=== PATIENT | female | born 1975 | race Native Hawaiian/Other Pacific Islander ===

== ENCOUNTER → 2016-11-10 | Outpatient (CLI) | payer OTHER ==
--- NOTE | 2016-11-11 07:56 | US ---
EXAMINATION TYPE: US kidneys/renal and bladder DATE OF EXAM: 11/10/2016 4:28 PM COMPARISON: NONE CLINICAL HISTORY: mid/low back pain. EXAM MEASUREMENTS: Right Kidney: 12.1 x 3.9 x 5.8 cm Left Kidney: 11.8 x 5.8 x 7.5 cm ANATOMY: TECHNOLOGIST IMPRESSION: morbidly obese patient limiting exam Right Kidney: No hydronephrosis or masses seen Left Kidney: No hydronephrosis or masses seen Bladder: within normal limits Bilateral Jets seen: yes There is no evidence for hydronephrosis at this point in time. No nephrolithiasis is seen. No ian s are identified. The urinary bladder is anechoic. Bilateral ureteral jets are seen. The kidneys appear morphologically normal IMPRESSION: Normal renal ultrasound. Normal Values: Renal Length = 9 - 12cm Bladder Wall: < 0.3cm
== END | disposition home or self-care (01) ==
LOC: RADUSWWP 16:09
PROVIDERS: ATTEND Family Medicine
DX: M54.5 Low back pain (principal)
CPT/HCPCS: 76770

== ENCOUNTER → 2017-09-22 | Outpatient (CLI) | payer OTHER ==
--- NOTE | 2017-09-22 09:47 | US ---
EXAMINATION TYPE: US abdomen limited DATE OF EXAM: 09/22/2017 COMPARISON: CT abdomen 09/22/2017 CLINICAL HISTORY: R10.11 RUQ abd pain. EXAM MEASUREMENTS: Liver Length: 21.5 cm Gallbladder Wall: 0.6 cm CBD: 0.3 cm Right Kidney: 13.8 x 4.6 x 5.7 cm Morbidly obese patient, technically difficult. Pancreas: partially obscured by bowel gas, portions visualized wnl Liver: Unable to penetrate, increased attenuation, decreased visualization of vessels suggestive of fatty infiltrate, enlarged Gallbladder: difficult to visualize appears small and contracted wall is somewhat thick, possible sl udge Evidence for sonographic Craig's sign: No CBD: wnl Right Kidney: portions of inferior pole and superior pole obscured by overlying bowel gas, no hydro identified and cortical medullary differentiation is maintained. There is no ascites. IMPRESSION: Hepatic steatosis, hepatomegaly. Exam is limited. Correlate to exclude cholecystitis, gal lbladder wall may be contracted, the wall is thickened. Difficult to exclude some luminal tumefactive sludge.
--- NOTE | 2017-09-22 10:46 | CT ---
EXAMINATION TYPE: CT abdomen wo con DATE OF EXAM: 09/22/2017 COMPARISON: NONE HISTORY: RUQ pain CT DLP: 1907.9 mGycm Automated exposure control for dose reduction was used. TECHNIQUE: Helical acquisition of images was performed from the lung bases through the top of iliac crest to include entire abdomen. CONTRAST: Performed without Oral Contrast and without IV contrast. FINDINGS: LUNG BASES: Subsegmental changes at the lung bases suggestive of atelectasis. LIVER/GB: There is reduced in attenuation correlate for hepatic steatosis. Area of increased density along the caridad hepatis likely related to focal fatty sparing. PANCREAS: No significant abnormality is seen. SPLEEN: No significant abnormality is seen. ADRENALS: No significant abnormality is seen. KIDNEYS: No significant abnormality is seen. BOWEL: No significant abnormality is seen. LYMPH NODES: No significant abnormality is appreciated. OSSEOUS STRUCTURES: Hypertrophic and degenerative changes noted.. FREE AIR: No free air is visualized. OTHER: Aorta of normal caliber. IMPRESSION: 1. Hepatic steatosis 2. No definite acute abnormality. If there is concern for gastric abnormality than direct visualizati on would be suggested as clinically warranted.
== END | disposition home or self-care (01) ==
LOC: RADCTMAIN 07:42
PROVIDERS: ATTEND Family Medicine
DX: K76.0 Fatty (change of) liver, not elsewhere classified (principal); R16.0 Hepatomegaly, not elsewhere classified
CPT/HCPCS: 74150; 76705

== ENCOUNTER → 2017-11-09 | Outpatient (CLI) | payer OTHER ==
--- NOTE | 2017-11-09 18:48 | NM ---
EXAMINATION TYPE: NM hepatobiliary w EF DATE OF EXAM: 11/09/2017 COMPARISON: NONE HISTORY: Abdominal pain TECHNIQUE: After the intravenous administration of 5.1 mCi Tc 99m Mebrofenin hepatobiliary scintigrap hy is performed. Immediate images post injection. FINDINGS: There is prompt uptake of the tracer by the liver that has normal size and contour. There is tracer i n the gallbladder at 8 minutes and tracer in the small bowel at 40 minutes. There is no evidence of d uctal obstruction. Tracers cleared from the liver at 60 minutes. The poststimulation images show gall bladder ejection fraction of 81% which is normal. IMPRESSION: Normal exam. Normal gallbladder ejection fraction.
== END | disposition home or self-care (01) ==
LOC: RADNMMAIN 14:48
PROVIDERS: ATTEND Family Medicine
DX: R10.84 Generalized abdominal pain (principal)
CPT/HCPCS: 78226; A9537

== ENCOUNTER 2018-01-04 07:30 | Day surgery (SDC) | payer OTHER ==
[2017-12-31 16:10] VITALS: BMI 57.6
[~2018-01-04 07:30] MED LIST: DEXAMETHASONE SOD PHOSPHATE 10 MG/ML 1 ML VIAL IV ONE; LACTATED RINGERS 1,000 ML IV SCH; ONDANSETRON 4 MG/2 ML VIAL IVP ONE; ONDANSETRON 4 MG/2 ML VIAL IVP PRN
[2018-01-04 07:42] VITALS: TEMP 98.2
[2018-01-04] MEDS ORDERED: LIDOCAINE 1% 20 ML VIAL (10MG/ML) FOR IV START INTRADERMA ONE (07:56)
[2018-01-04 08:00] LABS: Glucose,Whole Blood 110 mg/dL (75-99)
[2018-01-04] MEDS ORDERED: PROPOFOL 10 MG/ML 20 ML VIAL IV ONE (08:33)
[2018-01-04] MEDS ORDERED: LIDOCAINE 1% INJ 10MG/ML (20 ML MDV) ONE (08:33)
[2018-01-04] MEDS ORDERED: KETAMINE 10 MG/ML 20 ML VIAL ONE (08:33)
[2018-01-04] MEDS ORDERED: fentaNYL (PF) 50 MCG/ML 2 ML AMP ONE (08:33)
[2018-01-04 09:10] VITALS: RESP 16
--- NOTE | 2018-01-04 09:20 | P.PCN ---
Date of Procedure: 01/04/18 Procedure(s) Performed: Procedures: 1. Esophagogastroduodenoscopy and biopsy. 2. Total colonoscopy. Preoperative diagnosis: Epigastric and abdominal pain and change in bowel habits. Postoperative diagnosis: 1. Mild antral gastritis. 2. Normal colon exam. 3. Biopsies obtained from the duodenum, antrum and esophagus. Preparation: HalfLytely prep. Sedation: Was provided by anesthesia. Brief clinical history: The patient is a 42-year-old female who is referred for this evaluation because of epigastric and abdominal pain and issues with constipation over the last year or so. She denies nausea, vomiting or bleeding. Procedure: With the patient on her left lateral decubitus position and after informed consent and adequate sedation, I passed the Olympus-GIF 160 video upper endoscope through the cricopharyngeus down the esophagus. GE junction was around 40 cm from the incisors. There was no definite hiatal hernia. The esophagus did not show any erosions, ulcers, strictures or Philippe's esophagus. The endoscope was then passed into the stomach which was insufflated with air and inspected in detail including the retroflex view in the cardia. There was some mottling and erythema in the antrum but no ulcers or erosions. Pyloric channel, duodenal bulb, post bulbar area and descending duodenum appeared within normal limits. Because of her symptoms, I obtained biopsies from the duodenum, antrum and esophagus then the endoscope was withdrawn and I proceeded to do colonoscopy. Perianal area did not show any fissures or fistulas. There were no masses felt on digital rectal examination. The Olympus CFQ 160L video colonoscope was then inserted in the rectum in the usual fashion and advanced to the cecum. I intubated briefly the ileocecal valve and it did not show any abnormalities. The preparation of the colon was less than ideal but there was no obvious abnormalities noted. I retroflexed the endoscope in the rectum before the endoscope was withdrawn. The patient tolerated the procedure well. Plan: The patient was reassured. Will await pathology results and make further plans based on her course and biopsy results. She will follow-up with you as planned and I will be happy to see in the office of his symptoms persist.
[2018-01-04 09:30] VITALS: BP 124/77; PULSE 96
== END 2018-01-04 10:14 | disposition home or self-care (01) ==
LOC: ORWHC2ENDO 07:30
DX: K59.00 Constipation, unspecified (principal); K29.50 Unspecified chronic gastritis without bleeding; E11.9 Type 2 diabetes mellitus without complications; Z79.4 Long term (current) use of insulin; I10 Essential (primary) hypertension; E66.01 Morbid (severe) obesity due to excess calories; Z68.43 Body mass index [BMI] 50.0-59.9, adult; Z79.891 Long term (current) use of opiate analgesic; Z79.899 Other long term (current) drug therapy
CPT/HCPCS: 88305; 88342; 45378; 43239; J2001; J3010; J2704

== ENCOUNTER → 2019-01-11 | Outpatient (CLI) | payer OTHER ==
--- NOTE | 2019-01-11 17:55 | ECHOF ---
Referral Reason:R06.02 Shotness of breath, Ankle edema R60.0 MEASUREMENTS -------- HEIGHT: 157.5 cm WEIGHT: 154.2 kg BP: RVIDd: 3.0 cm (< 3.3) IVSd: 1.5 cm (0.6 - 1.1) LVIDd: 4.0 cm (3.9 - 5.3) LVPWd: 1.5 cm (0.6 - 1.1) IVSs: 1.9 cm LVIDs: 2.4 cm LVPWs: 1.9 cm LAESV Index (A-L): 18.77 ml/m Ao Diam: 3.2 cm (2.0 - 3.7) AV Cusp: 1.7 cm (1.5 - 2.6) LA Diam: 4.4 cm (2.7 - 3.8) MV EXCURSION: 16.399 mm (> 18.000) MV EF SLOPE: 47 mm/s (70 - 150) EPSS: 0.4 cm MV E Wilmar: 0.80 m/s MV DecT: 251 ms MV A Wilmar: 1.47 m/s MV E/A Ratio: 0.54 RAP: 5.00 mmHg RVSP: 11.16 mmHg FINDINGS -------- Sinus rhythm. This was a technically difficult study with suboptimal views. The left ventricular size is normal. There is moderate concentric left ventricular hypertrophy. O verall left ventricular systolic function is normal with, an EF between 55 - 60 %. The right ventricle is normal in size and function. Normal LA size by volume 22+/-6 ml/m2. The right atrium is normal in size. 3 ml of Lumason was utilized for enhancement of images. The aortic valve is trileaflet, and appears structurally normal. No aortic stenosis or regurgitation. The mitral valve leaflets are mildly thickened. There is trace to mild mitral regurgitation. Trace tricuspid regurgitation present. Right ventricular systolic pressure is normal at < 35 mmHg. There is no evidence of pulmonary hypertension. The pulmonic valve was not well visualized. The aortic root size is normal. IVC Not well visulized. There is no pericardial effusion. CONCLUSIONS -------- 1. Sinus rhythm. 2. This was a technically difficult study with suboptimal views. 3. The left ventricular size is normal. 4. There is moderate concentric left ventricular hypertrophy. 5. Overall left ventricular systolic function is normal with, an EF between 55 - 60 %. 6. Normal LA size by volume 22+/-6 ml/m2. 7. 3 ml of Lumason was utilized for enhancement of images. 8. The aortic valve is trileaflet, and appears structurally normal. No aortic stenosis or regurgitati on. 9. The mitral valve leaflets are mildly thickened. 10. There is trace to mild mitral regurgitation. 11. Trace tricuspid regurgitation present. 12. Right ventricular systolic pressure is normal at < 35 mmHg. 13. There is no evidence of pulmonary hypertension. 14. The pulmonic valve was not well visualized. 15. The aortic root size is normal. 16. IVC Not well visulized. 17. There is no pericardial effusion. DEV TECHNICAL MGR: Melecio Amaro RDCS
== END | disposition home or self-care (01) ==
LOC: RADECHMAIN 08:29
PROVIDERS: ATTEND Family Medicine
DX: I34.0 Nonrheumatic mitral (valve) insufficiency (principal); I51.7 Cardiomegaly; R60.0 Localized edema
CPT/HCPCS: C8929; Q9950; 93306

== ENCOUNTER → 2020-12-06 | Outpatient (CLI) | payer OTHER | END | disposition home or self-care (01) | LOC: LABWHC1 16:51 | PROVIDERS: ATTEND Family Medicine | DX: J06.9 Acute upper respiratory infection, unspecified (principal) | CPT/HCPCS: U0003; C9803 ==

== ENCOUNTER → 2022-04-10 | Outpatient (CLI) | payer OTHER ==
--- NOTE | 2022-04-11 04:38 | MR ---
EXAMINATION TYPE: MR knee RT wo con DATE OF EXAM: 04/10/2022 COMPARISON: None HISTORY: Right knee pain, locking, and swelling for 4 months due to fall, history of surgery. Multiplanar multi echo imaging of the right knee without contrast. There is knee joint effusion. There is some narrowing of the medial joint space. There is spurring of the femoral and tibial condyles. There is previous reconstructive surgery. There is metal artifact. The posterior cruciate ligament is intact. Anterior cruciate ligament is probably reconstructed and a ppears intact. The patella tendon is intact there is some thinning of the medial meniscus. There is e xtensive complex tear of the lateral meniscus with thinning. There is abnormal increased signal in th e medial collateral ligament. Lateral collateral ligament appears intact. IMPRESSION: Anterior cruciate ligament reconstructive surgery. There is evidence of a tear of the medial collater al ligament. There is extensive complex tear of the lateral meniscus. There is hypertrophic osteoarth ritis with joint space narrowing and spurring of the femoral and tibial condyles. There is a tear of the posterior horn of the medial meniscus which shows some truncation and horizontal tear. Small joint effusion.
== END | disposition home or self-care (01) ==
LOC: RADMRIMAIN 18:58
PROVIDERS: ATTEND Orthopaedic Surgery
DX: S83.411A Sprain of medial collateral ligament of right knee, initial encounter (principal); S83.271A Complex tear of lateral meniscus, current injury, right knee, initial encounter; M25.461 Effusion, right knee; M17.11 Unilateral primary osteoarthritis, right knee; X58.XXXA Exposure to other specified factors, initial encounter

== ENCOUNTER → 2022-04-29 | Outpatient (CLI) | payer OTHER ==
[2022-04-29 16:01] VITALS: BP 142/82; PULSE 85; TEMP 98.5; BMI 56.3
--- NOTE | 2022-04-29 16:41 | P.HPBAR ---
Bariatric H&P - History & Physicial H&P Date: 04/29/22 History & Physicial: Visit/CC: new patient Patient initial contact: Initial weight: Initial weight in pounds: Height: 5 ft 3 in Initial BMI: Last weight: Current weight: 144.242 kg Current weight in pounds: 318.00 Current BMI: 56.3 [place] body weight (based on NIH guidelines): 52.163 kg Excess body weight loss: The patient is a 46 year-old F who presents for Bariatric Assessment. She is looking into gastrectomy. All family but father has obesity. She has tried weight watchers and pills. Most weight loss of 40 pounds. She was 343 pounds. She has lower back pain. She has knee pain. She has ankle pain. She has foot pain. She has sleep apnea. She has constipation. No IBS in family. She is under medical supervised weight. Colon screen is recommend. All risks. Past Medical History Past Medical History: Diabetes Mellitus, Hypertension Additional Past Medical History / Comment(s): CURRENT: MID BACK PAIN, RIGHT SIDE. INSULIN DEPENDENT. History of Any Multi-Drug Resistant Organisms: None Reported Past Surgical History: Section, Hysterectomy, Orthopedic Surgery Additional Past Surgical History / Comment(s): CARPAL TUNNEL BILATERAL. ABSCESS ON ABD (I & D, PACKING) @ [facility] (CAN'T REMEMBER CULTURE RESULTS). Right knee surgery x 2 Past Anesthesia/Blood Transfusion Reactions: No Reported Reaction Past Psychological History: No Psychological Hx Reported Smoking Status: Never smoker Past Alcohol Use History: Rare Past Drug Use History: None Reported Surgical - Exam Vital Signs Temp Pulse BP 98.5 F 85 142/82 04/29/22 15:50 04/29/22 15:50 04/29/22 15:50 Bariatric Checklist Checklist: Plan: Checklist: EGD: 1. Hiatal hernia: 2. H. Pylori: HgbA1c: Vitamin D: Smoking: Never smoker Primary care physician referral: Dr. Hernandez Psychiatry clearance: Cardiology clearance: Sleep study: Diet journal: VTE risk score: VTE risk level: Rehab needs at discharge:
== END | disposition home or self-care (01) ==
LOC: BARWHC3 14:45
PROVIDERS: ATTEND Surgery Plastic and Reconstructive Surgery
DX: Z48.815 Encounter for surgical aftercare following surgery on the digestive system (principal)
CPT/HCPCS: 99212

== ENCOUNTER → 2022-04-30 | Outpatient (CLI) | payer OTHER ==
[2022-04-30 13:17] LABS: INR 0.9 (<1.2); Partial Thromboplastin Time 25.9 sec (22.0-30.0); Prothrombin Time 10.3 sec (9.0-12.0)
[2022-04-30 18:36] LABS: HCT 48.5 % (37.2-46.3); HGB 15.1 g/dL (12.0-15.0); MCH 27.5 pg (27.0-32.0); MCHC 31.1 g/dL (32.0-37.0); MCV 88.2 fL (80.0-97.0); Mean Platelet Volume 10.1 fL (9.5-12.2); NRBC Per 100 WBC 0 /100 WBCS (0.0-0.0); Platelet Count 369 X 10*3/uL (140-440); RDW 14.3 % (11.5-14.5); WBC 9.69 X 10*3/uL (4.50-10.00)
[2022-04-30 19:01] LABS: % Iron Saturation 16.85 (12.00-45.00); ALT 32 U/L (8-44); AST 20 U/L (13-35); African American GFR (CKD) 125.2 (60.0-200.0); Albumin 4.3 g/dL (3.8-4.9); Albumin/Globulin Ratio 1.57 (1.60-3.17); Alkaline Phosphatase 109 U/L (41-126); BUN/Creat Ratio 28.93 Ratio (12.00-20.00); Blood Urea Nitrogen 18.4 mg/dL (9.0-27.0); Calcium 9.6 mg/dL (8.7-10.3); Carbon Dioxide 26.8 mmol/L (20.0-27.5); Chloride 103 mmol/L (96-109); Globulin 2.8 g/dL (1.6-3.3); Glucose 133 mg/dL (70-110); Iron 61 ug/dL (50-170); Magnesium 2.1 mg/dL (1.5-2.4); Phosphorus 3.4 mg/dL (2.4-5.1); Potassium 4.1 mmol/L (3.5-5.5); Sodium 141 mmol/L (135-145); Total Iron Binding Capacity 363 ug/dL (228-460); Total Protein 7.1 g/dL (6.2-8.2)
[2022-04-30 19:04] LABS: Chol/HDL Ratio 4.78 Ratio; LDL Cholesterol,Calculated 125.4 mg/dL (0.0-131.0); Prealbumin 20.5 mg/dL (18.0-42.0)
[2022-05-01 15:39] LABS: Zinc, Serum 55 ug/dL (60-130)
[2022-05-04 08:26] LABS: Anabasine Urine <2.0 ng/mL (<2.0)
[2022-05-04 14:11] LABS: Vit B1(Thiamine) 127 ug/L (38-122)
[2022-05-05 10:10] LABS: Vitamin A 43 ug/dL (38-106)
[2022-05-05 17:59] LABS: Selenium 153 mcg/L (63-160)
== END | disposition home or self-care (01) ==
LOC: LABWHC1 11:41
PROVIDERS: ATTEND Surgery Plastic and Reconstructive Surgery
DX: E66.01 Morbid (severe) obesity due to excess calories (principal)
CPT/HCPCS: 84255; 84134; 84425; 80061; 80053; 82607; 82728; 82525; 82746; 83540; 83550; 83735; 84100; 84443; 84590; 84630; 85027; 85610; 85730; 82306; 83970; 83036; 93005; 36415; G0480 ×3; 80307; 80320; 80323; 80364

== ENCOUNTER 2022-08-21 11:39 | Day surgery (SDC) | payer OTHER ==
--- NOTE | 2022-08-20 12:03 | P.HPOR ---
History of Present Illness H&P Date: 08/20/22 Chief Complaint: Right knee pain The patient is a 47-year-old female who presents with right knee pain for the past 6 months. She notes she's had multiple falls. She notes the knee gives out and feels unstable. She has intermittent swelling along with locking and giving way. She tried medications in addition to an injection partial temporary relief. She notes daily pain that limits her. Review of Systems As per HPI Past Medical History Past Medical History: Diabetes Mellitus, Hyperlipidemia, Hypertension Additional Past Medical History / Comment(s): CURRENT: MID BACK PAIN, RIGHT SIDE. INSULIN DEPENDENT. Rt hand carpal tunnel issues and rt trigger finger issues History of Any Multi-Drug Resistant Organisms: None Reported Past Surgical History: Section, Hysterectomy, Orthopedic Surgery Additional Past Surgical History / Comment(s): CARPAL TUNNEL BILATERAL. ABSCESS ON ABD (I & D, PACKING) @ [facility] (CAN'T REMEMBER CULTURE RESULTS). Right knee surgery(ACL reconstruction) x 2, COLONOSCOPY Past Anesthesia/Blood Transfusion Reactions: No Reported Reaction Smoking Status: Never smoker - Past Family History Mother Family Medical History: Cancer Medications and Allergies Home Medications Medication Instructions Recorded Confirmed Type Losartan Potassium 100 mg PO QAM 12/17/17 08/19/22 History Atorvastatin Calcium 10 mg PO DAILY 04/29/22 08/19/22 History Dapagliflozin/Metformin HCl 1 tab PO DAILY 04/29/22 08/19/22 History [Xigduo Xr 10 mg-1,000 mg Tab] Dulaglutide [Trulicity] 4.5 mg SQ ROMAN 04/29/22 08/19/22 History Furosemide [Lasix] 40 mg PO BID 04/29/22 08/19/22 History Insulin Regular, Human [humulin R See Protocol SQ DIRECTED PRN 04/29/22 08/19/22 History U-500 Kwikpen] Spironolactone 25 mg PO DAILY 04/29/22 08/19/22 History buPROPion [Wellbutrin] 75 mg PO DAILY 06/11/22 08/19/22 History HYDROcodone/APAP 5-325MG [Carman 1 tab PO Q12HR PRN 08/19/22 08/19/22 History 5-325] lamoTRIgine 200 mg PO DAILY 08/19/22 08/19/22 History Allergies Allergy/AdvReac Type Severity Reaction Status Date / Time No Known Allergies Allergy Verified 08/19/22 11:32 Physical Examination - Knee right Appearance: ecchymosis Effusion grade: grade 2 Tenderness with palpation: medial, lateral Pain: with flexion Gait: limping ROM: extension: -10 degrees ROM: flexion: 65 degrees Strength: extension: 5/5 Strength: flexion: 5/5 ACL tests: anterior drawer: grade 1, Tj's: grade 1 Results The patient is a well-developed well-nourished female proximal and 5 foot 2, 318 pounds of endomorphic habitus. HEENT exam is nonfocal, neck is supple. She has painless passive motion of the right hip. Straight leg raise is negative. Her distal neurovascular appears intact in the right lower extremity. - Diagnostic results Knee MRI: image reviewed (Right knee MRI shows evidence of complex tear involving the posterior horn lateral meniscus along with a tear involving the posterior medial meniscus. Previous ACL reconstruction is noted) Assessment and Plan Assessment: Right knee internal derangement/symptomatic medial and lateral meniscal tears History of right knee ACL reconstruction Obesity Plan: I talked to the patient regarding her condition along with treatment options. At this point she is quite symptomatic having pain and mechanical symptoms despite previous conservative measures. After thorough discussion she opted to proceed with surgery. We'll plan to proceed arthroscopic evaluation with enrique rios partial medial and lateral meniscectomy. We will evaluate her ACL graft, however not consider revision reconstruction at this point. We will likely perform this as an outpatient procedure. Risks and benefits were discussed at length in layman's terms. Time with Patient: Less than 30
[~2022-08-21 11:39] MED LIST changes: -DEXAMETHASONE SOD PHOSPHATE 10 MG/ML 1 ML VIAL IV ONE; +DEXAMETHASONE SOD PHOSPHATE 4 MG/ML 1 ML VIAL IV ONE; +HYDROmorphone 0.5 MG/0.5 ML SYRINGE IVP PRN; +MIDAZOLAM 2 MG/2 ML VIAL IV PRN; -ONDANSETRON 4 MG/2 ML VIAL IVP PRN; +SCOPOLAMINE 1 MG/72 HR PATCH TRANSDERM ONE; +ceFAZolin 3 GM in SODIUM CHLORIDE 0.9% 100 ML IVPB PRN
[2022-08-21 12:39] LABS: Glucose,Whole Blood 212 mg/dL (70-110)
[2022-08-21] MEDS ORDERED: MIDAZOLAM 2 MG/2 ML VIAL ONE (13:00)
[2022-08-21] MEDS ORDERED: PROPOFOL 10 MG/ML 20 ML VIAL IV ONE (13:00)
[2022-08-21] MEDS ORDERED: ALBUTEROL INHALER 60 PUFF/8 GM INHALER (MHU) INHALATION ONE (13:00)
[2022-08-21] MEDS ORDERED: fentaNYL (PF) 50 MCG/ML 2 ML AMP ONE (13:00)
[2022-08-21] MEDS ORDERED: SUCCINYLCHOLINE CHLORIDE 200 MG/10 ML VIAL IV ONE (13:00)
[2022-08-21] MEDS ORDERED: LIDOCAINE 2% INJ 20 MG/ML (2 ML VIAL) ONE (13:00)
[2022-08-21] MEDS ORDERED: HYDROmorphone (PF) 1 MG/ML ONE (13:00)
--- NOTE | 2022-08-21 13:56 | P.OP ---
Date of Procedure: 08/21/22 Preoperative Diagnosis: Right knee internal derangement Postoperative Diagnosis: Right knee posterior medial meniscal tear/posterior lateral meniscal tear/partial ACL tear Procedure(s) Performed: Right knee arthroscopic partial medial meniscectomy/partial lateral meniscectomy/ACL debridement Anesthesia: BAYLEEA Surgeon: Dash Aragon Estimated Blood Loss (ml): 10 Pathology: none sent Condition: stable Disposition: PACU Indications for Procedure: The patient's a 47-year-old female who presents with progressive right knee pain after recent injury despite attempted conservative measures. A discussion of the risks and benefits of operative intervention versus continued conservative measures was made with patient. She opted to proceed with surgery. Operative risks to include infection, neurovascular injury, development of blood clots, possible incomplete resolution of symptoms, possible worsening symptoms and need for subsequent procedures was discussed. Informed consent was obtained. Operative Findings: As below Description of Procedure: The patient was brought to the operating room, and after induction of general anesthesia examined the right knee. Collaterals were stable, Tj was negative, and posterior drawer was negative. The right lower extremity was prepped and draped in a normal fashion. A superior lateral portal was made through a 3 mm skin incision superior and lateral to the patella. This was used for outflow. A lateral portal was made through a 5 mm vertical skin incision lateral to the patella tendon above the joint line. Diagnostic arthroscopy was performed. On inspection of the medial compartment, oblique tear involving the posterior horn of the medial meniscus in the white-red junction was noted. This was debrided back to stable base with straight baskets and a motorized shaver. Grade 2-3 chondral changes were noted diffusely in the medial compartment. On inspection of the notch, the anterior cruciate ligament appeared to be partially torn. The torn fibers were debrided with motorized shaver. The remaining graft appeared to be stable. On inspection of the lateral compartment, a complex tear involving the anterior to posterior horn was noted. This was in the whitered junction. This debrided back to stable base with straight baskets and a motorized shaver. Corresponding grade 3 chondral changes were noted diffusely in the lateral compartment. On inspection of the patellofemoral articulation there was grade 2-3 chondral changes.. The gutters were clear debris. The knee was then thoroughly irrigated. The portals were closed with Steri-Strips. A sterile dressing was applied in addition to a compression stocking. The patient was awoken from general anesthesia and transferred to recovery room in good condition. Blood loss was estimated at 10 mL. No complications were incurred.
[2022-08-21 14:13] VITALS: TEMP 97.2
[2022-08-21 16:33] VITALS: BP 145/85; PULSE 80; RESP 20
== END 2022-08-21 16:25 | disposition home or self-care (01) ==
LOC: OR 11:39
PROVIDERS: ATTEND Orthopaedic Surgery
DX: S83.241A Other tear of medial meniscus, current injury, right knee, initial encounter (principal); S83.281A Other tear of lateral meniscus, current injury, right knee, initial encounter; S83.511A Sprain of anterior cruciate ligament of right knee, initial encounter; M23.91 Unspecified internal derangement of right knee; E11.9 Type 2 diabetes mellitus without complications; E78.5 Hyperlipidemia, unspecified; I10 Essential (primary) hypertension; Z79.4 Long term (current) use of insulin; Z79.890 Hormone replacement therapy; Z79.899 Other long term (current) drug therapy; E66.9 Obesity, unspecified
CPT/HCPCS: 29880; J2250; J0330; J1100; J0690; J2405; J3010; J1170 ×2; J2704; J2001

== ENCOUNTER 2022-10-07 07:07 | Day surgery (SDC) | payer OTHER ==
[2022-10-05 13:47] VITALS: BMI 55.4
[2022-10-07] MEDS ORDERED: LIDOCAINE 1% (10MG/ML) FOR IV START INTRADERMA PRN (07:25)
[2022-10-07] MEDS ORDERED: LACTATED RINGERS 1,000 ML IV SCH (07:25)
[2022-10-07 07:34] VITALS: RESP 20; TEMP 97.3
[2022-10-07] MEDS ORDERED: LIDOCAINE 2% INJ 20 MG/ML (2 ML VIAL) ONE (07:41)
[2022-10-07] MEDS ORDERED: GLYCOPYRROLATE 0.2 MG/ML 2 ML VIAL ONE (07:41)
[2022-10-07] MEDS ORDERED: KETAMINE 10 MG/ML 20 ML VIAL ONE (07:41)
[2022-10-07] MEDS ORDERED: PROPOFOL 10 MG/ML 20 ML VIAL IV ONE (07:41)
[2022-10-07 07:45] LABS: Glucose,Whole Blood 181 mg/dL (70-110)
--- NOTE | 2022-10-07 07:45 | P.GSHP ---
History of Present Illness H&P Date: 10/07/22 CHIEF COMPLAINT: GERD HISTORY OF PRESENT ILLNESS: The patient is a 47-year-old female who presents reports gastroesophageal reflux disease. Upper endoscopy was offered for further evaluation and management. PAST MEDICAL HISTORY: Please see list. PAST SURGICAL HISTORY: Please see list. MEDICATIONS: Please see list. ALLERGIES: Please see list. SOCIAL HISTORY: No illicit drug use FAMILY HISTORY: No reports of Crohn disease or ulcerative colitis. REVIEW OF ORGAN SYSTEMS: CONSTITUTIONAL: No reports of fevers or chills. GI: Denies any blood in stools or constipation. PHYSICAL EXAM: VITAL SIGNS: Stable GENERAL: Well-developed and pleasant in no acute distress. HEENT: No scleral icterus. Extraocular movements grossly intact. Moist buccal mucosa. NECK: Supple without lymphadenopathy. CHEST: Unlabored respirations. Equal bilateral excursions. CARDIOVASCULAR: Regular rate and rhythm. Distal 2+ pulses. ABDOMEN: Soft, nondistended. MUSCULOSKELETAL: No clubbing, cyanosis, or edema. ASSESSMENT: 1. Gastroesophageal reflux disease PLAN: 1. Recommend proceeding with an upper endoscopy Past Medical History Past Medical History: Diabetes Mellitus, Hyperlipidemia, Hypertension Additional Past Medical History / Comment(s): CURRENT: MID BACK PAIN, RIGHT SIDE. INSULIN DEPENDENT. History of Any Multi-Drug Resistant Organisms: None Reported Past Surgical History: Section, Hysterectomy, Orthopedic Surgery Additional Past Surgical History / Comment(s): CARPAL TUNNEL BILATERAL. ABSCESS ON ABD (I & D, PACKING) @ [facility] (CAN'T REMEMBER CULTURE RESULTS). Right knee surgery x 2, COLONOSCOPY Past Anesthesia/Blood Transfusion Reactions: No Reported Reaction Past Psychological History: No Psychological Hx Reported - Past Family History Mother Family Medical History: Cancer Medications and Allergies Home Medications Medication Instructions Recorded Confirmed Type Losartan Potassium 100 mg PO QAM 12/17/17 10/07/22 History Dapagliflozin/Metformin HCl 1 tab PO DAILY 04/29/22 10/07/22 History [Xigduo Xr 10 mg-1,000 mg Tab] Dulaglutide [Trulicity] 4.5 mg SQ ROMAN 04/29/22 10/07/22 History Furosemide [Lasix] 40 mg PO BID 04/29/22 10/07/22 History Insulin Regular, Human [humulin R 70 unit SQ BID 04/29/22 10/07/22 History U-500 Kwikpen] buPROPion [Wellbutrin] 75 mg PO DAILY 06/11/22 10/07/22 History lamoTRIgine 200 mg PO DAILY 08/19/22 10/07/22 History Diclofenac Sodium [Voltaren] 75 mg PO DAILY 10/05/22 10/07/22 History Montelukast [Singulair] 10 mg PO DAILY 10/05/22 10/07/22 History Allergies Allergy/AdvReac Type Severity Reaction Status Date / Time No Known Allergies Allergy Verified 10/07/22 07:39 Surgical - Exam Vital Signs Temp Pulse Resp BP Pulse Ox 97.3 F L 86 20 158/81 96 10/07/22 07:31 10/07/22 07:31 10/07/22 07:31 10/07/22 07:31 10/07/22 07:31
--- NOTE | 2022-10-07 08:01 | P.PCN ---
Date of Procedure: 10/07/22 Description of Procedure: PREOPERATIVE DIAGNOSIS: Gastroesophageal reflux disease. Morbid obesity. POSTOPERATIVE DIAGNOSIS: Gastroesophageal reflux disease. Morbid obesity. Gastritis. Gastroparesis Duodenitis OPERATION: Esophagogastroduodenoscopy with biopsies along antrum and duodenum SURGEON: Mercedes Dubon MD ANESTHESIA: MAC. INDICATIONS: The patient is a 47-year-old female who presents with reflux disease. Benefits and risks of the procedure were described. Informed consent was obtained. DESCRIPTION: The patient was brought into the endoscopy suite and laid in the left lateral decubitus position. An Olympus gastroscope was passed along the posterior oropharynx down to the distal esophagus where the squamocolumnar junction was encountered at 40 cm from the incisors. The stomach was entered and no bile reflux was found. Additional findings are listed below. Biopsies with cold forceps were obtained of the antrum. The first through third portion of the duodenum was examined. Retroflexion of the scope confirmed Hill grade 2 lower esophageal valve. The squamocolumnar junction demonstrated LA grade B erosive esophagitis. The stomach was desufflated. The patient tolerated the procedure well. FINDINGS: Squamocolumnar junction 39 cm from the incisors. Diaphragmatic hiatus at 39 cm. Retained food along the gastric cardia for gastroparesis Moderate tonsillar hypertrophy, Mallampati 3/4 Hill grade 2 lower esophageal valve. LA grade B erosive esophagitis. Duodenitis with biopsies obtained Chronic gastritis with biopsies obtained RECOMMENDATIONS: Upper endoscopy as needed. Plan - Discharge Summary Discharge Rx Participant: No New Discharge Prescriptions: Continue Losartan Potassium 100 mg PO QAM Dapagliflozin/Metformin HCl [Xigduo Xr 10 mg-1,000 mg Tab] 1 tab PO DAILY Dulaglutide [Trulicity] 4.5 mg SQ ROMAN lamoTRIgine 200 mg PO DAILY Diclofenac Sodium [Voltaren] 75 mg PO DAILY Furosemide [Lasix] 40 mg PO BID Insulin Regular, Human [humulin R U-500 Kwikpen] 70 unit SQ BID buPROPion [Wellbutrin] 75 mg PO DAILY Montelukast [Singulair] 10 mg PO DAILY Discharge Medication List Losartan Potassium 100 mg PO QAM 12/17/17 [History] Dapagliflozin/Metformin HCl [Xigduo Xr 10 mg-1,000 mg Tab] 1 tab PO DAILY 04/29/22 [History] Dulaglutide [Trulicity] 4.5 mg SQ ROMAN 04/29/22 [History] Furosemide [Lasix] 40 mg PO BID 04/29/22 [History] Insulin Regular, Human [humulin R U-500 Kwikpen] 70 unit SQ BID 04/29/22 [History] buPROPion [Wellbutrin] 75 mg PO DAILY 06/11/22 [History] lamoTRIgine 200 mg PO DAILY 08/19/22 [History] Diclofenac Sodium [Voltaren] 75 mg PO DAILY 10/05/22 [History] Montelukast [Singulair] 10 mg PO DAILY 10/05/22 [History] Follow up [facility]ment[facility] [place] [facility] Patient Instructions/Handouts: Gastroparesis (ED) Discharge Disposition: HOME SELF-CARE
[2022-10-07 08:16] VITALS: BP 174/74; PULSE 90
[2022-10-07 08:19] LABS: Glucose,Whole Blood 183 mg/dL (70-110)
== END 2022-10-07 08:59 | disposition home or self-care (01) ==
LOC: ORWHC2ENDO 07:07
PROVIDERS: ATTEND Surgery Plastic and Reconstructive Surgery
DX: K29.50 Unspecified chronic gastritis without bleeding (principal); D72.820 Lymphocytosis (symptomatic); K21.9 Gastro-esophageal reflux disease without esophagitis; E11.43 Type 2 diabetes mellitus with diabetic autonomic (poly)neuropathy; K31.84 Gastroparesis; K29.80 Duodenitis without bleeding; E66.01 Morbid (severe) obesity due to excess calories; E78.5 Hyperlipidemia, unspecified; I10 Essential (primary) hypertension; Z79.891 Long term (current) use of opiate analgesic; Z90.710 Acquired absence of both cervix and uterus; Z98.890 Other specified postprocedural states; Z79.899 Other long term (current) drug therapy; Z79.84 Long term (current) use of oral hypoglycemic drugs; Z79.1 Long term (current) use of non-steroidal anti-inflammatories (NSAID); Z68.41 Body mass index [BMI] 40.0-44.9, adult
CPT/HCPCS: 88305; 43239; J2704; J2001

== ENCOUNTER → 2022-10-19 | Outpatient (CLI) | payer OTHER ==
--- NOTE | 2022-10-19 10:45 | XR ---
EXAMINATION TYPE: XR chest 1V DATE OF EXAM: 10/19/2022 COMPARISON: NONE HISTORY: Sleep apnea TECHNIQUE: Single frontal view of the chest is obtained. FINDINGS: There is no focal air space opacity, pleural effusion, or pneumothorax seen. The cardiac silhouette size is within normal limits. The osseous structures are intact. Hypertrophic degenerati ve change of the spine. Biapical pleural thickening. Limited inspiration. IMPRESSION: No acute process.
[2022-10-19 11:10] VITALS: BMI 55.7
== END ==
LOC: BARWHC3 08:23
PROVIDERS: ATTEND Surgery Plastic and Reconstructive Surgery
DX: E66.01 Morbid (severe) obesity due to excess calories (principal)
CPT/HCPCS: 71045; 97804

== ENCOUNTER → 2023-01-04 | Outpatient (CLI) | payer OTHER ==
[2023-01-04 10:38] VITALS: BP 137/84; PULSE 80; TEMP 98.8; BMI 50.5
== END ==
LOC: BARWHC3 10:14
PROVIDERS: ATTEND Surgery Plastic and Reconstructive Surgery
DX: E66.01 Morbid (severe) obesity due to excess calories (principal); Z68.43 Body mass index [BMI] 50.0-59.9, adult
CPT/HCPCS: 97802; G0463; 99211

== ENCOUNTER → 2023-01-27 | Outpatient (CLI) | payer OTHER ==
[2023-01-27 15:13] VITALS: BP 135/84; PULSE 78; TEMP 97.7; BMI 47.9
--- NOTE | 2023-04-11 19:07 | P.BASOAP ---
Subjective Progress Note Date: 01/27/23 DATE OF SERVICE: 01/27/2023 CHIEF COMPLAINT: Status post sleeve gastrectomy HISTORY OF PRESENT ILLNESS: Emilee Jennings is a 47-year-old female status post sleeve gastrectomy, 12/28/22. Immediately postoperatively, she had diabetic ketoacidosis. She is 1 month out. No abdominal pain. She is using gas-x. She is back on increased diabetic medications. She has epigastric fullness. Protein intake is less than 75 g daily. She is not using her maternal. At height of 5 feet 3 inches, her ideal body weight is 140 pounds. Her highest weight is 343 pounds, body mass index 60.9. She comes in 270 pounds from 279 pounds, 2 weeks ago. Her body mass index is 48.0. She is 130 pounds overweight. PHYSICAL EXAM: VITAL SIGNS: Height 5 foot 3 inches, weight 317 pounds. BMI 56.3 Vital Signs Temp 97.7 F 01/27/23 15:05 Pulse 78 01/27/23 15:05 Resp BP 135/84 01/27/23 15:05 Pulse Ox FiO2 GENERAL: Well-developed in no acute distress. HEENT: No scleral icterus. Extraocular movements grossly intact. Hears conversational speech. No nasal drainage. NECK: Supple without lymphadenopathy. CHEST: Nonlabored respirations with equal bilateral excursions. CARDIOVASCULAR: Regular rate and regular rhythm. Distal 2+ pulses. ABDOMEN: Obese, soft, nontender, nondistended. No hernias. MUSCULOSKELETAL: No clubbing, cyanosis. NEURO: No focal or lateralizing signs. Cranial nerves 2 through 12 grossly within normal limits. PSYCH: Appropriate affect. Alert and oriented to person, place and time. SKIN: Good skin turgor. Well perfused. ASSESSMENT: 1. Morbid obesity due to excess calories 2. Body mass index to 60.9 to 48.0 3. Hypertensive heart disease 4. Diabetes type 2 insulin-dependent 5. Hyperlipidemia 6. Depressive disorder 7. Osteoarthritis lower back 8. Osteoarthritis knee, bilateral 9. Osteoarthritis ankle, bilateral 10. Osteoarthritis feet, bilateral 11. Obstructive sleep apnea 12. Status post sleeve gastrectomy 13. History of diabetic ketoacidosis, hyperglycemia PLAN: 1. Tight glycemic control advised 2. Recommend bariatric labs 3. Follow 3 months postop, March 2023 Assessment/Plan Plan: Date: Initial Weight: Initial BMI: Current Weight: Current BMI: Type of Surgery: Total Volume in Band: Previous Volume: Volume Removed: Volume Added: Band Size:
== END ==
LOC: BARWHC3 13:46
PROVIDERS: ATTEND Surgery Plastic and Reconstructive Surgery
DX: E66.01 Morbid (severe) obesity due to excess calories (principal); Z71.3 Dietary counseling and surveillance; Z98.84 Bariatric surgery status; Z79.4 Long term (current) use of insulin; F32.A Depression, unspecified; F41.9 Anxiety disorder, unspecified; E78.5 Hyperlipidemia, unspecified; M17.0 Bilateral primary osteoarthritis of knee; M19.071 Primary osteoarthritis, right ankle and foot; M19.072 Primary osteoarthritis, left ankle and foot; G47.33 Obstructive sleep apnea (adult) (pediatric); E11.65 Type 2 diabetes mellitus with hyperglycemia; Z68.42 Body mass index [BMI] 45.0-49.9, adult; M47.816 Spondylosis without myelopathy or radiculopathy, lumbar region; E11.10 Type 2 diabetes mellitus with ketoacidosis without coma; I11.9 Hypertensive heart disease without heart failure
CPT/HCPCS: 99211

== ENCOUNTER → 2023-08-09 | Outpatient (CLI) | payer OTHER ==
[2023-08-09 17:11] LABS: Partial Thromboplastin Time 26.4 sec (22.0-30.0); Prothrombin Time 10.3 sec (9.0-12.0)
[2023-08-09 21:46] LABS: HCT 44.2 % (37.2-46.3); HGB 14.4 d/dL (12.0-15.0); MCHC 32.6 d/dL (32.0-37.0); MCV 89.1 FL (80.0-97.0); Mean Platelet Volume 10.6 FL (9.5-12.2); NRBC Per 100 WBC 0 X 10*3/uL (0.00-0.01); Platelet Count 303 X 10*3/uL (140-440); RBC 4.96 X 10*6/uL (4.10-5.20); RDW 13.2 % (11.5-14.5); WBC 7.41 X 10*3/uL (4.50-10.00)
[2023-08-10 00:40] LABS: Prealbumin 16.8 mg/dL (18.0-42.0)
[2023-08-10 01:10] LABS: % Iron Saturation 22.37 (12.00-45.00); ALT 13 U/L (8-44); AST 16 U/L (13-35); Albumin 4.2 d/dL (3.8-4.9); Albumin/Globulin Ratio 1.91 Ratio (1.60-3.17); Alkaline Phosphatase 70 U/L (41-126); BUN/Creat Ratio 24.86 Ratio (12.00-20.00); Blood Urea Nitrogen 17.4 mg/dL (9.0-27.0); Calcium 9.8 mg/dL (8.7-10.3); Carbon Dioxide 25.2 mmol/L (21.6-31.8); Chloride 105 mmol/L (96-109); Chol/HDL Ratio 3.67 Ratio; Globulin 2.2 d/dL (1.6-3.3); Glucose 148 mg/dL (70-110); Iron 68 UG/DL (50-170); LDL Cholesterol,Calculated 110.8 mg/dL (0.0-131.0); Magnesium 2.1 mg/dL (1.5-2.4); Potassium 3.9 mmol/L (3.5-5.5); Sodium 142 mmol/L (135-145); Total Bilirubin 0.5 mg/dL (0.3-1.2); Total Iron Binding Capacity 304 UG/DL (228-460); Total Protein 6.4 d/dL (6.2-8.2); VLDL Calculation 19.38 mg/dL (5.00-40.00)
[2023-08-10 12:00] LABS: Zinc, Serum 74 ug/dL (60-130)
[2023-08-12 06:21] LABS: Vit B1(Thiamine) 65 ug/L (38-122)
[2023-08-12 12:54] LABS: Vitamin A 32 ug/dL (38-106)
== END | disposition home or self-care (01) ==
LOC: LABWHC1 15:37
PROVIDERS: ATTEND Surgery Plastic and Reconstructive Surgery
DX: E66.01 Morbid (severe) obesity due to excess calories (principal); D50.8 Other iron deficiency anemias; K91.2 Postsurgical malabsorption, not elsewhere classified; E44.0 Moderate protein-calorie malnutrition; E44.1 Mild protein-calorie malnutrition; E45 Retarded development following protein-calorie malnutrition; E46 Unspecified protein-calorie malnutrition; E55.9 Vitamin D deficiency, unspecified; K74.1 Hepatic sclerosis; N19 Unspecified kidney failure; T56.894A Toxic effect of other metals, undetermined, initial encounter; K50.90 Crohn's disease, unspecified, without complications; E89.1 Postprocedural hypoinsulinemia
CPT/HCPCS: 36415; 80053; 80061; 82306; 82525; 82607; 82728; 82746; 83036; 83540; 83550; 83735; 83970; 84100; 84134; 84255; 84425; 84443; 84590; 84630; 85027; 85610; 85730

== ENCOUNTER → 2023-08-11 | Outpatient (CLI) | payer OTHER ==
[2023-08-11 13:57] VITALS: BP 123/80; PULSE 84; TEMP 98.1; BMI 37.7
== END ==
LOC: BARWHC3 13:36
PROVIDERS: ATTEND Surgery Plastic and Reconstructive Surgery
DX: E66.01 Morbid (severe) obesity due to excess calories (principal); Z98.84 Bariatric surgery status; K59.00 Constipation, unspecified; Z71.3 Dietary counseling and surveillance; Z68.37 Body mass index [BMI] 37.0-37.9, adult
CPT/HCPCS: 97803; G0463; 99211

== ENCOUNTER 2023-12-10 18:16 | Inpatient (IN) | payer BC, OTHER ==
--- NOTE | 2023-12-10 18:36 | ED ---
General Adult HPI - General Chief complaint: Chest Pain Stated complaint: Abn labs Time Seen by Provider: 12/10/23 18:20 Source: patient, EMS, RN notes reviewed, old records reviewed Mode of arrival: EMS - History of Present Illness Initial comments: This a 48-year-old female presents to the emergency department stating over the last few days has been having intermittent chest pain particularly when she is on her treadmill. Patient states normally she turns down the treadmill the pain starts to go away. Patient states today she had much more significant chest pain and it radiated to her back she was a little short of breath as well. Patient went to [facility] where they did an EKG and a troponin and it was elevated the repeat troponin and it was elevated slightly more. Patient has been chest pain-free for 2 hours. Patient was transferred to us and I did speak with the ER physician over at [facility] as well as Dr. Lofton. Dr. Lofton saw the patient emergency department as well. - Related Data Home Medications Medication Instructions Recorded Confirmed buPROPion [Wellbutrin] 100 mg PO DAILY 06/11/22 08/11/23 lamoTRIgine 200 mg PO DAILY 08/19/22 08/11/23 Montelukast [Singulair] 10 mg PO DAILY PRN 10/05/22 08/11/23 HYDROcodone/APAP 10-325MG [[place] 1 tab PO Q6HR PRN 12/16/22 08/11/23 10-325] Dulaglutide [Trulicity] 0.75 mg SQ WEEKLY 05/19/23 08/11/23 metFORMIN HCL [Glucophage] 500 mg PO BID 08/11/23 08/11/23 Previous Rx's Medication Instructions Recorded Losartan [Cozaar] 50 mg PO DAILY #30 tab 12/31/22 Omeprazole [PriLOSEC] 40 mg PO DAILY #30 cap 12/31/22 Allergies Allergy/AdvReac Type Severity Reaction Status Date / Time No Known Allergies Allergy Verified 12/10/23 18:32 Review of Systems ROS Statement: Those systems with pertinent positive or pertinent negative responses have been documented in the HPI. ROS Other: All systems not noted in ROS Statement are negative. Past Medical History Past Medical History: Diabetes Mellitus, Hyperlipidemia, Hypertension Additional Past Medical History / Comment(s): CURRENT: MID BACK PAIN, RIGHT SIDE. INSULIN DEPENDENT. History of Any Multi-Drug Resistant Organisms: None Reported Past Surgical History: Bariatric Surgery, Section, Hysterectomy, Orthopedic Surgery Additional Past Surgical History / Comment(s): CARPAL TUNNEL BILATERAL. ABSCESS ON ABD (I & D, PACKING) @ (CAN'T REMEMBER CULTURE RESULTS). Right knee surgery x 2, COLONOSCOPY, right knee meniscus repair 08/2022. Gastric sleeve 12/28/22 Past Anesthesia/Blood Transfusion Reactions: No Reported Reaction Past Psychological History: No Psychological Hx Reported Smoking Status: Never smoker Past Alcohol Use History: Rare Past Drug Use History: None Reported - Past Family History Mother Family Medical History: Cancer General Exam - General Exam Comments Initial Comments: GENERAL: Patient is well-developed and well-nourished. Patient is nontoxic and well- hydrated and is in no acute distress. ENT: Neck is soft and supple. No significant lymphadenopathy is noted. Oropharynx is clear. Moist mucous membranes. Neck has full range of motion without eliciting any pain. EYES: The sclera were anicteric and conjunctiva were pink and moist. Extraocular movements were intact and pupils were equal round and reactive to light. Eyelids were unremarkable. PULMONARY: Unlabored respirations. Good breath sounds bilaterally. No audible rales rhonchi or wheezing was noted. CARDIOVASCULAR: There is a regular rate and rhythm without any murmurs gallops or rubs. ABDOMEN: Soft and nontender with normal bowel sounds. SKIN: Skin is clear with no lesions or rashes and otherwise unremarkable. NEUROLOGIC: Patient is alert and oriented x3. Cranial nerves II through XII are grossly intact. Motor and sensory are also intact. Normal speech, volume and content. Symmetrical smile. MUSCULOSKELETAL: Normal extremities with adequate strength and full range of motion. No lower extremity swelling or edema. No calf tenderness. LYMPHATICS: No significant lymphadenopathy is noted PSYCHIATRIC: Normal psychiatric evaluation. Course Vital Signs 12/10/23 18:18 Temperature 98.4 F Pulse Rate 100 Respiratory 18 Rate Blood Pressure 169/93 O2 Sat by Pulse 100 Oximetry Medical Decision Making - Medical Decision Making EKG is interpreted by myself. EKG is a sinus rhythm at 86 bpm TX interval is 159 QRS 92 QT interval 362 QTc is 405. Patient's EKG shows some T wave inversions in the anterior leads V1 through V4. There is no ST segment elevation. Was pt. sent in by a medical professional or institution (Dr., PA, HERBICIDE SPRAYER, urgent care, hospital, or fci...) When possible be specific @ -Patient was sent to us by [facility] Did you speak to anyone other than the patient for history (EMS, parent, family, police, friend...)? What history was obtained from this source @ -I spoke with the emergency room physician at [facility]. I also spoke with Dr. Lofton prior to the patient's arrival Did you review nursing and triage notes (agree or disagree)? Why? @ -I reviewed and agree with nursing and triage notes Were old charts reviewed (outside hosp., previous admission, EMS record, old EKG, old radiological studies, urgent care reports/EKG's, fci records)? Report findings @ -I reviewed the patient's chart from [facility] as well as EKG and lab work Differential Diagnosis (chest pain, altered mental status, abdominal pain women, abdominal pain men, vaginal bleeding, weakness, fever, dyspnea, syncope, headache, dizziness, GI bleed, back pain, seizure, CVA, palpatations, mental health, musculoskeletal)? @ -Differential Chest Pain: Stable Angina, Unstable Angina, STEMI, NSTEMI Aortic Dissection, Pneumothorax, Musculoskeletal, Esophageal Spasm GERD, Cholecystitis, Pancreatitis, Zoster, this is not meant to be an all-inclusive list. EKG interpreted by me (3pts min.). @ -As above X-rays interpreted by me (1pt min.). @ -None done CT interpreted by me (1pt min.). @ -None done U/S interpreted by me (1pt. min.). @ -None done What testing was considered but not performed or refused? (CT, X-rays, U/S, labs)? Why? @ -None What meds were considered but not given or refused? Why? @ -None Did you discuss the management of the patient with other professionals (professionals i.e. [place] Vas[place], HERBICIDE SPRAYER, lab, RT, psych nurse, geriatric social worker, auto fleet maintenance manager, teacher, landcare officer, correctional case records supervisor)? Give summary @ -I spoke with [facility] hospitalist and they agreed with the patient. I spoke with Dr. Lofton and he will be taking the patient to catheterization lab Was smoking cessation discussed for >3mins.? @ -No Was critical care preformed (if so, how long)? @ -35 minutes Were there social determinants of health that impacted care today? How? (Homelessness, low income, unemployed, alcoholism, drug addiction, transportation, low edu. Level, literacy, decrease access to med. care, nursing home, rehab)? @ -No Was there de-escalation of care discussed even if they declined (Discuss DNR or withdrawal of care, Hospice)? DNR status @ -No What co-morbidities impacted this encounter? (DM, HTN, Smoking, COPD, CAD, Cancer, CVA, ARF, Chemo, Hep., AIDS, mental health diagnosis, sleep apnea, morbid obesity)? @ -None Was patient admitted / discharged? Hospital course, mention meds given and route, prescriptions, significant lab abnormalities, going to OR and other pertinent info. @ -Patient was chest pain-free and will be going immediately to the catheterization lab Undiagnosed new problem with uncertain prognosis? @ -No Drug Therapy requiring intensive monitoring for toxicity (Heparin, Nitro, Insulin, Cardizem)? @ -No Were any procedures done? @ -No Diagnosis/symptom? @ -NSTEMI Acute, or Chronic, or Acute on Chronic? @ -Acute Uncomplicated (without systemic symptoms) or Complicated (systemic symptoms)? @ -Complicated Side effects of treatment? @ -No Exacerbation, Progression, or Severe Exacerbation? @ -No Poses a threat to life or bodily function? How? (Chest pain, [place], [place], pneumonia, PE, COPD, DKA, ARF, appy, cholecystitis, CVA, Diverticulitis, Homicidal, Suicidal, threat to staff... and all critical care pts) @ -Yes this could lead to poor perfusion and endorgan dysfunction Critical Care Time Critical Care Time: Yes Total Critical Care Time: 35 Disposition Clinical Impression: Acute non-ST elevation myocardial infarction (NSTEMI) Disposition: ADMITTED IP TO THIS HOSP Referrals: John Hernandez DO [Primary Care Provider] - 1-2 days Time of Disposition: 18:36
[2023-12-10] MEDS: SODIUM CHLORIDE 0.9% 1,000 ML IV ONE (18:54)
[2023-12-10] MEDS: IV FLUID CONTINUATION 1,000 ML IV ONE (18:54)
[2023-12-10] MEDS ORDERED: HEPARIN SODIUM 1,000 UN/ML (10ML VL) ONE (19:03)
[2023-12-10] MEDS ORDERED: LIDOCAINE 1% INJ 10MG/ML (20 ML MDV) ONE (19:03)
[2023-12-10] MEDS ORDERED: VERAPAMIL 2.5 MG/ML 2 ML AMP ONE (19:03)
[2023-12-10] MEDS: LIDOCAINE 1% INJ 10MG/ML (20 ML MDV) SQ ONE (19:12)
[2023-12-10] MEDS: MIDAZOLAM 2 MG/2 ML VIAL IVP ONE (19:12)
[2023-12-10] MEDS: VERAPAMIL SYRINGE (5 MG/10 ML) INTRAARTER ONE (19:15)
[2023-12-10] MEDS: HEPARIN SODIUM 1,000 UN/ML (10ML VL) IV ONE (19:17)
[2023-12-10] MEDS: TIROFIBAN 12.5MG-250ML NS 250 ML IV ONE (19:50)
[2023-12-10] MEDS: NITROGLYCERIN-D5W PMX 50 MG in DEXTROSE/WATER 1 250ML.BAG IV ONE (19:50)
[2023-12-10] MEDS: IOPAMIDOL-370 100ML BTL INJ ONE (19:51)
[2023-12-10] MEDS ORDERED: RX INFO: IV CONTRAST WAS GIVEN 1 EACH MISC MISCELLANE PRN (19:54)
--- NOTE | 2023-12-10 19:59 | P.PCN ---
Date of Procedure: 12/10/23 Operative Findings: CARDIAC CATHETERIZATION PERFORMING PHYSICIAN: Allan Lofton MD, RPVI PROCEDURE PERFORMED: 1. Selective right and left coronary angiogram 2. iFR of the left circumflex coronary artery 3. Ultrasound-guided access of the right radial artery INDICATION: Acute non-ST elevation myocardial infarction COMPLICATION: None APPROACH: Right radial artery LEVEL OF SEDATION: Moderate with a sedation length of 38 minutes PROCEDURE DESCRIPTION: After obtaining an informed consent, the patient was brought to cardiac nursery laborer. Local anesthesia was performed using lidocaine subcutaneously. The right radial artery was cannulated using Seldinger technique, the guidewire passed easily, following that we advanced a 5-Nepali sheath dilator assembly, the wire and dilator were removed and sheath was flushed. Following that, 2 mg of verapamil along with 4000 unit heparin were given. Selective right and left coronary angiogram using a 6-Nepali JR4 and JL 3.5 catheters. Following that I did Doppler wire measurement of the left circumflex lesion which was intermediate. After zeroing the Doppler wire and equalizing between the Doppler wire and guiding catheter which was JL 3.0 guiding catheter in the left main was engaged and subsequently left circumflex was wired. We did iFR that came in to be ischemic and 0.86 The procedure was completed there was no complication. SELECTIVE CORONARY ANGIOGRAM: The right coronary artery: Large caliber vessel and a dominant vessel. The RCA has critical disease in the midportion and distally appears to be subtotally/totally occluded with co ntralateral collateral Left main: Appears to be angiographically normal The left circumflex: Large caliber vessel and nondominant dominant vessel. The proximal left circumflex is angiographically normal. Gives rise into a large OM branch which has intermediate to severe lesion documented to be flow limiting by Doppler wire The left anterior descending artery: Large caliber vessel. The LAD in the midportion has a long tubular lesion up to about 90-95%. The LAD in the mid to distal and distal portion appears to have mild disease only CONCLUSION: 1. Severe disease involving the LAD with long tubular lesion 2. Intermediate disease involving a large OM branch of the left circumflex, the lesion is a flow-limiting by Doppler wire 3. Occluded RCA distally with contralateral collateral POSTPROCEDURE MANAGEMENT: Giving the above anatomy and the patient to be evaluated for CABG
--- NOTE | 2023-12-10 20:11 | P.CRDCN ---
History of Present Illness Consult date: 12/10/23 Chief complaint: Chest pain History of present illness: The patient is a pleasant 48-year-old female patient with a past medical history significant for diabetes presented initially to the emergency room at [facility] complaining of chest discomfort. She has been experiencing intermittent episodes of chest discomfort for the last one to 2 weeks. She described the discomfort as a pressure across the chest with no radiation to the arms or neck or shoulders or back until earlier today when the pressure started radiating to her back. The discomfort is clearly worse with exertion and better with a resting. No associated symptoms of shortness of breath or sweating or dizziness or lightheadedness or any feeling of heart racing or fluttering or presyncope or syncope. She presented initially to the emergency department at [facility] where she underwent a workup including cardiac enzymes came in to be slightly abnormal and EKG showed ST and T wave abnormalities anteriorly. She was transferred to the emergency department to [facility] where she underwent a heart catheterization and that revealed severe triple-vessel coronary artery disease. She was found to have severe disease involving the LAD with a long tubular lesion and intermediate disease involving the left circumflex documented to be flow-limiting by Doppler wire and also she was found to have occluded RCA distally with contralateral collateral. We did not check her left sided filling pressure. The patient tolerated the procedure very well. Giving the above anatomy I to be seen by cardiothoracic surgeon for evaluation of CABG. Please note that the patient is hemodynamically stable and also currently she is asymptomatic was no chest pain at this point. She will be admitted to the intensive care unit. She will be restarted back on heparin once we achieve hemostasis at the right radial artery. She will be on aspirin and high intensity statin and beta kelly as well as LEEANNA inhibitor. An echo will be performed. The finding were discussed with the patient in details and she is in full understanding and agreement and she would like to be seen by cardiology surgeon in the next 24 hours. The examination is remarkable for stable vital signs with a regular rate and rhythm and distant heart sounds and systolic murmur at the right and left upper sternal border with clear breathing sounds bilaterally and no lower extremity is edema noted Assessment Acute non-ST elevation myocardial infarction Severe triple-vessel coronary artery disease Diabetes [place] overweight Plan Currently the patient is asymptomatic and hemodynamically stable Start the patient on aspirin and high intensity statin and beta kelly and LEEANNA inhibitor Restart the patient back on heparin once we achieve hemostasis at the right radial artery Obtain an echocardiogram was Doppler Consult for the evaluation of CABG Follow-up with the patient Past Medical History Past Medical History: Diabetes Mellitus, Hyperlipidemia, Hypertension Additional Past Medical History / Comment(s): CURRENT: MID BACK PAIN, RIGHT SIDE. INSULIN DEPENDENT. History of Any Multi-Drug Resistant Organisms: None Reported Past Surgical History: Bariatric Surgery, Section, Hysterectomy, Orthopedic Surgery Additional Past Surgical History / Comment(s): CARPAL TUNNEL BILATERAL. ABSCESS ON ABD (I & D, PACKING) @ [facility] (CAN'T REMEMBER CULTURE RESULTS). Right knee surgery x 2, COLONOSCOPY, right knee meniscus repair 08/2022. Gastric sleeve 12/28/22 Past Anesthesia/Blood Transfusion Reactions: No Reported Reaction Past Psychological History: No Psychological Hx Reported Smoking Status: Never smoker Past Alcohol Use History: Rare Past Drug Use History: None Reported - Past Family History Mother Family Medical History: Cancer Medications and Allergies Home Medications Medication Instructions Recorded Confirmed Type HYDROcodone/APAP 10-325MG [[place] 1 tab PO TID PRN 12/10/23 12/10/23 History 10-325] Losartan Potassium 50 mg PO DAILY 12/10/23 12/10/23 History Tirzepatide [Mounjaro] 5 mg SQ SA 12/10/23 12/10/23 History buPROPion [Wellbutrin] 100 mg PO BID 12/10/23 12/10/23 History lamoTRIgine [LaMICtal Xr] 250 mg PO DAILY 12/10/23 12/10/23 History metFORMIN HCL ER [Glucophage XR] 500 mg PO BID 12/10/23 12/10/23 History risperiDONE [RisperDAL] 0.5 mg PO DIRECTED 12/10/23 12/10/23 History Allergies Allergy/AdvReac Type Severity Reaction Status Date / Time No Known Allergies Allergy Verified 12/10/23 19:21 Physical Exam Vitals: Vital Signs Temp Pulse Resp BP Pulse Ox 12/10/23 18:50 92 18 154/93 12/10/23 18:45 91 14 155/81 12/10/23 18:40 91 18 163/79 98 12/10/23 18:18 98.4 F 100 18 169/93 100 Intake and Output 12/10/23 12/10/23 12/10/23 06:59 14:59 22:59 Intake Total 100 Balance 100 Intake: IV 100 Other: Weight 96 kg Results Cardiac Enzymes 12/10/23 Range/Units 18:40 Troponin I 0.629 H* (0.000-0.034) ng/mL Current Medications Generic Name Dose Route Start Last Admin Trade Name Freq PRN Reason Stop Dose Admin Aspirin 325 mg 12/11/23 09:00 Aspirin 325 Mg Tab PO DAILY GEOVANNI Atorvastatin Calcium 80 mg 12/10/23 21:00 Atorvastatin 80 Mg Tab PO HS [facility] Sodium Chloride 1,000 mls @ 75 mls/hr 12/10/23 20:00 Saline 0.9% IV 12/11/23 01:01 .[id number] [facility] Lisinopril 2.5 mg 12/11/23 09:00 Lisinopril 10 Mg Tab PO DAILY [facility] Metoprolol Succinate 25 mg 12/11/23 09:00 Metoprolol Succinate (Er) 25 Mg Tab.Er.24h PO DAILY [facility] Miscellaneous Information 1 each 12/10/23 19:54 Rx Info: Iv Contrast Was Given 1 Each Misc MISCELLANE 12/12/23 19:54 DAILY PRN Per Protocol Nitroglycerin 0.4 mg 12/10/23 18:47 Nitroglycerin Sl Tabs 0.4 Mg Tab SUBLINGUAL Q5M PRN Chest Pain Intake and Output 12/10/23 12/10/23 12/10/23 06:59 14:59 22:59 Intake Total 100 Balance 100 Intake: IV 100 Other: Weight 96 kg Patient Weight 12/11/23 06:59 Weight 96 kg
[2023-12-10] MEDS: NITROGLYCERIN-D5W PMX 50 MG in DEXTROSE/WATER 1 250ML.BAG IV SCH (20:25)
[2023-12-10] MEDS: TIROFIBAN 12.5MG-250ML NS 250 ML IV SCH (20:25)
[2023-12-10 20:26] LABS: Glucose,Whole Blood 88 mg/dL (70-110)
[2023-12-10] MEDS: SODIUM CHLORIDE 0.9% 1,000 ML IV SCH (20:43)
[2023-12-10] MEDS: ATORVASTATIN 80 MG TAB PO SCH (20:55)
[2023-12-10] MEDS: HEPARIN SOD,PORK IN 0.45% NACL 25,000 UNIT in 0.45% NACL 1 250ML.BAG IV SCH (23:15)
[2023-12-11] MEDS: ACETAMINOPHEN TAB 325 MG TAB PO PRN (00:13)
[2023-12-11 00:37] LABS: Basophils # (A) 0.1 k/uL (0-0.2); Basophils % (A) 1 %; Eosinophils # (A) 0.2 k/uL (0-0.7); Eosinophils % (A) 2 %; HCT 44.6 % (34.0-46.0); HGB 14.8 gm/dL (11.4-16.0); Lymphocytes # (A) 3.7 k/uL (1.0-4.8); Lymphocytes % (A) 38 %; MCH 29.5 pg (25.0-35.0); MCHC 33.1 g/dL (31.0-37.0); Monocytes # (A) 0.4 k/uL (0-1.0); Monocytes % (A) 4 %; Neutrophils # (A) 4.9 k/uL (1.3-7.7); Neutrophils % (A) 52 %; Platelet Count 303 k/uL (150-450); RBC 5.01 m/uL (3.80-5.40); RDW 12.9 % (11.5-15.5); WBC 9.5 k/uL (3.8-10.6)
[2023-12-11 00:53] LABS: Partial Thromboplastin Time 28.9 sec (22.0-30.0); Prothrombin Time 11.2 sec (10.0-12.5)
[2023-12-11] MEDS: HEPARIN SODIUM 1,000 UN/ML (10ML VL) IV PRN (01:13)
[2023-12-11 05:03] LABS: INR 1.1 (<1.2); Prothrombin Time 11.5 sec (10.0-12.5)
[2023-12-11 05:04] LABS: Basophils # (A) 0.1 k/uL (0-0.2); Basophils % (A) 1 %; Eosinophils # (A) 0.3 k/uL (0-0.7); Eosinophils % (A) 3 %; Lymphocytes # (A) 3.9 k/uL (1.0-4.8); Lymphocytes % (A) 41 %; MCH 29.5 pg (25.0-35.0); MCHC 33.3 g/dL (31.0-37.0); MCV 88.8 fL (80.0-100.0); Mean Platelet Volume 8.2; Monocytes # (A) 0.4 k/uL (0-1.0); Monocytes % (A) 5 %; Neutrophils # (A) 4.6 k/uL (1.3-7.7); Neutrophils % (A) 49 %; Platelet Count 322 k/uL (150-450); RBC 4.73 m/uL (3.80-5.40); RDW 13.2 % (11.5-15.5); WBC 9.5 k/uL (3.8-10.6)
[2023-12-11 05:10] LABS: Glucose,Whole Blood 97 mg/dL (70-110)
[2023-12-11 05:29] LABS: African American GFR (CKD) >90 (>60 ml/min/1.73 sqM); Anion Gap 5 mmol/L; Blood Urea Nitrogen 18 mg/dL (7-17); Calcium 8.5 mg/dL (8.4-10.2); Carbon Dioxide 23 mmol/L (22-30); Chloride 110 mmol/L (98-107); Glucose 106 mg/dL (74-99); Non-African American GFR(CKD) >90 (>60 ml/min/1.73 sqM); Potassium 3.5 mmol/L (3.5-5.1); Sodium 138 mmol/L (137-145)
[2023-12-11] MEDS ORDERED: DEXTROSE 50% SYRINGE 50 ML IVP PRN ×2 (05:45)
[2023-12-11 05:50] LABS: Partial Thromboplastin Time 110.9 sec (22.0-30.0)
[2023-12-11] MEDS ORDERED: Potassium Replacement Protocol 1 EACH MISC MISCELLANE PRN (06:35)
--- NOTE | 2023-12-11 06:38 | P.PN ---
Subjective The patient is a pleasant 48-year-old female patient with a past medical history significant for diabetes presented initially to the emergency room at [facility] [place] complaining of chest discomfort. She has been experiencing intermittent episodes of chest discomfort for the last one to 2 weeks. She described the discomfort as a pressure across the chest with no radiation to the arms or neck or shoulders or back until earlier today when the pressure started radiating to her back. The discomfort is clearly worse with exertion and better with a resting. No associated symptoms of shortness of breath or sweating or dizziness or lightheadedness or any feeling of heart racing or fluttering or presyncope or syncope. She presented initially to the emergency department at [facility] [place] where she underwent a workup including cardiac enzymes came in to be slightly abnormal and EKG showed ST and T wave abnormalities ant eriorly. She was transferred to the emergency department to [facility] where she underwent a heart catheterization and that revealed severe triple- vessel coronary artery disease. She was found to have severe disease involving the LAD with a long tubular lesion and intermediate disease involving the left circumflex documented to be flow-limiting by Doppler wire and also she was found to have occluded RCA distally with contralateral collateral. We did not check her left sided filling pressure. The patient tolerated the procedure very well. Giving the above anatomy I to be seen by cardiothoracic surgeon for evaluation of CABG. Please note that the patient is hemodynamically stable and also currently she is asymptomatic was no chest pain at this point. She will be admitted to the intensive care unit. She will be restarted back on heparin once we achieve hemostasis at the right radial artery. She will be on aspirin and high intensity statin and beta kelly as well as LEEANNA inhibitor. An echo will be performed. The finding were discussed with the patient in details and she is in full understanding and agreement and she would like to be seen by cardiology surgeon in the next 24 hours. The examination is remarkable for stable vital signs with a regular rate and rhythm and distant heart sounds and systolic murmur at the right and left upper sternal border with clear breathing sounds bilaterally and no lower extremity is edema noted. 2/3 Patient seen and examined. Patient underwent heart catheterization last night which showed multivessel CAD with recommendations for bypass. She was having some chest pain and therefore placed on nitroglycerin drip with resolution of chest pain. Patient also placed on Aggrastat drip and then heparin drip after the TR band had been removed. Currently she denies any chest pain or pressure. Troponin 1.1. Echo pending. Hemoglobin stable at 14.0. She has been placed on aspirin, lisinopril, metoprolol and Lipitor. Vital signs reviewed. CONSTITUTIONAL: No apparent distress. HEENT: Head is normocephalic. Pupils are equal, round. Sclerae anicteric. Mucous membranes of the mouth are moist. No JVD. No carotid bruit. CHEST EXAMINATION: Lungs are clear to auscultation. No chest wall tenderness is noted on palpation or with deep breathing. HEART EXAMINATION: Regular rate and rhythm. S1, S2 heard. No murmurs, gallops or rub. ABDOMEN: Soft, nontender. Positive bowel sounds. EXTREMITIES: 2+ peripheral pulses, no lower extremity edema and no calf tenderness. NEUROLOGIC EXAMINATION: Patient is awake, alert and oriented x3. Assessment Acute non-ST elevation myocardial infarction Severe triple-vessel coronary artery disease Diabetes Obesity Plan Patient currently chest pain-free. We will continue with heparin drip however stop Aggrastat drip. Monitor her chest pain. Check 2-D echo. Await cardiothoracic surgery input regarding possible CABG candidate. Continue with aspirin, Lipitor, metoprolol. Objective - Vital Signs Vital signs: Vital Signs Temp 97.8 F 12/11/23 04:00 Pulse 75 12/11/23 06:00 Resp 6 L 12/11/23 06:00 BP 106/63 12/11/23 06:00 Pulse Ox 94 L 12/11/23 06:00 FiO2 Intake & Output 12/10/23 12/10/23 12/11/23 06:59 18:59 06:59 Intake Total 100 561.724 Output Total 800 Balance 100 -238.276 Weight 96 kg 96.9 kg Intake: IV 100 480 0.9 kvo 50 Sodium Chloride 0.9% 1, 375 000 ml @ 75 mls/hr IV . [id number] GEOVANNI Rx#:[id number] Intake, IV Titration 81.724 Amount Heparin Sod,Pork in 0.45% 81.724 NaCl 25,000 unit In 0.45 % NaCl 1 250ml.bag @ 12 UNITS/KG/HR 11.52 mls/hr IV .[id number] GEOVANNI Rx#: [id number] Output: Urine 800 Other: Voiding Method Bedside Commode - Labs CBC & Chem 7: 12/11/23 04:02 12/11/23 04:02 Labs: Abnormal Lab Results - Last 24 Hours (Table) 12/10/23 12/10/23 12/11/23 Range/Units 18:40 21:55 04:02 APTT (22.0-30.0) sec Chloride 110 H (98-107) mmol/L BUN 18 H (7-17) mg/dL Creatinine 0.47 L (0.52-1.04) mg/dL Glucose 106 H (74-99) mg/dL Troponin I 0.629 H* 1.170 H* (0.000-0.034) ng/mL 12/11/23 Range/Units 04:02 APTT 110.9 H* (22.0-30.0) sec Chloride (98-107) mmol/L BUN (7-17) mg/dL Creatinine (0.52-1.04) mg/dL Glucose (74-99) mg/dL Troponin I (0.000-0.034) ng/mL
[2023-12-11 06:39] LABS: Glucose,Whole Blood 111 mg/dL (70-110)
[2023-12-11] MEDS: POTASSIUM CHLORIDE ER 20 MEQ TAB.ER PO SCH (06:58)
[2023-12-11] MEDS: INSULIN ASPART (NovoLOG) 100 UNIT/ML VIAL SQ SCH (06:59)
[2023-12-11] MEDS: METOPROLOL SUCCINATE (ER) 25 MG TAB.ER.24H PO SCH (08:22)
[2023-12-11] MEDS: LAMOTRIGINE 250 MG PO SCH (08:22)
[2023-12-11] MEDS: ASPIRIN 325 MG TAB PO SCH (08:22)
--- NOTE | 2023-12-11 09:15 | P.GSCN ---
History of Present Illness Consult date: 12/11/23 Reason for Consult: Multivessel coronary artery disease, non-ST elevated myocardial infarction this admission, evaluate for myocardial revascularization surgery Requesting physician: Allan Lofton History of present illness: This is a 48-year-old female patient who follows on an outpatient basis with Dr. Blaire Hernandez for her primary care service. She has a past medical history significant for hypertension, diabetes mellitus type 2, obesity with a BMI of 36.7 kg/m, depression, frequent constipation, and is a lifetime non-smoker. Yesterday December 10, 2022 the patient presented to the emergency department at [facility] complaining of chest pain which was radiating to her back and to her her hands, and associated with shortness of breath. She reports that she did feel like she was going to pass out yesterday. Over the past 2 weeks while exercising on the treadmill she has been having complaints of chest pain which usually resolves with rest. Yesterday she was moving some boxes using a wagon and developed chest pain which radiated to her back and was not resolving with rest. Due to the persistent chest pain she presented to the emergency department for further evaluation and treatment recommendations. She denies any recent fever, chills, nausea, vomiting, diarrhea, headache, cough, hemoptysis, hematemesis, weight loss, presyncope or syncope. While at [facility] the patient's workup showed elevated cardiac enzymes a slightly abnormal EKG that showed ST and T wave abnormalities anteriorly. Subsequently, due to the patient's presenting symptoms and abnormal cardiac enzymes she was transferred to the emergency department here at [facility] for further workup and evaluation. She was seen by Dr. Lofton from cardiology who recommended the patient undergo a cardiac catheterization which was completed yesterday December 10, 2023. The cardiac catheterization demonstrated severe disease involving the LAD with a long tubular lesion and intermediate disease involving the left circumflex and an occluded right coronary artery distally with contralateral collateral. A transthoracic 2D echocardiogram has been ordered with a results pending at this time. The patient denies any complaints of chest pain/pressure or shortness of breath at this time, and states that her last episode of chest pain was right after her heart catheterization which was relieved by nitroglycerin. She is currently on nitroglycerin drip and heparin drip per protocol. Laboratory results here at [facility] showed elevated troponins of 0.629 and 1.170. Due to the findings on the cardiac catheterization, and her presenting symptoms a consult was placed to cardiothoracic surgery for further evaluation and treatment recommendations including myocardial revascularization surgery. Review of Systems A 14 point review of systems was completed and was negative except as mentioned in the HPI. Past Medical History Past Medical History: Chest Pain / Angina, Diabetes Mellitus, Hypertension Additional Past Medical History / Comment(s): CURRENT: MID BACK PAIN, RIGHT SIDE. History of Any Multi-Drug Resistant Organisms: None Reported Past Surgical History: Bariatric Surgery, Section, Hysterectomy, Orthopedic Surgery Additional Past Surgical History / Comment(s): CARPAL TUNNEL BILATERAL. ABSCESS ON ABD (I & D, PACKING) @ [facility] (CAN'T REMEMBER CULTURE RESULTS). Right knee surgery x 2, COLONOSCOPY, right knee meniscus repair 08/2022. Gastric sleeve 12/28/22 Past Anesthesia/Blood Transfusion Reactions: No Reported Reaction Past Psychological History: Depression Smoking Status: Never smoker Past Alcohol Use History: Rare Past Drug Use History: None Reported - Past Family History Mother Family Medical History: Cancer (Melanoma skin cancer) Father Family Medical History: CVA/TIA, Myocardial Infarction ([place]) Medications and Allergies Home Medications Medication Instructions Recorded Confirmed Type HYDROcodone/APAP 10-325MG [Blacklick 1 tab PO TID PRN 12/10/23 12/10/23 History 10-325] Losartan Potassium 50 mg PO DAILY 12/10/23 12/10/23 History Tirzepatide [Mounjaro] 5 mg SQ SA 12/10/23 12/10/23 History buPROPion [Wellbutrin] 100 mg PO BID 12/10/23 12/10/23 History lamoTRIgine [LaMICtal Xr] 250 mg PO DAILY 12/10/23 12/10/23 History metFORMIN HCL ER [Glucophage XR] 500 mg PO BID 12/10/23 12/10/23 History risperiDONE [RisperDAL] 0.5 mg PO DIRECTED 12/10/23 12/10/23 History Allergies Allergy/AdvReac Type Severity Reaction Status Date / Time No Known Allergies Allergy Verified 12/10/23 19:21 Surgical - Exam Vital Signs Temp Pulse Resp BP Pulse Ox 98.4 F 100 18 169/93 100 12/10/23 18:18 12/10/23 18:18 12/10/23 18:18 12/10/23 18:18 12/10/23 18:18 - General well developed, well nourished, no distress, no pain, obese - Eyes PERRL, normal ocular movement, no pale, no icteric - ENT normal pinna, normal nares, normal mucosa, no hearing loss, no congestion - Neck Neck is supple, no lymphadenopathy. no masses, no bruits, trachea midline, no venous distension - Respiratory Lung sounds essentially clear throughout. No wheezes, rhonchi or crackles. Respirations are symmetrical and nonlabored. Oxygen saturations are 97% on room air. - Cardiovascular Regular rhythm and rate. S1 and S2 present, negative for S3, gallop or murmur. - Abdomen Abdomen is soft, nontender and nondistended. Active bowel sounds present all 4 abdominal quadrants. No guarding or rigidity. No organomegaly appreciated. - Genitourinary Deferred - Rectum Deferred - Integumentary Skin is warm and dry. No clubbing or cyanosis is present. no rash, no growths, no abnormal pigmentation - Neurologic No focal deficits. normal sensation - Musculoskeletal Moves all 4 extremities with equal strength bilaterally. - Psychiatric oriented to time, oriented to person, oriented to place, speech is normal, memory intact Results - Labs 12/11/23 04:02 12/11/23 04:02 Abnormal Lab Results - Last 24 Hours (Table) 12/10/23 12/10/23 12/11/23 Range/Units 18:40 21:55 04:02 APTT (22.0-30.0) sec Chloride 110 H (98-107) mmol/L BUN 18 H (7-17) mg/dL Creatinine 0.47 L (0.52-1.04) mg/dL Glucose 106 H (74-99) mg/dL POC Glucose (mg/dL) (70-110) mg/dL Troponin I 0.629 H* 1.170 H* (0.000-0.034) ng/mL 12/11/23 12/11/23 Range/Units 04:02 06:37 APTT 110.9 H* (22.0-30.0) sec Chloride (98-107) mmol/L BUN (7-17) mg/dL Creatinine (0.52-1.04) mg/dL Glucose (74-99) mg/dL POC Glucose (mg/dL) 111 H (70-110) mg/dL Troponin I (0.000-0.034) ng/mL Diabetes panel 12/11/23 Range/Units 04:02 Sodium 138 (137-145) mmol/L Potassium 3.5 (3.5-5.1) mmol/L Chloride 110 H (98-107) mmol/L Carbon Dioxide 23 (22-30) mmol/L BUN 18 H (7-17) mg/dL Creatinine 0.47 L (0.52-1.04) mg/dL Glucose 106 H (74-99) mg/dL Calcium 8.5 (8.4-10.2) mg/dL Calcium panel 12/11/23 Range/Units 04:02 Calcium 8.5 (8.4-10.2) mg/dL Pituitary panel 12/11/23 Range/Units 04:02 Sodium 138 (137-145) mmol/L Potassium 3.5 (3.5-5.1) mmol/L Chloride 110 H (98-107) mmol/L Carbon Dioxide 23 (22-30) mmol/L BUN 18 H (7-17) mg/dL Creatinine 0.47 L (0.52-1.04) mg/dL Glucose 106 H (74-99) mg/dL Calcium 8.5 (8.4-10.2) mg/dL Adrenal panel 12/11/23 Range/Units 04:02 Sodium 138 (137-145) mmol/L Potassium 3.5 (3.5-5.1) mmol/L Chloride 110 H (98-107) mmol/L Carbon Dioxide 23 (22-30) mmol/L BUN 18 H (7-17) mg/dL Creatinine 0.47 L (0.52-1.04) mg/dL Glucose 106 H (74-99) mg/dL Calcium 8.5 (8.4-10.2) mg/dL - Imaging EKG: image reviewed Assessment and Plan Assessment: Multivessel coronary artery disease Acute non-ST elevated myocardial infarction this admission Hypertension Diabetes mellitus type 2 Obesity with a BMI of 36.7 kg/m, status post gastric sleeve Frequent constipation History of depression Plan: The patient was seen and examined at her bedside in the intensive care unit. Her chart and diagnostics were reviewed. Her case was discussed in detail with Dr. Ki Fiore from cardiothoracic surgery. The usual course of myocardial revascularization surgery was discussed in detail with the patient, and preoperative testing and preoperative teaching have been initiated, risks and benefits were reviewed and all questions were answered. Nitroglycerin drip and heparin drip management per cardiology recommendations. Once the patient is able to ambulate a 5 m walk test will be completed with the patient. Once the preoperative testing has been completed and results obtained and STS risk or will be calculated and discussed with the patient. Continue to maximize medical management with aspirin, statin and beta-kelly. Medical management and other comorbidities per primary care and cardiology services. Transthoracic 2D echocardiogram results remain pending. More recommendations to follow based on patient's clinical course and once the patient has been seen and evaluated by Dr. Fiore. Thank you Dr. Lofton for this consult and we will look forward to working with you in the care of this patient. I have personally seen and examined the patient, performed the documentation and the assessment and plan as written. Number of minutes spent on the visit: 30. CEDRIC Rose
[2023-12-11] MEDS: buPROPion 100 MG TAB PO SCH (09:36)
--- NOTE | 2023-12-11 11:06 | US ---
EXAMINATION TYPE: US vein mapping BILAT DATE OF EXAM: 12/11/2023 10:22 AM COMPARISON: NONE CLINICAL INDICATION: Female, 48 years old with history of PreOp Cardiac Surgery; pre bypass SIDE PERFORMED: Bilateral TECHNIQUE: Lower extremity saphenous vein is examined and measured utilizing real time linear array sonography. DUPLEX FINDINGS: Greater Saphenous: Color flow seen Measurements in mm: Right Greater Saphenous: Groin: 8.6 x 6.9 mm High Thigh: 3.6 x 3.4 mm Mid Thigh: 3.5 x 3.5 mm Above Knee: 3.9 x 4.2 mm Knee: 3.3 x 3.8 mm Below Knee: 2.0 x 2.0 mm Mid Calf: 2.5 x 3.2 mm At Ankle: 3.6 x 4.1 mm Left Greater Saphenous: Groin: 6.9 x 7.2 mm High Thigh: 5.6 x 7.7 mm Mid Thigh: 5.1 x 5.4 mm Above Knee: 3.8 x 4.1 mm Knee: 4.5 x 5.0 mm Below Knee: 3.4 x 3.5 mm Mid Calf: 3.1 x 3.7 mm At Ankle: 3.4 x 2.9 mm IMPRESSION: 1. Bilateral GSV measurements listed above. 2. Performing surgeon to determine viability as conduit.
--- NOTE | 2023-12-11 11:06 | US ---
EXAMINATION TYPE: US carotid duplex BILAT DATE OF EXAM: 12/11/2023 COMPARISON: NONE CLINICAL INDICATION: Female, 48 years old with history of Pre-Op Cardiac Surgery; no h/o stroke TECHNIQUE: Carotid duplex ultrasound examination. Indirect Doppler criteria was utilized. FINDINGS: EXAM MEASUREMENTS: RIGHT: Peak Systolic Velocity (PSV) cm/sec ----- Right CCA: 68.3 ----- Right ICA: 75.8 ----- Right ECA: 88.6 ICA/CCA ratio: 1.0 RIGHT: End Diastole cm/sec ----- Right CCA: 18.0 ----- Right ICA: 28.21 ----- Right ECA: 6.4 LEFT: Peak Systolic Velocity (PSV) cm/sec ----- Left CCA: 79.9 ----- Left ICA: 114.0 ----- Left ECA: 86.8 ICA/CCA ratio: 1.4 LEFT: End Diastole cm/sec ----- Left CCA: 17.4 ----- Left ICA: 39.5 ----- Left ECA: 19.7 VERTEBRALS (direction of flow): Right Vertebral: Antegrade Left Vertebral: Antegrade Rhythm: Normal POLYMER SCIENTIST NOTES: Mild homogeneous plaque with no sigificant stenosis seen IMPRESSION: No evidence for hemodynamically significant stenosis. Criteria for Assigning % of Stenosis / Diameter reduction (Estimation based on the indirect measurements of the internal carotid artery velocities (ICA PSV). 1. Normal (no stenosis)=ICA PSV < 125 cm/s: ratio < 2.0: ICA EDV<40 cm/s. 2. Less than 50% stenosis=ICA PSV < 125 cm/s: ratio < 2.0: ICA EDV<40 cm/s. 3. 50 to 69% stenosis=ICA PSV of 125 to 230 cm/s: ration 2.0 ? 4.0: ICA EDV 40-100 cm/s. 4. Greater than 70% stenosis to near occlusion= ICA PSV > 230 cm/s: ratio > 4.0: ICA EDV > 100 cm/s. 5. Near occlusion= ICA PSV velocities may be low or undetectable: variable ratio and ICA EDV. 6. Total occlusion=unable to detect flow.
--- NOTE | 2023-12-11 11:07 | US ---
EXAMINATION TYPE: Pre-Operative Non-Invasive Evaluation of the hand for Potential Radial Artery Maishadelfina medina, Measurements only DATE OF EXAM: 12/11/2023 10:22 AM CLINICAL INDICATION: Female, 48 years old with history of Pre-Op Cardiac Surgery; right radial heart cath, measure left only SIDE PERFORMED: Left TECHNIQUE: Radial artery is measured utilizing real time linear array sonography. Dominant hand: Right Duplex Findings: Radial Artery: Color flow seen Measurements in mm, transverse view: Right Radial: heart cath Left Radial: Proximal: 2.1 x 2.1mm, measured just below antecubital fossa because of IV site Mid: 1.8 x 1.9 mm Distal: 1.6 x 2.0 mm IMPRESSION: 1. Left radial artery measurements listed above. 2. Performing surgeon to determine viability as conduit.
[2023-12-11 11:20] LABS: ALT 18 U/L (4-34); AST 36 U/L (14-36); African American GFR (CKD) >90 (>60 ml/min/1.73 sqM); Albumin 3.6 g/dL (3.5-5.0); Alkaline Phosphatase 70 U/L (38-126); Anion Gap 9 mmol/L; Blood Urea Nitrogen 16 mg/dL (7-17); Calcium 8.9 mg/dL (8.4-10.2); Carbon Dioxide 20 mmol/L (22-30); Chloride 109 mmol/L (98-107); Glucose 162 mg/dL (74-99); Non-African American GFR(CKD) >90 (>60 ml/min/1.73 sqM); Sodium 138 mmol/L (137-145); Total Bilirubin 0.6 mg/dL (0.2-1.3); Total Protein 6.2 g/dL (6.3-8.2)
--- NOTE | 2023-12-11 11:43 | CA ---
Transthoracic Echo Report Name: Emilee Jennings Age: 48 Gender: F : 1975 Exam Date: 12/11/2023 08:58 Exam Location: [facility] Ht (in): 64 Wt (lb): 211 Ordering Physician: Allan Lofton MD ([id number]) Attending/Referring Phys: Nutrition Partner Nely Guerrero RDCS Procedure CPT: Indications: ACS Cardiac Hx: Technical Quality: Fair Contrast 1: Total Dose (mL): Contrast 2: Total Dose (mL): MEASUREMENTS (Male / Female) Normal Values 2D ECHO LV Diastolic Diameter PLAX 4.1 cm 4.2 - 5.9 / 3.9 - 5.3 cm LV Systolic Diameter PLAX 2.4 cm IVS Diastolic Thickness 1.4 cm 0.6 - 1.0 / 0.6 - 0.9 cm LVPW Diastolic Thickness 1.4 cm 0.6 - 1.0 / 0.6 - 0.9 cm LV Relative Wall Thickness 0.7 RV Internal Dim ED PLAX 3.4 cm LA Volume 40.7 cm??? 18 - 58 / 22 - 52 cm??? LA Volume Index 19.2 cm???/m??? 16 - 28 cm???/m??? M-MODE Aortic Root Diameter MM 3.1 cm LA Systolic Diameter MM 4.2 cm LA Ao Ratio MM 1.4 AV Cusp Separation MM 2.3 cm DOPPLER AV Peak Velocity 137.3 cm/s AV Peak Gradient 7.5 mmHg AV Mean Velocity 94.5 cm/s AV Mean Gradient 4.0 mmHg AV Velocity Time Integral 27.3 cm LVOT Peak Velocity 88.2 cm/s LVOT Peak Gradient 3.1 mmHg LVOT Velocity Time Integral 19.2 cm MV Area PHT 2.2 cm??? Mitral E Point Velocity 68.2 cm/s Mitral A Point Velocity 103.9 cm/s Mitral E to A Ratio 0.7 MV Deceleration Time 342.1 ms MV E' Velocity 3.9 cm/s Mitral E to MV E' Ratio 17.6 TR Peak Velocity 212.3 cm/s TR Peak Gradient 18.0 mmHg Right Ventricular Systolic Press 23.0 mmHg FINDINGS Left Ventricle Moderately increased left ventricular wall thickness. Left ventricular cavity size normal. Normal left ventricular systolic function with no obvious regional wall motion abnormalities. Left ventricular ejection fraction is estimated at 50-55 %. Right Ventricle Right ventricle not well visualized. Right ventricular systolic pressure within normal limits. Right Atrium Normal right atrial size. Left Atrium Normal left atrial size. Mitral Valve Structurally normal mitral valve. Mitral valve thickened. Mild mitral annular calcification. Trace mitral regurgitation. Aortic Valve Trileaflet aortic valve. No aortic valve stenosis or regurgitation. Tricuspid Valve Structurally normal tricuspid valve. Mild tricuspid regurgitation. Pulmonic Valve Structurally normal pulmonic valve. Pericardium No pericardial effusion. Aorta Normal size aortic root and proximal ascending aorta. CONCLUSIONS Left ventricular ejection fraction 50-55%. Moderately increased left ventricular wall thickness RVSP 23 Trace mitral regurgitation Mild tricuspid regurgitation Previewed by: Dr. Acosta Dutton DO (Electronically Signed) Final Date: 11 December 2023 11:42
--- NOTE | 2023-12-11 12:26 | XR ---
EXAMINATION TYPE: XR chest 2V DATE OF EXAM: 12/11/2023 COMPARISON: 10/19/2022 HISTORY: Chest pain TECHNIQUE: Frontal and lateral views of the chest are obtained. FINDINGS: There is no focal air space opacity. No evidence for pneumothorax. No pleural effusion. The cardiac silhouette size is within normal limits. The osseous structures are grossly intact. IMPRESSION: 1. No acute cardiopulmonary process.
[2023-12-11 12:30] LABS: Glucose,Whole Blood 99 mg/dL (70-110)
--- NOTE | 2023-12-11 12:30 | CT ---
EXAMINATION TYPE: CT chest wo con DATE OF EXAM: 12/11/2023 COMPARISON: None HISTORY: PreOp Cardiac Surgery, evaluate aorta CT DLP: 433.[address] of the chest was performed with lung and mediastinal window settings submitted. The la ck of contrast limits evaluation of the vascular, mediastinal and parenchymal structures including th e upper abdomen. LUNGS: The lungs are clear and free of infiltrate. No atelectasis. No pulmonary nodule or mass is de tected. No pleural effusion. No CT evidence of interstitial lung disease. MEDIASTINUM/SIERRA: Thoracic aorta is of normal caliber with limited evaluation given lack of contrast . Ascending thoracic aorta measures 3.0 cm AP dimension. Aortic arch measures maximum 2.5 cm. Descen ding thoracic aorta measures 2.1 cm. Mild cardiomegaly noted. No evidence for mediastinal mass. No lymph nodes greater than 1cm. UPPER ABDOMEN: No significant abnormality is seen. OTHER: No significant other abnormality. IMPRESSION: 1. Normal caliber thoracic aorta.
[2023-12-11 12:31] LABS: Potassium 4.1 mmol/L (3.5-5.1)
--- NOTE | 2023-12-11 13:12 | P.HPIM ---
History of Present Illness H&P Date: 12/11/23 Chief Complaint: Chest pain * 48-year-old patient with past medical history significant for diabetes mellitus presented to the emergency department with complaints of chest dis comfort. Patient says she was having chest pain for approximately 2 weeks. Patient had midsternal chest pain which did not radiate to arms or neck. Patient was initially admitted at [facility] where she had a cardiac workup which showed elevated enzymes, and abnormal EKG showing ST and T wave abnormality. Patient was transferred to [facility] where she underwent cardiac catheterization. Patient was noted to have triple-vessel disease and was found to have severe disease involving LDA. Patient was seen after cardiac catheterization was completed. Cardiac catheterization showed multivessel coronary artery disease and recommendation was for patient to undergo bypass. * Consultation was obtained from interventional cardiology as well as cardiac surgery, serum chemistry obtained showed sodium of 138 potassium 3.5, dioxide 23 BUN 18 creatinine 0.47, WBC count of 9.5 hemoglobin 14 platelet count of 322 * Patient was monitored in medical ICU and was kept on IV heparin drip and guideline directed medical therapy with workup initiated for CABG REVIEW OF SYSTEMS: Chest pain CONSTITUTIONAL: No fever, no malaise, no fatigue. HEENT: No recent visual problems or hearing problems. Denied any sore throat. CARDIOVASCULAR: Chest pain PULMONARY: No shortness of breath, no cough, no hemoptysis. GASTROINTESTINAL: No diarrhea, no nausea, no vomiting, no abdominal pain. NEUROLOGICAL: No headaches, no weakness, no numbness. HEMATOLOGICAL: Denies any bleeding or petechiae. GENITOURINARY: Denies any burning micturition, frequency, or urgency. MUSCULOSKELETAL/RHEUMATOLOGICAL: Denies any joint pain, swelling, or any muscle pain. ENDOCRINE: Denies any polyuria or polydipsia. PHYSICAL EXAMINATION: GENERAL: The patient is alert and oriented x3, Well developed, well nourished. HEENT: Pupils are round and equally reacting to light. EOMI. CARDIOVASCULAR: S1 and S2 present. No murmurs, rubs, or gallops. PULMONARY: Chest is clear to auscultation, no wheezing or crackles. ABDOMEN: Soft, nontender, nondistended, normoactive bowel sounds. No palpable organomegaly. MUSCULOSKELETAL: No joint swelling or deformity. EXTREMITIES: No cyanosis, clubbing, or pedal edema. NEUROLOGICAL: Gross neurological examination did not reveal any focal deficits. SKIN: No rashes. Past Medical History Past Medical History: Chest Pain / Angina, Diabetes Mellitus, Hypertension Additional Past Medical History / Comment(s): CURRENT: MID BACK PAIN, RIGHT SI DE. History of Any Multi-Drug Resistant Organisms: None Reported Past Surgical History: Bariatric Surgery, Section, Hysterectomy, Orthopedic Surgery Additional Past Surgical History / Comment(s): CARPAL TUNNEL BILATERAL. ABSCESS ON ABD (I & D, PACKING) @ [facility] (CAN'T REMEMBER CULTURE RESULTS). Right knee surgery x 2, COLONOSCOPY, right knee meniscus repair 08/2022. Gastric sleeve 12/28/22 Past Anesthesia/Blood Transfusion Reactions: No Reported Reaction Past Psychological History: Depression Smoking Status: Never smoker Past Alcohol Use History: Rare Past Drug Use History: None Reported - Past Family History Mother Family Medical History: Cancer (Melanoma skin cancer) Father Family Medical History: CVA/TIA, Myocardial Infarction (PR) Medications and Allergies Home Medications Medication Instructions Recorded Confirmed Type HYDROcodone/APAP 10-325MG [Mondamin 1 tab PO TID PRN 12/10/23 12/10/23 History 10-325] Losartan Potassium 50 mg PO DAILY 12/10/23 12/10/23 History Tirzepatide [Mounjaro] 5 mg SQ SA 12/10/23 12/10/23 History buPROPion [Wellbutrin] 100 mg PO BID 12/10/23 12/10/23 History lamoTRIgine [LaMICtal Xr] 250 mg PO DAILY 12/10/23 12/10/23 History metFORMIN HCL ER [Glucophage XR] 500 mg PO BID 12/10/23 12/10/23 History risperiDONE [RisperDAL] 0.5 mg PO DIRECTED 12/10/23 12/10/23 History Allergies Allergy/AdvReac Type Severity Reaction Status Date / Time No Known Allergies Allergy Verified 12/10/23 19:21 Physical Exam Vitals: Vital Signs Temp Pulse Pulse Resp BP BP Pulse Ox 12/11/23 08:00 97.9 F 71 16 97/60 97 12/11/23 07:00 80 24 103/63 98 12/11/23 06:00 75 6 L 106/63 94 L 12/11/23 05:00 78 2 L 103/64 96 12/11/23 04:00 97.8 F 83 0 L 101/60 95 12/11/23 03:00 86 19 98/62 94 L 12/11/23 02:15 90 13 99/61 95 12/11/23 02:00 90 0 L 107/65 94 L 12/11/23 01:45 92 0 L 104/61 95 12/11/23 01:30 93 0 L 107/64 94 L 12/11/23 01:15 98 5 L 112/61 94 L 12/11/23 01:00 96 0 L 106/60 94 L 12/11/23 00:45 95 0 L 111/66 94 L 12/11/23 00:30 93 0 L 116/74 94 L 12/11/23 00:15 94 7 L 125/82 96 12/11/23 00:00 97.8 F 99 7 L 135/78 95 12/10/23 23:45 96 19 137/88 97 12/10/23 23:30 96 3 L 141/90 96 12/10/23 23:15 101 H 6 L 134/94 98 12/10/23 23:05 96 10 L 134/94 97 12/10/23 23:00 99 11 L 130/82 98 12/10/23 22:45 95 4 L 124/81 95 12/10/23 22:30 98 4 L 129/84 97 12/10/23 22:15 99 11 L 133/80 98 12/10/23 22:00 95 16 128/87 96 12/10/23 21:45 96 0 L 136/89 95 12/10/23 21:30 98 9 L 147/94 98 12/10/23 21:15 100 14 144/89 99 12/10/23 21:00 99 7 L 146/88 97 12/10/23 20:55 101 H 5 L 97 12/10/23 20:50 106 H 18 97 12/10/23 20:45 103 H 13 133/97 98 12/10/23 20:40 95 0 L 96 12/10/23 20:35 98 7 L 133/97 100 12/10/23 20:30 90 8 L 163/96 100 12/10/23 20:26 98.2 F 90 16 163/96 12/10/23 18:50 92 18 154/93 12/10/23 18:45 91 14 155/81 12/10/23 18:40 91 18 163/79 98 12/10/23 18:18 98.4 F 100 18 169/93 100 Intake and Output 12/10/23 12/11/23 12/11/23 22:59 06:59 14:59 Intake Total 305 356.724 20 Output Total 800 600 Balance -495 356.724 -580 Intake: IV 305 275 20 0.9 kvo 50 20 Sodium Chloride 0.9% 1, 150 225 000 ml @ 75 mls/hr IV . [id number] [facility] Rx#:[id number] Intake, IV Titration 81.724 Amount Heparin Sod,Pork in 0.45% 81.724 NaCl 25,000 unit In 0.45 % NaCl 1 250ml.bag @ 12 UNITS/KG/HR 11.52 mls/hr IV .[id number] [facility] Rx#: [id number] Output: Urine 800 600 Other: Voiding Method Bedside Commode Bedside Commode # Voids 1 Weight 96 kg 96.9 kg Results CBC & Chem 7: 12/11/23 04:02 12/11/23 10:18 Labs: Abnormal Lab Results - Last 24 Hours (Table) 12/10/23 12/10/23 12/11/23 Range/Units 18:40 21:55 04:02 APTT (22.0-30.0) sec Chloride 110 H (98-107) mmol/L BUN 18 H (7-17) mg/dL Creatinine 0.47 L (0.52-1.04) mg/dL Glucose 106 H (74-99) mg/dL POC Glucose (mg/dL) (70-110) mg/dL Troponin I 0.629 H* 1.170 H* (0.000-0.034) ng/mL 12/11/23 12/11/23 Range/Units 04:02 06:37 APTT 110.9 H* (22.0-30.0) sec Chloride (98-107) mmol/L BUN (7-17) mg/dL Creatinine (0.52-1.04) mg/dL Glucose (74-99) mg/dL POC Glucose (mg/dL) 111 H (70-110) mg/dL Troponin I (0.000-0.034) ng/mL Assessment and Plan Assessment: Assessment and plan * Non-ST elevated PR * S/p cardiac catheterization triple-vessel coronary artery disease * Diabetes mellitus type 2-most recent HbA1c 6.2 * Morbid obesity * GERD * In regards to nonmacerated PR patient is s/p cardiac catheterization triple- vessel coronary artery disease noted cardiac surgery consulted workup initiated echocardiogram ordered * Continue guideline directed medical therapy for coronary artery disease including aspirin, Lipitor, lisinopril, metoprolol as needed nitroglycerin for chest pain * In regards to history of diabetes mellitus Accu-Cheks ACHS, continue correctional insulin HbA1c ordered , metformin on hold * CODE STATUS is full code Time with Patient: Greater than 30
--- NOTE | 2023-12-11 14:07 | US ---
EXAMINATION TYPE: US arterial LE multi level DATE OF EXAM: 12/11/2023 11:26 AM CLINICAL INDICATION: Female, 48 years old with history of Ankle Brachial Index (CATALINA) ; pre bypass hbavesh ting History of: Smoker: n Hypertension: y Diabetic: y Hyperlipidemia: n TIA/CVA: n Previous Vascular Surgery: n CAD: n CO: n Vascular Ulcers: n Claudication: n Gangrene: n Doppler Waveforms: Right: Multiphasic Left: Multiphasic Right Brachial Pressure: deferred, heart cath Left Brachial Pressure: 100 Ankle-Brachial Indices: Right: 1.5 Left: 1.5 Toe Brachial Indices: Right: 1.1 Left: 1.1 IMPRESSION: Based on ABIs and Doppler waveforms, there is no evidence of significant peripheral vasc ular disease.
[2023-12-11 14:14] LABS: Appearance,Urine Clear (Clear); Bilirubin,Urine Negative (Negative); Blood,Urine Negative (Negative); Color,Urine Yellow; Glucose,Urine (UA) 4+ (Negative); Ketones,Urine Negative (Negative); Leukocyte Esterase,Urine Negative (Negative); Nitrite,Urine Negative (Negative); PH, Urine 5.5 (5.0-8.0); Protein,Urine Negative (Negative); Specific Gravity,Urine 1.033 (1.001-1.035); Urobilinogen,Urine <2.0 mg/dL (<2.0)
[2023-12-11] MEDS ORDERED: SENNOSIDES 8.6 MG TAB PO PRN (16:35)
[2023-12-11] MEDS: PANTOPRAZOLE 40 MG TABLET PO SCH (16:37)
[2023-12-11 16:43] LABS: Glucose,Whole Blood 97 mg/dL (70-110)
[2023-12-11 20:27] LABS: Glucose,Whole Blood 127 mg/dL (70-110)
[2023-12-11] MEDS: MUPIROCIN 2% OINT 22 GM TUBE NASAL SCH (20:53)
[2023-12-12] MEDS: HYDROcodone/APAP 10-325MG 1 EACH TAB PO PRN (04:07)
[2023-12-12 04:23] LABS: HCT 39.5 % (34.0-46.0); HGB 13.1 gm/dL (11.4-16.0); MCH 29.8 pg (25.0-35.0); MCHC 33.2 g/dL (31.0-37.0); MCV 89.6 fL (80.0-100.0); Mean Platelet Volume 8.2; Platelet Count 260 k/uL (150-450); RBC 4.41 m/uL (3.80-5.40); WBC 8.4 k/uL (3.8-10.6)
[2023-12-12 04:51] LABS: African American GFR (CKD) >90 (>60 ml/min/1.73 sqM); Anion Gap 2 mmol/L; Blood Urea Nitrogen 20 mg/dL (7-17); Calcium 8.7 mg/dL (8.4-10.2); Carbon Dioxide 26 mmol/L (22-30); Chloride 110 mmol/L (98-107); Glucose 102 mg/dL (74-99); Non-African American GFR(CKD) >90 (>60 ml/min/1.73 sqM); Potassium 3.7 mmol/L (3.5-5.1); Sodium 138 mmol/L (137-145)
[2023-12-12 06:35] LABS: Glucose,Whole Blood 89 mg/dL (70-110)
[2023-12-12] MEDS: POTASSIUM CHLORIDE ER 20 MEQ TAB.ER PO SCH (06:35)
[2023-12-12 07:45] LABS: Chol/HDL Ratio 2.81 Ratio; LDL Cholesterol,Calculated 69.9 mg/dL (0.0-131.0); VLDL Calculation 17.14 mg/dL (5.00-40.00)
[2023-12-12 08:46] LABS: Hepatitis A Antibody IgM Nonreactive; Hepatitis B Core IgM Nonreactive; Hepatitis B Surface Antigen Nonreactive; Hepatitis C IgG Antibody Nonreactive
[2023-12-12] MEDS ORDERED: MD COMMUNICATION TO PHARMACY 1 EACH MISC PO ONE ×5 (09:39→09:40)
--- NOTE | 2023-12-12 10:12 | P.PN ---
Subjective Progress Note Date: 12/12/23 Principal diagnosis: Multivessel coronary artery disease, non-ST elevated myocardial infarction this admission. Past medical history significant for hypertension, diabetes mellitus type 2, obesity with a BMI of 36.7 kg/m, depression, frequent constipation, and is a lifetime non-smoker. The patient was seen and examined in follow-up today December 12, 2023 at her bedside in the intensive care unit. She is currently sitting up to the bedside chair, is awake, alert, oriented x 3 and is in no acute apparent distress. Denies any complaints of pain or shortness of breath at this time, and she reports that she has not had any further complaints of chest pain or pressure since her heart catheterization. Heparin drip remains infusing per protocol. Oxygen saturations are 98% on room air and she is achieving 2000 mL on her incentive spirometry with encouragement. Bedside telemetry is showing normal sinus rhythm heart rate 68 bpm. Bedside FEV1 was completed yesterday which showed a predicted value of 93% with a base volume of 2.49 L. Carotid duplex study shows no evidence for hemodynamically significant stenosis. CT scan of her chest without contrast was completed as part of her preoperative workup which shows a normal caliber thoracic aorta. A 5 m walk test was completed with the patient yesterday December 11, 2023, time 1: 2.08 seconds, time 2: 2.63 seconds, time 3: 2.40 seconds. Patient tolerated walk well without complaints. An STS risk or has been calculated and discussed with the patient. Tentatively the patient is scheduled for myocardial revascularization surgery with left internal mammary artery, endoscopic left radial artery harvest, bilateral endoscopic greater saphenous vein harvest, exclusion left atrial appendage and intraoperative transesophageal echocardiogram for Thursday, December 14, 2023 to be performed by Dr. Rebecca Duncan. Preoperative testing has been reinforced with the patient and questions answered to the best of my ability. Objective - Vital Signs Vital signs: Vital Signs Temp 98.2 F 12/12/23 08:00 Pulse 62 12/12/23 08:00 Resp 18 12/12/23 08:00 BP 104/66 12/12/23 08:00 Pulse Ox 95 12/12/23 08:00 FiO2 Intake & Output 12/11/23 12/12/23 12/12/23 18:59 06:59 18:59 Intake Total 247.717 323.25 Output Total 800 600 Balance -552.283 -276.75 Weight 96.2 kg Intake: IV 120 130 0.9 kvo 120 130 Intake, IV Titration 127.717 43.25 Amount Heparin Sod,Pork in 0.45% 127.717 NaCl 25,000 unit In 0.45 % NaCl 1 250ml.bag @ 12 UNITS/KG/HR 11.52 mls/hr IV .[id number] [facility] Rx#: [id number] Nitroglycerin-D5w Pmx 50 43.25 mg In Dextrose/Water 1 250ml.bag @ 5 MCG/MIN 1.5 mls/hr IV .Q24H [facility] Rx#: [id number] Oral 150 Output: Urine 800 600 Other: Voiding Method Bedside Commode Bedside Commode Bedside Commode # Voids 1 # Bowel Movements 1 - Exam CONSTITUTIONAL: Sitting up to the bedside chair in the intensive care unit, appears comfortable, cooperative, no apparent acute distress. HEENT: Neck is supple, no JVD, no lymphadenopathy. RESPIRATORY: Lungs sounds essentially clear throughout, diminished to his bilateral bases. Respirations are symmetrical and nonlabored. Currently on room air with oxygen saturations 98%. Able to achieve 2000 mL on her incentive spirometry. Strong cough. CARDIOVASCULAR: Regular rhythm and rate. S1 and S2 present, negative for S3, gallop or murmur. Bedside telemetry showing normal sinus rhythm heart rate 68 bpm. GASTROINTESTINAL: Abdomen soft, nontender, nondistended. Active bowel sounds present 4 quadrants. Tolerating diet. Passing flatus. No guarding or rigidity. GENITOURINARY: Continues to void. INTEGUMENTARY: Skin is warm and dry with no evidence of clubbing or cyanosis. NEUROLOGIC: Cranial nerves II through XII intact. No focal deficits. MUSKULOSKELETAL: Able to move all extremities, strength equal bilaterally. PSYCHIATRIC: Alert and oriented to person place and time, appropriate affect, intact judgment and insight. - Allied health notes Allied health notes reviewed: nursing - Labs CBC & Chem 7: 12/12/23 03:58 12/12/23 03:58 Labs: Abnormal Lab Results - Last 24 Hours (Table) 12/11/23 12/11/23 12/11/23 Range/Units 08:38 10:18 10:22 APTT (22.0-30.0) sec Chloride 109 H (98-107) mmol/L Carbon Dioxide 20 L (22-30) mmol/L BUN (7-17) mg/dL Creatinine 0.46 L (0.52-1.04) mg/dL Glucose 162 H (74-99) mg/dL POC Glucose (mg/dL) (70-110) mg/dL Troponin I 1.690 H* (0.000-0.034) ng/mL Total Protein 6.2 L (6.3-8.2) g/dL Urine Glucose (UA) 4+ H (Negative) 12/11/23 12/11/23 12/11/23 Range/Units 13:57 20:26 21:00 APTT 42.1 H 63.2 H (22.0-30.0) sec Chloride (98-107) mmol/L Carbon Dioxide (22-30) mmol/L BUN (7-17) mg/dL Creatinine (0.52-1.04) mg/dL Glucose (74-99) mg/dL POC Glucose (mg/dL) 127 H (70-110) mg/dL Troponin I (0.000-0.034) ng/mL Total Protein (6.3-8.2) g/dL Urine Glucose (UA) (Negative) 12/12/23 12/12/23 12/12/23 Range/Units 03:58 03:58 07:42 APTT 60.8 H (22.0-30.0) sec Chloride 110 H (98-107) mmol/L Carbon Dioxide (22-30) mmol/L BUN 20 H (7-17) mg/dL Creatinine 0.43 L (0.52-1.04) mg/dL Glucose 102 H (74-99) mg/dL POC Glucose (mg/dL) (70-110) mg/dL Troponin I 0.698 H* (0.000-0.034) ng/mL Total Protein (6.3-8.2) g/dL Urine Glucose (UA) (Negative) - Imaging and Cardiology Chest x-ray: report reviewed, image reviewed CT scan - chest: report reviewed, image reviewed Assessment and Plan Assessment: Multivessel coronary artery disease Acute non-ST elevated myocardial infarction this admission Hypertension Diabetes mellitus type 2 Obesity with a BMI of 36.7 kg/m, status post gastric sleeve Frequent constipation History of depression Plan: The patient is tentatively scheduled for myocardial revascularization surgery with left internal mammary artery, endoscopic left radial artery harvest, bilateral endoscopic greater saphenous vein harvest, exclusion left atrial appendage and intraoperative transesophageal echocardiogram for Thursday, December 14, 2023 to be performed by Dr. Rebecca Duncan. Encourage use of incentive spirometry 10 times every hour while awake. And STS risk or was calculated and discussed with the patient. Continue to reinforce preoperative teaching. Medical management and other comorbidities per primary care service and cardiology service. Pulmonary/critical care medicine was consulted for pulmonary clearance. She will be made n.p.o. after midnight on December 14, 2023. More recommendations to follow based on patient's clinical course. Time with Patient: Greater than 30
--- NOTE | 2023-12-12 10:20 | P.PN ---
Subjective The patient is a pleasant 48-year-old female patient with a past medical history significant for diabetes presented initially to the emergency room at [facility] complaining of chest discomfort. She has been experiencing intermittent episodes of chest discomfort for the last one to 2 weeks. She described the discomfort as a pressure across the chest with no radiation to the arms or neck or shoulders or back until earlier today when the pressure started radiating to her back. The discomfort is clearly worse with exertion and better with a resting. No associated symptoms of shortness of breath or sweating or dizziness or lightheadedness or any feeling of heart racing or fluttering or presyncope or syncope. She presented initially to the emergency department at [facility] where she underwent a workup including cardiac enzymes came in to be slightly abnormal and EKG showed ST and T wave abnormalities ant eriorly. She was transferred to the emergency department to [facility] where she underwent a heart catheterization and that revealed severe triple- vessel coronary artery disease. She was found to have severe disease involving the LAD with a long tubular lesion and intermediate disease involving the left circumflex documented to be flow-limiting by Doppler wire and also she was found to have occluded RCA distally with contralateral collateral. We did not check her left sided filling pressure. The patient tolerated the procedure very well. Giving the above anatomy I to be seen by cardiothoracic surgeon for evaluation of CABG. Please note that the patient is hemodynamically stable and also currently she is asymptomatic was no chest pain at this point. She will be admitted to the intensive care unit. She will be restarted back on heparin once we achieve hemostasis at the right radial artery. She will be on aspirin and high intensity statin and beta kelly as well as LEEANNA inhibitor. An echo will be performed. The finding were discussed with the patient in details and she is in full understanding and agreement and she would like to be seen by cardiology surgeon in the next 24 hours. The examination is remarkable for stable vital signs with a regular rate and rhythm and distant heart sounds and systolic murmur at the right and left upper sternal border with clear breathing sounds bilaterally and no lower extremity is edema noted. 2/3 Patient seen and examined. Patient underwent heart catheterization last night which showed multivessel CAD with recommendations for bypass. She was having some chest pain and therefore placed on nitroglycerin drip with resolution of chest pain. Patient also placed on Aggrastat drip and then heparin drip after the TR band had been removed. Currently she denies any chest pain or pressure. Troponin 1.1. Echo pending. Hemoglobin stable at 14.0. She has been placed on aspirin, lisinopril, metoprolol and Lipitor. / Patient seen and examined. Patient denies any chest pain or pressure. Remains on heparin drip. Echocardiogram performed which shows EF 50-55%. Vital signs reviewed. CONSTITUTIONAL: No apparent distress. HEENT: Head is normocephalic. Pupils are equal, round. Sclerae anicteric. Mucous membranes of the mouth are moist. No JVD. No carotid bruit. CHEST EXAMINATION: Lungs are clear to auscultation. No chest wall tenderness is noted on palpation or with deep breathing. HEART EXAMINATION: Regular rate and rhythm. S1, S2 heard. No murmurs, gallops or rub. ABDOMEN: Soft, nontender. Positive bowel sounds. EXTREMITIES: 2+ peripheral pulses, no lower extremity edema and no calf tenderness. NEUROLOGIC EXAMINATION: Patient is awake, alert and oriented x3. Assessment Acute non-ST elevation myocardial infarction Severe triple-vessel coronary artery disease Diabetes Obesity Plan Patient currently chest pain-free. We will continue with heparin drip Monitor her chest pain. Echocardiogram showing relatively preserved EF 50-55% Likely surgery Wednesday per cardiothoracic surgery Continue with aspirin, Lipitor, metoprolol. Objective - Vital Signs Vital signs: Vital Signs Temp 98.2 F 12/12/23 08:00 Pulse 62 12/12/23 08:00 Resp 18 12/12/23 08:00 BP 104/66 12/12/23 08:00 Pulse Ox 95 12/12/23 08:00 FiO2 Intake & Output 12/11/23 12/12/23 12/12/23 18:59 06:59 18:59 Intake Total 247.717 323.25 Output Total 800 600 Balance -552.283 -276.75 Weight 96.2 kg Intake: IV 120 130 0.9 kvo 120 130 Intake, IV Titration 127.717 43.25 Amount Heparin Sod,Pork in 0.45% 127.717 NaCl 25,000 unit In 0.45 % NaCl 1 250ml.bag @ 12 UNITS/KG/HR 11.52 mls/hr IV .[id number] [facility] Rx#: [id number] Nitroglycerin-D5w Pmx 50 43.25 mg In Dextrose/Water 1 250ml.bag @ 5 MCG/MIN 1.5 mls/hr IV .Q24H [facility] Rx#: [id number] Oral 150 Output: Urine 800 600 Other: Voiding Method Bedside Commode Bedside Commode Bedside Commode # Voids 1 # Bowel Movements 1 - Labs CBC & Chem 7: 12/12/23 03:58 12/12/23 03:58 Labs: Abnormal Lab Results - Last 24 Hours (Table) 12/11/23 12/11/23 12/11/23 Range/Units 08:38 10:18 10:22 APTT (22.0-30.0) sec Chloride 109 H (98-107) mmol/L Carbon Dioxide 20 L (22-30) mmol/L BUN (7-17) mg/dL Creatinine 0.46 L (0.52-1.04) mg/dL Glucose 162 H (74-99) mg/dL POC Glucose (mg/dL) (70-110) mg/dL Troponin I 1.690 H* (0.000-0.034) ng/mL Total Protein 6.2 L (6.3-8.2) g/dL Urine Glucose (UA) 4+ H (Negative) 12/11/23 12/11/23 12/11/23 Range/Units 13:57 20:26 21:00 APTT 42.1 H 63.2 H (22.0-30.0) sec Chloride (98-107) mmol/L Carbon Dioxide (22-30) mmol/L BUN (7-17) mg/dL Creatinine (0.52-1.04) mg/dL Glucose (74-99) mg/dL POC Glucose (mg/dL) 127 H (70-110) mg/dL Troponin I (0.000-0.034) ng/mL Total Protein (6.3-8.2) g/dL Urine Glucose (UA) (Negative) 12/12/23 12/12/23 12/12/23 Range/Units 03:58 03:58 07:42 APTT 60.8 H (22.0-30.0) sec Chloride 110 H (98-107) mmol/L Carbon Dioxide (22-30) mmol/L BUN 20 H (7-17) mg/dL Creatinine 0.43 L (0.52-1.04) mg/dL Glucose 102 H (74-99) mg/dL POC Glucose (mg/dL) (70-110) mg/dL Troponin I 0.698 H* (0.000-0.034) ng/mL Total Protein (6.3-8.2) g/dL Urine Glucose (UA) (Negative)
[2023-12-12] MEDS: NITROGLYCERIN SL TABS 0.4 MG TAB SUBLINGUAL PRN (10:44)
[2023-12-12 11:31] LABS: Glucose,Whole Blood 129 mg/dL (70-110)
--- NOTE | 2023-12-12 13:24 | P.PN ---
Subjective Progress Note Date: 12/12/23 * 48-year-old patient with past medical history significant for diabetes mellitus presented to the emergency department with complaints of chest discomfort. Patient says she was having chest pain for approximately 2 weeks. Patient had midsternal chest pain which did not radiate to arms or neck. Patient was initially admitted at [facility] where she had a cardiac workup which showed elevated enzymes, and abnormal EKG showing ST and T wave abnormality. Patient was transferred to [facility] where she underwent cardiac catheterization. Patient was noted to have triple-vessel disease and was found to have severe disease involving LDA. Patient was seen after cardiac catheterization was completed. Cardiac catheterization showed multivessel coronary artery disease and recommendation was for patient to undergo bypass. * Consultation was obtained from interventional cardiology as well as cardiac surgery, serum chemistry obtained showed sodium of 138 potassium 3.5, dioxide 23 BUN 18 creatinine 0.47, WBC count of 9.5 hemoglobin 14 platelet count of 322 * Patient was monitored in medical ICU and was kept on IV heparin drip and guideline directed medical therapy with workup initiated for CABG * 12/12/23 : Patient seen and evaluated bedside, workup for CABG in process. Patient did have chest pain overnight. Continue patient on IV heparin and nitroglycerin drip. Continue close monitoring in ICU REVIEW OF SYSTEMS: Chest pain recurrent CONSTITUTIONAL: No fever, no malaise, no fatigue. HEENT: No recent visual problems or hearing problems. Denied any sore throat. CARDIOVASCULAR: Chest pain current PULMONARY: No shortness of breath, no cough, no hemoptysis. GASTROINTESTINAL: No diarrhea, no nausea, no vomiting, no abdominal pain. NEUROLOGICAL: No headaches, no weakness, no numbness. HEMATOLOGICAL: Denies any bleeding or petechiae. GENITOURINARY: Denies any burning micturition, frequency, or urgency. MUSCULOSKELETAL/RHEUMATOLOGICAL: Denies any joint pain, swelling, or any muscle pain. ENDOCRINE: Denies any polyuria or polydipsia. PHYSICAL EXAMINATION: GENERAL: The patient is alert and oriented x3, Well developed, well nourished. HEENT: Pupils are round and equally reacting to light. EOMI. CARDIOVASCULAR: S1 and S2 present. No murmurs, rubs, or gallops. PULMONARY: Chest is clear to auscultation, no wheezing or crackles. ABDOMEN: Soft, nontender, nondistended, normoactive bowel sounds. No palpable organomegaly. MUSCULOSKELETAL: No joint swelling or deformity. EXTREMITIES: No cyanosis, clubbing, or pedal edema. NEUROLOGICAL: Gross neurological examination did not reveal any focal deficits. SKIN: No rashes. Objective - Vital Signs Vital signs: Vital Signs Temp 98.2 F 12/11/23 16:00 Pulse 71 12/11/23 19:00 Resp 17 12/11/23 19:00 BP 124/73 12/11/23 19:00 Pulse Ox 96 12/11/23 19:00 FiO2 Intake & Output 12/11/23 12/11/23 12/12/23 06:59 18:59 06:59 Intake Total 561.724 247.717 10 Output Total 800 800 Balance -238.276 -552.283 10 Weight 96.9 kg Intake: IV 480 120 10 0.9 kvo 50 120 10 Sodium Chloride 0.9% 1, 375 000 ml @ 75 mls/hr IV . [id number] GEOVANNI Rx#:[id number] Intake, IV Titration 81.724 127.717 Amount Heparin Sod,Pork in 0.45% 81.724 127.717 NaCl 25,000 unit In 0.45 % NaCl 1 250ml.bag @ 12 UNITS/KG/HR 11.52 mls/hr IV .[id number] GEOVANNI Rx#: [id number] Output: Urine 800 800 Other: Voiding Method Bedside Commode Bedside Commode # Voids 1 # Bowel Movements 1 - Labs CBC & Chem 7: 12/12/23 03:58 12/12/23 03:58 Labs: Abnormal Lab Results - Last 24 Hours (Table) 12/10/23 12/11/23 12/11/23 Range/Units 21:55 04:02 04:02 APTT 110.9 H* (22.0-30.0) sec Chloride 110 H (98-107) mmol/L Carbon Dioxide (22-30) mmol/L BUN 18 H (7-17) mg/dL Creatinine 0.47 L (0.52-1.04) mg/dL Glucose 106 H (74-99) mg/dL POC Glucose (mg/dL) (70-110) mg/dL Troponin I 1.170 H* (0.000-0.034) ng/mL Total Protein (6.3-8.2) g/dL Urine Glucose (UA) (Negative) 12/11/23 12/11/23 12/11/23 Range/Units 06:37 08:38 10:18 APTT (22.0-30.0) sec Chloride 109 H (98-107) mmol/L Carbon Dioxide 20 L (22-30) mmol/L BUN (7-17) mg/dL Creatinine 0.46 L (0.52-1.04) mg/dL Glucose 162 H (74-99) mg/dL POC Glucose (mg/dL) 111 H (70-110) mg/dL Troponin I (0.000-0.034) ng/mL Total Protein 6.2 L (6.3-8.2) g/dL Urine Glucose (UA) 4+ H (Negative) 12/11/23 12/11/23 12/11/23 Range/Units 10:22 13:57 20:26 APTT 42.1 H (22.0-30.0) sec Chloride (98-107) mmol/L Carbon Dioxide (22-30) mmol/L BUN (7-17) mg/dL Creatinine (0.52-1.04) mg/dL Glucose (74-99) mg/dL POC Glucose (mg/dL) 127 H (70-110) mg/dL Troponin I 1.690 H* (0.000-0.034) ng/mL Total Protein (6.3-8.2) g/dL Urine Glucose (UA) (Negative) Assessment and Plan Assessment: Assessment and plan * Non-ST elevated SC with unstable angina * S/p cardiac catheterization triple-vessel coronary artery disease * Diabetes mellitus type 2-most recent HbA1c 6.2 * Morbid obesity * GERD * In regards to non-ST elevated SC patient is s/p cardiac catheterization triple-vessel coronary artery disease noted, continue IV heparin and IV nitroglycerin drip * cardiac surgery consulted workup initiated echocardiogram ordered, venous mapping ordered, risk stratification for CABG initiated * Continue guideline directed medical therapy for coronary artery disease inc luding aspirin, Lipitor, lisinopril, metoprolol as needed nitroglycerin for chest pain * In regards to history of diabetes mellitus Accu-Cheks ACHS, continue correctional insulin HbA1c 6.7, metformin on hold * CODE STATUS is full code
[2023-12-12] MEDS: MORPHINE SULFATE 4 MG/ML SYRINGE IVP STA (15:40)
[2023-12-12] MEDS: ARGATROBAN 50 MG in SODIUM CHLORIDE 0.9% 50 ML IV SCH (15:59)
[2023-12-12 16:06] LABS: Glucose,Whole Blood 102 mg/dL (70-110)
[2023-12-12] MEDS: INSULIN ASPART (NovoLOG) 100 UNIT/ML VIAL SQ SCH (16:06)
[2023-12-12 20:02] LABS: Glucose,Whole Blood 174 mg/dL (70-110)
[2023-12-13 00:31] LABS: Glucose,Whole Blood 122 mg/dL (70-110)
--- NOTE | 2023-12-13 01:15 | P.CNPUL ---
History of Present Illness Consult date: 12/13/23 Requesting physician: Lee Wells Reason for consult: other (Pulmonary clearance for tentative open heart and postoperative pulmonary management) Chief complaint: Chest pain History of present illness: I am seeing this patient in new consultation today December 13, 2023 in the intensive care unit for pulmonary clearance for a tentative upcoming CABG, as well as, postoperative pulmonary management. Patient is a 48-year-old white female with past medical history significant for hypertension, diabetes mellitus type 2, morbid obesity status post gastric sleeve procedure, and is a lifetime n on-smoker. Patient states that she has been having exertional chest pain over the last 2 weeks. This usually occurs when she is on the treadmill, and subsides within 15 minutes of rest. On December 10, 2023 she states that her chest pain did not go away with rest, it radiated to her back, and it lasted about 40 minutes. When her daughter got home, she was driven to [facility]. She had elevated troponin at the outside facility, abnormal EKG changes, and was transferred to our facility the same day. She did undergo a cardiac catheterization on December 10, 2023 which demonstrated severe disease of the LAD, intermittent disease an OM branch of the left circumflex and an occlu ded RCA with collateral circulation. There was recommendation for surgical revascularization. A transthoracic echo showed a preserved left ejection fraction of 50 to 55%, with moderately increased LVH, and trace to mild mitral and tricuspid regurgitation. The patient is now in the intensive care unit. Earlier in the day, she reportedly had some intermittent chest pain. She has been started on a combination of nitroglycerin which is infusing at 40 mics per minute, IV heparin per protocol. APTT is therapeutic. Troponins have peaked at 1.69, and are downtrending. Most recent CBC and BMP from yesterday are unremarkable. She currently denies any chest pain at the moment. She is lying in bed, on room air, in no acute distress. She denies any history of pulmonary disease. She is a lifelong non-smoker. Bedside spirometry bedside spirometry showed an FEV1 of 2.49 L or 93% of predicted. There is an incentive spirometer at bedside. A nonenhanced chest CT did not show any evidence of pulmonary disease. Vital signs are stable. Review of Systems REVIEW OF SYSTEMS: CONSTITUTIONAL: Admits 100 pound weight loss over the last year after undergoing gastric sleeve procedure. Denies any fevers, malaise, headaches. EYES: Denies change in vision. EARS, NOSE, MOUTH, THROAT: Denies headaches, denies sore throat. CARDIOVASCULAR: Admits chest pain as described in HPI. Denies any heart palpitations, syncope, lower extremity swelling. RESPIRATORY: Denies shortness of breath, cough, congestion or hemoptysis. GASTROINTESTINAL: Denies change in appetite, abdominal pain, nausea and vomiting, or diarrhea GENITOURINARY: Denies hematuria, denies infections. MUSKULOSKELETAL: Denies pain, denies swelling. INTEGUMENTARY: Denies rash, denies eczema. NEUROLOGICAL: Denies recent memory loss, no recent seizure activity. PSYCHIATRIC: Denies anxiety, denies depression. HEMATOLOGIC/LYMPHATIC: Denies anemia, denies enlarged lymph node Past Medical History Past Medical History: Chest Pain / Angina, Diabetes Mellitus, Hypertension Additional Past Medical History / Comment(s): CURRENT: MID BACK PAIN, RIGHT SIDE. History of Any Multi-Drug Resistant Organisms: None Reported Past Surgical History: Bariatric Surgery, Section, Hysterectomy, O rthopedic Surgery Additional Past Surgical History / Comment(s): CARPAL TUNNEL BILATERAL. ABSCESS ON ABD (I & D, PACKING) @ [facility] (CAN'T REMEMBER CULTURE RESULTS). Right knee surgery x 2, COLONOSCOPY, right knee meniscus repair 08/2022. Gastric sleeve 12/28/22 Past Anesthesia/Blood Transfusion Reactions: No Reported Reaction Past Psychological History: Depression Smoking Status: Never smoker Past Alcohol Use History: Rare Past Drug Use History: None Reported - Past Family History Mother Family Medical History: Cancer (Melanoma skin cancer) Father Family Medical History: CVA/TIA, Myocardial Infarction ([place]) Medications and Allergies Home Medications Medication Instructions Recorded Confirmed Type HYDROcodone/APAP 10-325MG [[place] 1 tab PO TID PRN 12/10/23 12/10/23 History 10-325] Losartan Potassium 50 mg PO DAILY 12/10/23 12/10/23 History Tirzepatide [Mounjaro] 5 mg SQ SA 12/10/23 12/10/23 History buPROPion [Wellbutrin] 100 mg PO BID 12/10/23 12/10/23 History lamoTRIgine [LaMICtal Xr] 250 mg PO DAILY 12/10/23 12/10/23 History metFORMIN HCL ER [Glucophage XR] 500 mg PO BID 12/10/23 12/10/23 History risperiDONE [RisperDAL] 0.5 mg PO DIRECTED 12/10/23 12/10/23 History Allergies Allergy/AdvReac Type Severity Reaction Status Date / Time No Known Allergies Allergy Verified 12/10/23 19:21 Physical Exam Vitals: Vital Signs Temp Pulse Resp BP Pulse Ox 12/12/23 22:30 78 12 106/65 97 12/12/23 22:15 75 20 119/70 96 12/12/23 22:00 76 28 H 116/73 93 L 12/12/23 21:45 81 26 H 111/65 96 12/12/23 21:30 76 27 H 106/70 95 12/12/23 21:15 75 30 H 134/74 96 12/12/23 21:00 81 9 L 124/70 99 12/12/23 20:45 82 9 L 97 12/12/23 20:30 91 11 L 124/69 98 12/12/23 20:15 82 32 H 108/63 96 12/12/23 20:00 97.8 F 79 13 107/70 97 12/12/23 19:45 76 23 108/72 99 12/12/23 19:30 79 14 100/73 98 12/12/23 19:15 77 22 124/76 99 12/12/23 19:00 86 20 109/61 98 12/12/23 18:45 84 16 96 12/12/23 18:30 80 20 112/61 99 12/12/23 18:15 78 19 122/69 100 12/12/23 18:00 78 16 114/73 100 12/12/23 17:45 75 16 123/74 100 12/12/23 17:30 80 16 105/65 100 12/12/23 17:15 75 16 99/61 99 12/12/23 17:00 72 24 107/66 99 12/12/23 16:45 76 24 108/64 99 12/12/23 16:30 71 16 107/65 98 12/12/23 16:15 73 16 113/71 99 12/12/23 16:00 98.0 F 75 14 112/70 98 12/12/23 15:45 76 24 107/65 97 12/12/23 15:30 71 16 118/72 98 12/12/23 15:15 73 24 150/89 98 12/12/23 15:00 70 16 155/91 100 12/12/23 14:45 78 18 141/83 100 12/12/23 14:30 67 16 108/71 98 12/12/23 14:15 77 16 100/62 99 12/12/23 14:00 68 20 94/61 95 12/12/23 13:45 69 22 104/61 95 12/12/23 13:30 67 22 109/67 96 12/12/23 13:15 75 20 103/60 96 12/12/23 13:00 72 16 117/67 99 12/12/23 12:45 73 16 108/61 99 12/12/23 12:30 72 16 113/68 99 12/12/23 12:15 75 16 119/74 98 12/12/23 12:00 98.2 F 73 16 116/67 99 12/12/23 11:45 78 17 140/85 98 12/12/23 11:30 75 124/69 100 12/12/23 11:15 65 133/97 12/12/23 11:00 151/85 98 12/12/23 10:45 70 164/102 12/12/23 10:30 68 22 152/92 96 12/12/23 10:15 65 19 114/79 96 12/12/23 10:00 67 23 107/69 96 12/12/23 09:49 66 17 96 12/12/23 09:00 63 26 H 96 12/12/23 08:45 80 31 H 96 12/12/23 08:30 62 12 102/56 96 12/12/23 08:00 98.2 F 62 18 104/66 95 12/12/23 07:00 64 18 102/62 98 12/12/23 06:00 68 20 96/58 97 12/12/23 05:00 61 18 101/58 98 12/12/23 04:00 97.8 F 63 13 107/59 97 12/12/23 03:00 67 21 97/54 95 12/12/23 02:00 66 13 100/55 97 12/12/23 01:00 71 12 100/51 94 L Intake and Output 12/12/23 12/12/23 12/13/23 14:59 22:59 06:59 Intake Total 298.133 112.642 12.506 Output Total 0 0 Balance 298.133 112.642 12.506 Intake: IV 70 80 0.9 kvo 70 80 Intake, IV Titration 228.133 32.642 12.506 Amount Argatroban 50 mg In 31.842 12.506 Sodium Chloride 0.9% 50 ml @ 1 MCG/KG/MIN 5.772 mls/hr IV .[id number] GEOVANNI Rx# :[id number] Heparin Sod,Pork in 0.45% 215.608 NaCl 25,000 unit In 0.45 % NaCl 1 250ml.bag @ 12 UNITS/KG/HR 11.52 mls/hr IV .[id number] GEOVANNI Rx#: [id number] Nitroglycerin-D5w Pmx 50 12.525 0.8 mg In Dextrose/Water 1 250ml.bag @ 5 MCG/MIN 1.5 mls/hr IV .Q24H GEOVANNI Rx#: [id number] Output: Urine 0 0 Other: Voiding Method Bedside Commode Bedside Commode # Voids 1 # Bowel Movements 1 GENERAL EXAM: Alert, 48-year-old white female, comfortable in no apparent distress. HEAD: Normocephalic and atraumatic EYES: Normal reaction of pupils, equal size. NOSE: Clear with pink turbinates. THROAT: No erythema or exudates. NECK: No masses, no JVD. CHEST: No chest wall deformity. LUNGS: Equal air entry with no crackles, wheeze, rhonchi or dullness. On room air. No conversational dyspnea or accessory muscle use.. CVS: S1 and S2 normal with no audible murmur, regular rhythm. No extra heart sounds ABDOMEN: No hepatosplenomegaly, active bowel sounds, no guarding or rigidity. SPINE: No scoliosis or deformity SKIN: No rashes CENTRAL NERVOUS SYSTEM: No focal deficits, tone is normal in all 4 extremities. EXTREMITIES: There is no peripheral edema, clubbing, or cyanosis. Peripheral pulses are intact. Results - Laboratory Findings CBC and BMP: 12/12/23 03:58 12/12/23 03:58 PT/INR, D-dimer PT 11.5 sec (10.0-12.5) 12/11/23 04:02 INR 1.1 (<1.2) 12/11/23 04:02 Abnormal lab findings: Abnormal Labs 12/10/23 12/10/23 12/11/23 18:40 21:55 04:02 APTT Chloride 110 H Carbon Dioxide BUN 18 H Creatinine 0.47 L Glucose 106 H POC Glucose (mg/dL) Hemoglobin A1c Troponin I 0.629 H* 1.170 H* Total Protein Urine Glucose (UA) 12/11/23 12/11/23 12/11/23 04:02 06:37 08:38 APTT 110.9 H* Chloride Carbon Dioxide BUN Creatinine Glucose POC Glucose (mg/dL) 111 H Hemoglobin A1c Troponin I Total Protein Urine Glucose (UA) 4+ H 12/11/23 12/11/23 12/11/23 10:18 10:22 13:57 APTT 42.1 H Chloride 109 H Carbon Dioxide 20 L BUN Creatinine 0.46 L Glucose 162 H POC Glucose (mg/dL) Hemoglobin A1c Troponin I 1.690 H* Total Protein 6.2 L Urine Glucose (UA) 12/11/23 12/11/23 12/12/23 20:26 21:00 03:58 APTT 63.2 H Chloride Carbon Dioxide BUN Creatinine Glucose POC Glucose (mg/dL) 127 H Hemoglobin A1c 6.7 H Troponin I Total Protein Urine Glucose (UA) 12/12/23 12/12/23 12/12/23 03:58 03:58 07:42 APTT 60.8 H Chloride 110 H Carbon Dioxide BUN 20 H Creatinine 0.43 L Glucose 102 H POC Glucose (mg/dL) Hemoglobin A1c Troponin I 0.698 H* Total Protein Urine Glucose (UA) 12/12/23 12/12/23 12/12/23 11:28 18:11 20:01 APTT 82.3 H Chloride Carbon Dioxide BUN Creatinine Glucose POC Glucose (mg/dL) 129 H 174 H Hemoglobin A1c Troponin I Total Protein Urine Glucose (UA) 12/12/23 12/13/23 20:32 00:29 APTT 66.8 H Chloride Carbon Dioxide BUN Creatinine Glucose POC Glucose (mg/dL) 122 H Hemoglobin A1c Troponin I Total Protein Urine Glucose (UA) - Diagnostic Findings Chest x-ray: image reviewed CT scan - chest: image reviewed Assessment and Plan Assessment: Acute non-ST elevation myocardial infarction Multivessel coronary artery disease, with plans for tentative surgical myocardial revascularization Hypertension Diabetes mellitus type 2 Obesity, with a BMI of 36.7 kg/m, status post gastric sleeve procedure History of depression Lifelong non-smoker Plan: Patient's medications, labs, imaging were reviewed FEV1 of 2.49 L or 93% of predicted. Patient has no known pre-existing lung disease. Her pulmonary status would not preclude her from surgical myocardial revascularization. There is a tentative plan for CABG on Wednesday. She is currently undergoing an extensive preoperative workup Currently on IV nitroglycerin, which is being titrated for chest pain. She denies any chest pain on my evaluation. Also, on IV heparin per protocol. This is being managed by cardiology. We will be following during the patient's postoperative recovery, assist in liberation from the mechanical ventilator, and managing her postoperative pulmonary needs. I have personally seen and examined the patient, performed the documentation and the assessment and plan as written. Number of minutes spent on the visit:20 Time with Patient: Greater than 30
[2023-12-13] MEDS: MORPHINE SULFATE 4 MG/ML SYRINGE IVP PRN (01:49)
[2023-12-13 04:33] LABS: Glucose,Whole Blood 103 mg/dL (70-110)
[2023-12-13] MEDS ORDERED: HEPARIN SODIUM 1,000 UN/ML (10ML VL) IV ONE (05:00)
[2023-12-13] MEDS ORDERED: PROTAMINE SULFATE 250 MG in EMPTY BAG 1 BAG IV ONE (05:00)
[2023-12-13] MEDS ORDERED: HEPARIN SODIUM,PORCINE (1 ML) 5,000 UNIT in SODIUM CHLORIDE 0.9% 500 ML 500 ML IV ONE (05:00)
[2023-12-13] MEDS ORDERED: ATORVASTATIN 10 MG TAB PO ONE (05:00)
[2023-12-13] MEDS ORDERED: MANNITOL 25% 12.5 GM/50 ML VIAL IV ONE ×2 (05:00)
[2023-12-13] MEDS ORDERED: ALBUMIN HUMAN 25% 50 ML in EMPTY BAG 1 BAG IVPB ONE (05:00)
[2023-12-13] MEDS ORDERED: NOREPINEPHRINE 4 MG in SODIUM CHLORIDE 0.9% 250 ML IV SCH (05:00)
[2023-12-13] MEDS ORDERED: PAPAVERINE 360 MG in SODIUM CHLORIDE 0.9% 90 ML IV ONE (05:00)
[2023-12-13] MEDS ORDERED: CLEVIDIPINE BUTYRATE 25 MG in EMPTY BAG 1 BAG IV SCH (05:00)
[2023-12-13] MEDS ORDERED: NITROGLYCERIN-D5W PMX 25 MG/250 ML BTL IV ONE (05:00)
[2023-12-13] MEDS ORDERED: LACTATED RINGERS 1,000 ML IV SCH (05:00)
[2023-12-13] MEDS ORDERED: MAGNESIUM SULFATE 16.24 MEQ in EMPTY SYRINGE 1 SYR IV ONE (05:00)
[2023-12-13] MEDS ORDERED: ALBUMIN HUMAN 5% 500 ML in EMPTY BAG 1 BAG IVPB ONE ×6 (05:00)
[2023-12-13] MEDS ORDERED: PROTAMINE SULFATE 10 MG/ML 25 ML VIAL IV ONE ×2 (05:00→12:43)
[2023-12-13] MEDS ORDERED: CHLORHEXIDINE GLUCONATE 15 ML CUP MUCOUS MEM ONE (05:00)
[2023-12-13] MEDS ORDERED: TRANEXAMIC ACID 2,000 MG in SODIUM CHLORIDE 0.9% 80 ML IV ONE (05:00)
[2023-12-13] MEDS ORDERED: ASPIRIN 325 MG TAB PO ONE (05:00)
[2023-12-13] MEDS ORDERED: SODIUM BICARB 8.4% 50 ML SYR (1 MEQ/ML) IV ONE (05:00)
[2023-12-13] MEDS ORDERED: NITROGLYCERIN-D5W PMX 50 MG in DEXTROSE/WATER 1 250ML.BAG IV SCH (05:00)
[2023-12-13] MEDS ORDERED: ceFAZolin 1,000 MG in SODIUM CHLORIDE 0.9% IRRIGATIO 1,000 ML IRRIGATION ONE (05:00)
[2023-12-13] MEDS ORDERED: DILTIAZEM 125 MG in SODIUM CHLORIDE 0.9% 100 ML IV SCH (05:00)
[2023-12-13] MEDS ORDERED: CALCIUM CHLORIDE 100 MG/ML 10 ML SYRINGE IVP ONE (05:00)
[2023-12-13] MEDS ORDERED: PHENYLEPHRINE 40 MG in SODIUM CHLORIDE 0.9% 250 ML IV ONE (05:00)
[2023-12-13 05:05] LABS: HCT 38.9 % (34.0-46.0); HGB 12.8 gm/dL (11.4-16.0); MCH 29.4 pg (25.0-35.0); MCV 89.1 fL (80.0-100.0); Mean Platelet Volume 8.3; Platelet Count 263 k/uL (150-450); RBC 4.36 m/uL (3.80-5.40); RDW 13.1 % (11.5-15.5); WBC 8.9 k/uL (3.8-10.6)
[2023-12-13 05:39] LABS: African American GFR (CKD) >90 (>60 ml/min/1.73 sqM); Anion Gap 1 mmol/L; Blood Urea Nitrogen 17 mg/dL (7-17); Calcium 8.6 mg/dL (8.4-10.2); Carbon Dioxide 26 mmol/L (22-30); Chloride 109 mmol/L (98-107); Glucose 109 mg/dL (74-99); Non-African American GFR(CKD) >90 (>60 ml/min/1.73 sqM); Potassium 3.8 mmol/L (3.5-5.1); Sodium 136 mmol/L (137-145)
[2023-12-13] MEDS: POTASSIUM CHLORIDE ER 20 MEQ TAB.ER PO SCH (06:59)
[2023-12-13 07:54] LABS: Glucose,Whole Blood 136 mg/dL (70-110)
[2023-12-13] MEDS: METOPROLOL TARTRATE 25 MG TAB PO SCH (08:23)
[2023-12-13] MEDS ORDERED: ELECTROLYTE-A SOLUTION 1,000 ML with POTASSIUM CHLORIDE 40 MEQ, MAGNESIUM SULFATE 16 ME... IV ONE (08:41)
[2023-12-13] MEDS ORDERED: PHENYLEPHRINE 10 MG/ML VIAL IV ONE (08:41)
[2023-12-13] MEDS ORDERED: ELECTROLYTE-A SOLUTION 1,000 ML with POTASSIUM CHLORIDE 100 MEQ, MAGNESIUM SULFATE 16 M... IV ONE (08:41)
[2023-12-13] MEDS ORDERED: INSULIN REGULAR 100 UNIT in SODIUM CHLORIDE 0.9% 100 ML IV SCH (08:45)
--- NOTE | 2023-12-13 09:23 | P.PN ---
Subjective Progress Note Date: 12/13/23 Principal diagnosis: Multivessel coronary artery disease, non-ST elevated myocardial infarction this admission. Previous medical history of hypertension, diabetes mellitus type 2, obesity status post laparoscopic sleeve gastrectomy 12/2022, depression, frequent constipation, and lifetime non-smoker The patient was seen and examined sitting up in bed in the intensive care unit in no acute distress. Patient currently denies any chest pain or shortness of breath, however she has continued to have intermittent chest pain over the last 24 hours, she was started on IV nitroglycerin which has been titrated up and currently is infusing at 75 mics/min. Dr. Jeffery saw the patient this morning, reviewed her heart catheterization films, discussed with Dr. Morales. Patient was originally scheduled for open heart surgery tomorrow, however due to her ongoing chest pain we will take her for coronary artery bypass surgery this afternoon. This was discussed with the patient and she is in agreement. Objective - Vital Signs Vital signs: Vital Signs Temp 98.1 F 12/13/23 04:00 Pulse 75 12/13/23 08:45 Resp 14 12/13/23 08:45 BP 111/70 12/13/23 08:45 Pulse Ox 97 12/13/23 09:04 FiO2 Intake & Output 12/12/23 12/13/23 12/13/23 18:59 06:59 18:59 Intake Total 338.933 328.048 20 Output Total 0 0 650 Balance 338.933 328.048 -630 Weight 96.9 kg Intake: IV 110 120 20 0.9 kvo 110 120 20 Intake, IV Titration 228.933 208.048 Amount Argatroban 50 mg In 44.348 Sodium Chloride 0.9% 50 ml @ 1 MCG/KG/MIN 5.772 mls/hr IV .[id number] GEOVANNI Rx# :[id number] Heparin Sod,Pork in 0.45% 215.608 NaCl 25,000 unit In 0.45 % NaCl 1 250ml.bag @ 12 UNITS/KG/HR 11.52 mls/hr IV .[id number] GEOVANNI Rx#: [id number] Nitroglycerin-D5w Pmx 50 13.325 163.70 mg In Dextrose/Water 1 250ml.bag @ 5 MCG/MIN 1.5 mls/hr IV .Q24H GEOVANNI Rx#: [id number] Output: Urine 0 0 650 Other: Voiding Method Bedside Commode Bedside Commode # Voids 1 1 # Bowel Movements 1 - Exam CONSTITUTIONAL: Appears comfortable, cooperative, no acute distress RESPIRATORY: Lungs sounds diminished bilaterally. Respirations even, nonlabored. Currently on 2 L nasal cannula with oxygen saturation 99% CARDIOVASCULAR: S1, S2 present. Regular rate and rhythm, sinus rhythm on telemetry. Palpable peripheral pulses bilaterally. No edema present. No calf pain or tenderness noted GASTROINTESTINAL: Abdomen soft, nontender, nondistended. Active bowel sounds present 4 quadrants GENITOURINARY: Continues to void INTEGUMENTARY: Skin is warm and dry NEUROLOGIC: Cranial nerves II through XII intact MUSKULOSKELETAL: Able to move all extremities, strength equal bilaterally PSYCHIATRIC: Alert and oriented to person place and time, appropriate affect, intact judgment and insight - Allied health notes Allied health notes reviewed: nursing - Labs CBC & Chem 7: 12/13/23 04:26 12/13/23 04:26 Labs: Abnormal Lab Results - Last 24 Hours (Table) 12/12/23 12/12/23 12/12/23 Range/Units 03:58 07:42 11:28 APTT (22.0-30.0) sec Sodium (137-145) mmol/L Chloride (98-107) mmol/L Creatinine (0.52-1.04) mg/dL Glucose (74-99) mg/dL POC Glucose (mg/dL) 129 H (70-110) mg/dL Hemoglobin A1c 6.7 H (<=6.0) % Troponin I 0.698 H* (0.000-0.034) ng/mL Crossmatch 12/12/23 12/12/23 12/12/23 Range/Units 18:11 20:01 20:32 APTT 82.3 H 66.8 H (22.0-30.0) sec Sodium (137-145) mmol/L Chloride (98-107) mmol/L Creatinine (0.52-1.04) mg/dL Glucose (74-99) mg/dL POC Glucose (mg/dL) 174 H (70-110) mg/dL Hemoglobin A1c (<=6.0) % Troponin I (0.000-0.034) ng/mL Crossmatch 12/13/23 12/13/23 12/13/23 Range/Units 00:29 04:26 04:26 APTT 46.1 H (22.0-30.0) sec Sodium (137-145) mmol/L Chloride (98-107) mmol/L Creatinine (0.52-1.04) mg/dL Glucose (74-99) mg/dL POC Glucose (mg/dL) 122 H (70-110) mg/dL Hemoglobin A1c (<=6.0) % Troponin I (0.000-0.034) ng/mL Crossmatch See Detail 12/13/23 12/13/23 Range/Units 04:26 07:52 APTT (22.0-30.0) sec Sodium 136 L (137-145) mmol/L Chloride 109 H (98-107) mmol/L Creatinine 0.43 L (0.52-1.04) mg/dL Glucose 109 H (74-99) mg/dL POC Glucose (mg/dL) 136 H (70-110) mg/dL Hemoglobin A1c (<=6.0) % Troponin I (0.000-0.034) ng/mL Crossmatch Assessment and Plan Assessment: Multivessel coronary artery disease, non-ST elevated myocardial infarction this admission History of hypertension Diabetes mellitus type 2, preoperative hemoglobin A1c 6.7% Obesity status post laparoscopic sleeve gastrectomy 12/2022 Depression Frequent constipation Lifetime non-smoker, preoperative FEV1 93% of predicted Plan: Scheduled for myocardial revascularization surgery with left internal mammary artery, endoscopic left radial artery harvest, bilateral endoscopic greater saphenous vein harvest, exclusion left atrial appendage by Dr. Bocanegra today Encourage use of incentive spirometry 10 times every hour while awake. Continue to reinforce preoperative teaching. More recommendations to follow based on patient's clinical course.
[2023-12-13 11:18] LABS: Glucose,Whole Blood 162 mg/dL (70-110)
--- NOTE | 2023-12-13 11:22 | PN ---
PROGRESS NOTE SUBJECTIVE: Ms. Jennings had 3 bouts of chest pain yesterday, requiring IV nitroglycerin to be increased. She is in sinus rhythm, stable. She was seen by Cardiac Surgery and Dr. Jeffery will do her bypass surgery today as opposed to tomorrow given the fact she had symptoms of chest pain, however, she is comfortable. OBJECTIVE: VITAL SIGNS: Vitals are stable. NECK: No JVD. HEART: S1 and S2 heard normally. LUNGS: Clear. ABDOMEN: Otherwise is unremarkable. LOWER EXTREMITIES: Otherwise is unremarkable. ASSESSMENT: Ms. Jennings has a history of type 2 diabetes, hypertension, and triple-vessel CAD with a [id number] myocardial infarction. PLAN: Plan is to continue current medical regimen and she will go for aortocoronary bypass surgery this afternoon. MMODL / IJN: [id number] /
--- NOTE | 2023-12-13 12:04 | P.PN ---
Subjective Progress Note Date: 12/13/23 * 48-year-old patient with past medical history significant for diabetes mellitus presented to the emergency department with complaints of chest discomfort. Patient says she was having chest pain for approximately 2 weeks. Patient had midsternal chest pain which did not radiate to arms or neck. Patient was initially admitted at [facility] where she had a cardiac workup which showed elevated enzymes, and abnormal EKG showing ST and T wave abnormality. Patient was transferred to [facility] where she underwent cardiac catheterization. Patient was noted to have triple-vessel disease and was found to have severe disease involving LDA. Patient was seen after cardiac catheterization was completed. Cardiac catheterization showed multivessel coronary artery disease and recommendation was for patient to undergo bypass. * Consultation was obtained from interventional cardiology as well as cardiac surgery, serum chemistry obtained showed sodium of 138 potassium 3.5, dioxide 23 BUN 18 creatinine 0.47, WBC count of 9.5 hemoglobin 14 platelet count of 322 * Patient was monitored in medical ICU and was kept on IV heparin drip and guideline directed medical therapy with workup initiated for CABG * 12/12/23 : Patient seen and evaluated bedside, workup for CABG in process. Elisa ent did have chest pain overnight. Continue patient on IV heparin and nitroglycerin drip. Continue close monitoring in ICU * 12/13/2023: Patient seen and evaluated bedside, evaluation patient states chest pain is improved however she will be going for CABG today on 12/13/2023. Patient was initially scheduled for Wednesday however secondary to recurrent chest pain it has been changed. CABG to be done later this afternoon. Care plan discussed with patient and family at bedside REVIEW OF SYSTEMS: Chest pain recurrent CONSTITUTIONAL: No fever, no malaise, no fatigue. HEENT: No recent visual problems or hearing problems. Denied any sore throat. CARDIOVASCULAR: Chest pain recurrent PULMONARY: No shortness of breath, no cough, no hemoptysis. GASTROINTESTINAL: No diarrhea, no nausea, no vomiting, no abdominal pain. NEUROLOGICAL: No headaches, no weakness, no numbness. HEMATOLOGICAL: Denies any bleeding or petechiae. GENITOURINARY: Denies any burning micturition, frequency, or urgency. MUSCULOSKELETAL/RHEUMATOLOGICAL: Denies any joint pain, swelling, or any muscle pain. ENDOCRINE: Denies any polyuria or polydipsia. PHYSICAL EXAMINATION: GENERAL: The patient is alert and oriented x3, Well developed, well nourished. HEENT: Pupils are round and equally reacting to light. EOMI. CARDIOVASCULAR: S1 and S2 present. No murmurs, rubs, or gallops. PULMONARY: Chest is clear to auscultation, no wheezing or crackles. ABDOMEN: Soft, nontender, nondistended, normoactive bowel sounds. No palpable organomegaly. MUSCULOSKELETAL: No joint swelling or deformity. EXTREMITIES: No cyanosis, clubbing, or pedal edema. NEUROLOGICAL: Gross neurological examination did not reveal any focal deficits. SKIN: No rashes. Objective - Vital Signs Vital signs: Vital Signs Temp 98.1 F 12/13/23 04:00 Pulse 71 12/13/23 10:30 Resp 23 12/13/23 10:30 BP 113/62 12/13/23 10:30 Pulse Ox 97 12/13/23 10:30 FiO2 Intake & Output 12/12/23 12/13/23 12/13/23 18:59 06:59 18:59 Intake Total 338.933 328.048 187 Output Total 0 0 650 Balance 338.933 328.048 -463 Weight 96.9 kg Intake: IV 110 120 40 0.9 kvo 110 120 40 Intake, IV Titration 228.933 208.048 147 Amount Argatroban 50 mg In 44.348 Sodium Chloride 0.9% 50 ml @ 1 MCG/KG/MIN 5.772 mls/hr IV .[id number] [facility] Rx# :[id number] Heparin Sod,Pork in 0.45% 215.608 NaCl 25,000 unit In 0.45 % NaCl 1 250ml.bag @ 12 UNITS/KG/HR 11.52 mls/hr IV .[id number] [facility] Rx#: [id number] Nitroglycerin-D5w Pmx 50 13.325 163.70 147 mg In Dextrose/Water 1 250ml.bag @ 5 MCG/MIN 1.5 mls/hr IV .Q24H [facility] Rx#: [id number] Output: Urine 0 0 650 Other: Voiding Method Bedside Commode Bedside Commode # Voids 1 1 # Bowel Movements 1 - Labs CBC & Chem 7: 12/13/23 04:26 12/13/23 04:26 Labs: Abnormal Lab Results - Last 24 Hours (Table) 12/12/23 12/12/2312/12/24 Range/Units 18:11 20:01 20:32 APTT 82.3 H 66.8 H (22.0-30.0) sec Sodium (137-145) mmol/L Chloride (98-107) mmol/L Creatinine (0.52-1.04) mg/dL Glucose (74-99) mg/dL POC Glucose (mg/dL) 174 H (70-110) mg/dL Troponin I (0.000-0.034) ng/mL Crossmatch 12/13/23 12/13/23 12/13/23 Range/Units 00:29 04:26 04:26 APTT 46.1 H (22.0-30.0) sec Sodium (137-145) mmol/L Chloride (98-107) mmol/L Creatinine (0.52-1.04) mg/dL Glucose (74-99) mg/dL POC Glucose (mg/dL) 122 H (70-110) mg/dL Troponin I (0.000-0.034) ng/mL Crossmatch See Detail 12/13/23 12/13/23 12/13/23 Range/Units 04:26 07:52 08:43 APTT (22.0-30.0) sec Sodium 136 L (137-145) mmol/L Chloride 109 H (98-107) mmol/L Creatinine 0.43 L (0.52-1.04) mg/dL Glucose 109 H (74-99) mg/dL POC Glucose (mg/dL) 136 H (70-110) mg/dL Troponin I 2.040 H* (0.000-0.034) ng/mL Crossmatch 12/13/23 Range/Units 11:16 APTT (22.0-30.0) sec Sodium (137-145) mmol/L Chloride (98-107) mmol/L Creatinine (0.52-1.04) mg/dL Glucose (74-99) mg/dL POC Glucose (mg/dL) 162 H (70-110) mg/dL Troponin I (0.000-0.034) ng/mL Crossmatch Assessment and Plan Assessment: Assessment and plan * Non-ST elevated ND with unstable angina * S/p cardiac catheterization triple-vessel coronary artery disease * Diabetes mellitus type 2-most recent HbA1c 6.2 * Morbid obesity * GERD * In regards to non-ST elevated ND patient is s/p cardiac catheterization triple-vessel coronary artery disease noted, continue IV heparin and IV nitroglycerin drip, plan for CABG today * cardiac surgery consulted workup initiated echocardiogram ordered, venous mapping ordered, risk stratification for CABG completed, scheduled for CABG 12/13/2023 * Continue guideline directed medical therapy for coronary artery disease including aspirin, Lipitor, lisinopril, metoprolol as needed nitroglycerin for chest pain * In regards to history of diabetes mellitus Accu-Cheks ACHS, continue correctional insulin HbA1c 6.7, metformin on hold * CODE STATUS is full code
[2023-12-13] MEDS ORDERED: VECURONIUM 10 MG VIAL IV ONE (12:43)
[2023-12-13] MEDS ORDERED: fentaNYL (PF) 50 MCG/ML 50 ML VIAL ONE (12:43)
[2023-12-13] MEDS ORDERED: PROPOFOL 10 MG/ML 20 ML VIAL IV ONE (12:43)
[2023-12-13] MEDS ORDERED: HEPARIN SODIUM,PORCINE 10,000 UNIT/ML 1 ML VIAL ONE (12:43)
[2023-12-13] MEDS ORDERED: SUCCINYLCHOLINE CHLORIDE 200 MG/10 ML VIAL IV ONE (12:43)
[2023-12-13] MEDS ORDERED: HEPARIN SODIUM,PORCINE 5,000 UNIT/ML 1 ML VIAL ONE (12:43)
[2023-12-13] MEDS ORDERED: ALBUMIN HUMAN 5% (25gm) 500 ML VIAL IVPB ONE (12:43)
[2023-12-13] MEDS ORDERED: MIDAZOLAM HCL 10 MG/10 ML VIAL ONE (12:43)
--- NOTE | 2023-12-13 13:01 | P.ANPRN ---
Procedure Note - Anesthesia - Invasive Line Right Central Line Time Out Performed: Yes (1222) Date of Procedure: 12/13/23 Time of Procedure: 12:36 Location of Patient: Phase I Preparation: Sterile Prep, Sterile Dressing Central Line Location: Internal Jugular (right 8.5F Cordis) Ultrasound Used: Yes Purpose - Visualization and Identification of Vasculature: Yes Needle Guage: 18g angio Image Stored and Saved: Yes Narrative: Central line placement per sterile protocol utilized. Anesthesia note Procedure: Right internal jugular central venous catheter insertion: 8.5-Danish Cordis Sterile protocol followed. Right neck prepped. Ultrasound used. Lidocaine 1% used. Using ultrasound local anesthetic was instilled site over right Internal Jugular vein. Angiocath was used to gain access via ultrasound. Once free flow non-pulsatile blood flow was confirmed, 12 inch extension tubing was then placed on Angiocath. Once central venous pressure was confirmed, J-wire was then placed through Angiocath. Angiocath was then withdrawn. Local was instilled at J-wire site. Small skin alexander was then made with provided sterile scalpel. 8.5- [place] Cordis was then inserted over the wire while maintaining control of wire at all times. Uneventful insertion with dilation. Free flow nonpulsatile blood flow through Cordis. Hooked up to IV tubing. Secured with suture. Dressings applied. Drapes Removed. Attempts x1.
--- NOTE | 2023-12-13 13:02 | P.ANPRN ---
Procedure Note - Anesthesia - Invasive Line Right [place] Time Out Performed: Yes (1222) Date of Procedure: 12/13/23 Time of Procedure: 12:43 Location of Patient: Phase I Preparation: Sterile Prep, Sterile Dressing [place] Line Location: Internal Jugular (right) Ultrasound Used: No Purpose - Visualization and Identification of Vasculature: No Image Stored and Saved: No Narrative: Central line placement per sterile protocol utilized. 6 anesthesia note Procedure right [place] catheter placed through right internal jugular central venous catheter Sterile protocol maintained from previous procedure. [place] catheter sterilely placed in sheath and flushed prior to insertion. After advancing 15 cm [place] catheter was then slowly inserted with balloon up. Advanced through CVP, RV to PA waveform. [place] catheter wedged around 48 cm. Balloon down. Catheter withdrawn 5 cm. . No wedge. Proximal and distal sites locked on sheath. Attempts x1. Sterile drapes removed and dressings applied.
--- NOTE | 2023-12-13 13:18 | P.CNPUL ---
History of Present Illness Consult date: 12/13/23 Reason for consult: other History of present illness: This patient is 48 with multivessel coronary artery disease. I was asked to evaluate this patient for a pulmonary evaluation and be involved in the postoperative care as the patient has coronary bypass surgery being planned within the next few days. In summary, this is [id number] white female with past medical history significant for hypertension, diabetes mellitus type 2, morbid obesity status post gastric sleeve procedure, and is a lifetime non- smoker. Patient states that she has been having exertional chest pain over the last 2 weeks. This usually occurs when she is on the treadmill, and subsides within 15 minutes of rest. On December 10, 2023 she states that her chest pain did not go away with rest, it radiated to her back, and it lasted about 40 minutes. When her daughter got home, she was driven to [facility]. She had elevated troponin at the outside facility, abnormal EKG changes, and was transferred to our facility the same day. She did undergo a cardiac catheterization on December 10, 2023 which demonstrated severe disease of the LAD, intermittent disease an OM branch of the left circumflex and an occluded RCA with collateral circulation. There was recommendation for surgical revascularization. A transthoracic echo showed a preserved left ejection fraction of 50 to 55%, with moderately increased LVH, and trace to mild mitral and tricuspid regurgitation. The patient is now in the intensive care unit. Earlier in the day, she reportedly had some intermittent chest pain. She has been started on a combination of nitroglycerin which is infusing at 40 mics per minute, IV heparin per protocol. APTT is therapeutic. Most recent CBC and BMP from yesterday are unremarkable. She currently denies any chest pain at the moment. She is lying in bed, on room air, in no acute distress. She denies any history of pulmonary disease. She is a lifelong non-smoker. Bedside spirometry bedside spirometry showed an FEV1 of 2.49 L or 93% of predicted. There is an incentive spirometer at bedside. A nonenhanced chest CT did not show any evid ence of pulmonary disease. The patient has no specific complaints at this point in time. She is free of any chest pain. The patient remains on IV heparin. Patient is also onNitroglycerin drip. Her cardiac rhythm is sinus. Her troponin peaked at 2.04. Cardiac rhythm is sinus. No cough. No sputum production. No chest tightness. No wheezing. No other new complaints otherwise for now. She is resting comfortably in bed. She is using incentive spirometer and she is putting more than 2000. Review of Systems CONSTITUTIONAL: Admits 100 pound weight loss over the last year after undergoing gastric sleeve procedure. Denies any fevers, malaise, headaches. EYES: Denies change in vision. EARS, NOSE, MOUTH, THROAT: Denies headaches, denies sore throat. CARDIOVASCULAR: Admits chest pain as described in HPI. Denies any heart palpitations, syncope, lower extremity swelling. RESPIRATORY: Denies shortness of breath, cough, congestion or hemoptysis. GASTROINTESTINAL: Denies change in appetite, abdominal pain, nausea and vomiting, or diarrhea GENITOURINARY: Denies hematuria, denies infections. MUSKULOSKELETAL: Denies pain, denies swelling. INTEGUMENTARY: Denies rash, denies eczema. NEUROLOGICAL: Denies recent memory loss, no recent seizure activity. PSYCHIATRIC: Denies anxiety, denies depression. HEMATOLOGIC/LYMPHATIC: Denies anemia, denies enlarged lymph node Past Medical History Past Medical History: Coronary Artery Disease (CAD), Chest Pain / Angina, Diabetes Mellitus, Hypertension Additional Past Medical History / Comment(s): CURRENT: MID BACK PAIN, RIGHT SIDE. History of Any Multi-Drug Resistant Organisms: None Reported Past Surgical History: Bariatric Surgery, Section, Hysterectomy, Orthopedic Surgery Additional Past Surgical History / Comment(s): CARPAL TUNNEL BILATERAL. ABSCESS ON ABD (I & D, PACKING) @ [facility] (CAN'T REMEMBER CULTURE RESULTS). Right knee surgery x 2, COLONOSCOPY, right knee meniscus repair 08/2022. Gastric sleeve 12/28/22 Past Anesthesia/Blood Transfusion Reactions: No Reported Reaction Past Psychological History: Depression Smoking Status: Never smoker Past Alcohol Use History: Rare Past Drug Use History: None Reported - Past Family History Mother Family Medical History: Cancer (Melanoma skin cancer) Father Family Medical History: CVA/TIA, Myocardial Infarction (CA) Medications and Allergies Home Medications Medication Instructions Recorded Confirmed Type HYDROcodone/APAP 10-325MG [Felton 1 tab PO TID PRN 12/10/23 12/10/23 History 10-325] Losartan Potassium 50 mg PO DAILY 12/10/23 12/10/23 History Tirzepatide [Mounjaro] 5 mg SQ SA 12/10/23 12/10/23 History buPROPion [Wellbutrin] 100 mg PO BID 12/10/23 12/10/23 History lamoTRIgine [LaMICtal Xr] 250 mg PO DAILY 12/10/23 12/10/23 History metFORMIN HCL ER [Glucophage XR] 500 mg PO BID 12/10/23 12/10/23 History risperiDONE [RisperDAL] 0.5 mg PO DIRECTED 12/10/23 12/10/23 History Allergies Allergy/AdvReac Type Severity Reaction Status Date / Time No Known Allergies Allergy Verified 12/10/23 19:21 Physical Exam Vitals: Vital Signs Temp Pulse Resp BP Pulse Ox 12/13/23 11:30 75 10 L 111/62 98 12/13/23 11:00 73 16 114/72 97 12/13/23 10:30 71 23 113/62 97 12/13/23 10:15 67 11 L 96/68 95 12/13/23 10:00 75 31 H 98/50 91 L 12/13/23 09:45 73 7 L 95/61 99 12/13/23 09:30 79 21 103/74 98 12/13/23 09:15 81 22 110/63 97 12/13/23 09:04 97 12/13/23 09:00 78 12 112/69 98 12/13/23 08:45 75 14 111/70 97 12/13/23 08:30 75 21 125/78 97 12/13/23 08:15 78 6 L 116/66 99 12/13/23 08:00 79 11 L 109/65 97 12/13/23 07:45 74 19 102/61 98 12/13/23 07:30 73 21 105/59 98 12/13/23 07:15 73 21 111/65 98 12/13/23 07:00 81 12 91/50 99 12/13/23 06:45 68 21 90/55 98 12/13/23 06:30 73 16 121/73 98 12/13/23 06:15 83 12 119/75 98 12/13/23 06:00 73 9 L 95/71 99 12/13/23 05:45 73 22 100/66 98 12/13/23 05:30 73 13 102/61 98 12/13/23 05:15 71 20 105/58 98 12/13/23 05:00 70 10 L 107/57 99 12/13/23 04:45 72 22 107/63 99 12/13/23 04:30 74 20 92/58 99 12/13/23 04:15 71 20 91/58 98 12/13/23 04:00 98.1 F 71 20 103/57 98 12/13/23 03:45 74 19 106/63 98 12/13/23 03:30 75 19 122/69 98 12/13/23 03:15 80 16 106/58 99 12/13/23 03:00 75 20 116/63 98 12/13/23 02:45 76 16 117/72 98 12/13/23 02:30 75 19 107/63 98 12/13/23 02:15 75 26 H 115/66 98 12/13/23 02:00 73 10 L 114/68 99 12/13/23 01:45 76 11 L 121/67 99 12/13/23 01:30 74 15 109/63 99 12/13/23 01:15 75 23 101/54 98 12/13/23 01:00 74 20 110/67 98 12/13/23 00:45 77 26 H 111/67 97 12/13/23 00:30 75 8 L 114/66 97 12/13/23 00:15 76 18 128/74 98 12/13/23 00:00 98 F 80 20 116/66 98 12/12/23 23:45 77 16 122/77 99 12/12/23 23:30 82 19 119/68 98 12/12/23 23:15 84 16 97/60 98 12/12/23 23:00 76 16 112/63 96 12/12/23 22:45 78 8 L 114/69 97 12/12/23 22:43 80 21 114/69 97 12/12/23 22:30 78 12 106/65 97 12/12/23 22:15 75 20 119/70 96 12/12/23 22:00 76 28 H 116/73 93 L 12/12/23 21:45 81 26 H 111/65 96 12/12/23 21:30 76 27 H 106/70 95 12/12/23 21:15 75 30 H 134/74 96 12/12/23 21:00 81 9 L 124/70 99 12/12/23 20:45 82 9 L 97 12/12/23 20:30 91 11 L 124/69 98 12/12/23 20:15 82 32 H 108/63 96 12/12/23 20:00 97.8 F 79 13 107/70 97 12/12/23 19:45 76 23 108/72 99 12/12/23 19:30 79 14 100/73 98 12/12/23 19:15 77 22 124/76 99 12/12/23 19:00 86 20 109/61 98 12/12/23 18:45 84 16 96 12/12/23 18:30 80 20 112/61 99 12/12/23 18:15 78 19 122/69 100 12/12/23 18:00 78 16 114/73 100 12/12/23 17:45 75 16 123/74 100 12/12/23 17:30 80 16 105/65 100 12/12/23 17:15 75 16 99/61 99 12/12/23 17:00 72 24 107/66 99 12/12/23 16:45 76 24 108/64 99 12/12/23 16:30 71 16 107/65 98 12/12/23 16:15 73 16 113/71 99 12/12/23 16:00 98.0 F 75 14 112/70 98 12/12/23 15:45 76 24 107/65 97 12/12/23 15:30 71 16 118/72 98 12/12/23 15:15 73 24 150/89 98 12/12/23 15:00 70 16 155/91 100 12/12/23 14:45 78 18 141/83 100 12/12/23 14:30 67 16 108/71 98 12/12/23 14:15 77 16 100/62 99 12/12/23 14:00 68 20 94/61 95 12/12/23 13:45 69 22 104/61 95 12/12/23 13:30 67 22 109/67 96 12/12/23 13:15 75 20 103/60 96 Intake and Output 12/12/23 12/13/23 12/13/23 22:59 06:59 14:59 Intake Total 219.892 148.956 197 Output Total 0 0 650 Balance 219.892 148.956 -453 Intake: IV 80 80 50 0.9 kvo 80 80 50 Intake, IV Titration 139.892 68.956 147 Amount Argatroban 50 mg In 31.842 12.506 Sodium Chloride 0.9% 50 ml @ 1 MCG/KG/MIN 5.772 mls/hr IV .Q8H40M [facility] Rx# :[id number] Nitroglycerin-D5w Pmx 50 108.05 56.45 147 mg In Dextrose/Water 1 250ml.bag @ 5 MCG/MIN 1.5 mls/hr IV .Q24H [facility] Rx#: [id number] Output: Urine 0 0 650 Other: Voiding Method Bedside Commode Bedside Commode # Voids 1 # Bowel Movements 1 Weight 96.9 kg The patient appeared well nourished and normally developed. Vital signs as documented. Head exam is unremarkable. No scleral icterus or corneal arcus noted. Neck is without jugular venous distension, thyromegaly, or carotid bruits. Carotid upstrokes are brisk bilaterally. Lungs are clear to auscultation and percussion. Cardiac exam reveals the PMI to be normally sized and situated. Rhythm is regular. First and second heart sounds normal. No murmurs, rubs or gallops. Abdominal exam reveals normal bowel sounds, no masses, no organomegaly and no aortic enlargement. Extremities are nonedematous and both femoral and pedal pulses are normal. Examination of the skin revealed no evidence of significant rashes, suspicious appearing nevi or other concerning lesions. Neurologically, the patient is awake and alert and the patient does not have any focal neurological deficit. Cranial nerves are essentially intact. Results - Laboratory Findings CBC and BMP: 12/13/23 04:26 12/13/23 04:26 PT/INR, D-dimer PT 11.5 sec (10.0-12.5) 12/11/23 04:02 INR 1.1 (<1.2) 12/11/23 04:02 Abnormal lab findings: Abnormal Labs 12/10/23 12/10/23 12/11/23 18:40 21:55 04:02 APTT Sodium Chloride 110 H Carbon Dioxide BUN 18 H Creatinine 0.47 L Glucose 106 H POC Glucose (mg/dL) Hemoglobin A1c Troponin I 0.629 H* 1.170 H* Total Protein Urine Glucose (UA) Crossmatch 12/11/23 12/11/23 12/11/23 04:02 06:37 08:38 APTT 110.9 H* Sodium Chloride Carbon Dioxide BUN Creatinine Glucose POC Glucose (mg/dL) 111 H Hemoglobin A1c Troponin I Total Protein Urine Glucose (UA) 4+ H Crossmatch 12/11/23 12/11/23 12/11/23 10:18 10:22 13:57 APTT 42.1 H Sodium Chloride 109 H Carbon Dioxide 20 L BUN Creatinine 0.46 L Glucose 162 H POC Glucose (mg/dL) Hemoglobin A1c Troponin I 1.690 H* Total Protein 6.2 L Urine Glucose (UA) Crossmatch 12/11/23 12/11/23 12/12/23 20:26 21:00 03:58 APTT 63.2 H Sodium Chloride Carbon Dioxide BUN Creatinine Glucose POC Glucose (mg/dL) 127 H Hemoglobin A1c 6.7 H Troponin I Total Protein Urine Glucose (UA) Crossmatch 12/12/23 12/12/23 12/12/23 03:58 03:58 07:42 APTT 60.8 H Sodium Chloride 110 H Carbon Dioxide BUN 20 H Creatinine 0.43 L Glucose 102 H POC Glucose (mg/dL) Hemoglobin A1c Troponin I 0.698 H* Total Protein Urine Glucose (UA) Crossmatch 12/12/23 12/12/23 12/12/23 11:28 18:11 20:01 APTT 82.3 H Sodium Chloride Carbon Dioxide BUN Creatinine Glucose POC Glucose (mg/dL) 129 H 174 H Hemoglobin A1c Troponin I Total Protein Urine Glucose (UA) Crossmatch 12/12/23 12/13/23 12/13/23 20:32 00:29 04:26 APTT 66.8 H Sodium Chloride Carbon Dioxide BUN Creatinine Glucose POC Glucose (mg/dL) 122 H Hemoglobin A1c Troponin I Total Protein Urine Glucose (UA) Crossmatch See Detail 12/13/23 12/13/23 12/13/23 04:26 04:26 07:52 APTT 46.1 H Sodium 136 L Chloride 109 H Carbon Dioxide BUN Creatinine 0.43 L Glucose 109 H POC Glucose (mg/dL) 136 H Hemoglobin A1c Troponin I Total Protein Urine Glucose (UA) Crossmatch 12/13/23 12/13/23 08:43 11:16 APTT Sodium Chloride Carbon Dioxide BUN Creatinine Glucose POC Glucose (mg/dL) 162 H Hemoglobin A1c Troponin I 2.040 H* Total Protein Urine Glucose (UA) Crossmatch - Diagnostic Findings Chest x-ray: image reviewed CT scan - chest: image reviewed Assessment and Plan Plan: Multivessel coronary artery disease. Cardiac catheterization was done on 12/10/2023 and the patient was found to have severe disease of the LAD intermediate disease involving the OM branch of the circumflex and occluded RCA with collateral circulation. Patient is currently free of any chest pain. Patient is awaiting coronary artery bypass surgery Acute non-ST segment ovation myocardial infarction and troponin peaked at 2. Currently on IV heparin and nitroglycerin patient is free of any chest pain and the patient is hemodynamically stable with a preserved echocardiogram and LV function Obesity with a BMI of 36.7. The patient is undergone previous bariatric surgery including gastric sleeve procedure Diabetes mellitus type 2, maintained on Glucophage XR and Mounjaro on an outpatient basis Hypertension Chronic back pain History of depression Previous history of bariatric surgery and the patient underwent a gastric sleeve on 12/28/2022 Plan No pulmonary contraindication for coronary bypass surgery. Will be involved in the patient's care., Manage the ventilator. I do not foresee any significant postoperative pulmonary complications as the patient has an adequate lung function and she has been a lifetime non-smoker. Chest x-ray is clear. The CT of the chest reveals a clear lung, no evidence of any pulmonary nodules. No evidence of any interstitial lung disease. Continue IV heparin Continue IV nitroglycerin Currently asymptomatic and hemodynamically stable Complete the cardiac workup Patient is tentatively scheduled to undergo her bypass surgery within the next 24 to 48 hours. She will be kept in the intensive care unit for now.
--- NOTE | 2023-12-13 14:00 | P.ANPRN ---
Procedure Note - Anesthesia - CUONG Intraop Pre Bypass CUONG Intraop - Anesthesia Indication: cabg -urgent Date of Procedure: 12/13/23 Pre-operative Diagnosis: cad Post-operative Diagnosis: cad Surgeon: Gilmer Jeffery Left Ventricle: wnl Ejection Fraction: Normal Regional Wall Motion Abnormalities: None (None appreciated. Only mid esophageal views obtained) Left Ventricle Hypertrophy: Yes Right Ventricle: wnl R. Ventricle Function: Normal Anatomy: Trileaflet Aortic Stenosis: None Aortic Regurgitation: None Mitral Stenosis: None Mitral Regurgitation: Trace Tricuspid Stenosis: None Tricuspid Regurgitation: None Pulmonic Stenosis: None Pulmonic Regurgitation: None R. Atrial Dilation: No R. Atrial PFO: No L. Atrial Dilation: No Aorta: shweta clear Aortic Dissection: No Aortic Calcification: None Plural Effusion: None
[2023-12-13] MEDS: ceFAZolin 1,000 MG in SODIUM CHLORIDE 0.9% 1,000 ML IRRIGATION ONE (15:41)
[2023-12-13] MEDS: SODIUM CHLORIDE 0.9% 500 ML 500 ML with HEPARIN SODIUM,PORCINE (1 ML) 5,000 UNIT IV ONE (15:41)
[2023-12-13] MEDS: DILTIAZEM 125 MG in SODIUM CHLORIDE 0.9% 100 ML IV SCH (15:41)
[2023-12-13] MEDS: PAPAVERINE 360 MG in SODIUM CHLORIDE 0.9% 90 ML IV ONE (15:41)
--- NOTE | 2023-12-13 18:13 | P.ANPRN ---
Procedure Note - Anesthesia - CUONG Intraop Post Bypass CUONG Intraop Post Bypass Procedure Performed: CABG Left Ventricle: unchanged Ejection Fraction: Normal Regional Wall Motion Abnormalities: None R. Ventricle Function: Normal Aortic Valve: Unchanged Mitral Valve: Unchanged Tricuspid: Unchanged Pulmonic: Unchanged Aortic Dissection: No
--- NOTE | 2023-12-13 19:01 | P.OP ---
Date of Procedure: 12/13/23 Preoperative Diagnosis: NSTEMI 3V CAD ' Postoperative Diagnosis: Same Procedure(s) Performed: 1. Off pump coronary artery bypass grafting x 4. Left internal thoracic artery (in-situ) sequential to diagonal and left anterior descending coronary artery. Left radial from internal thoracic to obtuse marginal artery #1, greater saphenous vein from aorta to posterior descending coronary artery. 2. Left atrial appendage ligation using #35mm AtriClip 3. Endoscopic left radial and right greater saphenous vein harvest 4. Graft flow measurements using the [employer] flow meter system. 5. CUONG Implants: #35mm AtriClip Anesthesia: GETA Surgeon: Kristofer Bocanegra Safety Equipment Tester #1: Lee Wells Safety Equipment Tester #2: Bennie Justin Estimated Blood Loss (ml): 250 IV fluids (ml): 2,000 Pathology: none sent Condition: critical Disposition: ICU Indications for Procedure: This patient is a 48 year-old female who presented with unstable angina. She underwent coronary angiography which revealed severe proximal LAD and diagonal disease as well as disease in the obtuse marginal branches and mid RCA. Her STS risk of morbidity and mortality was discussed with the patient and urgent CABG was recommended due to on-going chest pain. The patient was in agreement to proceed. Operative Findings: Left internal thoracic artery 1.7mm decent conduit. Diagonal artery 1.5mm good target. SUSANNE to DIAG flow 34ml/min, P.I. 1.8 LAD diffusely diseased, decent target. [id number] = + doppler signal on second portion. 2mm probe too big to detect flow. Radial artery 1.8mm decent conduit. First obtuse marginal 1.6mm decent target. Second obtuse marginal heavily diseased throughout. RA-OM1 Flow 23ml/min, P.I. 2.5 Saphenous vein 2.4mm good conduit. PDA 1.5mm good target. GSV-PDA Flow 34ml/min, P.I. 3.5 Description of Procedure: The patient underwent central line, arterial line, and [place] Tomas catheter placement in the pre-operative suite by the anesthesia team. The patient was then brought to the operating room and placed in the supine position. General anesthesia was induced and the patient was prepped from the chin to the ankles in the usual sterile fashion. A time-out was performed and antibiotics were given. A midline incision was made on the chest and carried down to bone. A median sternotomy was performed. Hemostasis on the bone was achieved using e lectrocautery. The left pleura was entered and the left internal thoracic artery was harvested in a skeletonized fashion. It was of good calibur until midportion at which point, the size of the vessel diminished but still a decent conduit. Simultaneously a physician medical assistant instructor harvested the right greater saphenous vein and left radial artery in an endoscopic fashion. The patient was systemically he parinized and the SUSANNE was transected and placed in a papaverine jacuzzi. A left sided chest tube was placed. The pericardium was incised in a reverse T-fashion and a pericardial cradle was created. The right pleura was opened. Stay sutures were placed. #35mm AtriClip was placed on the left atrial appendage. With ACT > 250, the octopus sabilizer was placed on the distal LAD which was a good target. At this point, the octopus stabilizer was moved to the diagonal branch which was also a good target. An arteriorotomy was made on the diagonal and 1.5mm shunt was inserted. A side to side anastomosis between the SUSANNE and diagonal was performed using a running 7-0 in a running fashion. Next the stabilizer was placed on the mid to distal LA. An ateriorotomy was made and 1.5mm shunt inserted. An end to side anastomosis between the SUSANNE and LAD was performed using a running 7-0 prolene. The shunt was removed prior to tieing down the suture. Next stay sutures were placed on the diaphragm near the IVC and oblique sinus. The inferior wall was exposed and the posterior descending artery was stabilized. The artery was opened it was a decent target and 1.5mm flow through inserted. An end to side anastomosis between the saphenous vein and PDA was performed using a running 7-0 prolene again removing the shunt prior to tieing down the suture. Next the lateral wall was exposed and the first obtuse marginal artery was identified. The stabilizer was placed on the vessel and arteriorotomy was made. It was a good target and 1.5mm shunt was placed. An end to side anastomosis was created with the radial artery and OM using a running 7-0 prolene. The flow through was removed prior to tieing down the suture. Next, the [employer] device was used to create aortotomy. The saphenous vein was fastened to the ascending aorta using a running 5-0 prolene suture in an end to side fashion. The heartstring device was removed in its entirety At this point, bulldogs were placed on the RICKEY proximal to the diagonal anastomosis as the radial artery was not long enough to reach the ascending aorta. The RICKEY was opened and an end to side anastomosis was performed between the radial artery and the RICKEY which was deaired prior to tieing down the suture. At this point, graft flows were measured which were excellent. At this point, protamine was given and hemostasis was secured. A 32F chest tube and 19F krystal were placed in the mediastinum and right pleura respectively. The pericardium was reapproximated partially and the sternum was closed with pioneer cables and layers of suture. The arm and leg was closed in layers as well. The patient tolerated the procedure without any significant hypotension and was transferred to CVICU in critical condition on only nitro gtt.
[2023-12-13] MEDS ORDERED: AMIODARONE 450 MG in DEXTROSE 5% IN WATER 250 ML IV PRN (19:03)
[2023-12-13] MEDS ORDERED: AMIODARONE 360 MG in DEXTROSE 5% IN WATER 200 ML IV PRN (19:03)
[2023-12-13] MEDS ORDERED: DEXTROSE 50% SYRINGE 50 ML IVP PRN ×2 (19:03)
[2023-12-13] MEDS ORDERED: Magnesium Replacement Protocol 1 EACH MISC MISCELLANE PRN ×2 (19:03→20:57)
[2023-12-13] MEDS ORDERED: hydrALAZINE HCL 20 MG/ML 1 ML VIAL IVP PRN (19:03)
[2023-12-13] MEDS ORDERED: IPRATROPIUM-ALBUTEROL 3 ML NEB INHALATION PRN (19:03)
[2023-12-13] MEDS ORDERED: DEXTROSE 5% IN WATER 100 ML with AMIODARONE 150 MG IV PRN (19:03)
[2023-12-13] MEDS ORDERED: ONDANSETRON 4 MG/2 ML VIAL IVP PRN (19:03)
[2023-12-13] MEDS ORDERED: Potassium Replacement Protocol 1 EACH MISC MISCELLANE PRN (19:03)
[2023-12-13] MEDS: NITROGLYCERIN-D5W PMX 50 MG in DEXTROSE/WATER 1 250ML.BAG IV SCH (19:30)
[2023-12-13 19:38] LABS: Glucose,Whole Blood 106 mg/dL (70-110)
--- NOTE | 2023-12-13 19:45 | XR ---
EXAMINATION TYPE: XR chest 1V portable DATE OF EXAM: 12/13/2023 7:11 PM CLINICAL INDICATION:Female, 48 years old with history of COUNT; COMPARISON: Chest radiographs from 12/11/2023. TECHNIQUE: XR chest 1V portable Frontal view of the chest. FINDINGS: Lungs/Pleura: Low lung volumes are present. There is no evidence of pleural effusion, focal consolida tion, or pneumothorax. Pulmonary vascularity: Unremarkable. Heart/mediastinum: Cardiomediastinal silhouette is enlarged and stable. Atherosclerotic calcificatio ns are seen in the aorta. Left atrial appendage occlusion device is present. Musculoskeletal: No acute osseous pathology. Midline sternotomy wires are noted. Other findings: Ribbon like opacity projects over the right shoulder possibly outside the patient. Lines/Tubes: Endotracheal tube with distal tip 3.8 cm above the tracey. Nasogastric tube with its distal tip and side-port projecting under the diaphragm. Drainage tubes with tips projecting over the mediastinum. There is a [place]-Tomas catheter with tip projecting over the spine. Bilateral thoracotomy tubes are present without evidence of pneumothorax. Drainage tubes with tips projecting over the mediastinum. IMPRESSION: 1. Ribbonlike opacity over the right shoulder presumably outside the patient, no other unexpected fo reign bodies. 2. Postsurgical change since prior. No evidence for immediate post competition. Tubes and lines as d escribed above.
[2023-12-13 19:55] LABS: Basophils # (A) 0.1 k/uL (0-0.2); Basophils % (A) 0 %; Eosinophils # (A) 0.1 k/uL (0-0.7); Eosinophils % (A) 1 %; HGB 11.7 gm/dL (11.4-16.0); Lymphocytes # (A) 2.1 k/uL (1.0-4.8); Lymphocytes % (A) 12 %; MCHC 33.5 g/dL (31.0-37.0); MCV 89.6 fL (80.0-100.0); Mean Platelet Volume 8.7; Monocytes # (A) 0.8 k/uL (0-1.0); Monocytes % (A) 4 %; Neutrophils % (A) 82 %; Platelet Count 220 k/uL (150-450); RBC 3.91 m/uL (3.80-5.40); RDW 12.9 % (11.5-15.5); WBC 17.1 k/uL (3.8-10.6)
[2023-12-13 19:59] LABS: Glucose,Whole Blood 159 mg/dL (70-110)
[2023-12-13 20:05] LABS: INR 1.1 (<1.2); Partial Thromboplastin Time 25.7 sec (22.0-30.0); Prothrombin Time 12.3 sec (10.0-12.5)
[2023-12-13] MEDS: INSULIN REGULAR 100 UNIT in SODIUM CHLORIDE 0.9% 100 ML IV SCH (20:10)
[2023-12-13] MEDS: LACTATED RINGERS 1,000 ML IV SCH (20:15)
[2023-12-13 20:17] LABS: ABG Base Excess -5.5 mmol/L; ABG HCO3 21 mmol/L (21-25); ABG Oxygen Saturation 99.7 % (94-97); ABG PCO2 42 mmHg (35-45); ABG PO2 >400 mmHg (83-108); ABG TCO2 22 mmol/L (19-24)
[2023-12-13 20:27] LABS: Ionized Calcium 4.7 mg/dL (4.5-5.3)
[2023-12-13] MEDS: CLEVIDIPINE BUTYRATE 25 MG in EMPTY BAG 1 BAG IV SCH (20:34)
[2023-12-13] MEDS: IPRATROPIUM-ALBUTEROL 3 ML NEB INHALATION SCH (20:34)
[2023-12-13 20:37] LABS: ALT 14 U/L (4-34); AST 37 U/L (14-36); African American GFR (CKD) >90 (>60 ml/min/1.73 sqM); Albumin 3.2 g/dL (3.5-5.0); Alkaline Phosphatase 45 U/L (38-126); Anion Gap 7 mmol/L; Blood Urea Nitrogen 13 mg/dL (7-17); Calcium 7.8 mg/dL (8.4-10.2); Carbon Dioxide 20 mmol/L (22-30); Chloride 111 mmol/L (98-107); Glucose 143 mg/dL (74-99); Magnesium 1.9 mg/dL (1.6-2.3); Non-African American GFR(CKD) >90 (>60 ml/min/1.73 sqM); Sodium 138 mmol/L (137-145); Total Protein 5.2 g/dL (6.3-8.2)
[2023-12-13 20:38] LABS: Glucose,Whole Blood 187 mg/dL (70-110)
[2023-12-13] MEDS: DEXMEDETOMIDINE/0.9% NACL(PMX) 400 MCG in EMPTY BAG 1 BAG IV SCH (20:53)
[2023-12-13 21:08] LABS: Glucose,Whole Blood 183 mg/dL (70-110)
[2023-12-13] MEDS ORDERED: HYDROmorphone 1 MG/ML 1 ML SYRINGE IVP PRN (21:18)
[2023-12-13] MEDS: SODIUM BICARB 8.4% 50 ML SYR (1 MEQ/ML) IV STA (21:42)
[2023-12-13] MEDS: SODIUM BICARB 8.4% 50 ML SYR (1 MEQ/ML) ONE (21:43)
[2023-12-13] MEDS: MAGNESIUM SULFATE-D5W PMX 1 GM in DEXTROSE/WATER 1 100ML.BAG IVPB ONE (21:43)
[2023-12-13 21:58] LABS: Glucose,Whole Blood 157 mg/dL (70-110)
[2023-12-13 22:08] LABS: Basophils % (A) 0 %; Eosinophils # (A) 0.2 k/uL (0-0.7); Eosinophils % (A) 2 %; HCT 34.5 % (34.0-46.0); HGB 11.6 gm/dL (11.4-16.0); Lymphocytes # (A) 0.9 k/uL (1.0-4.8); Lymphocytes % (A) 7 %; MCH 30.1 pg (25.0-35.0); MCHC 33.7 g/dL (31.0-37.0); MCV 89.4 fL (80.0-100.0); Mean Platelet Volume 8.9; Monocytes # (A) 0.5 k/uL (0-1.0); Monocytes % (A) 4 %; Neutrophils # (A) 10.9 k/uL (1.3-7.7); Neutrophils % (A) 87 %; Platelet Count 122 k/uL (150-450); RBC 3.86 m/uL (3.80-5.40); RDW 13.1 % (11.5-15.5); WBC 12.6 k/uL (3.8-10.6)
[2023-12-13 23:06] LABS: Glucose,Whole Blood 159 mg/dL (70-110)
[2023-12-13] MEDS: ACETAMINOPHEN IV (For NPO) 1,000 MG in EMPTY BAG 1 BAG IVPB SCH (23:29)
[2023-12-14 00:12] LABS: Glucose,Whole Blood 140 mg/dL (70-110)
[2023-12-14 00:24] LABS: ABG Base Excess -2.1 mmol/L; ABG HCO3 23 mmol/L (21-25); ABG Oxygen Saturation 99.4 % (94-97); ABG PCO2 39 mmHg (35-45); ABG PH 7.38 (7.35-7.45); ABG PO2 151 mmHg (83-108); ABG TCO2 24 mmol/L (19-24); Allen Test Performed? Yes
[2023-12-14 01:09] LABS: Glucose,Whole Blood 116 mg/dL (70-110)
[2023-12-14 02:00] LABS: Glucose,Whole Blood 120 mg/dL (70-110)
[2023-12-14 02:02] LABS: Basophils % (A) 0 %; Eosinophils # (A) 0.1 k/uL (0-0.7); Eosinophils % (A) 1 %; HCT 36.2 % (34.0-46.0); HGB 12.2 gm/dL (11.4-16.0); Lymphocytes # (A) 0.6 k/uL (1.0-4.8); Lymphocytes % (A) 5 %; MCH 30.3 pg (25.0-35.0); MCHC 33.6 g/dL (31.0-37.0); MCV 90.2 fL (80.0-100.0); Mean Platelet Volume 7.8; Monocytes # (A) 0.4 k/uL (0-1.0); Monocytes % (A) 4 %; Neutrophils # (A) 10.4 k/uL (1.3-7.7); Neutrophils % (A) 90 %; RBC 4.02 m/uL (3.80-5.40); WBC 11.6 k/uL (3.8-10.6)
[2023-12-14 02:42] LABS: Platelet Count 190 k/uL (150-450)
[2023-12-14] MEDS: SENNOSIDES-DOCUSATE SODIUM 1 EACH TAB PO SCH (02:57)
[2023-12-14] MEDS: HEPARIN SODIUM,PORCINE 5,000 UNIT/ML 1 ML VIAL SQ SCH (02:58)
[2023-12-14 03:08] LABS: Glucose,Whole Blood 116 mg/dL (70-110)
[2023-12-14 04:13] LABS: Glucose,Whole Blood 120 mg/dL (70-110)
[2023-12-14 04:52] LABS: ALT 20 U/L (4-34); AST 89 U/L (14-36); African American GFR (CKD) >90 (>60 ml/min/1.73 sqM); Albumin 3.4 g/dL (3.5-5.0); Alkaline Phosphatase 46 U/L (38-126); Anion Gap 11 mmol/L; Blood Urea Nitrogen 13 mg/dL (7-17); Calcium 8.4 mg/dL (8.4-10.2); Carbon Dioxide 16 mmol/L (22-30); Chloride 110 mmol/L (98-107); Glucose 117 mg/dL (74-99); Magnesium 2.1 mg/dL (1.6-2.3); Non-African American GFR(CKD) >90 (>60 ml/min/1.73 sqM); Sodium 137 mmol/L (137-145); Total Bilirubin 0.9 mg/dL (0.2-1.3); Total Protein 5.5 g/dL (6.3-8.2)
[2023-12-14] MEDS ORDERED: PHENYLEPHRINE 40 MG in SODIUM CHLORIDE 0.9% 250 ML IV ONE (05:00)
[2023-12-14] MEDS ORDERED: HEPARIN SODIUM 1,000 UN/ML (10ML VL) IV ONE (05:00)
[2023-12-14] MEDS ORDERED: CHLORHEXIDINE GLUCONATE 15 ML CUP MUCOUS MEM ONE (05:00)
[2023-12-14] MEDS ORDERED: ELECTROLYTE-A SOLUTION 1,000 ML with POTASSIUM CHLORIDE 100 MEQ, MAGNESIUM SULFATE 16 M... IV ONE (05:00)
[2023-12-14] MEDS ORDERED: PROTAMINE SULFATE 250 MG in EMPTY BAG 1 BAG IV ONE (05:00)
[2023-12-14] MEDS ORDERED: CALCIUM CHLORIDE 100 MG/ML 10 ML SYRINGE IVP ONE (05:00)
[2023-12-14] MEDS ORDERED: HEPARIN SODIUM,PORCINE (1 ML) 5,000 UNIT in SODIUM CHLORIDE 0.9% 500 ML 500 ML IV ONE (05:00)
[2023-12-14] MEDS ORDERED: NITROGLYCERIN-D5W PMX 50 MG in DEXTROSE/WATER 1 250ML.BAG IV SCH (05:00)
[2023-12-14] MEDS ORDERED: METOPROLOL TARTRATE 12.5 MG TAB PO ONE (05:00)
[2023-12-14] MEDS ORDERED: INSULIN REGULAR 100 UNIT in SODIUM CHLORIDE 0.9% 100 ML IV SCH (05:00)
[2023-12-14] MEDS ORDERED: NOREPINEPHRINE 4 MG in SODIUM CHLORIDE 0.9% 250 ML IV SCH (05:00)
[2023-12-14] MEDS ORDERED: PAPAVERINE 360 MG in SODIUM CHLORIDE 0.9% 90 ML IV ONE (05:00)
[2023-12-14] MEDS ORDERED: SODIUM BICARB 8.4% 50 ML SYR (1 MEQ/ML) IV ONE (05:00)
[2023-12-14] MEDS ORDERED: PROTAMINE SULFATE 10 MG/ML 25 ML VIAL IV ONE (05:00)
[2023-12-14] MEDS ORDERED: ceFAZolin 1,000 MG in SODIUM CHLORIDE 0.9% IRRIGATIO 1,000 ML IRRIGATION ONE (05:00)
[2023-12-14] MEDS ORDERED: NITROGLYCERIN-D5W PMX 25 MG/250 ML BTL IV ONE (05:00)
[2023-12-14] MEDS ORDERED: ALBUMIN HUMAN 25% 50 ML in EMPTY BAG 1 BAG IVPB ONE (05:00)
[2023-12-14] MEDS ORDERED: MANNITOL 25% 12.5 GM/50 ML VIAL IV ONE ×2 (05:00)
[2023-12-14] MEDS ORDERED: ALBUMIN HUMAN 5% 500 ML in EMPTY BAG 1 BAG IVPB ONE ×6 (05:00)
[2023-12-14] MEDS ORDERED: PHENYLEPHRINE 10 MG/ML VIAL IV ONE (05:00)
[2023-12-14] MEDS ORDERED: CLEVIDIPINE BUTYRATE 25 MG in EMPTY BAG 1 BAG IV SCH (05:00)
[2023-12-14] MEDS ORDERED: TRANEXAMIC ACID 2,000 MG in SODIUM CHLORIDE 0.9% 80 ML IV ONE (05:00)
[2023-12-14] MEDS ORDERED: ELECTROLYTE-A SOLUTION 1,000 ML with POTASSIUM CHLORIDE 40 MEQ, MAGNESIUM SULFATE 16 ME... IV ONE (05:00)
[2023-12-14] MEDS ORDERED: ASPIRIN 325 MG TAB PO ONE (05:00)
[2023-12-14] MEDS ORDERED: MAGNESIUM SULFATE 16.24 MEQ in EMPTY SYRINGE 1 SYR IV ONE (05:00)
[2023-12-14] MEDS ORDERED: ATORVASTATIN 10 MG TAB PO ONE (05:00)
[2023-12-14 05:01] LABS: Glucose,Whole Blood 115 mg/dL (70-110)
[2023-12-14 05:58] LABS: Glucose,Whole Blood 111 mg/dL (70-110)
[2023-12-14] MEDS: ALBUMIN HUMAN 5% 250 ML in EMPTY BAG 1 BAG IVPB PRN (06:00)
[2023-12-14 06:55] LABS: Glucose,Whole Blood 125 mg/dL (70-110)
[2023-12-14 07:42] LABS: HCT 35.3 % (34.0-46.0); HGB 11.8 gm/dL (11.4-16.0); MCH 29.7 pg (25.0-35.0); MCHC 33.5 g/dL (31.0-37.0); MCV 88.8 fL (80.0-100.0); Mean Platelet Volume 10.2; Platelet Count 204 k/uL (150-450); RBC 3.97 m/uL (3.80-5.40); RDW 13.3 % (11.5-15.5); WBC 13.2 k/uL (3.8-10.6)
[2023-12-14 07:58] LABS: Glucose,Whole Blood 209 mg/dL (70-110)
--- NOTE | 2023-12-14 08:15 | XR ---
EXAMINATION TYPE: XR chest 1V portable DATE OF EXAM: 12/14/2023 COMPARISON: 12/13/2023 HISTORY: Shortness of breath TECHNIQUE: Single frontal view of the chest is obtained. FINDINGS: ET tube is been removed. [place]-Tomas catheter and chest tubes stable. Mediastinal drain note d. Diffuse airspace disease with small effusions stable. Median sternotomy with atrial appendage. No sizable pneumothorax. IMPRESSION: 1. ET tube has been removed. Diffuse airspace disease is stable.
--- NOTE | 2023-12-14 08:25 | P.PN ---
Subjective Progress Note Date: 12/14/23 Principal diagnosis: Multivessel coronary artery disease, non-ST elevated myocardial infarction this admission. Previous medical history of hypertension, diabetes mellitus type 2, obesity status post laparoscopic sleeve gastrectomy 12/2022, depression, frequent constipation, and lifetime non-smoker POD #1 off pump coronary artery bypass grafting x 4. Left internal thoracic art harjinder (in-situ) sequential to diagonal and left anterior descending coronary artery. Left radial from internal thoracic to obtuse marginal artery #1, greater saphenous vein from aorta to posterior descending coronary artery. Left atrial appendage ligation using #35mm AtriClip. Endoscopic left radial and right greater saphenous vein harvest. Graft flow measurements using the [employer] flow meter system. CUONG The patient was seen and examined sitting up in recliner in the intensive care unit in no acute distress eating a popsicle. She was successfully extubated this morning at 00:30. Currently in sinus rhythm, hemodynamically stable on no inotropes or pressors. She was on IV nitro for vessel spasm prophylaxis. She does complain of postsurgical chest discomfort, denies shortness of breath. Labs, chest x-ray reviewed. Right internal jugular Watkins/Cordis, mediastinal/right/left pleural chest tubes all remain. Her arterial line did come out last night. No other new concerns. Objective - Vital Signs Vital signs: Vital Signs Temp 99.5 F 12/14/23 07:00 Pulse 85 12/14/23 07:00 Resp 17 12/14/23 07:00 BP 117/65 12/14/23 07:00 Pulse Ox 99 12/14/23 06:00 FiO2 50 12/14/23 00:00 Intake & Output 12/13/23 12/14/23 12/14/23 18:59 06:59 18:59 Intake Total 201 1643.843 Output Total 3200 1328 25 Balance -2999 315.843 -25 Weight 100.3 kg Intake: IV 54 889 CO/CI 50 240 Lactated Ringers 1,000 ml 550 @ 20 mls/hr IV .Q24H [facility] Rx#:[id number] Pressure bags 99 Intake, IV Titration 147 254.843 Amount Dexmedetomidine/0.9% NaCl 22.288 (Pmx) 400 mcg In Empty Bag 1 bag @ Titrate IV . Q0M [facility] Rx#:[id number] Insulin Regular 100 unit 26.842 In Sodium Chloride 0.9% 100 ml @ Per Protocol IV .Q0M [facility] Rx#:[id number] Magnesium Sulfate-D5w Pmx 100 1 gm In Dextrose/Water 1 100ml.bag @ 100 mls/hr IVPB ONCE ONE Rx#: [id number] Nitroglycerin-D5w Pmx 50 147 mg In Dextrose/Water 1 250ml.bag @ 5 MCG/MIN 1.5 mls/hr IV .Q24H [facility] Rx#: [id number] Nitroglycerin-D5w Pmx 50 5.325 mg In Dextrose/Water 1 250ml.bag @ 5 MCG/MIN 1.5 mls/hr IV .Q24H [facility] Rx#: [id number] ceFAZolin 2 gm In Sodium 50 Chloride 0.9% 50 ml @ 100 mls/hr IVPB Q8HR [facility] Rx# :[id number] propofoL 1,000 mg In 50.388 Empty Bag 1 bag @ Titrate IV .Q0M [facility] Rx#: [id number] Albumin 500 Lactated Ringers 1,000 ml 500 @ 20 mls/hr IV .Q24H [facility] Rx#:[id number] Output: Chest Tube Drainage 588 Mediastinal 418 R/L pleural chest tube 170 Drainage 25 Left Arm 25 Urine 1400 740 Estimated Blood Loss 1800 ABP, PAP, CO, CI - Last Documented Arterial Blood Pressure 123/71 Pulmonary Artery Pressure 33/23 Cardiac Output 6.6 Cardiac Index 3.3 - Exam CONSTITUTIONAL: Appears comfortable, cooperative, no acute distress RESPIRATORY: Lungs sounds diminished bilaterally. Respirations even, nonlabored. Currently on room air with oxygen saturation 96%. Able to achieve 750 mL on incentive spirometry. Strong cough. CARDIOVASCULAR: S1, S2 present. Regular rate and rhythm, sinus rhythm on telemetry. Sternum stable. Palpable peripheral pulses bilaterally. No edema present. No calf pain or tenderness noted. Heart hugger in place with patient demonstrating appropriate use. Antiembolism stockings, SCDs present. GASTROINTESTINAL: Abdomen soft, nontender, nondistended. Hypoactive bowel sounds present 4 quadrants. Tolerating clear liquids. Denies flatus GENITOURINARY: Whittington present draining clear, yellow urine. Output overnight 30-100 mL per hour INTEGUMENTARY: Skin is warm and dry with evidence of good perfusion. Anterior chest incision well approximated and covered with dry intact dressing. Left radial artery and right lower extremity EVH site well approximated without redness, SHADY drain present to left radial artery harvest with minimal drainage NEUROLOGIC: Cranial nerves II through XII intact MUSKULOSKELETAL: Able to move all extremities, strength equal bilaterally PSYCHIATRIC: Alert and oriented to person, place, and time, appropriate affect, intact judgment and insight INVASIVE LINES AND TUBES: Mediastinal/left/right pleural chest tubes present and connected to wall suction, no air leaks present. Mediastinal tube with 140 mL serosanguineous drainage overnight, 450 mL since surgery. Left/right pleural chest tubes with 45 mL serosanguineous drainage overnight, 160 mL since surgery. Right internal jugular Watkins/Cordis present. Last CO/CI 4.7/2.3, PA 05/09, CVP 2. - Allied health notes Allied health notes reviewed: nursing - Labs CBC & Chem 7: 12/14/23 07:31 12/14/23 04:12 Labs: Abnormal Lab Results - Last 24 Hours (Table) 12/13/23 12/13/23 12/13/23 Range/Units 04:26 08:43 11:16 WBC (3.8-10.6) k/uL Plt Count (150-450) k/uL Neutrophils # (1.3-7.7) k/uL Lymphocytes # (1.0-4.8) k/uL ABG pH (7.35-7.45) ABG pO2 (83-108) mmHg ABG O2 Saturation (94-97) % Chloride (98-107) mmol/L Carbon Dioxide (22-30) mmol/L Creatinine (0.52-1.04) mg/dL Glucose (74-99) mg/dL POC Glucose (mg/dL) 162 H (70-110) mg/dL Calcium (8.4-10.2) mg/dL AST (14-36) U/L Troponin I 2.040 H* (0.000-0.034) ng/mL Total Protein (6.3-8.2) g/dL Albumin (3.5-5.0) g/dL Crossmatch See Detail 12/13/23 12/13/23 12/13/23 Range/Units 19:41 19:41 19:57 WBC 17.1 H (3.8-10.6) k/uL Plt Count (150-450) k/uL Neutrophils # 14.0 H (1.3-7.7) k/uL Lymphocytes # (1.0-4.8) k/uL ABG pH (7.35-7.45) ABG pO2 (83-108) mmHg ABG O2 Saturation (94-97) % Chloride 111 H (98-107) mmol/L Carbon Dioxide 20 L (22-30) mmol/L Creatinine 0.38 L (0.52-1.04) mg/dL Glucose 143 H (74-99) mg/dL POC Glucose (mg/dL) 159 H (70-110) mg/dL Calcium 7.8 L (8.4-10.2) mg/dL AST 37 H (14-36) U/L Troponin I (0.000-0.034) ng/mL Total Protein 5.2 L (6.3-8.2) g/dL Albumin 3.2 L (3.5-5.0) g/dL Crossmatch 12/13/23 12/13/23 12/13/23 Range/Units 20:12 20:36 21:07 WBC (3.8-10.6) k/uL Plt Count (150-450) k/uL Neutrophils # (1.3-7.7) k/uL Lymphocytes # (1.0-4.8) k/uL ABG pH 7.30 L (7.35-7.45) ABG pO2 >400 H (83-108) mmHg ABG O2 Saturation 99.7 H (94-97) % Chloride (98-107) mmol/L Carbon Dioxide (22-30) mmol/L Creatinine (0.52-1.04) mg/dL Glucose (74-99) mg/dL POC Glucose (mg/dL) 187 H 183 H (70-110) mg/dL Calcium (8.4-10.2) mg/dL AST (14-36) U/L Troponin I (0.000-0.034) ng/mL Total Protein (6.3-8.2) g/dL Albumin (3.5-5.0) g/dL Crossmatch 12/13/23 12/13/23 12/13/23 Range/Units 21:57 22:00 23:04 WBC 12.6 H (3.8-10.6) k/uL Plt Count 122 L (150-450) k/uL Neutrophils # 10.9 H (1.3-7.7) k/uL Lymphocytes # 0.9 L (1.0-4.8) k/uL ABG pH (7.35-7.45) ABG pO2 (83-108) mmHg ABG O2 Saturation (94-97) % Chloride (98-107) mmol/L Carbon Dioxide (22-30) mmol/L Creatinine (0.52-1.04) mg/dL Glucose (74-99) mg/dL POC Glucose (mg/dL) 157 H 159 H (70-110) mg/dL Calcium (8.4-10.2) mg/dL AST (14-36) U/L Troponin I (0.000-0.034) ng/mL Total Protein (6.3-8.2) g/dL Albumin (3.5-5.0) g/dL Crossmatch 12/13/23 12/14/23 12/14/23 Range/Units 23:44 00:05 01:08 WBC (3.8-10.6) k/uL Plt Count (150-450) k/uL Neutrophils # (1.3-7.7) k/uL Lymphocytes # (1.0-4.8) k/uL ABG pH (7.35-7.45) ABG pO2 151 H (83-108) mmHg ABG O2 Saturation 99.4 H (94-97) % Chloride (98-107) mmol/L Carbon Dioxide (22-30) mmol/L Creatinine (0.52-1.04) mg/dL Glucose (74-99) mg/dL POC Glucose (mg/dL) 140 H 116 H (70-110) mg/dL Calcium (8.4-10.2) mg/dL AST (14-36) U/L Troponin I (0.000-0.034) ng/mL Total Protein (6.3-8.2) g/dL Albumin (3.5-5.0) g/dL Crossmatch 12/14/23 12/14/23 12/14/23 Range/Units 01:48 01:59 03:07 WBC 11.6 H (3.8-10.6) k/uL Plt Count (150-450) k/uL Neutrophils # 10.4 H (1.3-7.7) k/uL Lymphocytes # 0.6 L (1.0-4.8) k/uL ABG pH (7.35-7.45) ABG pO2 (83-108) mmHg ABG O2 Saturation (94-97) % Chloride (98-107) mmol/L Carbon Dioxide (22-30) mmol/L Creatinine (0.52-1.04) mg/dL Glucose (74-99) mg/dL POC Glucose (mg/dL) 120 H 116 H (70-110) mg/dL Calcium (8.4-10.2) mg/dL AST (14-36) U/L Troponin I (0.000-0.034) ng/mL Total Protein (6.3-8.2) g/dL Albumin (3.5-5.0) g/dL Crossmatch 12/14/23 12/14/23 12/14/23 Range/Units 04:12 04:12 04:59 WBC (3.8-10.6) k/uL Plt Count (150-450) k/uL Neutrophils # (1.3-7.7) k/uL Lymphocytes # (1.0-4.8) k/uL ABG pH (7.35-7.45) ABG pO2 (83-108) mmHg ABG O2 Saturation (94-97) % Chloride 110 H (98-107) mmol/L Carbon Dioxide 16 L (22-30) mmol/L Creatinine 0.37 L (0.52-1.04) mg/dL Glucose 117 H (74-99) mg/dL POC Glucose (mg/dL) 120 H 115 H (70-110) mg/dL Calcium (8.4-10.2) mg/dL AST 89 H (14-36) U/L Troponin I (0.000-0.034) ng/mL Total Protein 5.5 L (6.3-8.2) g/dL Albumin 3.4 L (3.5-5.0) g/dL Crossmatch 12/14/23 12/14/23 12/14/23 Range/Units 05:57 06:53 07:31 WBC 13.2 H (3.8-10.6) k/uL Plt Count (150-450) k/uL Neutrophils # (1.3-7.7) k/uL Lymphocytes # (1.0-4.8) k/uL ABG pH (7.35-7.45) ABG pO2 (83-108) mmHg ABG O2 Saturation (94-97) % Chloride (98-107) mmol/L Carbon Dioxide (22-30) mmol/L Creatinine (0.52-1.04) mg/dL Glucose (74-99) mg/dL POC Glucose (mg/dL) 111 H 125 H (70-110) mg/dL Calcium (8.4-10.2) mg/dL AST (14-36) U/L Troponin I (0.000-0.034) ng/mL Total Protein (6.3-8.2) g/dL Albumin (3.5-5.0) g/dL Crossmatch 12/14/23 Range/Units 07:56 WBC (3.8-10.6) k/uL Plt Count (150-450) k/uL Neutrophils # (1.3-7.7) k/uL Lymphocytes # (1.0-4.8) k/uL ABG pH (7.35-7.45) ABG pO2 (83-108) mmHg ABG O2 Saturation (94-97) % Chloride (98-107) mmol/L Carbon Dioxide (22-30) mmol/L Creatinine (0.52-1.04) mg/dL Glucose (74-99) mg/dL POC Glucose (mg/dL) 209 H (70-110) mg/dL Calcium (8.4-10.2) mg/dL AST (14-36) U/L Troponin I (0.000-0.034) ng/mL Total Protein (6.3-8.2) g/dL Albumin (3.5-5.0) g/dL Crossmatch Microbiology - Last 24 Hours (Table) 12/11/23 14:32 Nasal Screen MRSA/MSSA - Final Nasal Swab - Imaging and Cardiology Chest x-ray: report reviewed, image reviewed Assessment and Plan Assessment: Multivessel coronary artery disease, non-ST elevated myocardial infarction this admission, status post four-vessel off-pump CABG History of hypertension Diabetes mellitus type 2, preoperative hemoglobin A1c 6.7% Obesity status post laparoscopic sleeve gastrectomy 12/2022 Depression Frequent constipation Lifetime non-smoker, preoperative FEV1 93% of predicted Plan: Continue to maximize medical therapy with aspirin, statin, Plavix, beta-kelly. Will increase beta-kelly therapy as tolerated Will initiate low-dose calcium channel kelly for radial artery spasm prop hylaxis Encourage incentive spirometry use 10 times every hour while awake. Bronchodilators per pulmonology Increase activity, ambulate as tolerated. PT/OT/cardiac rehab consulted Will monitor daily labs and x-rays. Electrolyte replacement per protocol GI/DVT prophylaxis Insulin management per internal medicine. Patient should remain on insulin drip for 48 hours postsurgery, then may transition to subcu insulin per protocol Pain control with current medication regimen Will discontinue Watkins, connect Cordis to continuous CVP monitoring Will discontinue left radial artery SHADY drain Continue chest tubes for another 24 hours, monitor output Continue Whittington catheter for another 24 hours, continue to record strict accurate intake and output Daily weights More recommendations to follow based on patient's progress
[2023-12-14] MEDS: IPRATROPIUM-ALBUTEROL 3 ML NEB INHALATION SCH (08:32)
[2023-12-14] MEDS: ASPIRIN 325 MG TAB PO SCH (08:54)
[2023-12-14] MEDS: CLOPIDOGREL 75 MG TAB PO SCH (08:54)
[2023-12-14] MEDS: ATORVASTATIN 40 MG TAB PO SCH (08:54)
[2023-12-14] MEDS: METOPROLOL TARTRATE 12.5 MG TAB PO SCH (08:54)
[2023-12-14] MEDS: PANTOPRAZOLE 40 MG/10 ML VIAL IVP SCH (08:56)
[2023-12-14 09:18] LABS: Glucose,Whole Blood 196 mg/dL (70-110)
[2023-12-14 10:10] LABS: Glucose,Whole Blood 164 mg/dL (70-110)
--- NOTE | 2023-12-14 10:35 | P.PN ---
Subjective Progress Note Date: 12/14/23 This patient is 48 with multivessel coronary artery disease. I was asked to evaluate this patient for a pulmonary evaluation and be involved in the postoperative care as the patient has coronary bypass surgery being planned within the next few days. In summary, this is [id number] white female with [facility] medical history significant for hypertension, diabetes mellitus type 2, morbid obesity status post gastric sleeve procedure, and is a lifetime non- smoker. Patient states that she has been having exertional chest pain over the last 2 weeks. This usually occurs when she is on the treadmill, and subsides within 15 minutes of rest. On December 10, 2023 she states that her chest pain did not go away with rest, it radiated to her back, and it lasted about 40 minutes. When her daughter got home, she was driven to [facility]. She had elevated troponin at the outside facility, abnormal EKG changes, and was transferred to our facility the same day. She did undergo a cardiac catheterization on December 10, 2023 which demonstrated severe disease of the LAD, intermittent disease an OM branch of the left circumflex and an occluded RCA with collateral circulation. There was recommendation for surgical revascularization. A transthoracic echo showed a preserved left ejection fra ction of 50 to 55%, with moderately increased LVH, and trace to mild mitral and tricuspid regurgitation. The patient is now in the intensive care unit. Earlier in the day, she reportedly had some intermittent chest pain. She has been started on a combination of nitroglycerin which is infusing at 40 mics per minute, IV heparin per protocol. APTT is therapeutic. Most recent CBC and BMP from yesterday are unremarkable. She currently denies any chest pain at the moment. She is lying in bed, on room air, in no acute distress. She denies any history of pulmonary disease. She is a lifelong non-smoker. Bedside spirometry bedside spirometry showed an FEV1 of 2.49 L or 93% of predicted. There is an incentive spirometer at bedside. A nonenhanced chest CT did not show any evidence of pulmonary disease. The patient has no specific complaints at this point in time. She is free of any chest pain. The patient remains on IV heparin. Patient is also onNitroglycerin drip. Her cardiac rhythm is sinus. Her troponin peaked at 2.04. Cardiac rhythm is sinus. No cough. No sputum production. No chest tightness. No wheezing. No other new complaints otherwise for now. She is resting comfortably in bed. She is using incentive spirometer and she is putting more than 2000. On today's evaluation of 10/13/2024, the patient is doing well and the patient is extubated. The patient underwent an off-pump coronary artery bypass surgery x 4 and this included GILBERT to sequential diagonal and LAD and she also had left radial to obtuse marginal 1 and saphenous vein graft to PDA. Postop, the patient was kept intubated and she was brought into the intensive care unit. The patient was gradually the mechanical ventilator and the patient was extubated and this morning she is currently on room air oxygen and she is sitting up in the chair and she is calm and comfortable. The patient has a mediastinum left lower and right lower chest tube. Left lower chest tubes are connected and output is in the order of 200 cc since surgery and the mediastinal chest tube placed produced approximately 400 cc since surgery. Cardiac output is at 7 with an index of 3.5. Pulmonary artery pressures of 21/8. The patient is on no pressors. The patient remains on nitroglycerin drip at 5 mcg/min. The patient remains on insulin at 1.5 units an hour. Lactated Ringer's running at 50 cc an hour. Incentive spirometer is being utilized and the patient is putting approximately 500 cc.The white cell count is at 13.2 with a hemoglobin of 11.8. The BUN is at 15 with a creatinine of 0.37 and a sodium levels of 137 with a potassium level of 4. Chest x-ray shows adequate expansion of both lungs. No evidence of any pneumothorax. No other acute cardiopulmonary abnormalities. All of the lines and the tubes are in good location based on today's chest x-ray finding. There are also postsurgical changes related to thoracotomy. Objective - Vital Signs Vital signs: Vital Signs Temp 99.5 F 12/14/23 07:00 Pulse 85 12/14/23 07:00 Resp 17 12/14/23 07:00 BP 117/65 12/14/23 07:00 Pulse Ox 99 12/14/23 06:00 FiO2 50 12/14/23 00:00 Intake & Output 12/13/23 12/14/23 12/14/23 18:59 06:59 18:59 Intake Total 201 1643.843 Output Total 3200 1328 25 Balance -2999 315.843 -25 Weight 100.3 kg Intake: IV 54 889 CO/CI 50 240 Lactated Ringers 1,000 ml 550 @ 20 mls/hr IV .Q24H [facility] Rx#:[id number] Pressure bags 99 Intake, IV Titration 147 254.843 Amount Dexmedetomidine/0.9% NaCl 22.288 (Pmx) 400 mcg In Empty Bag 1 bag @ Titrate IV . Q0M [facility] Rx#:[id number] Insulin Regular 100 unit 26.842 In Sodium Chloride 0.9% 100 ml @ Per Protocol IV .Q0M [facility] Rx#:[id number] Magnesium Sulfate-D5w Pmx 100 1 gm In Dextrose/Water 1 100ml.bag @ 100 mls/hr IVPB ONCE ONE Rx#: [id number] Nitroglycerin-D5w Pmx 50 147 mg In Dextrose/Water 1 250ml.bag @ 5 MCG/MIN 1.5 mls/hr IV .Q24H [facility] Rx#: [id number] Nitroglycerin-D5w Pmx 50 5.325 mg In Dextrose/Water 1 250ml.bag @ 5 MCG/MIN 1.5 mls/hr IV .Q24H [facility] Rx#: [id number] ceFAZolin 2 gm In Sodium 50 Chloride 0.9% 50 ml @ 100 mls/hr IVPB Q8HR [facility] Rx# :[id number] propofoL 1,000 mg In 50.388 Empty Bag 1 bag @ Titrate IV .Q0M [facility] Rx#: [id number] Albumin 500 Lactated Ringers 1,000 ml 500 @ 20 mls/hr IV .Q24H [facility] Rx#:[id number] Output: Chest Tube Drainage 588 Mediastinal 418 R/L pleural chest tube 170 Drainage 25 Left Arm 25 Urine 1400 740 Estimated Blood Loss 1800 ABP, PAP, CO, CI - Last Documented Arterial Blood Pressure 123/71 Pulmonary Artery Pressure 33/23 Cardiac Output 6.6 Cardiac Index 3.3 - Exam CONSTITUTIONAL: Appears comfortable, cooperative, no acute distress, the patient is currently on room air oxygen. RESPIRATORY: Lungs sounds diminished bilaterally. Respirations even, nonlabor ed. Currently on room air with oxygen saturation 96%. Able to achieve 750 mL on incentive spirometry. Strong cough. CARDIOVASCULAR: S1, S2 present. Regular rate and rhythm, sinus rhythm on tele metry. Sternum stable. Palpable peripheral pulses bilaterally. No edema present. No calf pain or tenderness noted. Heart hugger in place with patient demonstrating appropriate use. Antiembolism stockings, SCDs present. GASTROINTESTINAL: Abdomen soft, nontender, nondistended. Hypoactive bowel sounds present 4 quadrants. Tolerating clear liquids. Denies flatus GENITOURINARY: [place] present draining clear, yellow urine. Output overnight 30-100 mL per hour INTEGUMENTARY: Skin is warm and dry with evidence of good perfusion. Anterior chest incision well approximated and covered with dry intact dressing. Left radial artery and right lower extremity EVH site well approximated without redness, SHADY drain present to left radial artery harvest with minimal drainage NEUROLOGIC: Cranial nerves II through XII intact MUSKULOSKELETAL: Able to move all extremities, strength equal bilaterally PSYCHIATRIC: Alert and oriented to person, place, and time, appropriate affect, intact judgment and insight INVASIVE LINES AND TUBES: Mediastinal/left/right pleural chest tubes present and connected to wall suction, no air leaks present. - Labs CBC & Chem 7: 12/14/23 07:31 12/14/23 04:12 Labs: Abnormal Lab Results - Last 24 Hours (Table) 12/13/23 12/13/23 12/13/23 Range/Units 04:26 08:43 11:16 WBC (3.8-10.6) k/uL Plt Count (150-450) k/uL Neutrophils # (1.3-7.7) k/uL Lymphocytes # (1.0-4.8) k/uL ABG pH (7.35-7.45) ABG pO2 (83-108) mmHg ABG O2 Saturation (94-97) % Chloride (98-107) mmol/L Carbon Dioxide (22-30) mmol/L Creatinine (0.52-1.04) mg/dL Glucose (74-99) mg/dL POC Glucose (mg/dL) 162 H (70-110) mg/dL Calcium (8.4-10.2) mg/dL AST (14-36) U/L Troponin I 2.040 H* (0.000-0.034) ng/mL Total Protein (6.3-8.2) g/dL Albumin (3.5-5.0) g/dL Crossmatch See Detail 12/13/23 12/13/23 12/13/23 Range/Units 19:41 19:41 19:57 WBC 17.1 H (3.8-10.6) k/uL Plt Count (150-450) k/uL Neutrophils # 14.0 H (1.3-7.7) k/uL Lymphocytes # (1.0-4.8) k/uL ABG pH (7.35-7.45) ABG pO2 (83-108) mmHg ABG O2 Saturation (94-97) % Chloride 111 H (98-107) mmol/L Carbon Dioxide 20 L (22-30) mmol/L Creatinine 0.38 L (0.52-1.04) mg/dL Glucose 143 H (74-99) mg/dL POC Glucose (mg/dL) 159 H (70-110) mg/dL Calcium 7.8 L (8.4-10.2) mg/dL AST 37 H (14-36) U/L Troponin I (0.000-0.034) ng/mL Total Protein 5.2 L (6.3-8.2) g/dL Albumin 3.2 L (3.5-5.0) g/dL Crossmatch 12/13/23 12/13/23 12/13/23 Range/Units 20:12 20:36 21:07 WBC (3.8-10.6) k/uL Plt Count (150-450) k/uL Neutrophils # (1.3-7.7) k/uL Lymphocytes # (1.0-4.8) k/uL ABG pH 7.30 L (7.35-7.45) ABG pO2 >400 H (83-108) mmHg ABG O2 Saturation 99.7 H (94-97) % Chloride (98-107) mmol/L Carbon Dioxide (22-30) mmol/L Creatinine (0.52-1.04) mg/dL Glucose (74-99) mg/dL POC Glucose (mg/dL) 187 H 183 H (70-110) mg/dL Calcium (8.4-10.2) mg/dL AST (14-36) U/L Troponin I (0.000-0.034) ng/mL Total Protein (6.3-8.2) g/dL Albumin (3.5-5.0) g/dL Crossmatch 12/13/23 12/13/23 12/13/23 Range/Units 21:57 22:00 23:04 WBC 12.6 H (3.8-10.6) k/uL Plt Count 122 L (150-450) k/uL Neutrophils # 10.9 H (1.3-7.7) k/uL Lymphocytes # 0.9 L (1.0-4.8) k/uL ABG pH (7.35-7.45) ABG pO2 (83-108) mmHg ABG O2 Saturation (94-97) % Chloride (98-107) mmol/L Carbon Dioxide (22-30) mmol/L Creatinine (0.52-1.04) mg/dL Glucose (74-99) mg/dL POC Glucose (mg/dL) 157 H 159 H (70-110) mg/dL Calcium (8.4-10.2) mg/dL AST (14-36) U/L Troponin I (0.000-0.034) ng/mL Total Protein (6.3-8.2) g/dL Albumin (3.5-5.0) g/dL Crossmatch 12/13/23 12/14/23 12/14/23 Range/Units 23:44 00:05 01:08 WBC (3.8-10.6) k/uL Plt Count (150-450) k/uL Neutrophils # (1.3-7.7) k/uL Lymphocytes # (1.0-4.8) k/uL ABG pH (7.35-7.45) ABG pO2 151 H (83-108) mmHg ABG O2 Saturation 99.4 H (94-97) % Chloride (98-107) mmol/L Carbon Dioxide (22-30) mmol/L Creatinine (0.52-1.04) mg/dL Glucose (74-99) mg/dL POC Glucose (mg/dL) 140 H 116 H (70-110) mg/dL Calcium (8.4-10.2) mg/dL AST (14-36) U/L Troponin I (0.000-0.034) ng/mL Total Protein (6.3-8.2) g/dL Albumin (3.5-5.0) g/dL Crossmatch 12/14/23 12/14/2324 Range/Units 01:48 01:59 03:07 WBC 11.6 H (3.8-10.6) k/uL Plt Count (150-450) k/uL Neutrophils # 10.4 H (1.3-7.7) k/uL Lymphocytes # 0.6 L (1.0-4.8) k/uL ABG pH (7.35-7.45) ABG pO2 (83-108) mmHg ABG O2 Saturation (94-97) % Chloride (98-107) mmol/L Carbon Dioxide (22-30) mmol/L Creatinine (0.52-1.04) mg/dL Glucose (74-99) mg/dL POC Glucose (mg/dL) 120 H 116 H (70-110) mg/dL Calcium (8.4-10.2) mg/dL AST (14-36) U/L Troponin I (0.000-0.034) ng/mL Total Protein (6.3-8.2) g/dL Albumin (3.5-5.0) g/dL Crossmatch 12/14/23 12/14/23 12/14/23 Range/Units 04:12 04:12 04:59 WBC (3.8-10.6) k/uL Plt Count (150-450) k/uL Neutrophils # (1.3-7.7) k/uL Lymphocytes # (1.0-4.8) k/uL ABG pH (7.35-7.45) ABG pO2 (83-108) mmHg ABG O2 Saturation (94-97) % Chloride 110 H (98-107) mmol/L Carbon Dioxide 16 L (22-30) mmol/L Creatinine 0.37 L (0.52-1.04) mg/dL Glucose 117 H (74-99) mg/dL POC Glucose (mg/dL) 120 H 115 H (70-110) mg/dL Calcium (8.4-10.2) mg/dL AST 89 H (14-36) U/L Troponin I (0.000-0.034) ng/mL Total Protein 5.5 L (6.3-8.2) g/dL Albumin 3.4 L (3.5-5.0) g/dL Crossmatch 02/05/0112/14/23 12/14/23 Range/Units 05:57 06:53 07:31 WBC 13.2 H (3.8-10.6) k/uL Plt Count (150-450) k/uL Neutrophils # (1.3-7.7) k/uL Lymphocytes # (1.0-4.8) k/uL ABG pH (7.35-7.45) ABG pO2 (83-108) mmHg ABG O2 Saturation (94-97) % Chloride (98-107) mmol/L Carbon Dioxide (22-30) mmol/L Creatinine (0.52-1.04) mg/dL Glucose (74-99) mg/dL POC Glucose (mg/dL) 111 H 125 H (70-110) mg/dL Calcium (8.4-10.2) mg/dL AST (14-36) U/L Troponin I (0.000-0.034) ng/mL Total Protein (6.3-8.2) g/dL Albumin (3.5-5.0) g/dL Crossmatch 12/14/23 Range/Units 07:56 WBC (3.8-10.6) k/uL Plt Count (150-450) k/uL Neutrophils # (1.3-7.7) k/uL Lymphocytes # (1.0-4.8) k/uL ABG pH (7.35-7.45) ABG pO2 (83-108) mmHg ABG O2 Saturation (94-97) % Chloride (98-107) mmol/L Carbon Dioxide (22-30) mmol/L Creatinine (0.52-1.04) mg/dL Glucose (74-99) mg/dL POC Glucose (mg/dL) 209 H (70-110) mg/dL Calcium (8.4-10.2) mg/dL AST (14-36) U/L Troponin I (0.000-0.034) ng/mL Total Protein (6.3-8.2) g/dL Albumin (3.5-5.0) g/dL Crossmatch Microbiology - Last 24 Hours (Table) 12/11/23 14:32 Nasal Screen MRSA/MSSA - Final Nasal Swab Assessment and Plan Plan: Multivessel coronary artery disease. Cardiac catheterization was done on 12/10/2023 and the patient was found to have severe disease of the LAD intermediate disease involving the OM branch of the circumflex and occluded RCA with collateral circulation. Patient is currently free of any chest pain. The patient underwent four-vessel bypass surgery, off-pump, and this included Left internal thoracic artery (in-situ) sequential to diagonal and left anterior descending coronary artery. Left radial from internal thoracic to obtuse marginal artery #1, greater saphenous vein from aorta to posterior descending coronary artery. The patient is currently postop day #1 For thoracotomy, the patient was weaned off mechanical ventilator and the patient was extubated, currently on room air oxygen. Chest x-ray shows no evidence of any pneumothorax. Chest tubes are all in good location. Acute non-ST segment ovation myocardial infarction and troponin peaked at 2. Obesity with a BMI of 36.7. The patient is undergone previous bariatric surgery including gastric sleeve procedure Diabetes mellitus type 2, maintained on Glucophage XR and Mounjaro on an outpatient basis Hypertension Chronic back pain History of depression Previous history of bariatric surgery and the patient underwent a gastric sleeve on 12/28/2022 Plan Encouraged use of incentive spirometer Cardiac rhythm is sinus Continue aspirin and Plavix The patient will be started on calcium channel blockers for radial artery spasm prophylaxis Might develop from the chest tubes and keep the chest tube in place for today Continue insulin drip for blood sugar control Clinically stable and hemodynamic stable and the patient is currently on room air oxygen Nitroglycerin drip can be discontinued Will keep the patient in the intensive care unit and will continue to follow.
[2023-12-14 11:06] VITALS: BMI 37.9
[2023-12-14 11:12] LABS: Glucose,Whole Blood 137 mg/dL (70-110)
[2023-12-14] MEDS: CALCIUM CARBONATE 500 MG CHEWABLE PO PRN (11:17)
[2023-12-14 12:09] LABS: Glucose,Whole Blood 145 mg/dL (70-110)
--- NOTE | 2023-12-14 12:28 | PN ---
PROGRESS NOTE SUBJECTIVE: Mrs. Jennings underwent aortocoronary bypass surgery yesterday by Dr. Bocanegra. She had a sequential graft with a GILBERT to LAD and diagonal. A free radial artery graft was attached from the GILBERT to obtuse marginal 1 and a saphenous vein graft was attached from the aorta to the PDA branch. She also had a left atrial appendage ligation. The patient is doing well, extubated, hemodynamically stable. Blood sugar control is decent. She has diabetes as well. OBJECTIVE: VITAL SIGNS: Stable. HEART: S1, S2 heard normally, short systolic murmur noted. LUNGS: Revealed decent air entry. ABDOMEN: Unchanged. LOWER EXTREMITIES: Unchanged. PLAN: To continue current medications, incentive spirometry, and pulmonary toilet. The patient is progressing well post bypass surgery. MMODL / IJN: [id number] /
[2023-12-14] MEDS: KETOROLAC 15 MG/ML 1 ML VIAL IVP SCH (12:29)
[2023-12-14 13:16] LABS: Glucose,Whole Blood 231 mg/dL (70-110)
[2023-12-14 14:25] LABS: Glucose,Whole Blood 185 mg/dL (70-110)
[2023-12-14 14:41] LABS: Allen Test Performed? Yes
[2023-12-14 14:42] LABS: ABG PCO2 40 mmHg (35-45); ABG PH 7.34 (7.35-7.45); ABG PO2 92 mmHg (83-108)
[2023-12-14 14:43] LABS: ABG Base Excess -4.2 mmol/L; ABG HCO3 21 mmol/L (21-25); ABG Oxygen Saturation 96.6 % (94-97); ABG TCO2 20 mmol/L (19-24)
[2023-12-14 14:43] LABS: Allen Test Performed? Yes
[2023-12-14 14:44] LABS: ABG Base Excess -4.2 mmol/L; ABG HCO3 21 mmol/L (21-25); ABG Oxygen Saturation 99.2 % (94-97); ABG PCO2 39 mmHg (35-45); ABG PH 7.34 (7.35-7.45); ABG PO2 188 mmHg (83-108); ABG TCO2 20 mmol/L (19-24)
[2023-12-14 14:45] LABS: ABG Base Excess -2.7 mmol/L; ABG HCO3 22 mmol/L (21-25); ABG Oxygen Saturation 99.3 % (94-97); ABG PCO2 38 mmHg (35-45); ABG PH 7.28 (7.35-7.45); ABG PO2 206 mmHg (83-108); ABG TCO2 21 mmol/L (19-24); Allen Test Performed? Yes
[2023-12-14 14:46] LABS: ABG Base Excess -2.2 mmol/L; ABG HCO3 22 mmol/L (21-25); ABG PCO2 34 mmHg (35-45); ABG PH 7.41 (7.35-7.45); ABG PO2 205 mmHg (83-108); Allen Test Performed? Yes
[2023-12-14 14:47] LABS: ABG Oxygen Saturation >99.4 % (94-97)
[2023-12-14 14:47] LABS: ABG HCO3 22 mmol/L (21-25); ABG PCO2 33 mmHg (35-45); ABG PH 7.43 (7.35-7.45); ABG PO2 228 mmHg (83-108); Allen Test Performed? Yes
[2023-12-14 14:48] LABS: ABG PCO2 38 mmHg (35-45); ABG PH 7.39 (7.35-7.45); ABG PO2 173 mmHg (83-108); Allen Test Performed? Yes
[2023-12-14 14:48] LABS: ABG Base Excess -1.7 mmol/L; ABG Oxygen Saturation >99.4 % (94-97)
[2023-12-14 14:49] LABS: ABG PH 7.41 (7.35-7.45); Allen Test Performed? Yes
[2023-12-14 14:49] LABS: ABG Base Excess -1.8 mmol/L; ABG HCO3 23 mmol/L (21-25); ABG Oxygen Saturation 99.3 % (94-97); ABG TCO2 21 mmol/L (19-24)
[2023-12-14 14:50] LABS: ABG Base Excess 0.6 mmol/L; ABG HCO3 25 mmol/L (21-25); ABG PCO2 40 mmHg (35-45); ABG PO2 141 mmHg (83-108); ABG TCO2 23 mmol/L (19-24)
[2023-12-14 15:06] LABS: Glucose,Whole Blood 163 mg/dL (70-110)
[2023-12-14] MEDS: amLODIPine 2.5 MG TAB PO SCH (15:14)
[2023-12-14 16:12] LABS: Glucose,Whole Blood 122 mg/dL (70-110)
[2023-12-14 17:06] LABS: Glucose,Whole Blood 140 mg/dL (70-110)
[2023-12-14 18:03] LABS: Glucose,Whole Blood 203 mg/dL (70-110)
[2023-12-14 18:58] LABS: Glucose,Whole Blood 203 mg/dL (70-110)
[2023-12-14] MEDS: lamoTRIgine 25 MG TAB PO SCH (20:33)
[2023-12-14] MEDS: lamoTRIgine 100 MG TAB PO SCH (20:33)
[2023-12-14] MEDS: METOPROLOL TARTRATE 25 MG TAB PO SCH (20:33)
[2023-12-14 20:59] LABS: Glucose,Whole Blood 135 mg/dL (70-110)
[2023-12-14 22:04] LABS: Glucose,Whole Blood 104 mg/dL (70-110)
[2023-12-14 23:01] LABS: Glucose,Whole Blood 115 mg/dL (70-110)
[2023-12-15 00:13] LABS: Glucose,Whole Blood 136 mg/dL (70-110)
[2023-12-15 01:01] LABS: Glucose,Whole Blood 142 mg/dL (70-110)
[2023-12-15 02:00] LABS: Glucose,Whole Blood 123 mg/dL (70-110)
--- NOTE | 2023-12-15 02:51 | PN ---
PROGRESS NOTE DATE OF SERVICE: 12/14/2023 SUBJECTIVE: This is a 48-year-old woman who was admitted after CABG is being monitored in ICU. The patient wears multiple tubes at this time. The blood sugar has been monitored closely. Lytes around between 164 and 231 at this time. There is no history of any fever or rigors. PAST MEDICAL HISTORY: Reviewed. REVIEW OF SYSTEMS: A 14-point review is negative except as mentioned earlier. MEDICATIONS REVIEWED: DuoNeb, dose and rest of medications noted. PHYSICAL EXAMINATION: VITAL SIGNS: Pulse is 96, blood pressure 130/60, respiration 33. HEENT: Conjunctivae normal. NECK: No jugular venous distention. CARDIOVASCULAR: S1, S2. RESPIRATIONS: Few scattered rhonchi. ABDOMEN: Soft. NERVOUS SYSTEM: No focal deficits. LABORATORY DATA: Reviewed. Blood sugars reviewed. ASSESSMENT: 1. CAD, status post CABG. 2. History of recent acute non-ST segment myocardial infarction with unstable angina. 3. Diabetes mellitus type 2, most recent hemoglobin A1c 6.2. 4. Obesity. 5. Gastroesophageal reflux disease. 6. Elevated WBC. RECOMMENDATIONS: Recommended to continue current management and repeat labs. Otherwise, incentive spirometry. Continue with current medications. Closely follow with Cardiothoracic surgery and pulmonology. Further recommendations to follow. See orders for details. MMODL / IJN: [id number] /
[2023-12-15 03:12] LABS: Glucose,Whole Blood 111 mg/dL (70-110)
[2023-12-15 04:05] LABS: Glucose,Whole Blood 105 mg/dL (70-110)
[2023-12-15 04:14] LABS: Basophils % (A) 0 %; Eosinophils # (A) 0.1 k/uL (0-0.7); Eosinophils % (A) 1 %; HCT 29.9 % (34.0-46.0); Lymphocytes # (A) 2.5 k/uL (1.0-4.8); Lymphocytes % (A) 22 %; MCH 29.4 pg (25.0-35.0); MCHC 33.1 g/dL (31.0-37.0); Mean Platelet Volume 8.6; Monocytes # (A) 0.6 k/uL (0-1.0); Monocytes % (A) 5 %; Neutrophils % (A) 70 %; Platelet Count 199 k/uL (150-450); RBC 3.36 m/uL (3.80-5.40); RDW 13.3 % (11.5-15.5); WBC 11.4 k/uL (3.8-10.6)
[2023-12-15 04:16] LABS: Ionized Calcium 4.9 mg/dL (4.5-5.3)
[2023-12-15 04:21] LABS: ALT 19 U/L (4-34); AST 62 U/L (14-36); African American GFR (CKD) >90 (>60 ml/min/1.73 sqM); Alkaline Phosphatase 51 U/L (38-126); Anion Gap 4 mmol/L; Blood Urea Nitrogen 16 mg/dL (7-17); Calcium 8.5 mg/dL (8.4-10.2); Carbon Dioxide 24 mmol/L (22-30); Chloride 108 mmol/L (98-107); Glucose 97 mg/dL (74-99); Non-African American GFR(CKD) >90 (>60 ml/min/1.73 sqM); Potassium 3.6 mmol/L (3.5-5.1); Sodium 136 mmol/L (137-145); Total Bilirubin 0.7 mg/dL (0.2-1.3)
[2023-12-15] MEDS ORDERED: Potassium Replacement Protocol 1 EACH MISC MISCELLANE PRN (04:27)
[2023-12-15 04:29] LABS: HGB 9.9 gm/dL (11.4-16.0)
[2023-12-15 05:04] LABS: Glucose,Whole Blood 110 mg/dL (70-110)
[2023-12-15] MEDS: POTASSIUM CHLORIDE ER 20 MEQ TAB.ER PO SCH (05:22)
[2023-12-15 06:15] LABS: Glucose,Whole Blood 134 mg/dL (70-110)
[2023-12-15 06:56] LABS: Glucose,Whole Blood 130 mg/dL (70-110)
[2023-12-15] MEDS ORDERED: HYDROcodone/APAP 10-325MG 1 EACH TAB PO PRN (06:59)
--- NOTE | 2023-12-15 07:58 | XR ---
EXAMINATION TYPE: XR chest 1V portable DATE OF EXAM: 12/15/2023 COMPARISON: 12/14/2023 HISTORY: Postop TECHNIQUE: Single frontal view of the chest is obtained. FINDINGS: Bilateral consolidation and small pleural effusion. Poststernotomy changes are noted Helper- Tomas catheter has been removed. Chest tubes are noted in position. No sizable pneumothorax. Limited i nspiration with elevated right hemidiaphragm. Bilateral consolidation and small pleural effusion. Deg enerative changes of the spine. IMPRESSION: 1. Postoperative changes with bilateral consolidation and small pleural effusion
[2023-12-15 08:06] LABS: Glucose,Whole Blood 167 mg/dL (70-110)
--- NOTE | 2023-12-15 08:13 | P.PN ---
Subjective Progress Note Date: 12/15/23 Principal diagnosis: Multivessel coronary artery disease, non-ST elevated myocardial infarction this admission. Previous medical history of hypertension, diabetes mellitus type 2, obesity status post laparoscopic sleeve gastrectomy 12/2022, depression, frequent constipation, and lifetime non-smoker POD #2 off pump coronary artery bypass grafting x 4. Left internal thoracic art harjinder (in-situ) sequential to diagonal and left anterior descending coronary artery. Left radial from internal thoracic to obtuse marginal artery #1, greater saphenous vein from aorta to posterior descending coronary artery. Left atrial appendage ligation using #35mm AtriClip. Endoscopic left radial and right greater saphenous vein harvest. Graft flow measurements using the [employer] flow meter system. Intraoperative CUONG Acute blood loss anemia, expected given hemodilution The patient was seen and examined sitting up in recliner in the intensive care unit in no acute distress eating breakfast. Currently in sinus rhythm, hemodynamically stable on no inotropes or pressors. She does complain of postsurgical chest discomfort but states tolerable, denies shortness of breath. Labs, chest x-ray reviewed. Right internal jugular cordis, mediastinal/right/left pleural chest tubes all remain. She has ambulated all the way around the hallway without difficulty. No other new concerns. Objective - Vital Signs Vital signs: Vital Signs Temp 98.9 F 12/15/23 04:00 Pulse 95 12/15/23 07:00 Resp 18 12/15/23 07:00 BP 109/60 12/15/23 07:00 Pulse Ox 98 12/15/23 07:00 FiO2 50 12/14/23 00:00 Intake & Output 12/14/23 12/15/23 12/15/23 18:59 06:59 18:59 Intake Total 495.841 916.624 Output Total 591 454 Balance -95.159 462.624 Weight 100.3 kg 99.1 kg Intake: IV 415 293 CO/CI 20 Lactated Ringers 1,000 ml 350 260 @ 20 mls/hr IV .Q24H [facility] Rx#:[id number] Pressure bags 45 33 Intake, IV Titration 80.841 273.624 Amount Albumin Human 5% 250 ml 250 In Empty Bag 1 bag @ 250 mls/hr IVPB Q1HR PRN Rx#: [id number] Insulin Regular 100 unit 30.841 23.624 In Sodium Chloride 0.9% 100 ml @ Per Protocol IV .Q0M [facility] Rx#:[id number] ceFAZolin 2 gm In Sodium 50 Chloride 0.9% 50 ml @ 100 mls/hr IVPB Q8HR [facility] Rx# :[id number] Oral 350 Output: Chest Tube Drainage 96 94 Mediastinal 70 40 R/L pleural chest tube 26 54 Drainage 25 Left Arm 25 Urine 470 360 Other: Voiding Method Indwelling Catheter Indwelling Catheter ABP, PAP, CO, CI - Last Documented Arterial Blood Pressure 123/71 Pulmonary Artery Pressure 21/5 Cardiac Output 7 Cardiac Index 3.5 - Exam CONSTITUTIONAL: Appears comfortable, cooperative, no acute distress RESPIRATORY: Lungs sounds diminished bilaterally. Respirations even, nonlabored. Currently on room air with oxygen saturation 96%. Able to achieve 750-1000 mL on incentive spirometry. Strong cough. CARDIOVASCULAR: S1, S2 present. Regular rate and rhythm, sinus rhythm on telemetry. Sternum stable. Palpable peripheral pulses bilaterally. No edema present. No calf pain or tenderness noted. Heart hugger in place with patient demonstrating appropriate use. Antiembolism stockings, SCDs present. GASTROINTESTINAL: Abdomen soft, nontender, nondistended. Hypoactive bowel sounds present 4 quadrants. Tolerating diet. Denies flatus GENITOURINARY: Whitting[place] present draining clear, yellow urine. Output overnight 30-50 mL per hour, 830 mL in the last 24 hours INTEGUMENTARY: Skin is warm and dry with evidence of good perfusion. Anterior chest incision well approximated and covered with dry intact dressing. Left radial artery and right lower extremity EVH site well approximated without redn ess or drainage NEUROLOGIC: Cranial nerves II through XII intact MUSKULOSKELETAL: Able to move all extremities, strength equal bilaterally PSYCHIATRIC: Alert and oriented to person, place, and time, appropriate affect, intact judgment and insight INVASIVE LINES AND TUBES: Mediastinal/left/right pleural chest tubes present and connected to wall suction, no air leaks present. Mediastinal tube with 30 mL serosanguineous drainage overnight, 100 mL in the last 24 hours. Left/right pleural chest tubes with 35 mL serosanguineous drainage overnight, 100 mL in the last 24 hours. Right internal jugular cordis present. - Allied health notes Allied health notes reviewed: nursing - Labs CBC & Chem 7: 12/15/23 03:23 12/15/23 03:23 Labs: Abnormal Lab Results - Last 24 Hours (Table) 12/13/23 12/13/23 12/13/23 Range/Units 04:26 13:57 15:06 WBC (3.8-10.6) k/uL RBC (3.80-5.40) m/uL Hgb (11.4-16.0) gm/dL Hct (34.0-46.0) % Neutrophils # (1.3-7.7) k/uL ABG pH (7.35-7.45) ABG pCO2 (35-45) mmHg ABG pO2 141 H 173 H (83-108) mmHg ABG O2 Saturation 99.0 H 99.3 H (94-97) % Sodium (137-145) mmol/L Chloride (98-107) mmol/L POC Glucose (mg/dL) (70-110) mg/dL AST (14-36) U/L Total Protein (6.3-8.2) g/dL Albumin (3.5-5.0) g/dL Crossmatch See Detail 12/13/23 12/13/23 12/13/23 Range/Units 15:44 16:25 17:01 WBC (3.8-10.6) k/uL RBC (3.80-5.40) m/uL Hgb (11.4-16.0) gm/dL Hct (34.0-46.0) % Neutrophils # (1.3-7.7) k/uL ABG pH 7.28 L (7.35-7.45) ABG pCO2 33 L 34 L (35-45) mmHg ABG pO2 228 H 205 H 206 H (83-108) mmHg ABG O2 Saturation >99.4 H >99.4 H 99.3 H (94-97) % Sodium (137-145) mmol/L Chloride (98-107) mmol/L POC Glucose (mg/dL) (70-110) mg/dL AST (14-36) U/L Total Protein (6.3-8.2) g/dL Albumin (3.5-5.0) g/dL Crossmatch 12/13/23 12/13/23 12/14/23 Range/Units 17:43 18:25 07:56 WBC (3.8-10.6) k/uL RBC (3.80-5.40) m/uL Hgb (11.4-16.0) gm/dL Hct (34.0-46.0) % Neutrophils # (1.3-7.7) k/uL ABG pH 7.34 L 7.34 L (7.35-7.45) ABG pCO2 (35-45) mmHg ABG pO2 188 H (83-108) mmHg ABG O2 Saturation 99.2 H (94-97) % Sodium (137-145) mmol/L Chloride (98-107) mmol/L POC Glucose (mg/dL) 209 H (70-110) mg/dL AST (14-36) U/L Total Protein (6.3-8.2) g/dL Albumin (3.5-5.0) g/dL Crossmatch 12/14/23 12/14/23 12/14/23 Range/Units 09:17 10:07 11:11 WBC (3.8-10.6) k/uL RBC (3.80-5.40) m/uL Hgb (11.4-16.0) gm/dL Hct (34.0-46.0) % Neutrophils # (1.3-7.7) k/uL ABG pH (7.35-7.45) ABG pCO2 (35-45) mmHg ABG pO2 (83-108) mmHg ABG O2 Saturation (94-97) % Sodium (137-145) mmol/L Chloride (98-107) mmol/L POC Glucose (mg/dL) 196 H 164 H 137 H (70-110) mg/dL AST (14-36) U/L Total Protein (6.3-8.2) g/dL Albumin (3.5-5.0) g/dL Crossmatch 12/14/23 12/14/23 12/14/23 Range/Units 12:07 13:15 14:23 WBC (3.8-10.6) k/uL RBC (3.80-5.40) m/uL Hgb (11.4-16.0) gm/dL Hct (34.0-46.0) % Neutrophils # (1.3-7.7) k/uL ABG pH (7.35-7.45) ABG pCO2 (35-45) mmHg ABG pO2 (83-108) mmHg ABG O2 Saturation (94-97) % Sodium (137-145) mmol/L Chloride (98-107) mmol/L POC Glucose (mg/dL) 145 H 231 H 185 H (70-110) mg/dL AST (14-36) U/L Total Protein (6.3-8.2) g/dL Albumin (3.5-5.0) g/dL Crossmatch 12/14/23 12/14/23 12/14/23 Range/Units 15:04 16:10 17:05 WBC (3.8-10.6) k/uL RBC (3.80-5.40) m/uL Hgb (11.4-16.0) gm/dL Hct (34.0-46.0) % Neutrophils # (1.3-7.7) k/uL ABG pH (7.35-7.45) ABG pCO2 (35-45) mmHg ABG pO2 (83-108) mmHg ABG O2 Saturation (94-97) % Sodium (137-145) mmol/L Chloride (98-107) mmol/L POC Glucose (mg/dL) 163 H 122 H 140 H (70-110) mg/dL AST (14-36) U/L Total Protein (6.3-8.2) g/dL Albumin (3.5-5.0) g/dL Crossmatch 12/14/23 12/14/23 12/14/23 Range/Units 18:02 18:54 20:58 WBC (3.8-10.6) k/uL RBC (3.80-5.40) m/uL Hgb (11.4-16.0) gm/dL Hct (34.0-46.0) % Neutrophils # (1.3-7.7) k/uL ABG pH (7.35-7.45) ABG pCO2 (35-45) mmHg ABG pO2 (83-108) mmHg ABG O2 Saturation (94-97) % Sodium (137-145) mmol/L Chloride (98-107) mmol/L POC Glucose (mg/dL) 203 H 203 H 135 H (70-110) mg/dL AST (14-36) U/L Total Protein (6.3-8.2) g/dL Albumin (3.5-5.0) g/dL Crossmatch 12/14/23 12/15/23 12/15/23 Range/Units 22:59 00:12 01:00 WBC (3.8-10.6) k/uL RBC (3.80-5.40) m/uL Hgb (11.4-16.0) gm/dL Hct (34.0-46.0) % Neutrophils # (1.3-7.7) k/uL ABG pH (7.35-7.45) ABG pCO2 (35-45) mmHg ABG pO2 (83-108) mmHg ABG O2 Saturation (94-97) % Sodium (137-145) mmol/L Chloride (98-107) mmol/L POC Glucose (mg/dL) 115 H 136 H 142 H (70-110) mg/dL AST (14-36) U/L Total Protein (6.3-8.2) g/dL Albumin (3.5-5.0) g/dL Crossmatch 12/15/23 12/15/23 12/15/23 Range/Units 01:58 03:11 03:23 WBC 11.4 H (3.8-10.6) k/uL RBC 3.36 L (3.80-5.40) m/uL Hgb 9.9 L D (11.4-16.0) gm/dL Hct 29.9 L (34.0-46.0) % Neutrophils # 8.0 H (1.3-7.7) k/uL ABG pH (7.35-7.45) ABG pCO2 (35-45) mmHg ABG pO2 (83-108) mmHg ABG O2 Saturation (94-97) % Sodium (137-145) mmol/L Chloride (98-107) mmol/L POC Glucose (mg/dL) 123 H 111 H (70-110) mg/dL AST (14-36) U/L Total Protein (6.3-8.2) g/dL Albumin (3.5-5.0) g/dL Crossmatch 12/15/23 12/15/23 12/15/23 Range/Units 03:23 06:06 06:54 WBC (3.8-10.6) k/uL RBC (3.80-5.40) m/uL Hgb (11.4-16.0) gm/dL Hct (34.0-46.0) % Neutrophils # (1.3-7.7) k/uL ABG pH (7.35-7.45) ABG pCO2 (35-45) mmHg ABG pO2 (83-108) mmHg ABG O2 Saturation (94-97) % Sodium 136 L (137-145) mmol/L Chloride 108 H (98-107) mmol/L POC Glucose (mg/dL) 134 H 130 H (70-110) mg/dL AST 62 H (14-36) U/L Total Protein 5.0 L (6.3-8.2) g/dL Albumin 3.0 L (3.5-5.0) g/dL Crossmatch - Imaging and Cardiology Chest x-ray: image reviewed Assessment and Plan Assessment: Multivessel coronary artery disease, non-ST elevated myocardial infarction this admission, status post four-vessel off-pump CABG History of hypertension Diabetes mellitus type 2, preoperative hemoglobin A1c 6.7% Obesity status post laparoscopic sleeve gastrectomy 12/2022 Depression Frequent constipation Lifetime non-smoker, preoperative FEV1 93% of predicted Plan: Continue to maximize medical therapy with aspirin, statin, Plavix, beta-kelly. Will increase beta-kelly therapy as tolerated Continue low-dose calcium channel kelly for radial artery spasm prophylaxis Encourage incentive spirometry use 10 times every hour while awake. Bronchodilators per pulmonology Increase activity, ambulate as tolerated. PT/OT/cardiac rehab consulted Will monitor daily labs and x-rays. Electrolyte replacement per protocol GI/DVT prophylaxis Insulin management per internal medicine Pain control with current medication regimen Will discontinue cordis Will discontinue chest tubes Discontinue [place]itting[place] catheter, may bladder scan and straight cath for greater than 300 mL residual Continue to record strict accurate intake and output Daily weights Will place transfer orders for 3 S. cardiac stepdown unit, may transfer when bed available More recommendations to follow based on patient's progress
[2023-12-15] MEDS: PANTOPRAZOLE 40 MG TABLET PO SCH (08:33)
[2023-12-15 09:01] LABS: Glucose,Whole Blood 170 mg/dL (70-110)
--- NOTE | 2023-12-15 09:07 | PN ---
PROGRESS NOTE SUBJECTIVE: Mrs. Jennings underwent aortocoronary bypass surgery on Wednesday. She is doing very well. She is in sinus rhythm, hemodynamically stable, making good progress, doing well on incentive spirometry. OBJECTIVE: VITALS: Stable. HEART: S1, S2 heard normally, short systolic murmur. LUNGS: Clear. ABDOMEN: Soft. LOWER EXTREMITIES: Reveal diminished pulses. PLAN: To continue current medical regimen, incentive spirometry, and pulmonary toilet. MMODL / IJN: [id number] /
[2023-12-15] MEDS: INSULIN DETEMIR (LEVEMIR) 100 UNIT/ML SYR SQ SCH (09:48)
[2023-12-15] MEDS: METOCLOPRAMIDE 5 MG/ML 2 ML VIAL IVP PRN (09:48)
[2023-12-15] MEDS: MAGNESIUM HYDROXIDE 2,400 MG/30 ML CUP PO PRN (09:48)
--- NOTE | 2023-12-15 11:51 | P.PN ---
Subjective Progress Note Date: 12/15/23 This patient is 48 with multivessel coronary artery disease. I was asked to evaluate this patient for a pulmonary evaluation and be involved in the postoperative care as the patient has coronary bypass surgery being planned within the next few days. In summary, this is [id number] white female with [facility] medical history significant for hypertension, diabetes mellitus type 2, morbid obesity status post gastric sleeve procedure, and is a lifetime non- smoker. Patient states that she has been having exertional chest pain over the last 2 weeks. This usually occurs when she is on the treadmill, and subsides within 15 minutes of rest. On December 10, 2023 she states that her chest pain did not go away with rest, it radiated to her back, and it lasted about 40 minutes. When her daughter got home, she was driven to [facility]. She had elevated troponin at the outside facility, abnormal EKG changes, and was transferred to our facility the same day. She did undergo a cardiac catheterization on December 10, 2023 which demonstrated severe disease of the LAD, intermittent disease an OM branch of the left circumflex and an occluded RCA with collateral circulation. There was recommendation for surgical revascularization. A transthoracic echo showed a preserved left ejection fra ction of 50 to 55%, with moderately increased LVH, and trace to mild mitral and tricuspid regurgitation. The patient is now in the intensive care unit. Earlier in the day, she reportedly had some intermittent chest pain. She has been started on a combination of nitroglycerin which is infusing at 40 mics per minute, IV heparin per protocol. APTT is therapeutic. Most recent CBC and BMP from yesterday are unremarkable. She currently denies any chest pain at the moment. She is lying in bed, on room air, in no acute distress. She denies any history of pulmonary disease. She is a lifelong non-smoker. Bedside spirometry bedside spirometry showed an FEV1 of 2.49 L or 93% of predicted. There is an incentive spirometer at bedside. A nonenhanced chest CT did not show any evidence of pulmonary disease. The patient has no specific complaints at this point in time. She is free of any chest pain. The patient remains on IV heparin. Patient is also onNitroglycerin drip. Her cardiac rhythm is sinus. Her troponin peaked at 2.04. Cardiac rhythm is sinus. No cough. No sputum production. No chest tightness. No wheezing. No other new complaints otherwise for now. She is resting comfortably in bed. She is using incentive spirometer and she is putting more than 2000. On today's evaluation of 10/13/2024, the patient is doing well and the patient is extubated. The patient underwent an off-pump coronary artery bypass surgery x 4 and this included GILBERT to sequential diagonal and LAD and she also had left radial to obtuse marginal 1 and saphenous vein graft to PDA. Postop, the patient was kept intubated and she was brought into the intensive care unit. The patient was gradually the mechanical ventilator and the patient was extubated and this morning she is currently on room air oxygen and she is sitting up in the chair and she is calm and comfortable. The patient has a mediastinum left lower and right lower chest tube. Left lower chest tubes are connected and output is in the order of 200 cc since surgery and the mediastinal chest tube placed produced approximately 400 cc since surgery. Cardiac output is at 7 with an index of 3.5. Pulmonary artery pressures of 21/8. The patient is on no pressors. The patient remains on nitroglycerin drip at 5 mcg/min. The patient remains on insulin at 1.5 units an hour. Lactated Ringer's running at 50 cc an hour. Incentive spirometer is being utilized and the patient is putting approximately 500 cc.The white cell count is at 13.2 with a hemoglobin of 11.8. The BUN is at 15 with a creatinine of 0.37 and a sodium levels of 137 with a potassium level of 4. Chest x-ray shows adequate expansion of both lungs. No evidence of any pneumothorax. No other acute cardiopulmonary abnormalities. All of the lines and the tubes are in good location based on today's chest x-ray finding. There are also postsurgical changes related to thoracotomy. On today's evaluation of 12/15/2023, I am seeing the patient for a follow-up. The patient is post coronary to bypass surgery. The patient is doing well for now and she is currently on room air oxygen. The mediastinal and left pleural chest tube was putting out minimal amount of output in the both of the chest were removed today. The patient is utilizing incentive spirometer and she is pulling approximately 750. The patient on aspirin and Plavix. The patient is also on amlodipine 2.5 mg p.o. daily and metoprolol at a dose of 25 mg twice daily. Hemodynamically stable. Also, the patient is on insulin drip running at 4 units an hour. Blood sugars are on the adequate control for now.Chest x-ray shows atelectatic change in lung base bilaterally. No evidence of pneumothorax. No airspace disease or consolidation. The risk of 11.4 hemoglobin of 9.9 and a beau telet count of 199. BUN is at 16 with a creatinine of 0.5 and his sodium level is at 136. No other significant events overnight. Cardiac rhythm is still sinus. Surgical wound is dry clean and intact. Objective - Vital Signs Vital signs: Vital Signs Temp 98.9 F 12/15/23 04:00 Pulse 86 12/15/23 08:51 Resp 18 12/15/23 07:00 BP 109/60 12/15/23 07:00 Pulse Ox 98 12/15/23 07:00 FiO2 50 12/14/23 00:00 Intake & Output 12/14/23 12/15/23 12/15/23 18:59 06:59 18:59 Intake Total 495.841 916.624 4.542 Output Total 591 454 Balance -95.159 462.624 4.542 Weight 100.3 kg 99.1 kg Intake: IV 415 293 CO/CI 20 Lactated Ringers 1,000 ml 350 260 @ 20 mls/hr IV .Q24H GEOVANNI Rx#:[id number] Pressure bags 45 33 Intake, IV Titration 80.841 273.624 4.542 Amount Albumin Human 5% 250 ml 250 In Empty Bag 1 bag @ 250 mls/hr IVPB Q1HR PRN Rx#: [id number] Insulin Regular 100 unit 30.841 23.624 4.542 In Sodium Chloride 0.9% 100 ml @ Per Protocol IV .Q0M GOEVANNI Rx#:[id number] ceFAZolin 2 gm In Sodium 50 Chloride 0.9% 50 ml @ 100 mls/hr IVPB Q8HR GEOVANNI Rx# :[id number] Oral 350 Output: Chest Tube Drainage 96 94 Mediastinal 70 40 R/L pleural chest tube 26 54 Drainage 25 Left Arm 25 Urine 470 360 Other: Voiding Method Indwelling Catheter Indwelling Catheter ABP, PAP, CO, CI - Last Documented Arterial Blood Pressure 123/71 Pulmonary Artery Pressure 21/5 Cardiac Output 7 Cardiac Index 3.5 - Exam CONSTITUTIONAL: Appears comfortable, cooperative, no acute distress RESPIRATORY: Lungs sounds diminished bilaterally. Respirations even, nonlabored. Currently on room air with oxygen saturation 96%. Able to achieve 750-1000 mL on incentive spirometry. Strong cough. CARDIOVASCULAR: S1, S2 present. Regular rate and rhythm, sinus rhythm on telemetry. Sternum stable. Palpable peripheral pulses bilaterally. No edema present. No calf pain or tenderness noted. Heart hugger in place with patient demonstrating appropriate use. Antiembolism stockings, SCDs present. GASTROINTESTINAL: Abdomen soft, nontender, nondistended. Hypoactive bowel sounds present 4 quadrants. Tolerating diet. Denies flatus GENITOURINARY: [place] present draining clear, yellow urine. Output overnight 30-50 mL per hour, 830 mL in the last 24 hours INTEGUMENTARY: Skin is warm and dry with evidence of good perfusion. Anterior chest incision well approximated and covered with dry intact dressing. Left radial artery and right lower extremity EVH site well approximated without redness or drainage NEUROLOGIC: Cranial nerves II through XII intact MUSKULOSKELETAL: Able to move all extremities, strength equal bilaterally PSYCHIATRIC: Alert and oriented to person, place, and time, appropriate affect, intact judgment and insight INVASIVE LINES AND TUBES: Mediastinal/left/right pleural chest tubes present and connected to wall suction, no air leaks present. Mediastinal tube with 30 mL serosanguineous drainage overnight, 100 mL in the last 24 hours. Left/right pleural chest tubes with 35 mL serosanguineous drainage overnight, 100 mL in the last 24 hours. Right internal jugular cordis present. - Labs CBC & Chem 7: 12/15/23 03:23 12/15/23 03:23 Labs: Abnormal Lab Results - Last 24 Hours (Table) 12/13/23 12/13/23 12/13/23 Range/Units 04:26 13:57 15:06 WBC (3.8-10.6) k/uL RBC (3.80-5.40) m/uL Hgb (11.4-16.0) gm/dL Hct (34.0-46.0) % Neutrophils # (1.3-7.7) k/uL ABG pH (7.35-7.45) ABG pCO2 (35-45) mmHg ABG pO2 141 H 173 H (83-108) mmHg ABG O2 Saturation 99.0 H 99.3 H (94-97) % Sodium (137-145) mmol/L Chloride (98-107) mmol/L POC Glucose (mg/dL) (70-110) mg/dL AST (14-36) U/L Total Protein (6.3-8.2) g/dL Albumin (3.5-5.0) g/dL Crossmatch See Detail 12/13/23 12/13/23 12/13/23 Range/Units 15:44 16:25 17:01 WBC (3.8-10.6) k/uL RBC (3.80-5.40) m/uL Hgb (11.4-16.0) gm/dL Hct (34.0-46.0) % Neutrophils # (1.3-7.7) k/uL ABG pH 7.28 L (7.35-7.45) ABG pCO2 33 L 34 L (35-45) mmHg ABG pO2 228 H 205 H 206 H (83-108) mmHg ABG O2 Saturation >99.4 H >99.4 H 99.3 H (94-97) % Sodium (137-145) mmol/L Chloride (98-107) mmol/L POC Glucose (mg/dL) (70-110) mg/dL AST (14-36) U/L Total Protein (6.3-8.2) g/dL Albumin (3.5-5.0) g/dL Crossmatch 12/13/23 12/13/23 12/14/23 Range/Units 17:43 18:25 09:17 WBC (3.8-10.6) k/uL RBC (3.80-5.40) m/uL Hgb (11.4-16.0) gm/dL Hct (34.0-46.0) % Neutrophils # (1.3-7.7) k/uL ABG pH 7.34 L 7.34 L (7.35-7.45) ABG pCO2 (35-45) mmHg ABG pO2 188 H (83-108) mmHg ABG O2 Saturation 99.2 H (94-97) % Sodium (137-145) mmol/L Chloride (98-107) mmol/L POC Glucose (mg/dL) 196 H (70-110) mg/dL AST (14-36) U/L Total Protein (6.3-8.2) g/dL Albumin (3.5-5.0) g/dL Crossmatch 12/14/23 12/14/23 12/14/23 Range/Units 10:07 11:11 12:07 WBC (3.8-10.6) k/uL RBC (3.80-5.40) m/uL Hgb (11.4-16.0) gm/dL Hct (34.0-46.0) % Neutrophils # (1.3-7.7) k/uL ABG pH (7.35-7.45) ABG pCO2 (35-45) mmHg ABG pO2 (83-108) mmHg ABG O2 Saturation (94-97) % Sodium (137-145) mmol/L Chloride (98-107) mmol/L POC Glucose (mg/dL) 164 H 137 H 145 H (70-110) mg/dL AST (14-36) U/L Total Protein (6.3-8.2) g/dL Albumin (3.5-5.0) g/dL Crossmatch 12/14/23 12/14/23 12/14/23 Range/Units 13:15 14:23 15:04 WBC (3.8-10.6) k/uL RBC (3.80-5.40) m/uL Hgb (11.4-16.0) gm/dL Hct (34.0-46.0) % Neutrophils # (1.3-7.7) k/uL ABG pH (7.35-7.45) ABG pCO2 (35-45) mmHg ABG pO2 (83-108) mmHg ABG O2 Saturation (94-97) % Sodium (137-145) mmol/L Chloride (98-107) mmol/L POC Glucose (mg/dL) 231 H 185 H 163 H (70-110) mg/dL AST (14-36) U/L Total Protein (6.3-8.2) g/dL Albumin (3.5-5.0) g/dL Crossmatch 12/14/23 12/14/23 12/14/23 Range/Units 16:10 17:05 18:02 WBC (3.8-10.6) k/uL RBC (3.80-5.40) m/uL Hgb (11.4-16.0) gm/dL Hct (34.0-46.0) % Neutrophils # (1.3-7.7) k/uL ABG pH (7.35-7.45) ABG pCO2 (35-45) mmHg ABG pO2 (83-108) mmHg ABG O2 Saturation (94-97) % Sodium (137-145) mmol/L Chloride (98-107) mmol/L POC Glucose (mg/dL) 122 H 140 H 203 H (70-110) mg/dL AST (14-36) U/L Total Protein (6.3-8.2) g/dL Albumin (3.5-5.0) g/dL Crossmatch 12/14/23 12/14/23 12/14/23 Range/Units 18:54 20:58 22:59 WBC (3.8-10.6) k/uL RBC (3.80-5.40) m/uL Hgb (11.4-16.0) gm/dL Hct (34.0-46.0) % Neutrophils # (1.3-7.7) k/uL ABG pH (7.35-7.45) ABG pCO2 (35-45) mmHg ABG pO2 (83-108) mmHg ABG O2 Saturation (94-97) % Sodium (137-145) mmol/L Chloride (98-107) mmol/L POC Glucose (mg/dL) 203 H 135 H 115 H (70-110) mg/dL AST (14-36) U/L Total Protein (6.3-8.2) g/dL Albumin (3.5-5.0) g/dL Crossmatch 12/15/23 12/15/23 12/15/23 Range/Units 00:12 01:00 01:58 WBC (3.8-10.6) k/uL RBC (3.80-5.40) m/uL Hgb (11.4-16.0) gm/dL Hct (34.0-46.0) % Neutrophils # (1.3-7.7) k/uL ABG pH (7.35-7.45) ABG pCO2 (35-45) mmHg ABG pO2 (83-108) mmHg ABG O2 Saturation (94-97) % Sodium (137-145) mmol/L Chloride (98-107) mmol/L POC Glucose (mg/dL) 136 H 142 H 123 H (70-110) mg/dL AST (14-36) U/L Total Protein (6.3-8.2) g/dL Albumin (3.5-5.0) g/dL Crossmatch 12/15/23 12/15/23 12/15/23 Range/Units 03:11 03:23 03:23 WBC 11.4 H (3.8-10.6) k/uL RBC 3.36 L (3.80-5.40) m/uL Hgb 9.9 L D (11.4-16.0) gm/dL Hct 29.9 L (34.0-46.0) % Neutrophils # 8.0 H (1.3-7.7) k/uL ABG pH (7.35-7.45) ABG pCO2 (35-45) mmHg ABG pO2 (83-108) mmHg ABG O2 Saturation (94-97) % Sodium 136 L (137-145) mmol/L Chloride 108 H (98-107) mmol/L POC Glucose (mg/dL) 111 H (70-110) mg/dL AST 62 H (14-36) U/L Total Protein 5.0 L (6.3-8.2) g/dL Albumin 3.0 L (3.5-5.0) g/dL Crossmatch 12/15/23 12/15/23 12/15/23 Range/Units 06:06 06:54 08:05 WBC (3.8-10.6) k/uL RBC (3.80-5.40) m/uL Hgb (11.4-16.0) gm/dL Hct (34.0-46.0) % Neutrophils # (1.3-7.7) k/uL ABG pH (7.35-7.45) ABG pCO2 (35-45) mmHg ABG pO2 (83-108) mmHg ABG O2 Saturation (94-97) % Sodium (137-145) mmol/L Chloride (98-107) mmol/L POC Glucose (mg/dL) 134 H 130 H 167 H (70-110) mg/dL AST (14-36) U/L Total Protein (6.3-8.2) g/dL Albumin (3.5-5.0) g/dL Crossmatch 12/15/23 Range/Units 08:59 WBC (3.8-10.6) k/uL RBC (3.80-5.40) m/uL Hgb (11.4-16.0) gm/dL Hct (34.0-46.0) % Neutrophils # (1.3-7.7) k/uL ABG pH (7.35-7.45) ABG pCO2 (35-45) mmHg ABG pO2 (83-108) mmHg ABG O2 Saturation (94-97) % Sodium (137-145) mmol/L Chloride (98-107) mmol/L POC Glucose (mg/dL) 170 H (70-110) mg/dL AST (14-36) U/L Total Protein (6.3-8.2) g/dL Albumin (3.5-5.0) g/dL Crossmatch Assessment and Plan Plan: Multivessel coronary artery disease. Cardiac catheterization was done on 12/10/2023 and the patient was found to have severe disease of the LAD intermediate disease involving the OM branch of the circumflex and occluded RCA with collateral circulation. Patient is currently free of any chest pain. The patient underwent four-vessel bypass surgery, off-pump, and this included Left internal thoracic artery (in-situ) sequential to diagonal and left anterior descending coronary artery. Left radial from internal thoracic to obtuse margina l artery #1, greater saphenous vein from aorta to posterior descending coronary artery. The patient is currently postop day #2. The patient is extubated and the patient is calm and comfortable on room air oxygen. For thoracotomy, the patient chest x-ray from today shows some atelectatic changes bilaterally. Mediastinal and pleural chest tube removed and the patient is currently on room air oxygen. Acute non-ST segment ovation myocardial infarction and troponin peaked at 2. Obesity with a BMI of 36.7. The patient is undergone previous bariatric surgery including gastric sleeve procedure Diabetes mellitus type 2, maintained on Glucophage XR and Mounjaro on an outpatient basis, currently on insulin drip for blood sugar control Hypertension Chronic back pain History of depression Previous history of bariatric surgery and the patient underwent a gastric sleeve on 12/28/2022 Plan Encouraged use of incentive spirometer Cardiac rhythm is sinus Continue aspirin and Plavix The patient is on Norvasc 2.5 mg p.o. daily and metoprolol 25 mg p.o. twice a day Stop the insulin drip and put the patient on Levemir insulin 10 units and 5 units with meals of NovoLog and sliding scale coverage Chest tubes have been removed Clinically stable and hemodynamic stable and the patient is currently on room air oxygen Ambulate the patient Patient currently on room air oxygen Will keep the patient in the intensive care unit and will continue to follow.
[2023-12-15 11:54] LABS: Glucose,Whole Blood 165 mg/dL (70-110)
[2023-12-15] MEDS: HYDROcodone/APAP 10-325MG 1 EACH TAB PO PRN (11:57)
[2023-12-15] MEDS: INSULIN ASPART (NovoLOG) 100 UNIT/ML VIAL SQ SCH ×2 (11:58)
[2023-12-15 16:08] LABS: Glucose,Whole Blood 215 mg/dL (70-110)
[2023-12-15 19:57] LABS: Glucose,Whole Blood 227 mg/dL (70-110)
[2023-12-15 20:20] LABS: Glucose,Whole Blood 210 mg/dL (70-110)
[2023-12-15] MEDS: LOSARTAN 25 MG TAB PO SCH (20:38)
--- NOTE | 2023-12-16 02:49 | PN ---
PROGRESS NOTE DATE OF SERVICE: 12/14/2023 SUBJECTIVE: This 48-year-old woman was admitted after CAD, CABG, is closely monitored at this time. The patient has some minimal atelectasis in the chest x-ray. The blood sugars have been around 150. PAST MEDICAL HISTORY: Reviewed. REVIEW OF SYSTEMS: A 14-point review is negative except as mentioned earlier. MEDICATIONS: Reviewed include DuoNeb, dose and rest of medications reviewed. PHYSICAL EXAMINATION: VITAL SIGNS: Pulse is 85, blood pressure 105/57, and respirations 30. HEENT: Conjunctivae normal. CARDIOVASCULAR: S1, S2. RESPIRATIONS: Diminished at the bases, few scattered rhonchi. ABDOMEN: Soft. NERVOUS SYSTEM: No focal deficits. LABORATORY DATA: WBC 11, hemoglobin 9.9, sodium 136. ASSESSMENT: 1. CAD, status post CABG. 2. Mild hyponatremia. 3. History of recent acute [id number] elevation myocardial infarction, unstable angina. 4. Diabetes mellitus, type 2, recent hemoglobin A1c 6.2. 5. Obesity. 6. GERD. 7. Elevated WBC. RECOMMENDATIONS: Recommended to continue the current medications, continue symptomatic treatment. Repeat labs. DVT prophylaxis. Monitor blood sugars closely as mentioned earlier. The patient is receiving Accu-Cheks a.c. and h.s. and 5 units a.c. t.i.d. and 10 units daily. We will continue to monitor. Further recommendations to follow. MMPEDROL / SARA: [id number] /
[2023-12-16 06:00] LABS: Basophils % (A) 1 %; Eosinophils # (A) 0.2 k/uL (0-0.7); Eosinophils % (A) 3 %; HCT 27.5 % (34.0-46.0); HGB 9.1 gm/dL (11.4-16.0); Lymphocytes # (A) 2.2 k/uL (1.0-4.8); Lymphocytes % (A) 27 %; MCH 29.9 pg (25.0-35.0); MCV 90.5 fL (80.0-100.0); Mean Platelet Volume 8.7; Monocytes # (A) 0.4 k/uL (0-1.0); Monocytes % (A) 5 %; Neutrophils % (A) 62 %; Platelet Count 177 k/uL (150-450); RBC 3.03 m/uL (3.80-5.40); RDW 13.4 % (11.5-15.5)
[2023-12-16 06:13] LABS: ALT 15 U/L (4-34); AST 39 U/L (14-36); African American GFR (CKD) >90 (>60 ml/min/1.73 sqM); Albumin 2.8 g/dL (3.5-5.0); Alkaline Phosphatase 69 U/L (38-126); Anion Gap 3 mmol/L; Blood Urea Nitrogen 20 mg/dL (7-17); Calcium 8.2 mg/dL (8.4-10.2); Carbon Dioxide 25 mmol/L (22-30); Chloride 108 mmol/L (98-107); Glucose 135 mg/dL (74-99); Non-African American GFR(CKD) >90 (>60 ml/min/1.73 sqM); Potassium 3.8 mmol/L (3.5-5.1); Sodium 136 mmol/L (137-145); Total Bilirubin 0.5 mg/dL (0.2-1.3); Total Protein 4.9 g/dL (6.3-8.2)
[2023-12-16 06:16] LABS: Glucose,Whole Blood 128 mg/dL (70-110)
[2023-12-16] MEDS: POTASSIUM CHLORIDE ER 20 MEQ TAB.ER PO SCH (06:32)
--- NOTE | 2023-12-16 08:10 | XR ---
EXAMINATION TYPE: XR chest 2V DATE OF EXAM: 12/16/2023 COMPARISON: 12/15/2023 TECHNIQUE: PA and lateral views submitted. HISTORY: Postop FINDINGS: Bilateral consolidation and small pleural effusion. Poststernotomy changes are noted. Chest tube and mediastinal drain no longer identified.. No sizable pneumothorax. Limited inspiration with elevated r ight hemidiaphragm. Bilateral consolidation and small pleural effusion. Degenerative changes of the s pine. IMPRESSION: 1. Postoperative changes with bilateral consolidation and small pleural effusion . Mild central venou s congestion not excluded.
--- NOTE | 2023-12-16 08:17 | P.PN ---
Subjective Progress Note Date: 12/16/23 Principal diagnosis: Multivessel coronary artery disease, non-ST elevated myocardial infarction this admission. Past medical history significant for hypertension, diabetes mellitus type 2, obesity status post laparoscopic sleeve gastrectomy 12/2022, depression, frequent constipation, and lifetime non-smoker POD #3 off pump coronary artery bypass grafting x 4. Left internal thoracic artery (in-situ) sequential to diagonal and left anterior descending coronary artery. Left radial from internal thoracic to obtuse marginal artery #1, greater saphenous vein from aorta to posterior descending coronary artery. Left atrial appendage ligation using #35mm AtriClip. Endoscopic left radial and right greater saphenous vein harvest. Graft flow measurements using the [employer] flow meter system. Intraoperative CUONG Acute blood loss anemia, expected given hemodilution The patient was seen and examined in follow-up today December 16, 2023 at her bedside in the intensive care unit. Currently she is sitting up to the bedside chair, is awake, alert, oriented x 3 and is in no acute apparent distress. Denies any complaints of shortness of breath or pain at this time. She states t hat her pain is well-controlled on the current pain medication regimen. She remains hemodynamically stable and is currently on no inotropic or pressor support. Remote telemetry is showing normal sinus rhythm heart rate 99 bpm. She has been afebrile in the last 24 hours. Oxygen saturations are 96% on room air and she is achieving 1250 mL on her incentive spirometry with encouragement. Her chest tubes were removed without incident yesterday. Chest x-ray and laboratory results were reviewed. Objective - Vital Signs Vital signs: Vital Signs Temp 98.5 F 12/16/23 04:00 Pulse 85 12/16/23 08:00 Resp 30 H 12/16/23 04:00 BP 120/61 12/16/23 04:00 Pulse Ox 96 12/15/23 22:00 FiO2 50 12/14/23 00:00 Intake & Output 12/15/23 12/16/23 12/16/23 18:59 06:59 18:59 Intake Total 668.942 Output Total 680 450 Balance -11.058 -450 Weight 98.8 kg Intake: IV 60 Lactated Ringers 1,000 ml 60 @ 20 mls/hr IV .Q24H [facility] Rx#:[id number] Intake, IV Titration 8.942 Amount Insulin Regular 100 unit 8.942 In Sodium Chloride 0.9% 100 ml @ Per Protocol IV .Q0M [facility] Rx#:[id number] Oral 600 Output: Chest Tube Drainage 0 Mediastinal 0 R/L pleural chest tube 0 Urine 680 450 Other: Voiding Method Bedside Commode Toilet ABP, PAP, CO, CI - Last Documented Arterial Blood Pressure 123/71 Pulmonary Artery Pressure 21/5 Cardiac Output 7 Cardiac Index 3.5 - Exam CONSTITUTIONAL: Sitting up to the bedside chair in the intensive care unit, appears comfortable, cooperative, no apparent acute distress. HEENT: Neck is supple, no JVD, no lymphadenopathy. RESPIRATORY: Lungs sounds essentially clear throughout, diminished to his bilateral bases. Respirations are symmetrical and nonlabored. Currently on room air with oxygen saturations 96%. Able to achieve 1250 mL on her incentive spirometry. Strong cough. CARDIOVASCULAR: Regular rhythm and rate. S1 and S2 present, negative for S3, gallop or murmur. Sternum is stable. Palpable peripheral pulses bilaterally. Remote telemetry showing normal sinus rhythm heart rate 99 bpm. No calf pain or tenderness noted. Heart hugger in place with patient demonstrating appropriate use. Knee-high MIAH hose and sequential compression devices in place to her bilateral lower extremities. GASTROINTESTINAL: Abdomen soft, nontender, nondistended. Active bowel sounds present 4 quadrants. Tolerating diet. Passing flatus. No guarding or rigidity. GENITOURINARY: Continues to void, 250 mL of urine output in the last 8 hours. INTEGUMENTARY: Skin is warm and dry with no evidence of clubbing or cyanosis. Midline sternal incision clean dry and well approximated, covered with dry intact dressing. Right lower extremity EVH sites well approximated without redness or drainage. Left arm radial artery harvest sites clean, dry and approximated. No drainage or redness is present. NEUROLOGIC: Cranial nerves II through XII intact. No focal deficits. MUSKULOSKELETAL: Able to move all extremities, strength equal bilaterally. PSYCHIATRIC: Alert and oriented to person place and time, appropriate affect, intact judgment and insight. INVASIVE LINES AND TUBES: Ventricular epicardial pacemaker wires present, and are grounded. - Allied health notes Allied health notes reviewed: nursing - Labs CBC & Chem 7: 12/16/23 05:27 12/16/23 05:27 Labs: Abnormal Lab Results - Last 24 Hours (Table) 0212/15/23 12/15/23 Range/Units 08:59 11:53 16:07 RBC (3.80-5.40) m/uL Hgb (11.4-16.0) gm/dL Hct (34.0-46.0) % Sodium (137-145) mmol/L Chloride (98-107) mmol/L BUN (7-17) mg/dL Creatinine (0.52-1.04) mg/dL Glucose (74-99) mg/dL POC Glucose (mg/dL) 170 H 165 H 215 H (70-110) mg/dL Calcium (8.4-10.2) mg/dL AST (14-36) U/L Total Protein (6.3-8.2) g/dL Albumin (3.5-5.0) g/dL 12/15/23 12/15/23 12/16/23 Range/Units 19:56 20:18 05:27 RBC 3.03 L (3.80-5.40) m/uL Hgb 9.1 L (11.4-16.0) gm/dL Hct 27.5 L (34.0-46.0) % Sodium (137-145) mmol/L Chloride (98-107) mmol/L BUN (7-17) mg/dL Creatinine (0.52-1.04) mg/dL Glucose (74-99) mg/dL POC Glucose (mg/dL) 227 H 210 H (70-110) mg/dL Calcium (8.4-10.2) mg/dL AST (14-36) U/L Total Protein (6.3-8.2) g/dL Albumin (3.5-5.0) g/dL 12/16/23 12/16/23 Range/Units 05:27 06:14 RBC (3.80-5.40) m/uL Hgb (11.4-16.0) gm/dL Hct (34.0-46.0) % Sodium 136 L (137-145) mmol/L Chloride 108 H (98-107) mmol/L BUN 20 H (7-17) mg/dL Creatinine 0.45 L (0.52-1.04) mg/dL Glucose 135 H (74-99) mg/dL POC Glucose (mg/dL) 128 H (70-110) mg/dL Calcium 8.2 L (8.4-10.2) mg/dL AST 39 H (14-36) U/L Total Protein 4.9 L (6.3-8.2) g/dL Albumin 2.8 L (3.5-5.0) g/dL - Imaging and Cardiology Chest x-ray: report reviewed, image reviewed Assessment and Plan Assessment: Multivessel coronary artery disease, status post four-vessel off-pump coronary artery bypass grafting surgery Acute non-ST elevated myocardial infarction this admission Hypertension Diabetes mellitus type 2, preoperative hemoglobin A1c 6.7% Obesity with a BMI of 36.7 kg/m, status post gastric sleeve Frequent constipation History of depression Lifetime non-smoker, preoperative FEV1 93% of predicted value Acute postoperative blood loss anemia, expected given hemodilution Plan: Continue to maximize medical therapy with aspirin, statin, Plavix, and beta- kelly. Will increase metoprolol to tartrate to 50 mg p.o. twice daily with hold parameters. Continue amlodipine 2.5 mg p.o. daily at noon for radial artery spasm prophylaxis. Encourage incentive spirometry use 10 times every hour while awake. Bronchodilators per pulmonology. Increase activity, ambulate as tolerated. PT/OT/cardiac rehab following. Will monitor daily labs and chest x-rays. Electrolyte replacement per protocol. GI/DVT prophylaxis. Insulin management per internal medicine. Pain control with current medication regimen. We will remove her ventricular epicardial pacemaker wires today. Bedrest for 1 hour post pacemaker wire removal. Continue record strict and accurate I's and O's, may bladder scan and straight cath for greater than 300 mL residual. Daily weights Transfer to 3 S. cardiac stepdown unit, may transfer when bed available. Discharge planning is in place, anticipate discharge home with home health care in the next 24 hours. More recommendations to follow based on patient's clinical course. Time with Patient: Greater than 30
--- NOTE | 2023-12-16 08:58 | PN ---
PROGRESS NOTE SUBJECTIVE: Mrs. Jennings underwent aortocoronary bypass surgery. She is making very good progress. Remains in sinus rhythm, hemodynamically stable. Doing well on incentive spirometry. OBJECTIVE: HEART: S1-S2 heard normally, short systolic murmur noted. LUNGS: Revealed decent air entry. ABDOMEN: Unchanged. LOWER EXTREMITIES: Unchanged. PLAN: To continue current medications, incentive spirometry. Increase activity and hopefully discharge soon. MMODL / IJN: [id number] /
[2023-12-16] MEDS: METOPROLOL TARTRATE 50 MG TAB PO SCH (08:59)
[2023-12-16 11:54] LABS: Glucose,Whole Blood 205 mg/dL (70-110)
--- NOTE | 2023-12-16 12:06 | P.PN ---
Subjective Progress Note Date: 12/16/23 This patient is 48 with multivessel coronary artery disease. I was asked to evaluate this patient for a pulmonary evaluation and be involved in the postoperative care as the patient has coronary bypass surgery being planned within the next few days. In summary, this is [id number] white female with [facility] medical history significant for hypertension, diabetes mellitus type 2, morbid obesity status post gastric sleeve procedure, and is a lifetime non- smoker. Patient states that she has been having exertional chest pain over the last 2 weeks. This usually occurs when she is on the treadmill, and subsides within 15 minutes of rest. On December 10, 2023 she states that her chest pain did not go away with rest, it radiated to her back, and it lasted about 40 minutes. When her daughter got home, she was driven to [facility]. She had elevated troponin at the outside facility, abnormal EKG changes, and was transferred to our facility the same day. She did undergo a cardiac catheterization on December 10, 2023 which demonstrated severe disease of the LAD, intermittent disease an OM branch of the left circumflex and an occluded RCA with collateral circulation. There was recommendation for surgical revascularization. A transthoracic echo showed a preserved left ejection fra ction of 50 to 55%, with moderately increased LVH, and trace to mild mitral and tricuspid regurgitation. The patient is now in the intensive care unit. Earlier in the day, she reportedly had some intermittent chest pain. She has been started on a combination of nitroglycerin which is infusing at 40 mics per minute, IV heparin per protocol. APTT is therapeutic. Most recent CBC and BMP from yesterday are unremarkable. She currently denies any chest pain at the moment. She is lying in bed, on room air, in no acute distress. She denies any history of pulmonary disease. She is a lifelong non-smoker. Bedside spirometry bedside spirometry showed an FEV1 of 2.49 L or 93% of predicted. There is an incentive spirometer at bedside. A nonenhanced chest CT did not show any evidence of pulmonary disease. The patient has no specific complaints at this point in time. She is free of any chest pain. The patient remains on IV heparin. Patient is also onNitroglycerin drip. Her cardiac rhythm is sinus. Her troponin peaked at 2.04. Cardiac rhythm is sinus. No cough. No sputum production. No chest tightness. No wheezing. No other new complaints otherwise for now. She is resting comfortably in bed. She is using incentive spirometer and she is putting more than 2000. On today's evaluation of 10/13/2024, the patient is doing well and the patient is extubated. The patient underwent an off-pump coronary artery bypass surgery x 4 and this included GILBERT to sequential diagonal and LAD and she also had left radial to obtuse marginal 1 and saphenous vein graft to PDA. Postop, the patient was kept intubated and she was brought into the intensive care unit. The patient was gradually the mechanical ventilator and the patient was extubated and this morning she is currently on room air oxygen and she is sitting up in the chair and she is calm and comfortable. The patient has a mediastinum left lower and right lower chest tube. Left lower chest tubes are connected and output is in the order of 200 cc since surgery and the mediastinal chest tube placed produced approximately 400 cc since surgery. Cardiac output is at 7 with an index of 3.5. Pulmonary artery pressures of 21/8. The patient is on no pressors. The patient remains on nitroglycerin drip at 5 mcg/min. The patient remains on insulin at 1.5 units an hour. Lactated Ringer's running at 50 cc an hour. Incentive spirometer is being utilized and the patient is putting approximately 500 cc.The white cell count is at 13.2 with a hemoglobin of 11.8. The BUN is at 15 with a creatinine of 0.37 and a sodium levels of 137 with a potassium level of 4. Chest x-ray shows adequate expansion of both lungs. No evidence of any pneumothorax. No other acute cardiopulmonary abnormalities. All of the lines and the tubes are in good location based on today's chest x-ray finding. There are also postsurgical changes related to thoracotomy. On today's evaluation of 12/15/2023, I am seeing the patient for a follow-up. The patient is post coronary to bypass surgery. The patient is doing well for now and she is currently on room air oxygen. The mediastinal and left pleural chest tube was putting out minimal amount of output in the both of the chest were removed today. The patient is utilizing incentive spirometer and she is pulling approximately 750. The patient on aspirin and Plavix. The patient is also on amlodipine 2.5 mg p.o. daily and metoprolol at a dose of 25 mg twice daily. Hemodynamically stable. Also, the patient is on insulin drip running at 4 units an hour. Blood sugars are on the adequate control for now.Chest x-ray shows atelectatic change in lung base bilaterally. No evidence of pneumothorax. No airspace disease or consolidation. The risk of 11.4 hemoglobin of 9.9 and a beau telet count of 199. BUN is at 16 with a creatinine of 0.5 and his sodium level is at 136. No other significant events overnight. Cardiac rhythm is still sinus. Surgical wound is dry clean and intact. On today's evaluation of 12/16/2023, I am seeing the patient for a follow-up. The patient is awake and alert and communicating. No focal neurological deficit. The patient has no specific complaints and the patient is currently on room air oxygen. Cardiac rhythm is sinus. The patient is alert and oriented x 3. All of the chest is removed and the patient is using incentive spirometer and pu lling approximately 1.2 L on her I-S. Chest x-ray shows postsurgical changes along with some atelectatic change in lung bases bilaterally. There is also some mild central pulm vascular congestion and small bilateral pleural effusions. The white cell count of 8 with a hemoglobin of 0.1 and admitted count of 177. BUN is 20 with a creatinine 0.4 and a sodium level is at 136. The patient is ambulating. The patient has no specific complaints. Objective - Vital Signs Vital signs: Vital Signs Temp 98.3 F 12/16/23 08:00 Pulse 99 12/16/23 08:00 Resp 20 12/16/23 08:00 BP 124/66 12/16/23 08:00 Pulse Ox 93 L 12/16/23 08:00 FiO2 50 12/14/23 00:00 Intake & Output 12/15/23 12/16/23 12/16/23 18:59 06:59 18:59 Intake Total 668.942 Output Total 680 450 Balance -11.058 -450 Weight 98.8 kg Intake: IV 60 Lactated Ringers 1,000 ml 60 @ 20 mls/hr IV .Q24H [facility] Rx#:[id number] Intake, IV Titration 8.942 Amount Insulin Regular 100 unit 8.942 In Sodium Chloride 0.9% 100 ml @ Per Protocol IV .Q0M [facility] Rx#:[id number] Oral 600 Output: Chest Tube Drainage 0 Mediastinal 0 R/L pleural chest tube 0 Urine 680 450 Other: Voiding Method Bedside Commode Toilet ABP, PAP, CO, CI - Last Documented Arterial Blood Pressure 123/71 Pulmonary Artery Pressure 21/5 Cardiac Output 7 Cardiac Index 3.5 - Exam CONSTITUTIONAL: Appears comfortable, cooperative, no acute distress RESPIRATORY: Lungs sounds diminished bilaterally. Respirations even, nonlabored. Currently on room air with oxygen saturation 96%. Able to achieve 1-5 0 mL on incentive spirometry. Strong cough. CARDIOVASCULAR: S1, S2 present. Regular rate and rhythm, sinus rhythm on telemetry. Sternum stable. Palpable peripheral pulses bilaterally. No edema present. No calf pain or tenderness noted. Heart hugger in place with patient demonstrating appropriate use. Antiembolism stockings, SCDs present. GASTROINTESTINAL: Abdomen soft, nontender, nondistended. Hypoactive bowel sounds present 4 quadrants. Tolerating diet. Denies flatus GENITOURINARY: [place] present draining clear, yellow urine. Output overnight 30-50 mL per hour, 830 mL in the last 24 hours INTEGUMENTARY: Skin is warm and dry with evidence of good perfusion. Anterior chest incision well approximated and covered with dry intact dressing. Left radial artery and right lower extremity EVH site well approximated without redness or drainage NEUROLOGIC: Cranial nerves II through XII intact MUSKULOSKELETAL: Able to move all extremities, strength equal bilaterally PSYCHIATRIC: Alert and oriented to person, place, and time, appropriate affect, intact judgment and insight INVASIVE LINES AND TUBES: Chest tubes have been removed and the patient has no drainage from the chest tube exit site - Labs CBC & Chem 7: 12/16/23 05:27 12/16/23 05:27 Labs: Abnormal Lab Results - Last 24 Hours (Table) 12/15/23 12/15/23 12/15/23 Range/Units 08:59 11:53 16:07 RBC (3.80-5.40) m/uL Hgb (11.4-16.0) gm/dL Hct (34.0-46.0) % Sodium (137-145) mmol/L Chloride (98-107) mmol/L BUN (7-17) mg/dL Creatinine (0.52-1.04) mg/dL Glucose (74-99) mg/dL POC Glucose (mg/dL) 170 H 165 H 215 H (70-110) mg/dL Calcium (8.4-10.2) mg/dL AST (14-36) U/L Total Protein (6.3-8.2) g/dL Albumin (3.5-5.0) g/dL 12/15/23 12/15/23 12/16/23 Range/Units 19:56 20:18 05:27 RBC 3.03 L (3.80-5.40) m/uL Hgb 9.1 L (11.4-16.0) gm/dL Hct 27.5 L (34.0-46.0) % Sodium (137-145) mmol/L Chloride (98-107) mmol/L BUN (7-17) mg/dL Creatinine (0.52-1.04) mg/dL Glucose (74-99) mg/dL POC Glucose (mg/dL) 227 H 210 H (70-110) mg/dL Calcium (8.4-10.2) mg/dL AST (14-36) U/L Total Protein (6.3-8.2) g/dL Albumin (3.5-5.0) g/dL 12/16/23 12/16/23 Range/Units 05:27 06:14 RBC (3.80-5.40) m/uL Hgb (11.4-16.0) gm/dL Hct (34.0-46.0) % Sodium 136 L (137-145) mmol/L Chloride 108 H (98-107) mmol/L BUN 20 H (7-17) mg/dL Creatinine 0.45 L (0.52-1.04) mg/dL Glucose 135 H (74-99) mg/dL POC Glucose (mg/dL) 128 H (70-110) mg/dL Calcium 8.2 L (8.4-10.2) mg/dL AST 39 H (14-36) U/L Total Protein 4.9 L (6.3-8.2) g/dL Albumin 2.8 L (3.5-5.0) g/dL Assessment and Plan Plan: Multivessel coronary artery disease. Cardiac catheterization was done on 12/10/2023 and the patient was found to have severe disease of the LAD intermediate disease involving the OM branch of the circumflex and occluded RCA with collateral circulation. Patient is currently free of any chest pain. The patient underwent four-vessel bypass surgery, off-pump, and this included Left internal thoracic artery (in-situ) sequential to diagonal and left anterior descending coronary artery. Left radial from internal thoracic to obtuse marginal artery #1, greater saphenous vein from aorta to posterior descending coronary artery. The patient is currently postop day # 3. The patient is extubated and the patient is calm and comfortable on room air oxygen. For thoracotomy, the patient chest x-ray from today shows some atelectatic changes bilaterally. Mediastinal and pleural chest tube are removed Acute non-ST segment ovation myocardial infarction and troponin peaked at 2. Obesity with a BMI of 36.7. The patient is undergone previous bariatric surgery including gastric sleeve procedure Diabetes mellitus type 2, maintained on Glucophage XR and Mounjaro on an outpatient basis, currently on insulin drip for blood sugar control Hypertension Chronic back pain History of depression Previous history of bariatric surgery and the patient underwent a gastric sleeve on 12/28/2022 Plan Encouraged use of incentive spirometer Cardiac rhythm is sinus Continue aspirin and Plavix The patient is on Norvasc 2.5 mg p.o. daily and metoprolol dose has been increased up to 50 mg twice a day Stop the insulin drip and put the patient on Levemir insulin 10 units and 5 units with meals of NovoLog and sliding scale coverage, the patient's blood sugar control is adequate Chest tubes have been removed Clinically stable and hemodynamic stable and the patient is currently on room air oxygen Ambulate the patient Patient currently on room air oxygen Will keep the patient in the intensive care unit and will continue to follow.
[2023-12-16] MEDS: bisacodyL 10 MG SUPP RECTAL PRN (13:15)
[2023-12-16] MEDS: metFORMIN 500 MG TAB PO SCH (16:40)
[2023-12-16] MEDS: ACETAMINOPHEN TAB 500 MG TAB PO PRN (16:40)
[2023-12-16 16:53] LABS: Glucose,Whole Blood 133 mg/dL (70-110)
[2023-12-16 20:22] LABS: Glucose,Whole Blood 147 mg/dL (70-110)
[2023-12-16] MEDS: BENZOCAINE/MENTHOL LOZENG 1 EACH LOZENGE MUCOUS MEM PRN (20:55)
[2023-12-16] MEDS: HYDROcodone/APAP 10-325MG 1 EACH TAB PO PRN (21:34)
--- NOTE | 2023-12-16 22:25 | PN ---
PROGRESS NOTE DATE OF SERVICE: 12/15/2023 SUBJECTIVE: This 48-year-old woman was admitted after CAD, CABG, improving significantly. No chest pain, no palpitations, no fever. OBJECTIVE: VITAL SIGNS: Pulse is 81, blood pressure 111/69, and respirations 18. CHEST: Few scattered rhonchi. ABDOMEN: Soft. NERVOUS SYSTEM: No focal deficits. LABORATORY DATA: Hemoglobin 9.1. Accu-Cheks 205. ASSESSMENT: 1. CAD, status post CABG. 2. Mild hyponatremia. 3. History of recent acute [id number]-elevation myocardial infarction, unstable angina. 4. Diabetes mellitus type 2, recent hemoglobin A1c 6.2. 5. Obesity. 6. Gastroesophageal reflux disease. 7. History of obesity. RECOMMENDATIONS: Recommended to continue current management, continue symptomatic treatment, otherwise I would recommend initiate metformin to the current regimen and continue to monitor. Continue with insulin screen and further recommendations to follow. MMODL / IJN: [id number] /
[2023-12-17 06:11] LABS: Glucose,Whole Blood 161 mg/dL (70-110)
[2023-12-17] MEDS: IBUPROFEN 400 MG TAB PO PRN (06:51)
--- NOTE | 2023-12-17 08:09 | XR ---
EXAMINATION TYPE: XR chest 1V DATE OF EXAM: 12/17/2023 COMPARISON: 12/16/2023 HISTORY: Postop CABG TECHNIQUE: Single frontal view of the chest is obtained. FINDINGS: Postsurgical changes. Bilateral perihilar lower lobe infiltrate with small effusion. No pn eumothorax. Heart size normal. Degenerative changes spine. Degenerative arthropathy. Sclerotic lesion left humeral head and likely benign. IMPRESSION: Postsurgical changes with bilateral atelectasis or infiltrate and small pleural effusion
[2023-12-17 08:28] LABS: HCT 29.1 % (34.0-46.0); HGB 9.4 gm/dL (11.4-16.0); MCH 29.7 pg (25.0-35.0); MCHC 32.4 g/dL (31.0-37.0); MCV 91.8 fL (80.0-100.0); Mean Platelet Volume 8.3; Platelet Count 255 k/uL (150-450); RBC 3.17 m/uL (3.80-5.40); RDW 13.5 % (11.5-15.5); WBC 7.3 k/uL (3.8-10.6)
[2023-12-17 08:44] LABS: African American GFR (CKD) >90 (>60 ml/min/1.73 sqM); Anion Gap 6 mmol/L; Blood Urea Nitrogen 12 mg/dL (7-17); Calcium 8.5 mg/dL (8.4-10.2); Carbon Dioxide 26 mmol/L (22-30); Chloride 105 mmol/L (98-107); Glucose 174 mg/dL (74-99); Non-African American GFR(CKD) >90 (>60 ml/min/1.73 sqM); Potassium 4.5 mmol/L (3.5-5.1); Sodium 137 mmol/L (137-145)
--- NOTE | 2023-12-17 09:26 | P.PN ---
Subjective Progress Note Date: 12/17/23 Principal diagnosis: Multivessel coronary artery disease, non-ST elevated myocardial infarction this admission. Previous medical history of hypertension, diabetes mellitus type 2, obesity status post laparoscopic sleeve gastrectomy 12/2022, depression, frequent constipation, and lifetime non-smoker POD #4 off pump coronary artery bypass grafting x 4. Left internal thoracic art harjinder (in-situ) sequential to diagonal and left anterior descending coronary artery. Left radial from internal thoracic to obtuse marginal artery #1, greater saphenous vein from aorta to posterior descending coronary artery. Left atrial appendage ligation using #35mm AtriClip. Endoscopic left radial and right greater saphenous vein harvest. Graft flow measurements using the [employer] flow meter system. Intraoperative CUONG Acute blood loss anemia, expected given hemodilution The patient was seen and examined sitting up in recliner on the cardiac stepdown unit in no acute distress eating breakfast. Currently in sinus rhythm, hemodynamically stable. States postsurgical chest discomfort is tolerable, denies shortness of breath. Labs, chest x-ray reviewed. She has ambulated all the way around the hallway without difficulty. States that she feels ready to go home. No other new concerns. Objective - Vital Signs Vital signs: Vital Signs Temp 98.4 F 12/17/23 00:00 Pulse 82 12/17/23 08:03 Resp 14 12/17/23 04:00 BP 103/63 12/17/23 04:00 Pulse Ox 95 12/17/23 04:00 FiO2 50 12/14/23 00:00 Intake & Output 12/16/23 12/17/23 12/17/23 18:59 06:59 18:59 Intake Total 620 540 Output Total 300 1000 200 Balance 320 -460 -200 Weight 98.8 kg Intake: Oral 620 540 Output: Urine 300 1000 200 Other: Voiding Method Toilet Toilet # Bowel Movements 0 ABP, PAP, CO, CI - Last Documented Arterial Blood Pressure 123/71 Pulmonary Artery Pressure 21/5 Cardiac Output 7 Cardiac Index 3.5 - Exam CONSTITUTIONAL: Appears comfortable, cooperative, no acute distress RESPIRATORY: Lungs sounds diminished bilaterally. Respirations even, nonlabored. Currently on room air with oxygen saturation 95%. Able to achieve 1500 mL on incentive spirometry. Strong cough. CARDIOVASCULAR: S1, S2 present. Regular rate and rhythm, sinus rhythm on telemetry. Sternum stable. Palpable peripheral pulses bilaterally. No edema present. No calf pain or tenderness noted. Heart hugger in place with patient demonstrating appropriate use. Antiembolism stockings, SCDs present. GASTROINTESTINAL: Abdomen soft, nontender, nondistended. Active bowel sounds present 4 quadrants. Tolerating diet. Positive bowel movement 12/16 GENITOURINARY: Continues to void. Output 1300 mL in the last 24 hours INTEGUMENTARY: Skin is warm and dry with evidence of good perfusion. Anterior chest incision well approximated. Left radial artery and right lower extremity EVH site well approximated without redness or drainage NEUROLOGIC: Cranial nerves II through XII intact MUSKULOSKELETAL: Able to move all extremities, strength equal bilaterally PSYCHIATRIC: Alert and oriented to person, place, and time, appropriate affect, intact judgment and insight - Allied health notes Allied health notes reviewed: nursing - Labs CBC & Chem 7: 12/17/23 07:05 12/17/23 07:05 Labs: Abnormal Lab Results - Last 24 Hours (Table) 12/16/23 12/16/23 12/16/23 Range/Units 11:52 16:51 20:18 RBC (3.80-5.40) m/uL Hgb (11.4-16.0) gm/dL Hct (34.0-46.0) % Creatinine (0.52-1.04) mg/dL Glucose (74-99) mg/dL POC Glucose (mg/dL) 205 H 133 H 147 H (70-110) mg/dL 12/17/23 12/17/23 12/17/23 Range/Units 06:11 07:05 07:05 RBC 3.17 L (3.80-5.40) m/uL Hgb 9.4 L (11.4-16.0) gm/dL Hct 29.1 L (34.0-46.0) % Creatinine 0.47 L (0.52-1.04) mg/dL Glucose 174 H (74-99) mg/dL POC Glucose (mg/dL) 161 H (70-110) mg/dL - Imaging and Cardiology Chest x-ray: report reviewed, image reviewed Assessment and Plan Assessment: Multivessel coronary artery disease, non-ST elevated myocardial infarction this admission, status post four-vessel off-pump CABG History of hypertension Diabetes mellitus type 2, preoperative hemoglobin A1c 6.7% Obesity status post laparoscopic sleeve gastrectomy 12/2022 Depression Frequent constipation Lifetime non-smoker, preoperative FEV1 93% of predicted Acute postoperative blood loss anemia, expected Plan: Continue to maximize medical therapy with aspirin, statin, Plavix, beta-kelly. Will increase beta-kelly therapy as tolerated Continue low-dose calcium channel kelly for radial artery spasm prophylaxis, patient remains in sinus rhythm and has had no documented atrial fibrillation Encourage incentive spirometry use 10 times every hour while awake. Bronchodilators per pulmonology Increase activity, ambulate as tolerated. PT/OT/cardiac rehab consulted Will monitor daily labs and x-rays. Electrolyte replacement per protocol GI/DVT prophylaxis Insulin management per internal medicine Pain control with current medication regimen Continue to record strict accurate intake and output Daily weights Discharge planning in progress, anticipate discharge to home with home care this afternoon More recommendations to follow based on patient's progress
[2023-12-17 09:32] VITALS: TEMP 98.8
--- NOTE | 2023-12-17 11:25 | P.PN ---
Subjective Progress Note Date: 12/17/23 This patient is 48 with multivessel coronary artery disease. I was asked to evaluate this patient for a pulmonary evaluation and be involved in the postoperative care as the patient has coronary bypass surgery being planned within the next few days. In summary, this is [id number] white female with [facility] medical history significant for hypertension, diabetes mellitus type 2, morbid obesity status post gastric sleeve procedure, and is a lifetime non- smoker. Patient states that she has been having exertional chest pain over the last 2 weeks. This usually occurs when she is on the treadmill, and subsides within 15 minutes of rest. On December 10, 2023 she states that her chest pain did not go away with rest, it radiated to her back, and it lasted about 40 minutes. When her daughter got home, she was driven to [facility]. She had elevated troponin at the outside facility, abnormal EKG changes, and was transferred to our facility the same day. She did undergo a cardiac catheterization on December 10, 2023 which demonstrated severe disease of the LAD, intermittent disease an OM branch of the left circumflex and an occluded RCA with collateral circulation. There was recommendation for surgical revascularization. A transthoracic echo showed a preserved left ejection fra ction of 50 to 55%, with moderately increased LVH, and trace to mild mitral and tricuspid regurgitation. The patient is now in the intensive care unit. Earlier in the day, she reportedly had some intermittent chest pain. She has been started on a combination of nitroglycerin which is infusing at 40 mics per minute, IV heparin per protocol. APTT is therapeutic. Most recent CBC and BMP from yesterday are unremarkable. She currently denies any chest pain at the moment. She is lying in bed, on room air, in no acute distress. She denies any history of pulmonary disease. She is a lifelong non-smoker. Bedside spirometry bedside spirometry showed an FEV1 of 2.49 L or 93% of predicted. There is an incentive spirometer at bedside. A nonenhanced chest CT did not show any evidence of pulmonary disease. The patient has no specific complaints at this point in time. She is free of any chest pain. The patient remains on IV heparin. Patient is also onNitroglycerin drip. Her cardiac rhythm is sinus. Her troponin peaked at 2.04. Cardiac rhythm is sinus. No cough. No sputum production. No chest tightness. No wheezing. No other new complaints otherwise for now. She is resting comfortably in bed. She is using incentive spirometer and she is putting more than 2000. On today's evaluation of 10/13/2024, the patient is doing well and the patient is extubated. The patient underwent an off-pump coronary artery bypass surgery x 4 and this included GILBERT to sequential diagonal and LAD and she also had left radial to obtuse marginal 1 and saphenous vein graft to PDA. Postop, the patient was kept intubated and she was brought into the intensive care unit. The patient was gradually the mechanical ventilator and the patient was extubated and this morning she is currently on room air oxygen and she is sitting up in the chair and she is calm and comfortable. The patient has a mediastinum left lower and right lower chest tube. Left lower chest tubes are connected and output is in the order of 200 cc since surgery and the mediastinal chest tube placed produced approximately 400 cc since surgery. Cardiac output is at 7 with an index of 3.5. Pulmonary artery pressures of 21/8. The patient is on no pressors. The patient remains on nitroglycerin drip at 5 mcg/min. The patient remains on insulin at 1.5 units an hour. Lactated Ringer's running at 50 cc an hour. Incentive spirometer is being utilized and the patient is putting approximately 500 cc.The white cell count is at 13.2 with a hemoglobin of 11.8. The BUN is at 15 with a creatinine of 0.37 and a sodium levels of 137 with a potassium level of 4. Chest x-ray shows adequate expansion of both lungs. No evidence of any pneumothorax. No other acute cardiopulmonary abnormalities. All of the lines and the tubes are in good location based on today's chest x-ray finding. There are also postsurgical changes related to thoracotomy. On today's evaluation of 12/15/2023, I am seeing the patient for a follow-up. The patient is post coronary to bypass surgery. The patient is doing well for now and she is currently on room air oxygen. The mediastinal and left pleural chest tube was putting out minimal amount of output in the both of the chest were removed today. The patient is utilizing incentive spirometer and she is pulling approximately 750. The patient on aspirin and Plavix. The patient is also on amlodipine 2.5 mg p.o. daily and metoprolol at a dose of 25 mg twice daily. Hemodynamically stable. Also, the patient is on insulin drip running at 4 units an hour. Blood sugars are on the adequate control for now.Chest x-ray shows atelectatic change in lung base bilaterally. No evidence of pneumothorax. No airspace disease or consolidation. The risk of 11.4 hemoglobin of 9.9 and a beau telet count of 199. BUN is at 16 with a creatinine of 0.5 and his sodium level is at 136. No other significant events overnight. Cardiac rhythm is still sinus. Surgical wound is dry clean and intact. On today's evaluation of 12/16/2023, I am seeing the patient for a follow-up. The patient is awake and alert and communicating. No focal neurological deficit. The patient has no specific complaints and the patient is currently on room air oxygen. Cardiac rhythm is sinus. The patient is alert and oriented x 3. All of the chest is removed and the patient is using incentive spirometer and pu lling approximately 1.2 L on her I-S. Chest x-ray shows postsurgical changes along with some atelectatic change in lung bases bilaterally. There is also some mild central pulm vascular congestion and small bilateral pleural effusions. The white cell count of 8 with a hemoglobin of 0.1 and admitted count of 177. BUN is 20 with a creatinine 0.4 and a sodium level is at 136. The patient is ambulating. The patient has no specific complaints. On today's evaluation of 12/17/2023, I am seeing the patient for a follow-up. The patient is doing well and the patient has no specific complaints. The patient is currently on room air oxygen. Cardiac rhythm is sinus. Surgical wound is dry clean and intact. The patient has a WBC count of 7.3 with a hemoglobin 9.4 and a platelet count of 255, BUN is at 12 with a creatinine of 0.47 and his sodium level is at 147. The patient continues to use incentive spirometer. Chest x-ray shows no acute abnormalities and showing postthoracotomy changes. The patient is currently on a combination of aspirin and Plavix. The patient is also on Norvasc 2.5 mg p.o. daily, metoprolol 50 mg twice daily, and the patient is taking Levemir insulin. Noted the patient is maintained onMounjaro on outpatient basis for blood sugar control addition to Glucophage. The patient is also on statins. Objective - Vital Signs Vital signs: Vital Signs Temp 98.4 F 12/17/23 00:00 Pulse 82 12/17/23 08:03 Resp 14 12/17/23 04:00 BP 103/63 12/17/23 04:00 Pulse Ox 95 12/17/23 04:00 FiO2 50 12/14/23 00:00 Intake & Output 12/16/23 12/17/23 12/17/23 18:59 06:59 18:59 Intake Total 620 540 Output Total 300 1000 200 Balance 320 -460 -200 Weight 98.8 kg Intake: Oral 620 540 Output: Urine 300 1000 200 Other: Voiding Method Toilet Toilet # Bowel Movements 0 ABP, PAP, CO, CI - Last Documented Arterial Blood Pressure 123/71 Pulmonary Artery Pressure 21/5 Cardiac Output 7 Cardiac Index 3.5 - Exam CONSTITUTIONAL: Appears comfortable, cooperative, no acute distress RESPIRATORY: Lungs sounds diminished bilaterally. Respirations even, nonla bored. Currently on room air with oxygen saturation 96%. Able to achieve 1-5 0 mL on incentive spirometry. Strong cough. CARDIOVASCULAR: S1, S2 present. Regular rate and rhythm, sinus rhythm on telemetry. Sternum stable. Palpable peripheral pulses bilaterally. No edema present. No calf pain or tenderness noted. Heart hugger in place with patient demonstrating appropriate use. Antiembolism stockings, SCDs present. GASTROINTESTINAL: Abdomen soft, nontender, nondistended. Hypoactive bowel sounds present 4 quadrants. Tolerating diet. Denies flatus GENITOURINARY: [place] present draining clear, yellow urine. Output overnight 30-50 mL per hour, 830 mL in the last 24 hours INTEGUMENTARY: Skin is warm and dry with evidence of good perfusion. Anterior chest incision well approximated and covered with dry intact dressing. Left radial artery and right lower extremity EVH site well approximated without redness or drainage NEUROLOGIC: Cranial nerves II through XII intact MUSKULOSKELETAL: Able to move all extremities, strength equal bilaterally PSYCHIATRIC: Alert and oriented to person, place, and time, appropriate affect, intact judgment and insight INVASIVE LINES AND TUBES: Chest tubes have been removed and the patient has no drainage from the chest tube exit site - Labs CBC & Chem 7: 12/17/23 07:05 12/17/23 07:05 Labs: Abnormal Lab Results - Last 24 Hours (Table) 12/16/23 12/16/23 12/16/23 Range/Units 11:52 16:51 20:18 RBC (3.80-5.40) m/uL Hgb (11.4-16.0) gm/dL Hct (34.0-46.0) % Creatinine (0.52-1.04) mg/dL Glucose (74-99) mg/dL POC Glucose (mg/dL) 205 H 133 H 147 H (70-110) mg/dL 12/17/23 12/17/23 12/17/23 Range/Units 06:11 07:05 07:05 RBC 3.17 L (3.80-5.40) m/uL Hgb 9.4 L (11.4-16.0) gm/dL Hct 29.1 L (34.0-46.0) % Creatinine 0.47 L (0.52-1.04) mg/dL Glucose 174 H (74-99) mg/dL POC Glucose (mg/dL) 161 H (70-110) mg/dL Assessment and Plan Plan: Multivessel coronary artery disease. Cardiac catheterization was done on 12/10/2023 and the patient was found to have severe disease of the LAD intermediate disease involving the OM branch of the circumflex and occluded RCA with collateral circulation. Patient is currently free of any chest pain. The patient underwent four-vessel bypass surgery, off-pump, and this included Left internal thoracic artery (in-situ) sequential to diagonal and left anterior descending coronary artery. Left radial from internal thoracic to obtuse marginal artery #1 , greater saphenous vein from aorta to posterior descending coronary artery. The patient is currently postop day # 4. Post thoracotomy, the patient currently on room air oxygen of the chest tubes have been removed and the surgical wound site is dry clean and intact Acute non-ST segment ovation myocardial infarction and troponin peaked at 2. Obesity with a BMI of 36.7. The patient is undergone previous bariatric surgery including gastric sleeve procedure Diabetes mellitus type 2, maintained on Glucophage XR and Mounjaro on an outpatient basis, currently on Levemir insulin Hypertension Chronic back pain History of depression Previous history of bariatric surgery and the patient underwent a gastric sleeve on 12/28/2022 Plan Encouraged use of incentive spirometer Cardiac rhythm is sinus Continue aspirin and Plavix Continue Norvasc 2.5 mg p.o. daily and metoprolol dose has been increased up to 50 mg twice a day Levemir insulin 10 units and 5 units with meals of NovoLog and sliding scale coverage, the patient's blood sugar control is adequate, this can be switched to Mounjaro and Glucophage combination on outpatient basis Chest tubes have been removed Clinically stable and hemodynamic stable and the patient is currently on room air oxygen Ambulate the patient Patient currently on room air oxygen Will keep the patient in the intensive care unit and will continue to follow.
[2023-12-17 11:34] LABS: Glucose,Whole Blood 133 mg/dL (70-110)
[2023-12-17 12:06] VITALS: BP 101/66; PULSE 69; RESP 16
--- NOTE | 2023-12-17 12:25 | P.DS ---
Providers Date of admission: 12/10/23 18:47 Expected date of discharge: 12/17/23 Attending physician: Kristofer Bocanegra MD Consults: 12/10/23 18:47 Consult Physician Urgent Consulting Provider: Allan Lofton Consult Reason/Comments: NSTEMI Do you want consulting provider notified?: Yes 12/10/23 20:12 Consult Physician Routine Consulting Provider: Rebecca Duncan Consult Reason/Comments: CABG evaluation Do you want consulting provider notified?: Yes 12/12/23 09:39 Consult Physician Routine Consulting Provider: Jesus Flores Consult Reason/Comments: Pulmonary management Do you want consulting provider notified?: Yes Consult to Anesthesia Routine Consulting Provider: Anesthesia,Services Consult Reason/Comments: Cardiac Surgery Pre-Op 12/13/23 19:03 Consult Physician Routine Consulting Provider: Peter Beatty Consult Reason/Comments: med mgmt Do you want consulting provider notified?: Already Contacted Primary care physician: John Hernandez [facility] Course: FINAL DIAGNOSIS: Multivessel coronary artery disease, non-ST elevated myocardial infarction this admission History of hypertension Diabetes mellitus type 2, preoperative hemoglobin A1c 6.7% Obesity status post laparoscopic sleeve gastrectomy 12/2022 Depression Frequent constipation Lifetime non-smoker, preoperative FEV1 93% of predicted Acute postoperative blood loss anemia, expected PRINCIPAL PROCEDURE: Off pump coronary artery bypass grafting x 4, left internal thoracic artery (in- situ) sequential to diagonal and left anterior descending coronary artery, left radial from internal thoracic to obtuse marginal artery #1, greater saphenous vein from aorta to posterior descending coronary artery Left atrial appendage ligation using #35mm AtriClip Endoscopic left radial and right greater saphenous vein harvest Graft flow measurements using the MoneyspyderStim flow meter system Intraoperative CUONG HISTORY OF PRESENT ILLNESS: This is a 48-year-old female who follows outpatient with Dr. Hernandez for primary care and Dr. Salinas for cardiology. She presented to the emergency room at [facility] with complaints of chest pain associated with shortness of breath. Apparently this intermittent chest pain had been going on for a couple of weeks and usually resolves with rest, however at some point rest was not relieving her pain and she reported to the emergency room. She had elevated troponins and abnormal EKG and was then transferred to [facility] for heart catheterization to be completed which demonstrated severe disease involving the LAD with a long tubular lesion and intermittent disease involving the left circumflex with occluded right coronary artery and contralateral collateral. Due to these findings consultation was placed to Dr. Duncan from cardiothoracic surgery for surgical revascularization recommendations. She was recommended to undergo coronary artery bypass surgery. The usual perioperative course was discussed in detail with the patient and her family, all risks and benefits were explained, all questions were answered, and consent was obtained to proceed with surgery. The patient was kept inpatient due to the nature of her disease process, and in fact the patient continued to have intermittent pain despite maximized medical therapy. The decision was made to take the patient to surgery sooner than planned. HOSPITAL COURSE: The patient was brought to the preoperative area 12/13/23, prepared in the usual fashion, and subsequently taken to the operating room where Dr. Bocanegra performed four-vessel off-pump CABG. Upon completion of surgery the patient was transferred to the cardiovascular intensive care unit where she was recovered and monitored hemodynamically. She was extubated, all lines, tubes, and drips were discontinued when appropriate, and she was transferred to 3 S. cardiac stepdown unit for further monitoring and rehabilitation. Her oxygen was titrated down, she continued to work with physical and occupational therapy, she was tolerating oral diet, her pain was controlled, and she was ready to be discharged to home with [facility] on postoperative day #4. She received written and verbal instruction regarding her medications, activity restrictions, signs and symptoms requiring physician notification, and follow-up appointments. Patient Condition at Discharge: Stable Plan - Discharge Summary New Discharge Prescriptions: New Losartan [Cozaar] 25 mg PO HS #30 tab Atorvastatin [Lipitor] 40 mg PO DAILY #30 tab Pantoprazole [Protonix] 40 mg PO AC-BRKFST #30 tab Aspirin 325 mg PO DAILY #30 tab Metoprolol Tartrate [Lopressor] 50 mg PO BID #60 tab amLODIPine [Norvasc] 2.5 mg PO DAILY@1200 #30 tab Clopidogrel [Plavix] 75 mg PO DAILY #30 tab Sennosides-Docusate Sodium [Senokot-S] 2 each PO HS PRN tab PRN Reason: Constipation Acetaminophen Tab [Tylenol] 1,000 mg PO Q6HR PRN tab PRN Reason: Fever and/ or Mild Pain Continue buPROPion [Wellbutrin] 100 mg PO BID Tirzepatide [Mounjaro] 5 mg SQ SA metFORMIN HCL ER [Glucophage XR] 500 mg PO BID lamoTRIgine [LaMICtal Xr] 250 mg PO DAILY HYDROcodone/APAP 10-325MG [[place] 10-325] 1 tab PO TID PRN PRN Reason: Pain risperiDONE [RisperDAL] 0.5 mg PO DIRECTED Discontinued Losartan Potassium 50 mg PO DAILY Discharge Medication List HYDROcodone/APAP 10-325MG [[place] 10-325] 1 tab PO TID PRN 12/10/23 [History] Tirzepatide [Mounjaro] 5 mg SQ SA 12/10/23 [History] buPROPion [Wellbutrin] 100 mg PO BID 12/10/23 [History] lamoTRIgine [LaMICtal Xr] 250 mg PO DAILY 12/10/23 [History] metFORMIN HCL ER [Glucophage XR] 500 mg PO BID 12/10/23 [History] risperiDONE [RisperDAL] 0.5 mg PO DIRECTED 12/10/23 [History] Acetaminophen Tab [Tylenol] 1,000 mg PO Q6HR PRN tab 12/17/23 [Rx] Aspirin 325 mg PO DAILY #30 tab 12/17/23 [Rx] Atorvastatin [Lipitor] 40 mg PO DAILY #30 tab 12/17/23 [Rx] Clopidogrel [Plavix] 75 mg PO DAILY #30 tab 12/17/23 [Rx] Losartan [Cozaar] 25 mg PO HS #30 tab 12/17/23 [Rx] Metoprolol Tartrate [Lopressor] 50 mg PO BID #60 tab 12/17/23 [Rx] Pantoprazole [Protonix] 40 mg PO AC-BRKFST #30 tab 12/17/23 [Rx] Sennosides-Docusate Sodium [Senokot-S] 2 each PO HS PRN tab 12/17/23 [Rx] amLODIPine [Norvasc] 2.5 mg PO DAILY@1200 #30 tab 12/17/23 [Rx] Follow up Appointment(s)/Referral(s): Eve Cueva, AVERY [Nurse Practitioner] - 12/24/23 10:15 am (You will be seen in the surgeon's office behind the hospital in [facility], [address]. Office phone number is ) [facility],[place] [NON-STAFF] - 1-2 Days ([facility] will call you to arrange a visit. You should be seen the day after discharge, then 2-3 times per week until you start cardiac rehab) Rehab Awa ARIZMENDI,Cardiac [NON-STAFF] - 4 Weeks (You will receive a phone call in approximately 4-6 weeks for evaluation for cardiac rehab) John Hernandez DO [Primary Care Provider] - 01/03/24 8:30 am Kristofer Bocanegra MD [STAFF PHYSICIAN] - 01/14/24 10:00 am Darin Salinas MD [STAFF PHYSICIAN] - 12/30/23 4:30 pm Yenni Mike MD [STAFF PHYSICIAN] - 01/19/24 1:30 pm Ambulatory/Diagnostic Orders: Complete Blood Count w/diff [LAB.AMB] Time Frame: 3 Days, Location: None Selected Comprehensive Metabolic Panel [LAB.AMB] Time Frame: 3 Days, Location: None Selected Activity/Diet/Wound Care/Special Instructions: DISCHARGE INSTRUCTIONS: 1. No driving for 4 weeks, or until physician gives their ok. 2. The patient should sleep in their own bed, no medical bed needed. 3. Stairs are not an issue. If the bedroom is upstairs, it is advised that the patient go up at night and down in the morning for the first week. Go slowly, using handrail and take 1 step at a time. 4. MIAH hose are to be worn for 30 days post surgery or until physician discontinues. 5. Heart hugger is to be worn 100% of the time until physician discontinues.(except when showering) 6. No lifting, pushing, or pulling more than 10 pounds for 12 weeks. The physician will advise of any restriction changes. 7. The patient is expected to continue the prescribed walking program. 8. Continue pain control per as needed orders. 9. Continue with incentive spirometry and splinting/heart hugger until otherwise directed by the physician. 10. Must shower daily using liquid antibacterial soap 11. Routine sternal incision care. No powders, lotions, ointments on incisions. No dressings are necessary on incisions unless they are draining. Dermabond tape is to remain on sternal incision until surgeon follow-up. 12. Please call surgeon/SAILOR for temp greater than 101 F or purulent drainage from incisions. 13. You should weigh yourself daily, record and bring log with you to follow up appointments. 14. All prescriptions given by surgeon for 30 days. Refills need to be filled through [facility] hewer/primary care physician. 15. A Red armband has been placed on the patient. It should be worn for 30 days post discharge from surgery and will be removed by the cardiac surgeons. If an ER visit is necessary, please make sure the number on the Red armband is called before going to ER. 16. You have been referred to and are expected to begin Cardiac Rehab in approximately 4-6 weeks. HOME HEALTH SERVICES TO PROVIDE: RN SKILLED HOME CARE SERVICES FOR POST-OP SURGICAL PATIENTS WITH THE FOLLOWING: Coronary Artery Bypass Surgery (CABG), Mitral Valve Replacement/Repair ( MVR), Aortic Valve Replacement/Repair (AVR) RN TO CONTINUE EDUCATION FROM ``ROAD TO A HEALTH HEART PATIENT EDUCATION MANUAL (GIVEN TO PATIENT IN THE HOSPITAL) MEDICATION RECONCILIATION WITH EDUCATION NEEDED ON FIRST HOME VISIT EMPHASIZE IMPORTANCE OF WEARING BREAST SUPPORT/HEART HUGGER ENCOURAGE USE OF INCENTIVE SPIROMETER 10 X EVERY HOUR WHILE AWAKE ENCOURAGE UTILIZATION OF LOWER EXTREMITY COMPRESSION STOCKINGS/MIAH HOSE and ELEVATE LEGS ABOVE LEVEL OF HEART WHILE AT REST. ENCOURAGE AMBULATION 3-5x/day INCREASING TOLERATES, WHILE AVOIDING EXTREMES IN TEMPERATURE FREQUENCY: RN TO OPEN THE PATIENT WITHIN 24 HOURS OF DISCHARGE FROM THE HOSPITAL WITH [place] [facility] [place]ISIT 2-3 X A WEEK FOR 4 WEEKS ESTABLISHED BY PATIENT NEEDS. LABORATORY: CBC, CMP TO BE DRAWN ON THE THIRD DAY HOME, (RAN STAT) FAX RESULTS TO [phone]. TELEHEALTH PARAMETERS: WEIGHT: NOTIFY MD OF WEIGHT GAIN OF 2 LBS IN 24 HOURS OR 5 LBS IN ONE WEEK HR: NOTIFY MD OF HR <55 BPM OR HR>100 BPM BP: NOTIFY MD IF BP <90/55 OR BP>140/100 O2 SAT: NOTIFY MD IF PO2<93% ON ROOM AIR SEND TELEHEALTH REPORT TO GAUNTLET PAIRER AND CARDIOVASCULAR SURGEON THE FIRST WEEK OF CARE AND THEN BI-WEEKLY. PLEASE ADDITIONALLY COMMUNICATE ANY ABNORMALS AND NEW FINDINGS TO THE SURGEONS OFFICE. Discharge Disposition: HOME WITH HOME HEALTH SERVICES
--- NOTE | 2023-12-17 12:38 | P.PN ---
Subjective HISTORY OF PRESENT ILLNESS: Patient is status post CABG x 4 vessels. Postop day #4. Patient examined this morning. She is sitting up in the chair. She denies chest pain or pressure. She denies shortness of breath. She has been ambulating without difficulty. She is using her incentive spirometer and pulling 1000 cc. Telemetry reveals sinus mechanism. Vital signs are stable. PHYSICAL EXAM: VITAL SIGNS: Reviewed. GENERAL: Well-developed in no acute distress. NECK: Supple. No JVD or thyromegaly LUNGS: Respirations even and unlabored. Lungs essentially clear to auscultation bilaterally. HEART: Regular rate and rhythm. S1 and S2 heard. EXTREMITIES: Normal range of motion. No clubbing or cyanosis. Peripheral pulses intact. No lower extremity edema ASSESSMENT: Non-STEMI Multivessel coronary artery disease, status post four-vessel CABG Hypertension Diabetes Morbid obesity PLAN: Continue postoperative management per CT surgery Continue current cardiac medications Patient is stable for discharge home today from a cardiac standpoint She is to follow up post discharge in the office Nurse practitioner note has been reviewed by physician. Signing provider agrees with the documented findings, assessment, and plan of care documented by PLUMBING DESIGNER as a scribe. Objective - Vital Signs Vital signs: Vital Signs Temp 98.8 F 12/17/23 09:20 Pulse 69 12/17/23 11:45 Resp 16 12/17/23 11:45 BP 101/66 12/17/23 11:45 Pulse Ox 100 12/17/23 11:45 FiO2 50 12/14/23 00:00 Intake & Output 12/16/23 12/17/23 12/17/23 18:59 06:59 18:59 Intake Total 620 540 Output Total 300 1000 200 Balance 320 -460 -200 Weight 98.8 kg Intake: Oral 620 540 Output: Urine 300 1000 200 Other: Voiding Method Toilet Toilet Toilet # Bowel Movements 0 ABP, PAP, CO, CI - Last Documented Arterial Blood Pressure 123/71 Pulmonary Artery Pressure 21/5 Cardiac Output 7 Cardiac Index 3.5 - Labs CBC & Chem 7: 12/17/23 07:05 12/17/23 07:05 Labs: Abnormal Lab Results - Last 24 Hours (Table) 12/16/23 12/16/23 12/17/23 Range/Units 16:51 20:18 06:11 RBC (3.80-5.40) m/uL Hgb (11.4-16.0) gm/dL Hct (34.0-46.0) % Creatinine (0.52-1.04) mg/dL Glucose (74-99) mg/dL POC Glucose (mg/dL) 133 H 147 H 161 H (70-110) mg/dL 12/17/23 12/17/23 12/17/23 Range/Units 07:05 07:05 11:31 RBC 3.17 L (3.80-5.40) m/uL Hgb 9.4 L (11.4-16.0) gm/dL Hct 29.1 L (34.0-46.0) % Creatinine 0.47 L (0.52-1.04) mg/dL Glucose 174 H (74-99) mg/dL POC Glucose (mg/dL) 133 H (70-110) mg/dL
--- NOTE | 2023-12-17 20:15 | PN ---
PROGRESS NOTE DATE OF SERVICE: 12/17/2023 SUBJECTIVE: This is a 48-year-old woman, who was admitted after CAD, CABG, elevated blood sugars. The patient is taking metformin at home. No chest pain. No palpitations. No fever. OBJECTIVE: VITAL SIGNS: Pulse is 69, blood pressure 101/60, respirations 16. CHEST: A few scattered rhonchi. ABDOMEN: Soft. NERVOUS SYSTEM: No focal deficits. LABORATORY DATA: Reviewed. ASSESSMENT: 1. Status post coronary artery disease, coronary artery bypass graft. 2. Mild hyponatremia. 3. History of recent acute [id number] elevation myocardial infarction, unstable angina. 4. Diabetes mellitus, type 2, recent hemoglobin A1c 6.2. 5. Gastroesophageal reflux disease. RECOMMENDATIONS: Recommend to continue current management, continue symptomatic treatment. Resume the metformin as at home. Incentive spirometry. DVT prophylaxis. Rest of the recommendations per Vascular Surgery, Cardiovascular Surgery, and I would recommend to monitor blood sugars closely and closely follow with primary physician. Further recommendations to follow. MMODL / IJN: [id number] /
== END 2023-12-17 13:37 | disposition home health service (06) | DRG 234 ==
LOC: EC 18:16 → 3SCARD 18:47 → 2SICU 20:10 → 3SCARD 12-16 14:27
PROVIDERS: ADMIT Thoracic Surgery (Cardiothoracic Vascular Surgery); ATTEND Thoracic Surgery (Cardiothoracic Vascular Surgery)
PROC: 4A033BC Measurement of Arterial Pressure, Coronary, Percutaneous Approach (ICD-10-PCS; 2023-12-10)
PROC: B2111ZZ Fluoroscopy of Multiple Coronary Arteries using Low Osmolar Contrast (ICD-10-PCS; principal; 2023-12-10 18:53)
PROC: 03BC4ZZ Excision of Left Radial Artery, Percutaneous Endoscopic Approach (ICD-10-PCS; 2023-12-13)
PROC: 06BP4ZZ Excision of Right Saphenous Vein, Percutaneous Endoscopic Approach (ICD-10-PCS; 2023-12-13)
PROC: 02L70CK Occlusion of Left Atrial Appendage with Extraluminal Device, Open Approach (ICD-10-PCS; 2023-12-13)
PROC: B24BZZ4 Ultrasonography of Heart with Aorta, Transesophageal (ICD-10-PCS; 2023-12-13)
PROC: 4A0305C Measurement of Arterial Flow, Coronary, Open Approach (ICD-10-PCS; 2023-12-13)
PROC: 30233J1 Transfusion of Nonautologous Serum Albumin into Peripheral Vein, Percutaneous Approach (ICD-10-PCS; 2023-12-13)
PROC: 021009W Bypass Coronary Artery, One Artery from Aorta with Autologous Venous Tissue, Open Approach (ICD-10-PCS; 2023-12-13 12:55)
PROC: 02110ZC Bypass Coronary Artery, Two Arteries from Thoracic Artery, Open Approach (ICD-10-PCS; 2023-12-13 12:55)
PROC: 02100AC Bypass Coronary Artery, One Artery from Thoracic Artery with Autologous Arterial Tissue, Open Approach (ICD-10-PCS; 2023-12-13 12:55)
DX: I21.4 Non-ST elevation (NSTEMI) myocardial infarction (principal); E87.1 Hypo-osmolality and hyponatremia; D62 Acute posthemorrhagic anemia; E66.01 Morbid (severe) obesity due to excess calories; I10 Essential (primary) hypertension; F32.A Depression, unspecified; I25.110 Atherosclerotic heart disease of native coronary artery with unstable angina pectoris; K59.00 Constipation, unspecified; E78.5 Hyperlipidemia, unspecified; K21.9 Gastro-esophageal reflux disease without esophagitis; I08.1 Rheumatic disorders of both mitral and tricuspid valves; G89.29 Other chronic pain; M54.9 Dorsalgia, unspecified; Z68.36 Body mass index [BMI] 36.0-36.9, adult; Z82.49 Family history of ischemic heart disease and other diseases of the circulatory system; Z79.899 Other long term (current) drug therapy; Z79.85 Long-term (current) use of injectable non-insulin antidiabetic drugs; Z79.84 Long term (current) use of oral hypoglycemic drugs; Z98.84 Bariatric surgery status
CPT/HCPCS: 36600; 71045; 71046; 71250; 76937; 80048; 80053; 80061; 80074; 81003; 82330; 82805; 83036; 83735; 84132; 84443; 84484; 85025; 85027; 85520; 85610; 85730; 86850; 86891; 86900; 86901; 86920; 87070; 93005; 93306; 93454; 93799; 93880; 93922; 93970; 94002; 94003; 94150; 94640; 94760; 99291

== ENCOUNTER 2024-02-04 20:53 | Inpatient (IN) | payer BC, OTHER ==
[2024-02-04 22:13] LABS: INR 1.4 (<1.2); Partial Thromboplastin Time 23.2 sec (22.0-30.0); Prothrombin Time 14.8 sec (10.0-12.5)
[2024-02-04 22:51] LABS: ALT 12 U/L (4-34); AST 18 U/L (14-36); African American GFR (CKD) >90 (>60 ml/min/1.73 sqM); Albumin 3.7 g/dL (3.5-5.0); Alkaline Phosphatase 100 U/L (38-126); Anion Gap 7 mmol/L; Blood Urea Nitrogen 18 mg/dL (7-17); Calcium 9.1 mg/dL (8.4-10.2); Carbon Dioxide 26 mmol/L (22-30); Chloride 106 mmol/L (98-107); Glucose 115 mg/dL (74-99); Magnesium 1.7 mg/dL (1.6-2.3); Non-African American GFR(CKD) >90 (>60 ml/min/1.73 sqM); Potassium 3.9 mmol/L (3.5-5.1); Sodium 139 mmol/L (137-145); Total Bilirubin 0.3 mg/dL (0.2-1.3); Total Protein 6.6 g/dL (6.3-8.2)
--- NOTE | 2024-02-04 22:56 | ED ---
Chest Pain HPI - General Source: patient, EMS Mode of arrival: EMS - History of Present Illness MD Complaint: chest pain -: hour(s) Onset: during rest Pain Location: substernal Pain Radiation: none Severity: moderate Quality: tightness, aching Consistency: intermittent Improves With: nothing Worsens With: palpation Anginal Symptoms: dyspnea Treatments Prior to Arrival: none <Davis Solitario - Last Filed: 02/05/24 05:30> <Cate Alberts - Last Filed: 02/06/24 06:17> - General Chief Complaint: Chest Pain Stated Complaint: Chest Pain Time Seen by Provider: 02/04/24 21:05 - History of Present Illness Initial Comments: This patient is a 48-year-old woman who had coronary artery bypass surgery in early December here with Dr. Bocanegra. The patient states that tonight she had substernal chest pain. The patient states that the initial episode developed hours ago while she was outside. The patient thought that this was related to being outside in the cold. She went inside and the chest pain resolved after minutes. The pain recurred after a family member who is a child was sitting close and resting against her chest. The patient did notice that there was some shortness of breath and when this pain took longer to resolve she felt she should be evaluated here. The patient not currently having symptoms during my evaluation. (Davis Solitario) - Related Data Home Medications Medication Instructions Recorded Confirmed HYDROcodone/APAP 10-325MG [[place] 1 tab PO TID PRN 12/10/23 02/05/24 10-325] Tirzepatide [Mounjaro] 5 mg SQ SA 12/10/23 02/05/24 buPROPion [Wellbutrin] 100 mg PO BID 12/10/23 02/05/24 lamoTRIgine [LaMICtal Xr] 250 mg PO DAILY 12/10/23 02/05/24 metFORMIN HCL ER [Glucophage XR] 500 mg PO BID 12/10/23 02/05/24 risperiDONE [RisperDAL] 0.5 mg PO HS 12/10/23 02/05/24 Sennosides-Docusate Sodium 2 tab PO HS PRN 02/05/24 02/05/24 [Senokot-S] Previous Rx's Medication Instructions Recorded Acetaminophen Tab [Tylenol] 1,000 mg PO Q6HR PRN tab 12/17/23 Aspirin 325 mg PO DAILY #30 tab 12/17/23 Atorvastatin [Lipitor] 40 mg PO DAILY #30 tab 12/17/23 Clopidogrel [Plavix] 75 mg PO DAILY #30 tab 12/17/23 Losartan [Cozaar] 25 mg PO HS #30 tab 12/17/23 Metoprolol Tartrate [Lopressor] 50 mg PO BID #60 tab 12/17/23 Pantoprazole [Protonix] 40 mg PO AC-BRKFST #30 tab 12/17/23 amLODIPine [Norvasc] 2.5 mg PO DAILY@1200 #30 tab 12/17/23 Allergies Allergy/AdvReac Type Severity Reaction Status Date / Time No Known Allergies Allergy Verified 02/05/24 10:55 Review of Systems ROS Other: All systems not noted in ROS Statement are negative. Constitutional: Denies: fever, chills Respiratory: Reports: dyspnea. Denies: cough Cardiovascular: Reports: chest pain. Denies: palpitations, orthopnea, edema, syncope Gastrointestinal: Denies: abdominal pain, nausea, vomiting, diarrhea Genitourinary: Denies: dysuria, hematuria Musculoskeletal: Denies: back pain Skin: Denies: rash Neurological: Denies: headache, weakness <Davis Solitario - Last Filed: 02/05/24 05:30> ROS Other: All systems not noted in ROS Statement are negative. <Cate Alberts - Last Filed: 02/06/24 06:17> ROS Statement: Those systems with pertinent positive or pertinent negative responses have been documented in the HPI. EKG Findings - EKG Results: EKG: interpreted by ERMD, sinus rhythm (rate 84 bpm), normal axis - Blocks, [place], Hypertrophy, ST Abn: QRS axis and voltage: low voltage (<0.5 MV total QRS and <1.0 MV in each precordial lead) Repolarization changes or abnormalities: nonspecific abnormality, ST segment, and/or T wave <Davis Solitario - Last Filed: 02/05/24 05:30> Past Medical History Past Medical History: Coronary Artery Disease (CAD), Chest Pain / Angina, Diabetes Mellitus, Hypertension Additional Past Medical History / Comment(s): CURRENT: MID BACK PAIN, RIGHT SIDE. History of Any Multi-Drug Resistant Organisms: None Reported Past Surgical History: Bariatric Surgery, Section, Hysterectomy, Orthopedic Surgery Additional Past Surgical History / Comment(s): CARPAL TUNNEL BILATERAL. ABSCESS ON ABD (I & D, PACKING) @ [facility] (CAN'T REMEMBER CULTURE RESULTS). Right knee surgery x 2, COLONOSCOPY, right knee meniscus repair 08/2022. Gastric sleeve 12/28/22 Past Anesthesia/Blood Transfusion Reactions: No Reported Reaction Past Psychological History: Depression Smoking Status: Never smoker Past Alcohol Use History: Rare Past Drug Use History: None Reported - Past Family History Mother Family Medical History: Cancer (Melanoma skin cancer) Father Family Medical History: CVA/TIA, Myocardial Infarction ([place]) <Davis Solitario - Last Filed: 02/05/24 05:30> General Exam Limitations: no limitations General appearance: alert Head exam: Present: atraumatic, normocephalic Eye exam: Present: normal appearance. Absent: scleral icterus, conjunctival injection Neck exam: Present: normal inspection Respiratory exam: Present: normal lung sounds bilaterally, chest wall tenderness. Absent: respiratory distress, wheezes, rales, rhonchi, stridor, accessory muscle use Cardiovascular Exam: Present: regular rate, normal rhythm, normal heart sounds. Absent: systolic murmur, diastolic murmur, rubs, gallop GI/Abdominal exam: Present: soft. Absent: distended, tenderness, guarding, re bound, rigid, mass Extremities exam: Present: normal inspection, normal capillary refill. Absent: pedal edema, calf tenderness Back exam: Present: normal inspection. Absent: CVA tenderness (R), CVA tenderness (L) Neurological exam: Present: alert Skin exam: Present: warm, dry, intact, normal color. Absent: rash <Davis Solitario - Last Filed: 02/05/24 05:30> Course Vital Signs 02/04/24 02/04/24 02/05/24 20:56 23:20 00:59 Temperature 98.9 F Pulse Rate 92 85 82 Respiratory 19 17 15 Rate Blood Pressure 145/84 115/75 121/78 O2 Sat by Pulse 98 95 100 Oximetry 02/05/24 02/05/24 02/05/24 02:33 03:48 06:33 Temperature Pulse Rate 85 81 82 Respiratory 16 16 16 Rate Blood Pressure 137/90 132/76 O2 Sat by Pulse 98 97 95 Oximetry 02/05/24 02/05/24 15:05 18:00 Temperature Pulse Rate 74 77 Respiratory 18 18 Rate Blood Pressure 100/72 115/86 O2 Sat by Pulse 99 96 Oximetry Chest Pain MDM <Davis Solitario - Last Filed: 02/05/24 05:30> <Cate Alberts - Last Filed: 02/06/24 06:17> - MDM The patient had chest x-ray which I interpreted as negative for acute infiltrate, congestive heart failure or pneumothorax. Was pt. sent in by a medical professional or institution (, PA, APPLIED BEHAVIOR SPECIALIST, urgent care, hospital, or retirement...) When possible be specific @ -[No] Did you speak to anyone other than the patient for history (EMS, parent, family, police, friend...)? What history was obtained from this source @ -[No] Did you review nursing and triage notes (agree or disagree)? Why? @ -[I reviewed and agree with nursing and triage notes] Were old charts reviewed (outside hosp., previous admission, EMS record, old EKG, old radiological studies, urgent care reports/EKG's, retirement records)? Report findings @ -[Yes, old charts were reviewed] Differential Diagnosis (chest pain, altered mental status, abdominal pain women, abdominal pain men, vaginal bleeding, weakness, fever, dyspnea, syncope, headache, dizziness, GI bleed, back pain, seizure, CVA, palpatations, mental health, musculoskeletal)? @ -[Differential Chest Pain: Stable Angina, Unstable Angina, STEMI, NSTEMI Aortic Dissection, Pneumothorax, Musculoskeletal, Esophageal Spasm GERD, Cholecystitis, Pancreatitis, Zoster, this is not meant to be an all-inclusive list. EKG interpreted by me (3pts min.). @ -[I interpreted as above] X-rays interpreted by me (1pt min.). @ -[I interpreted as above CT interpreted by me (1pt min.). @ -[None done] U/S interpreted by me (1pt. min.). @ -[None done] What testing was considered but not performed or refused? (CT, X-rays, U/S, labs)? Why? @ -[None] What meds were considered but not given or refused? Why? @ -[None] Did you discuss the management of the patient with other professionals (professionals i.e. , PA, APPLIED BEHAVIOR SPECIALIST, lab, RT, psych nurse, social sciences professor, publicity agent, teacher, protective services officer, director of casework department)? Give summary @ -[No] Was smoking cessation discussed for >3mins.? @ -[No] Was critical care preformed (if so, how long)? @ -[Yes, 35 minutes Were there social determinants of health that impacted care today? How? (Homelessness, low income, unemployed, alcoholism, drug addiction, transportation, low edu. Level, literacy, decrease access to med. care, longterm, rehab)? @ -[No] Was there de-escalation of care discussed even if they declined (Discuss DNR or withdrawal of care, Hospice)? DNR status @ -[No] What co-morbidities impacted this encounter? (DM, HTN, Smoking, COPD, CAD, Cancer, CVA, ARF, Chemo, Hep., AIDS, mental health diagnosis, sleep apnea, morbid obesity)? @ -[History of coronary artery disease, hypertension, status post coronary artery bypass surgery Was patient admitted / discharged? Hospital course, mention meds given and route , prescriptions, significant lab abnormalities, going to OR and other pertinent info. @ -[ Undiagnosed new problem with uncertain prognosis? @ -[No] Drug Therapy requiring intensive monitoring for toxicity (Heparin, Nitro, Insulin, Cardizem)? @ -[Heparin Were any procedures done? @ -[No] Diagnosis/symptom? @ -[Acute chest pain Acute, or Chronic, or Acute on Chronic? @ -[Acute Uncomplicated (without systemic symptoms) or Complicated (systemic symptoms)? @ -[Uncomplicated Side effects of treatment? @ -[No] Exacerbation, Progression, or Severe Exacerbation? @ -[No] Poses a threat to life or bodily function? How? (Chest pain, [place], [place], pneumonia, PE, COPD, DKA, ARF, appy, cholecystitis, CVA, Diverticulitis, Homicidal, Suicidal, threat to staff... and all critical care pts) @ -[Patient requires further evaluation to determine but chest pain does represent threat to life (Davis Solitario) Was patient admitted / discharged? Hospital course, mention meds given and route, prescriptions, significant lab abnormalities, going to OR and other pertinent info. @ -48-year-old female presented originally to the emergency department reporting atypical chest pain which radiated through her back. She was seen by Dr. Light. First troponin was 0.04. Patient was signed out to me awaiting second troponin level. Second troponin level has markedly increased therefore patient will be heparinized and admitted. Spoke with Dr. Decker for admission. Guido and Eve from cardiothoracic's are paged without call back Undiagnosed new problem with uncertain prognosis? @ -Yes Drug Therapy requiring intensive monitoring for toxicity (Heparin, Nitro, Insulin, Cardizem)? @ -Heparin Were any procedures done? @ -[No] Diagnosis/symptom? @ -Acute chest pain, NSTEMI Acute, or Chronic, or Acute on Chronic? @ -Acute Uncomplicated (without systemic symptoms) or Complicated (systemic symptoms)? @ -Complicated Side effects of treatment? @ -[No] Exacerbation, Progression, or Severe Exacerbation? @ -[No] Poses a threat to life or bodily function? How? (Chest pain, [place], [place], pneumonia, PE, COPD, DKA, ARF, appy, cholecystitis, CVA, Diverticulitis, Homicidal, Suicidal, threat to staff... and all critical care pts) @ -Yes Critical care time of 30 minutes for NSTEMI (Cate Alberts) Disposition <Davis Solitario - Last Filed: 02/05/24 05:30> Is patient prescribed a controlled substance at d/c from ED?: No Time of Disposition: 03:09 Decision to Admit Reason: Admit from EC Decision Date: 02/05/24 Decision Time: 03:09 <Cate Alberts - Last Filed: 02/06/24 06:17> Clinical Impression: Chest pain, Acute non-ST elevation myocardial infarction (NSTEMI) Disposition: ADMITTED IP TO THIS HOSP Condition: Serious
[2024-02-04 23:31] LABS: Basophils # (A) 0.1 k/uL (0-0.2); Basophils % (A) 1 %; Eosinophils # (A) 0.2 k/uL (0-0.7); Eosinophils % (A) 3 %; HCT 39.1 % (34.0-46.0); Lymphocytes # (A) 2.2 k/uL (1.0-4.8); Lymphocytes % (A) 27 %; MCH 28.6 pg (25.0-35.0); MCV 89.5 fL (80.0-100.0); Mean Platelet Volume 8.5; Monocytes # (A) 0.4 k/uL (0-1.0); Monocytes % (A) 5 %; Neutrophils # (A) 5.3 k/uL (1.3-7.7); Neutrophils % (A) 64 %; Platelet Count 296 k/uL (150-450); RBC 4.36 m/uL (3.80-5.40); RDW 13.5 % (11.5-15.5); WBC 8.3 k/uL (3.8-10.6)
[2024-02-04 23:38] LABS: HGB 12.5 gm/dL (11.4-16.0)
--- NOTE | 2024-02-05 01:37 | XR ---
EXAMINATION TYPE: XR chest 2V DATE OF EXAM: 02/04/2024 9:41 PM CLINICAL INDICATION:Female, 48 years old with history of Chest Pain; [facility] COMPARISON: 12/17/2023 and before TECHNIQUE: XR chest 2V. Frontal and lateral views of the chest.. FINDINGS: Lines/Tubes/Devices: EKG leads overlie the chest. No indwelling lines are seen. There is left atrial appendage occlusion device. Sternotomy wires. Heart/mediastinum: Heart appears mildly enlarged. Prominent pericardial fat. Mediastinum appears nor mal. Pulmonary vascularity: Not increased, Lungs/Pleura: There is no evidence of pleural effusion, focal consolidation, or pneumothorax. Musculoskeletal: No acute osseous abnormality demonstrated in the limits of the exam. Other findings: None. IMPRESSION: No acute cardiopulmonary abnormality. Mild cardiomegaly.
[2024-02-05] MEDS ORDERED: NALOXONE 0.4 MG/ML 1 ML VIAL IV PRN (03:11)
[2024-02-05] MEDS ORDERED: HEPARIN SODIUM 1,000 UN/ML (10ML VL) IV PRN (03:13)
[2024-02-05] MEDS: HEPARIN SODIUM 1,000 UN/ML (10ML VL) IV ONE (03:50)
[2024-02-05] MEDS: HEPARIN SOD,PORK IN 0.45% NACL 25,000 UNIT in 0.45% NACL 1 250ML.BAG IV SCH (03:52)
[2024-02-05] MEDS ORDERED: DEXTROSE 50% SYRINGE 50 ML IVP PRN ×2 (09:38)
[2024-02-05] MEDS: HEPARIN SODIUM 1,000 UN/ML (10ML VL) MISCELLANE ONE (11:00)
--- NOTE | 2024-02-05 11:59 | CA ---
Transthoracic Echo Report Name: Emilee Jennings Age: 48 Gender: F : 1975 Exam Date: 02/05/2024 10:15 Exam Location: [place] [facility] Ht (in): 62 Wt (lb): 211 Ordering Physician: Reji Macario MD Attending/Referring Phys: Dough Catcher Taylor Hollins RCS Procedure CPT: Indications: Chest Pain Cardiac Hx: Technical Quality: Technically difficult study Contrast 1: Definity Total Dose (mL): 2 Contrast 2: Total Dose (mL): MEASUREMENTS (Male / Female) Normal Values 2D ECHO LV Diastolic Volume MOD BP 138.0 cm??? 67 - 155 / 56 - 104 cm??? LV Systolic Volume MOD BP 73.1 cm??? 22 - 58 / 19 - 49 cm??? LV Ejection Fraction MOD BP 47.1 % >= 55 % LV Cardiac Index MOD BP 2573.3 cm???/min???m??? LV Diastolic Volume MOD 4C 140.2 cm??? LV Systolic Volume MOD 4C 73.0 cm??? LV Ejection Fraction MOD 4C 47.9 % LV Cardiac Index MOD 4C 2659.6 cm???/min???m??? LV Diastolic Length 4C 7.8 cm LV Systolic Length 4C 7.3 cm LV Diastolic Volume MOD 2C 136.2 cm??? LV Systolic Volume MOD 2C 65.6 cm??? LV Ejection Fraction MOD 2C 51.8 % LV Cardiac Index MOD 2C 2797.2 cm???/min???m??? LV Diastolic Length 2C 7.8 cm LV Systolic Length 2C 6.5 cm FINDINGS Left Ventricle Left ventricular ejection fraction is estimated at 50-55 %. Left ventricular cavity size borderline enlarged. Right Ventricle Right ventricle not well visualized. Right Atrium Right atrium not assessed. Left Atrium Left atrium not assessed. Mitral Valve Mitral valve not assessed. Aortic Valve Aortic valve assessed. Tricuspid Valve Tricuspid valve assessed. Pulmonic Valve Pulmonic valve not assessed. Pericardium No pericardial effusion. Aorta Aortic root and proximal ascending aorta not assessed. CONCLUSIONS Limited study Left ventricular ejection fraction is estimated at 50-55 %. Mid anterior and kar-septal wall hypokinesia. Paradoxical septal motion No pericardial effusion. Previewed by: Dr Raymond Yousif (Electronically Signed) Final Date: 05 February 2024 11:59
[2024-02-05 12:16] LABS: Glucose,Whole Blood 88 mg/dL (70-110)
[2024-02-05] MEDS: INSULIN ASPART (NovoLOG) 100 UNIT/ML VIAL SQ SCH (12:16)
--- NOTE | 2024-02-05 12:47 | P.CRDCN ---
History of Present Illness Consult date: 02/05/24 History of present illness: HISTORY OF PRESENTING ILLNESS 48-year-old female with past medical history of type 2 diabetes, obesity, hypertension was initially seen in [facility] in late November for chest discomfort. She had a heart catheterization which showed long tubular disease in LAD, immediate disease in LCx, occluded distal RCA with [id number] collaterals. Due to vessel disease with LAD involvement and diabetes, she was scheduled for a open heart surgery. CABG with Dr. Bocanegra on 12/13/2023 with four-vessel bypass with a GILBERT to diagonal with sequential to LAD, left radial to OM, vein graft to PDA. Since her surgery she has been recovering well. She is participating in cardiac rehab without any limitations or chest pains. She is following up with Dr. Jasso. She recently saw him after her open heart surgery. He has been doing well and has been compliant with her medications. She presented to ER because of substernal chest pressure-like sensation which started noticing after holding her 4-year-old granddaughter in her lap. She rep orted some difficulty in catching breath at this time. Her symptoms were starting to ease up spontaneously but she received sublingual nitroglycerin which resolved her pain completely. She has not had any recurrence of pain since then. ECG shows sinus rhythm, low voltage with nonspecific ST changes. Hemoglobin 12.5, platelets 296, BUN 18, creatinine 0.4, initial troponin 0.05, repeat troponin 0.4, 0.3. She denies any smoking, recreational drug use marijuana use or alcohol use REVIEW OF SYSTEMS 14 point review of system is negative except what is mentioned above in HPI. PHYSICAL EXAMINATION Vital signs reviewed. Head: Normocephalic. Eyes: Sclerae nonicteric. Neck: Brisk carotid upstroke, no jugular venous distention. Lungs: Clear to auscultation. Heart: Regular rate and rhythm, S1-S2, no S3, no murmur or rub. Abdomen: Soft nontender, positive bowel sounds. Extremities: No edema, intact distal pulses. Neuro: Alert, oritented, no focal deficits. Detailed neuro exam was not perform ed. ASSESSMENT NSTEMI CAD status post recent CABG December 13, four-vessel, GILBERT to diagonal sequential to LAD,, left radial to OM, SVG to PDA Atypical description of chest pain Limited echo showed EF 50 to 55%, mild anteroseptal wall hypokinesia, paradoxical septal motion, no pericardial effusion PLAN Continue IV heparin drip for 48 hours Will discuss case with Dr. Jasso and possible heart cath Continue aspirin, Plavix, atorvastatin, metoprolol, losartan, amlodipine. Add Imdur 15 mg daily Raymond Yousif MD, FACC, RPVI Thank you for allowing [facility] to participate in this patient's care. Feel free to reach out in case of any followup questions. Past Medical History Past Medical History: Coronary Artery Disease (CAD), Chest Pain / Angina, Diabetes Mellitus, Hypertension Additional Past Medical History / Comment(s): CURRENT: MID BACK PAIN, RIGHT SIDE. History of Any Multi-Drug Resistant Organisms: None Reported Past Surgical History: Bariatric Surgery, Section, Hysterectomy, Orthopedic Surgery Additional Past Surgical History / Comment(s): CARPAL TUNNEL BILATERAL. ABSCESS ON ABD (I & D, PACKING) @ [facility] (CAN'T REMEMBER CULTURE RESULTS). Right knee surgery x 2, COLONOSCOPY, right knee meniscus repair 08/2022. Gastric sleeve 12/28/22 Past Anesthesia/Blood Transfusion Reactions: No Reported Reaction Past Psychological History: Depression Smoking Status: Never smoker Past Alcohol Use History: Rare Past Drug Use History: None Reported - Past Family History Mother Family Medical History: Cancer (Melanoma skin cancer) Father Family Medical History: CVA/TIA, Myocardial Infarction ([place]) Medications and Allergies Home Medications Medication Instructions Recorded Confirmed Type HYDROcodone/APAP 10-325MG [[place] 1 tab PO TID PRN 12/10/23 02/05/24 History 10-325] Tirzepatide [Mounjaro] 5 mg SQ SA 12/10/23 02/05/24 History buPROPion [Wellbutrin] 100 mg PO BID 12/10/23 02/05/24 History lamoTRIgine [LaMICtal Xr] 250 mg PO DAILY 12/10/23 02/05/24 History metFORMIN HCL ER [Glucophage XR] 500 mg PO BID 12/10/23 02/05/24 History risperiDONE [RisperDAL] 0.5 mg PO HS 12/10/23 02/05/24 History Acetaminophen Tab [Tylenol] 1,000 mg PO Q6HR PRN tab 12/17/23 02/05/24 Rx Aspirin 325 mg PO DAILY #30 tab 12/17/23 02/05/24 Rx Atorvastatin [Lipitor] 40 mg PO DAILY #30 tab 12/17/23 02/05/24 Rx Clopidogrel [Plavix] 75 mg PO DAILY #30 tab 12/17/23 02/05/24 Rx Losartan [Cozaar] 25 mg PO HS #30 tab 12/17/23 02/05/24 Rx Metoprolol Tartrate [Lopressor] 50 mg PO BID #60 tab 12/17/23 02/05/24 Rx Pantoprazole [Protonix] 40 mg PO AC-BRKFST #30 tab 12/17/23 02/05/24 Rx amLODIPine [Norvasc] 2.5 mg PO DAILY@1200 #30 tab 12/17/23 02/05/24 Rx Sennosides-Docusate Sodium 2 tab PO HS PRN 02/05/24 02/05/24 History [Senokot-S] Allergies Allergy/AdvReac Type Severity Reaction Status Date / Time No Known Allergies Allergy Verified 02/05/24 10:55 Physical Exam Vitals: Vital Signs Temp Pulse Resp BP Pulse Ox 02/05/24 06:33 82 16 132/76 95 02/05/24 03:48 81 16 137/90 97 02/05/24 02:33 85 16 98 02/05/24 00:59 82 15 121/78 100 02/04/24 23:20 85 17 115/75 95 02/04/24 20:56 98.9 F 92 19 145/84 98 Intake and Output 02/04/24 02/05/24 02/05/24 22:59 06:59 14:59 Intake Total 70.181 Balance 70.181 Intake: Intake, IV Titration 70.181 Amount Heparin Sod,Pork in 0.45% 70.181 NaCl 25,000 unit In 0.45 % NaCl 1 250ml.bag @ 10.5 UNITS/KG/HR 10.002 mls/ hr IV .Q24H [facility] Rx#: [id number] Other: Weight 95.254 kg Results 02/04/24 23:05 02/04/24 22:00 Cardiac Enzymes 02/04/24 02/04/24 02/05/24 Range/Units 22:00 22:00 00:58 AST 18 (14-36) U/L Troponin I 0.055 H* 0.441 H* (0.000-0.034) ng/mL 02/05/24 Range/Units 07:31 AST (14-36) U/L Troponin I 0.311 H* (0.000-0.034) ng/mL Coagulation 02/04/24 02/05/24 Range/Units 21:28 09:23 PT 14.8 H (10.0-12.5) sec APTT 23.2 36.5 H (22.0-30.0) sec CBC 02/04/24 Range/Units 23:05 WBC 8.3 (3.8-10.6) k/uL RBC 4.36 (3.80-5.40) m/uL Hgb 12.5 D (11.4-16.0) gm/dL Hct 39.1 (34.0-46.0) % Plt Count 296 (150-450) k/uL Comprehensive Metabolic Panel 02/04/24 Range/Units 22:00 Sodium 139 (137-145) mmol/L Potassium 3.9 (3.5-5.1) mmol/L Chloride 106 (98-107) mmol/L Carbon Dioxide 26 (22-30) mmol/L BUN 18 H (7-17) mg/dL Creatinine 0.45 L (0.52-1.04) mg/dL Glucose 115 H (74-99) mg/dL Calcium 9.1 (8.4-10.2) mg/dL AST 18 (14-36) U/L ALT 12 (4-34) U/L Alkaline Phosphatase 100 (38-126) U/L Total Protein 6.6 (6.3-8.2) g/dL Albumin 3.7 (3.5-5.0) g/dL Current Medications Generic Name Dose Route Start Last Admin Trade Name Freq PRN Reason Stop Dose Admin Amlodipine Besylate 2.5 mg 02/06/24 12:00 Amlodipine 2.5 Mg Tab PO DAILY@1200 [facility] Aspirin 81 mg 02/06/24 09:00 Aspirin 81 Mg PO DAILY [facility] Clopidogrel Bisulfate 75 mg 02/05/24 12:45 Clopidogrel 75 Mg Tab PO DAILY [facility] Dextrose/Water 25 ml 02/05/24 09:38 Dextrose 50% Syringe 50 Ml IVP PER PROTOCOL PRN Hypoglycemia Protocol Dextrose/Water 50 ml 02/05/24 09:38 Dextrose 50% Syringe 50 Ml IVP PER PROTOCOL PRN Hypoglycemia Protocol Insulin Aspart 0 unit 02/05/24 12:30 02/05/24 12:16 Insulin Aspart (Novolog) 100 Unit/Ml Vial SQ Not Given ACHS [facility] Protocol Isosorbide Mononitrate 15 mg 02/05/24 12:45 Isosorbide Mononitrate Er 15 Mg Tab PO DAILY [facility] Losartan Potassium 25 mg 02/05/24 21:00 Losartan 25 Mg Tab PO HS [facility] Metoprolol Tartrate 50 mg 02/05/24 12:45 Metoprolol Tartrate 50 Mg Tab PO BID [facility] Naloxone HCl 0.2 mg 02/05/24 03:11 Naloxone 0.4 Mg/Ml 1 Ml Vial IV Q2M PRN Opioid Reversal Intake and Output 02/04/24 02/05/24 02/05/24 22:59 06:59 14:59 Intake Total 70.181 Balance 70.181 Intake: Intake, IV Titration 70.181 Amount Heparin Sod,Pork in 0.45% 70.181 NaCl 25,000 unit In 0.45 % NaCl 1 250ml.bag @ 10.5 UNITS/KG/HR 10.002 mls/ hr IV .Q24H [facility] Rx#: [id number] Other: Weight 95.254 kg 02/04/24 23:05 02/04/24 22:00
--- NOTE | 2024-02-05 12:57 | P.HPIM ---
History of Present Illness H&P Date: 02/05/24 History of present illness; patient is a 48-year-old lady with past medical history significant for coronary disease s/p CABG who presented to ER because of chest pain. Patient states that she was all right till this evening when she started experiencing chest pressure which was central in location, nonradiating, no aggravating or alleviating associated with this chest pressure, patient thought that this pain was brought about by cold so she did not pay much noticed to it and his pain resolved. Later on patient was inside the house when she experienced chest pain again which is associated shortness of breath. Denies any palpitation. There was no complaint of orthopnea or PND. There was no complaint of palpitation. This chest pain took a little longer to resolve and following that. Decided that she should be evaluated and came to the ER. Initial lab work done in the ER showed WBC 8.3, hemoglobin 12.5, platelet count 296, INR 1.4, sodium 139, potassium 3.9, BUN 18, creatinine 0.45, troponin 0.055 EKG done in the ER showed heart rate of 84, IL interval of 125, QRS 90, no ST segment elevation or depression seen, t-wave inversions seen in V1, V2, V3, V4 Chest x-ray done in the ER showed no acute cardiopulmonary process Patient admitted to internal medicine service REVIEW OF SYSTEMS: CONSTITUTIONAL: No fever, no malaise, no fatigue. HEENT: No recent visual problems or hearing problems. Denied any sore throat. CARDIOVASCULAR: As mentioned above PULMONARY: no cough, no hemoptysis. GASTROINTESTINAL: No diarrhea, no nausea, no vomiting, no abdominal pain. NEUROLOGICAL: No headaches, no weakness, no numbness. HEMATOLOGICAL: Denies any bleeding or petechiae. GENITOURINARY: Denies any burning micturition, frequency, or urgency. MUSCULOSKELETAL/RHEUMATOLOGICAL: Denies any joint pain, swelling, or any muscle pain. ENDOCRINE: Denies any polyuria or polydipsia. The rest of the 14-point review of systems is negative. PHYSICAL EXAMINATION: GENERAL: The patient is alert and oriented x3, not in any acute distress. Well developed, well nourished. HEENT: Pupils are round and equally reacting to light. EOMI. No scleral icterus. No conjunctival pallor. Normocephalic, atraumatic. No pharyngeal erythema. No thyromegaly. CARDIOVASCULAR: S1 and S2 present. No murmurs, rubs, or gallops. PULMONARY: Chest is clear to auscultation, no wheezing or crackles. ABDOMEN: Soft, nontender, nondistended, normoactive bowel sounds. No palpable organomegaly. MUSCULOSKELETAL: No joint swelling or deformity. EXTREMITIES: No cyanosis, clubbing, or pedal edema. NEUROLOGICAL: Gross neurological examination did not reveal any focal deficits. SKIN: No rashes. Assessment and plan Non-ST elevation [place] History of coronary disease status post CABG Hypertension Oay-uytlikh-qfmwydtik diabetes mellitus Monitor vital signs Monitor CBC Monitor CMP Continue telemetry monitoring Trend troponins. Ordered 2D echo Continue pharmacy dose heparin Monitor blood sugar levels, continue sliding scale insulin Consult cardiology Labs and medication were reviewed.. Continue same treatment. Continue with symptomatic treatment. Resume home medication. Monitor labs and vitals. DVT a nd GI prophylaxis. Further recommendations as per clinical course of the patient Dictation was produced using [employer] [place] dictation software. please excuse any grammatical, word or spelling errors. Past Medical History Past Medical History: Coronary Artery Disease (CAD), Chest Pain / Angina, Diabetes Mellitus, Hypertension Additional Past Medical History / Comment(s): CURRENT: MID BACK PAIN, RIGHT SIDE. History of Any Multi-Drug Resistant Organisms: None Reported Past Surgical History: Bariatric Surgery, Section, Hysterectomy, Orthopedic Surgery Additional Past Surgical History / Comment(s): CARPAL TUNNEL BILATERAL. ABSCESS ON ABD (I & D, PACKING) @ [facility] (CAN'T REMEMBER CULTURE RESULTS). Right knee surgery x 2, COLONOSCOPY, right knee meniscus repair 08/2022. Gastric sleeve 12/28/22 Past Anesthesia/Blood Transfusion Reactions: No Reported Reaction Past Psychological History: Depression Smoking Status: Never smoker Past Alcohol Use History: Rare Past Drug Use History: None Reported - Past Family History Mother Family Medical History: Cancer (Melanoma skin cancer) Father Family Medical History: CVA/TIA, Myocardial Infarction ([place]) Medications and Allergies Home Medications Medication Instructions Recorded Confirmed Type HYDROcodone/APAP 10-325MG [[place] 1 tab PO TID PRN 12/10/23 12/10/23 History 10-325] Tirzepatide [Mounjaro] 5 mg SQ SA 12/10/23 12/10/23 History buPROPion [Wellbutrin] 100 mg PO BID 12/10/23 12/10/23 History lamoTRIgine [LaMICtal Xr] 250 mg PO DAILY 12/10/23 12/10/23 History metFORMIN HCL ER [Glucophage XR] 500 mg PO BID 12/10/23 12/10/23 History risperiDONE [RisperDAL] 0.5 mg PO DIRECTED 12/10/23 12/10/23 History Acetaminophen Tab [Tylenol] 1,000 mg PO Q6HR PRN tab 12/17/23 Rx Aspirin 325 mg PO DAILY #30 tab 12/17/23 Rx Atorvastatin [Lipitor] 40 mg PO DAILY #30 tab 12/17/23 Rx Clopidogrel [Plavix] 75 mg PO DAILY #30 tab 12/17/23 Rx Losartan [Cozaar] 25 mg PO HS #30 tab 12/17/23 Rx Metoprolol Tartrate [Lopressor] 50 mg PO BID #60 tab 12/17/23 Rx Pantoprazole [Protonix] 40 mg PO AC-BRKFST #30 tab 12/17/23 Rx Sennosides-Docusate Sodium 2 each PO HS PRN tab 12/17/23 Rx [Senokot-S] amLODIPine [Norvasc] 2.5 mg PO DAILY@1200 #30 tab 12/17/23 Rx Allergies Allergy/AdvReac Type Severity Reaction Status Date / Time No Known Allergies Allergy Verified 12/10/23 19:21 Physical Exam Vitals: Vital Signs Temp Pulse Resp BP Pulse Ox 02/05/24 06:33 82 16 132/76 95 02/05/24 03:48 81 16 137/90 97 02/05/24 02:33 85 16 98 02/05/24 00:59 82 15 121/78 100 02/04/24 23:20 85 17 115/75 95 02/04/24 20:56 98.9 F 92 19 145/84 98 Intake and Output 02/04/24 02/05/24 02/05/24 22:59 06:59 14:59 Other: Weight 95.254 kg Results CBC & Chem 7: 02/04/24 23:05 02/04/24 22:00 Labs: Abnormal Lab Results - Last 24 Hours (Table) 02/04/24 02/04/24 02/04/24 Range/Units 21:28 22:00 22:00 PT 14.8 H (10.0-12.5) sec INR 1.4 H (<1.2) BUN 18 H (7-17) mg/dL Creatinine 0.45 L (0.52-1.04) mg/dL Glucose 115 H (74-99) mg/dL Troponin I 0.055 H* (0.000-0.034) ng/mL 02/05/24 02/05/24 Range/Units 00:58 07:31 PT (10.0-12.5) sec INR (<1.2) BUN (7-17) mg/dL Creatinine (0.52-1.04) mg/dL Glucose (74-99) mg/dL Troponin I 0.441 H* 0.311 H* (0.000-0.034) ng/mL
[2024-02-05] MEDS: lamoTRIgine 100 MG TAB PO SCH (13:28)
[2024-02-05] MEDS: lamoTRIgine 25 MG TAB PO SCH (13:28)
[2024-02-05] MEDS: METOPROLOL TARTRATE 50 MG TAB PO SCH ×2 (13:28→13:31)
[2024-02-05] MEDS: amLODIPine 2.5 MG TAB PO SCH (13:30)
[2024-02-05] MEDS: CLOPIDOGREL 75 MG TAB PO SCH (13:30)
[2024-02-05] MEDS: ISOSORBIDE MONONITRATE ER 15 MG TAB PO SCH (13:31)
[2024-02-05] MEDS: HYDROcodone/APAP 10-325MG 1 EACH TAB PO PRN (13:31)
[2024-02-05] MEDS: ACETAMINOPHEN TAB 325 MG TAB PO STA (16:42)
[2024-02-05 16:51] LABS: Glucose,Whole Blood 165 mg/dL (70-110)
[2024-02-05] MEDS: HEPARIN SOD,PORK IN 0.45% NACL 25,000 UNIT in 0.45% NACL 1 250ML.BAG IV ONE ×2 (16:57→16:58)
[2024-02-05 20:11] LABS: Glucose,Whole Blood 181 mg/dL (70-110)
[2024-02-05] MEDS: buPROPion 100 MG TAB PO SCH (20:21)
[2024-02-05] MEDS: LOSARTAN 25 MG TAB PO SCH (20:21)
[2024-02-05] MEDS ORDERED: risperiDONE 0.5 MG TAB PO SCH (21:00)
[2024-02-06 06:03] LABS: Glucose,Whole Blood 90 mg/dL (70-110)
[2024-02-06] MEDS: PANTOPRAZOLE 40 MG TABLET PO SCH (06:10)
[2024-02-06] MEDS: ASPIRIN 81 MG PO SCH (07:58)
[2024-02-06] MEDS: ATORVASTATIN 40 MG TAB PO SCH (07:58)
--- NOTE | 2024-02-06 10:09 | P.PN ---
Subjective Progress Note Date: 02/06/24 Progress note February 06, 2024 Patient is hemodynamically stable. She is tolerating addition of Imdur without any headaches or any drop in blood pressures. She does not appear volume overloaded. She is not having any further chest pain episodes since she has been hospitalized. She has been on sinus rhythm on telemetry monitoring. Has not had any bleeding complications while being on IV heparin drip. HISTORY OF PRESENTING ILLNESS 48-year-old female with past medical history of type 2 diabetes, obesity, hypertension was initially seen in [facility] in late November for chest discomfort. She had a heart catheterization which showed long tubular disease in LAD, immediate disease in LCx, occluded distal RCA with wydy-rm-jshky collaterals. Due to vessel disease with LAD involvement and diabetes, she was scheduled for a open heart surgery. CABG with Dr. Bocanegra on 12/13/2023 with four-vessel bypass with a GILBERT to diagonal with sequential to LAD, left radial to OM, vein graft to PDA. Since her surgery she has been recovering well. She is participating in cardiac rehab without any limitations or chest pains. She is following up with Dr. Jasso. She recently saw him after her open heart surgery. He has been doing well and has been compliant with her medications. She presented to ER because of substernal chest pressure-like sensation which started noticing after holding her 4-year-old granddaughter in her lap. She reported some difficulty in catching breath at this time. Her symptoms were starting to ease up spontaneously but she received sublingual nitroglycerin which resolved her pain completely. She has not had any recurrence of pain since then. ECG shows sinus rhythm, low voltage with nonspecific ST changes. Hemoglobin 12.5, platelets 296, BUN 18, creatinine 0.4, initial troponin 0.05, repeat troponin 0.4, 0.3. She denies any smoking, recreational drug use marijuana use or alcohol use REVIEW OF SYSTEMS 14 point review of system is negative except what is mentioned above in HPI. PHYSICAL EXAMINATION Vital signs reviewed. Head: Normocephalic. Eyes: Sclerae nonicteric. Neck: Brisk carotid upstroke, no jugular venous distention. Lungs: Clear to auscultation. Heart: Regular rate and rhythm, S1-S2, no S3, no murmur or rub. Abdomen: Soft nontender, positive bowel sounds. Extremities: No edema, intact distal pulses. Neuro: Alert, oritented, no focal deficits. Detailed neuro exam was not performed. ASSESSMENT NSTEMI CAD status post recent CABG December 13, four-vessel, GILBERT to diagonal sequential to LAD,, left radial to OM, SVG to PDA Atypical description of chest pain Limited echo showed EF 50 to 55%, mild anteroseptal wall hypokinesia, paradoxical septal motion, no pericardial effusion PLAN Continue IV heparin drip for [address]iscuss [address] Dr[address] Jasso and possible heart cath Continue aspirin, Plavix, atorvastatin, metoprolol, losartan, amlodipine. Add Imdur 15 mg daily N.p.o. after midnight. Objective - Vital Signs Vital signs: Vital Signs Temp 98.2 F 02/06/24 08:00 Pulse 74 02/06/24 08:00 Resp 18 02/06/24 08:00 BP 111/70 02/06/24 08:00 Pulse Ox 97 02/06/24 08:00 FiO2 Intake & Output 02/05/24 02/06/24 02/06/24 18:59 06:59 18:59 Intake Total 70.181 103.789 462 Output Total 300 Balance 70.181 -196.211 462 Weight 95.254 kg 93 kg Intake: Intake, IV Titration 70.181 103.789 Amount Heparin Sod,Pork in 0.45% 70.181 NaCl 25,000 unit In 0.45 % NaCl 1 250ml.bag @ 10.5 UNITS/KG/HR 10.002 mls/ hr IV .Q24H [facility] Rx#: [id number] Heparin Sod,Pork in 0.45% 103.789 NaCl 25,000 unit In 0.45 % NaCl 1 250ml.bag @ 12.5 UNIT/KG/HR 11.907 mls/hr IV .Q21H [facility] Rx#: [id number] Oral 462 Output: Urine 300 Other: Voiding Method Toilet Toilet # Voids 1 1 - Labs CBC & Chem 7: 02/04/24 23:05 02/04/24 22:00 Labs: Abnormal Lab Results - Last 24 Hours (Table) 02/05/24 02/05/24 02/05/24 Range/Units 09:23 11:42 16:49 APTT 36.5 H (22.0-30.0) sec POC Glucose (mg/dL) 165 H (70-110) mg/dL Troponin I 0.208 H* (0.000-0.034) ng/mL 02/05/24 02/05/24 Range/Units 17:25 20:09 APTT 45.3 H (22.0-30.0) sec POC Glucose (mg/dL) 181 H (70-110) mg/dL Troponin I (0.000-0.034) ng/mL
[2024-02-06 10:12] LABS: Basophils # (A) 0.1 k/uL (0-0.2); Basophils % (A) 1 %; Eosinophils # (A) 0.2 k/uL (0-0.7); Eosinophils % (A) 3 %; HCT 44.5 % (34.0-46.0); HGB 13.8 gm/dL (11.4-16.0); Lymphocytes # (A) 2.8 k/uL (1.0-4.8); Lymphocytes % (A) 38 %; MCH 28.2 pg (25.0-35.0); MCHC 30.9 g/dL (31.0-37.0); MCV 91.1 fL (80.0-100.0); Mean Platelet Volume 8.2; Monocytes # (A) 0.3 k/uL (0-1.0); Monocytes % (A) 3 %; Neutrophils # (A) 3.9 k/uL (1.3-7.7); Neutrophils % (A) 53 %; Platelet Count 395 k/uL (150-450); RBC 4.89 m/uL (3.80-5.40); RDW 13.7 % (11.5-15.5); WBC 7.3 k/uL (3.8-10.6)
[2024-02-06 10:47] LABS: African American GFR (CKD) >90 (>60 ml/min/1.73 sqM); Anion Gap 11 mmol/L; Blood Urea Nitrogen 12 mg/dL (7-17); Calcium 9.3 mg/dL (8.4-10.2); Carbon Dioxide 21 mmol/L (22-30); Chloride 106 mmol/L (98-107); Glucose 138 mg/dL (74-99); Non-African American GFR(CKD) >90 (>60 ml/min/1.73 sqM); Potassium 3.8 mmol/L (3.5-5.1); Sodium 138 mmol/L (137-145)
[2024-02-06 11:27] LABS: Glucose,Whole Blood 135 mg/dL (70-110)
[2024-02-06] MEDS ORDERED: amLODIPine 2.5 MG TAB PO SCH (12:00)
--- NOTE | 2024-02-06 13:13 | P.PN ---
Subjective Progress Note Date: 02/06/24 patient is a 48-year-old lady with past medical history significant for coronary disease s/p CABG who presented to ER because of chest pain. Patient states that she was all right till this evening when she started experiencing chest pressure which was central in location, nonradiating, no aggravating or alleviating associated with this chest pressure, patient thought that this pain was brought about by cold so she did not pay much noticed to it and his pain resolved. Later on patient was inside the house when she experienced chest pain again which is associated shortness of breath. Denies any palpitation. There was no complaint of orthopnea or PND. There was no complaint of palpitation. This chest pain took a little longer to resolve and following that. Decided that she should be evaluated and came to the ER. Initial lab work done in the ER showed WBC 8.3, hemoglobin 12.5, platelet count 296, INR 1.4, sodium 139, potassium 3.9, BUN 18, creatinine 0.45, troponin 0.055 EKG done in the ER showed heart rate of 84, [place] interval of 125, QRS 90, no ST segment elevation or depression seen, t-wave inversions seen in V1, V2, V3, V4 Chest x-ray done in the ER showed no acute cardiopulmonary process Patient admitted to internal medicine service 02/05. Patient seen and examined. No further episodes of chest pain. Patient is being scheduled for cath in the morning, n.p.o. after midnight REVIEW OF SYSTEMS: CONSTITUTIONAL: No fever, no malaise,. CARDIOVASCULAR: No chest pain, no palpitations, no syncope. PULMONARY: No shortness of breath, no cough, GASTROINTESTINAL: No diarrhea, no nausea, no vomiting, no abdominal pain. NEUROLOGICAL: No headaches, no weakness, PHYSICAL EXAMINATION: GENERAL: The patient is alert and oriented x3, not in any acute distress. Well developed, well nourished. HEENT: Pupils are round and equally reacting to light. EOMI. No scleral icterus. No conjunctival pallor. Normocephalic, atraumatic. No pharyngeal erythema. No thyromegaly. CARDIOVASCULAR: S1 and S2 present. No murmurs, rubs, or gallops. PULMONARY: Chest is clear to auscultation, no wheezing or crackles. ABDOMEN: Soft, nontender, nondistended, normoactive bowel sounds. No palpable organomegaly. MUSCULOSKELETAL: No joint swelling or deformity. EXTREMITIES: No cyanosis, clubbing, or pedal edema. NEUROLOGICAL: Gross neurological examination did not reveal any focal deficits. SKIN: No rashes. Assessment and plan Non-ST elevation [place] History of coronary disease status post CABG Hypertension Yjz-qzmmeww-kmizdmsug diabetes mellitus Monitor vital signs Monitor CBC Monitor CMP Continue telemetry monitoring Trend troponins. Ordered 2D echo Continue aspirin, Plavix Continue Lipitor Continue amlodipine Continue losartan, Imdur, Lopressor Continue pharmacy dose heparin Monitor blood sugar levels, continue sliding scale insulin Cardiology following, planning cardiac cath in the morning Labs and medication were reviewed.. Continue same treatment. Continue with symptomatic treatment. Resume home medication. Monitor labs and vitals. DVT and GI prophylaxis. Further recommendations as per clinical course of the patient Dictation was produced using [employer] dictation software. please excuse any grammatical, word or spelling errors. Objective - Vital Signs Vital signs: Vital Signs Temp 98.2 F 02/06/24 08:00 Pulse 74 02/06/24 08:00 Resp 18 02/06/24 08:00 BP 111/70 02/06/24 08:00 Pulse Ox 97 02/06/24 08:00 FiO2 Intake & Output 02/05/24 02/06/24 02/06/24 18:59 06:59 18:59 Intake Total 70.181 103.789 462 Output Total 300 Balance 70.181 -196.211 462 Weight 95.254 kg 93 kg Intake: Intake, IV Titration 70.181 103.789 Amount Heparin Sod,Pork in 0.45% 70.181 NaCl 25,000 unit In 0.45 % NaCl 1 250ml.bag @ 10.5 UNITS/KG/HR 10.002 mls/ hr IV .Q24H [facility] Rx#: [id number] Heparin Sod,Pork in 0.45% 103.789 NaCl 25,000 unit In 0.45 % NaCl 1 250ml.bag @ 12.5 UNIT/KG/HR 11.907 mls/hr IV .Q21H [facility] Rx#: [id number] Oral 462 Output: Urine 300 Other: Voiding Method Toilet Toilet # Voids 1 1 - Labs CBC & Chem 7: 02/06/24 08:58 03/31/24 08:58 Labs: Abnormal Lab Results - Last 24 Hours (Table) 02/05/24 02/05/24 02/05/24 Range/Units 09:23 11:42 16:49 APTT 36.5 H (22.0-30.0) sec POC Glucose (mg/dL) 165 H (70-110) mg/dL Troponin I 0.208 H* (0.000-0.034) ng/mL 02/05/24 02/05/24 Range/Units 17:25 20:09 APTT 45.3 H (22.0-30.0) sec POC Glucose (mg/dL) 181 H (70-110) mg/dL Troponin I (0.000-0.034) ng/mL
[2024-02-06 16:45] LABS: Glucose,Whole Blood 116 mg/dL (70-110)
[2024-02-06 20:23] LABS: Glucose,Whole Blood 136 mg/dL (70-110)
[2024-02-07 06:27] LABS: Glucose,Whole Blood 91 mg/dL (70-110)
[2024-02-07] MEDS ORDERED: REGADENOSON 0.4 MG/5 ML SYRINGE IV PRN (08:14)
[2024-02-07] MEDS ORDERED: AMINOPHYLLINE 500 MG/20 ML VIAL IV PRN (08:14)
[2024-02-07] MEDS ORDERED: CAFFEINE CITRATE 60 MG/3 ML VIAL IV PRN (08:14)
[2024-02-07 09:16] LABS: HGB 11.6 gm/dL (11.4-16.0); MCH 28.1 pg (25.0-35.0); MCHC 31.3 g/dL (31.0-37.0); MCV 89.7 fL (80.0-100.0); Mean Platelet Volume 8.4; Platelet Count 297 k/uL (150-450); RBC 4.12 m/uL (3.80-5.40); RDW 13.6 % (11.5-15.5); WBC 6.1 k/uL (3.8-10.6)
[2024-02-07 09:30] LABS: ALT 10 U/L (4-34); AST 15 U/L (14-36); African American GFR (CKD) >90 (>60 ml/min/1.73 sqM); Albumin 3.2 g/dL (3.5-5.0); Alkaline Phosphatase 74 U/L (38-126); Anion Gap 5 mmol/L; Blood Urea Nitrogen 21 mg/dL (7-17); Calcium 8.7 mg/dL (8.4-10.2); Carbon Dioxide 26 mmol/L (22-30); Chloride 109 mmol/L (98-107); Glucose 100 mg/dL (74-99); Non-African American GFR(CKD) >90 (>60 ml/min/1.73 sqM); Potassium 3.6 mmol/L (3.5-5.1); Sodium 140 mmol/L (137-145); Total Bilirubin 0.4 mg/dL (0.2-1.3); Total Protein 5.8 g/dL (6.3-8.2)
--- NOTE | 2024-02-07 10:14 | CA ---
Lexiscan Nuclear Stress Test Report Name: Emilee Jennings Exam Date: 02/07/2024 09:26 Exam Location: [facility] Ht (in): 65 Wt (lb): 205 BSA: 2.00 Ordering Phys: Gia Zheng Referring Phys: KATRINA Technologist: Unruly Hoang Age: 48 Gender: F : 1975 Procedure CPT: Indications: Reflex order-Stress test ICD-10 Codes: Patient History: CHEST PAIN, PINO, HTN, DIABETIC, HYPERCHOLESTEROLEMIA, FAMILY HX OF HEART DISEASE, PRIOR CABG X 4 Medications: Meds past 24 hrs: Pretest Chest Pain: STRESS TEST Lexiscan Protocol Exercise Duration (min:sec): 01:[address] Depressions (mm): Angina Score: Rosado Score: Resting HR (bpm): 82 Peak HR (bpm): 116 Resting BP (mmHg): 125 / 65 Peak BP (mmHg): 150 / 78 MPHR: 173 Target HR: 147 % MPHR: 67 METS: 1.0 Total Dose: Peak Dose: Atropine: Double Product: 28330 BP Response: Stress Termination: INFUSION COMPLETE Stress Symptoms: CHEST PRESSURE Stress Summary: ECG ANALYSIS Resting ECG: Stress ECG: CONCLUSIONS At baseline EKG showed normal sinus rhythm, normal axis, diffuse T-wave inversions in lead 2, 1, V2 through V5. Patient recieved IV infusion of Lexiscan 0.4mg and at peak infusion EKG showed no significant change from baseline. Conclusions: 1. Nonspecific stress EKG portion secondary baseline EKG abnormalities. 2. Nuclear imaging to be reported separately. 3. Patient did experience chest pressure with infusion of Lexiscan. Clinical correlation recommended. Dr. Acosta Dutton DO (Electronically Signed) Final Date: 07 February 2024 10:13
--- NOTE | 2024-02-07 11:07 | NM ---
EXAMINATION TYPE: NM stress lexiscan cardiolite DATE OF EXAM: 02/07/2024 COMPARISON: NONE HISTORY: Chest pain TECHNIQUE: After the intravenous administration of 9.6 mCi Tc 99m Sestamibi - Cardiolite resting SPE CT images acquired 40 minutes post injection. At peak stress 25.2 mCi Tc 99m Sestamibi - Stress images obtained 30 minutes post injection The patient was stressed with 0.4mg Lexiscan. FINDINGS: There is loss of signal from the mid inferior wall to the cardiac apex on stress images. This area buckley s normal radiotracer on resting images. Polar maps confirm the defect. Some extension towards the rig ht ventricular insertion may be present, this portion is more likely artifactual. There is dyskinesia of the cardiac apex and distal inferior wall Ejection fraction is calculated to be 62 %. IMPRESSION: 1. Moderately large area of Stress-induced ischemic change along the inferior wall from the midportio n to the cardiac apex.
[2024-02-07 11:33] LABS: Glucose,Whole Blood 130 mg/dL (70-110)
[2024-02-07] MEDS ORDERED: ALPRAZolam 0.5 MG TAB PO PRN (11:34)
[2024-02-07] MEDS ORDERED: NITROGLYCERIN SL TABS 0.4 MG TAB SUBLINGUAL PRN (11:34)
[2024-02-07] MEDS ORDERED: ALPRAZolam 0.25 MG TAB PO PRN (11:34)
--- NOTE | 2024-02-07 12:55 | P.PN ---
Subjective HISTORY OF PRESENT ILLNESS: Patient examined this morning at the bedside by Dr. Salinas. Patient denies any further episodes of chest pain or pressure. Denies any shortness of breath. Patient underwent Lexiscan stress test this morning revealing moderately large area of stress-induced ischemic changes along the inferior wall from the midportion to the cardiac apex. Vital signs are stable. PHYSICAL EXAM: VITAL SIGNS: Reviewed. GENERAL: Well-developed in no acute distress. NECK: Supple. No JVD or thyromegaly LUNGS: Respirations even and unlabored. Lungs essentially clear to auscultation bilaterally. HEART: Regular rate and rhythm. S1 and S2 heard. EXTREMITIES: Normal range of motion. No clubbing or cyanosis. Peripheral pulses intact. No lower extremity edema ASSESSMENT: Non-STEMI, s/p abnormal Lexiscan Ez artery disease with recent four-vessel CABG, December 2023 Hypertension Hyperlipidemia Depression Diabetes Morbid obesity with laparoscopic sleeve gastrectomy, 12/2022 PLAN: Continue current cardiac medications N.p.o. at midnight Patient to undergo cardiac catheterization tomorrow with Dr. Salinas Further recommendations pending patient course Nurse practitioner note has been reviewed by physician. Signing provider agrees with the documented findings, assessment, and plan of care documented by [employer] as a scribe. Objective - Vital Signs Vital signs: Vital Signs Temp 98.4 F 02/07/24 11:50 Pulse 97 02/07/24 11:50 Resp 20 02/07/24 11:50 BP 119/77 02/07/24 11:50 Pulse Ox 100 02/07/24 11:50 FiO2 Intake & Output 02/06/24 02/07/24 02/07/24 18:59 06:59 18:59 Intake Total 1104 Output Total 100 200 Balance 1004 -200 Intake: Oral 1104 Output: Urine 100 200 Other: Voiding Method Toilet Toilet # Voids 1 - Labs CBC & Chem 7: 02/07/24 08:40 02/07/24 08:40 Labs: Abnormal Lab Results - Last 24 Hours (Table) 02/06/24 02/06/24 02/07/24 Range/Units 16:43 20:19 08:40 Chloride 109 H (98-107) mmol/L BUN 21 H (7-17) mg/dL Creatinine 0.51 L (0.52-1.04) mg/dL Glucose 100 H (74-99) mg/dL POC Glucose (mg/dL) 116 H 136 H (70-110) mg/dL Total Protein 5.8 L (6.3-8.2) g/dL Albumin 3.2 L (3.5-5.0) g/dL 02/07/24 Range/Units 11:31 Chloride (98-107) mmol/L BUN (7-17) mg/dL Creatinine (0.52-1.04) mg/dL Glucose (74-99) mg/dL POC Glucose (mg/dL) 130 H (70-110) mg/dL Total Protein (6.3-8.2) g/dL Albumin (3.5-5.0) g/dL
[2024-02-07] MEDS ORDERED: SENNOSIDES-DOCUSATE SODIUM 1 EACH TAB PO PRN (15:39)
[2024-02-07 16:57] LABS: Glucose,Whole Blood 111 mg/dL (70-110)
[2024-02-07 20:32] LABS: Glucose,Whole Blood 128 mg/dL (70-110)
[2024-02-08] MEDS: SODIUM CHLORIDE 0.9% 1,000 ML in EMPTY BAG 1 BAG IV SCH (04:00)
[2024-02-08] MEDS: ATORVASTATIN 80 MG TAB PO ONE (05:33)
[2024-02-08] MEDS: ASPIRIN 325 MG TAB PO ONE (05:33)
--- NOTE | 2024-02-08 06:12 | PN ---
PROGRESS NOTE DATE OF SERVICE: 02/07/2024 SUBJECTIVE: This is a 48-year-old woman, who was admitted with acute paz-ID-agudvbt elevation myocardial infarction, scheduled for cardiac catheterization. No chest pain. No palpitations. No fever. OBJECTIVE: VITAL SIGNS: On exam, pulse 81, blood pressure , and respirations 20. CHEST: Clear to auscultation. CARDIOVASCULAR: S1 and S2. ABDOMEN: Soft. NERVOUS SYSTEM: Nonfocal. LABORATORY DATA: Reviewed. ASSESSMENT: 1. Chest pain. Acute dfx-EI-dqdisnm elevation myocardial infarction, possibly. 2. History of coronary artery disease, coronary artery bypass graft. 3. Hypertension. 4. Diabetes mellitus, type 2. RECOMMENDATIONS: Recommend to continue current management, continue symptomatic treatment; otherwise, possibly cardiac catheterization by tomorrow by Cardiology. Continue the antiplatelet agents and rest of the medications. Monitor renal functions and diabetes medications closely. Further recommendations to follow. MMODL / IJN: [id number] /
[2024-02-08 06:16] LABS: Glucose,Whole Blood 106 mg/dL (70-110)
[2024-02-08] MEDS ORDERED: HEPARIN SODIUM,PORCINE 10,000 UNIT in SODIUM CHLORIDE 0.9% 1,000 ML IRRIGATION PRN (07:00)
[2024-02-08] MEDS ORDERED: HEPARIN SODIUM,PORCINE (1 ML) 2,500 UNIT in SODIUM CHLORIDE 0.9% 250 ML IRRIGATION PRN (07:00)
[2024-02-08] MEDS ORDERED: LIDOCAINE 1% INJ 10MG/ML (20 ML MDV) ONE (08:48)
[2024-02-08] MEDS: IV FLUID CONTINUATION 1,000 ML IV ONE (09:00)
[2024-02-08] MEDS ORDERED: fentaNYL (PF) 50 MCG/ML 2 ML AMP ONE (09:03)
[2024-02-08] MEDS: MIDAZOLAM 2 MG/2 ML VIAL IVP ONE (09:05)
[2024-02-08] MEDS: fentaNYL (PF) 50 MCG/ML 2 ML AMP IVP ONE (09:05)
[2024-02-08] MEDS: LIDOCAINE 1% INJ 10MG/ML (20 ML MDV) SQ ONE (09:07)
[2024-02-08] MEDS: IOPAMIDOL-370 100ML BTL INJ ONE ×3 (09:27→09:55)
[2024-02-08] MEDS ORDERED: RX INFO: IV CONTRAST WAS GIVEN 1 EACH MISC MISCELLANE PRN (10:27)
[2024-02-08] MEDS: SODIUM CHLORIDE 0.9% 1,000 ML IV SCH (10:48)
[2024-02-08] MEDS: RANOLAZINE 500 MG TAB.ER.12H PO SCH (10:48)
--- NOTE | 2024-02-08 11:03 | CC ---
CARDIAC CATHETERIZATION REPORT PROCEDURE PERFORMED: Cardiac catheterization. INDICATION: Pxw-BG-jjpzyjw elevation KS with abnormal stress test. PROCEDURE NOTE: After obtaining informed consent, left heart catheterization, coronary angiogram and selective injection of the bypass grafts is performed via the right femoral artery using standard Zayda catheters. The patient tolerated the procedure well without any obvious immediate complications. A femoral angiogram was performed, and Angio-Seal was deployed for hemostasis. We engaged the GILBERT and the venous graft to the right using the right Zayda catheter and we performed an aortogram to see if there is a radial artery graft to the OM. We could not locate it. We tried a Khushi catheter and the venous bypass graft catheter unsuccessfully and at this time, we read the bypass surgery report thoroughly and noted that her radial artery graft was actually coming off the internal mammary artery and looks like it is closed. The patient underwent Angio-Seal for hemostasis. Total sedation time allotted was 40 minutes. FINDINGS: 1. Hemodynamics: Left ventricular end-diastolic pressure is 8 to 10 mm. There is no significant gradient across the aortic valve. 2. Left ventriculogram: Left ventriculogram is not performed. 3. Aortogram was done to locate the bypass grafts. 4. Selective injection of the [place] coronaries. a.Right coronary artery: Right coronary artery is a codominant system, shows a 95% focal stenosis in the midportion. Left main coronary artery is a small vessel. LAD appears totally occluded proximally. The large dominant [place] circ has a 70% to 80% stenosis in the AV groove circ and an 80% stenosis in the OM branch. 5. Selective injection of the bypass grafts. a.Venous graft to the right coronary artery appears patent and is free of significant disease. b.The radial artery graft to the OM that is coming from the GILBERT appears occluded. c.GILBERT to LAD appears patent. However, it is connected to the diagonal without any direct connection to the LAD itself and at the area of anastomosis to the diagonal, there is a focal 90% stenosis. CONCLUSIONS: 1. Three-vessel coronary artery disease is as described above with patent GILBERT to LAD and venous graft to the right coronary artery with occluded radial artery graft to the OM. 2. Tight stenosis involving the GILBERT to the diagonal. PLAN: I reviewed angiographic data with Dr. Lofton, the on-call target network analyst. We will ambulate the patient, treat her with medical therapy and see how she does. If she still has symptoms, then we will have to revascularize the [place] circ and might have to do angioplasty of the GILBERT to the diagonal. MMJASAWNT / JEFFYN: [id number] /
[2024-02-08 11:39] LABS: Glucose,Whole Blood 99 mg/dL (70-110)
[2024-02-08 12:00] LABS: Basophils % (A) 1 %; Eosinophils # (A) 0.2 k/uL (0-0.7); Eosinophils % (A) 4 %; HCT 35.9 % (34.0-46.0); HGB 11.6 gm/dL (11.4-16.0); Lymphocytes # (A) 1.8 k/uL (1.0-4.8); Lymphocytes % (A) 36 %; MCH 28.8 pg (25.0-35.0); MCHC 32.2 g/dL (31.0-37.0); MCV 89.3 fL (80.0-100.0); Monocytes # (A) 0.2 k/uL (0-1.0); Monocytes % (A) 4 %; Neutrophils # (A) 2.7 k/uL (1.3-7.7); Neutrophils % (A) 53 %; Platelet Count 308 k/uL (150-450); RBC 4.02 m/uL (3.80-5.40); RDW 13.5 % (11.5-15.5)
[2024-02-08 13:48] LABS: African American GFR (CKD) >90 (>60 ml/min/1.73 sqM); Anion Gap 8 mmol/L; Blood Urea Nitrogen 21 mg/dL (7-17); Calcium 8.7 mg/dL (8.4-10.2); Carbon Dioxide 23 mmol/L (22-30); Chloride 107 mmol/L (98-107); Glucose 102 mg/dL (74-99); Non-African American GFR(CKD) >90 (>60 ml/min/1.73 sqM); Potassium 3.7 mmol/L (3.5-5.1); Sodium 138 mmol/L (137-145)
[2024-02-08 16:43] LABS: Glucose,Whole Blood 109 mg/dL (70-110)
--- NOTE | 2024-02-08 19:58 | P.PN ---
Subjective Progress Note Date: 02/08/24 Patient remains on the step down unit currently with no complaints of chest pain. Patient underwent Lexiscan stress test revealing moderately large area of stress-induced ischemic changes along the inferior wall from the midportion to the cardiac apex. Subsequently, patient underwent cardiac catheterization which reveals triple vessel coronary artery disease with occluded radial graft to the OM and tight stenosis involving the GILBERT to the diagonal. There is also large dominant [place] circ has a 70-80% stenosis in the AV groove circ and an 80% stenosis in the OM branch. Patient will be optimized on medical therapy and monitored. Cardiology recommending to perform intervention of the circ lesion/ stenting of the GILBERT to Diagonal if patient is symptomatic with ambulation. Patient remains on aspirin and plavix therapy. Review of Systems Constitutional: Denied any fatigue denied any fever. Cardio vascular: denied any chest pain, palpitations Gastrointestinal: denied any nausea, vomiting, diarrhea Pulmonary: Denied any shortness of breath cough Neurologic denied any new focal deficits All inpatient medications were reviewed and appropriate changes in these medications as dictated in the interval history and assessment and plan. PHYSICAL EXAMINATION: GENERAL: The patient is alert and oriented x3, not in any acute distress. Well developed, well nourished. HEENT: Pupils are round and equally reacting to light. EOMI. No scleral icterus. No conjunctival pallor. Normocephalic, atraumatic. No pharyngeal erythema. No thyromegaly. CARDIOVASCULAR: S1 and S2 present. No murmurs, rubs, or gallops. PULMONARY: Chest is clear to auscultation, no wheezing or crackles. ABDOMEN: Soft, nontender, nondistended, normoactive bowel sounds. No palpable organomegaly. MUSCULOSKELETAL: No joint swelling or deformity. EXTREMITIES: No cyanosis, clubbing, or pedal edema. NEUROLOGICAL: Gross neurological examination did not reveal any focal deficits. SKIN: No rashes. Assessment and plan Non-ST elevation [place] patient has occluded grafts and stenosis of the [place] circ. Continue on dual antiplatelet therapy. Has been started on imdur and ranexa. History of coronary disease status post CABG done December 2023. Hypertension continue on losartan and toprol. [id number]-[id number] diabetes mellitus continue on accuchecks and sliding scale insuling Hyperlipidemia continue on statin therapy Depression; continue on wellbutrin Obesity with hx of lap sleeve gastrectomy GI prophylaxis Full Code Continue on optimized medical therapy. Possible discharge home in the next 24 hours if patient remains asymptomatic. Patient to ambulate. The impression and plan of care has been dictated by Valencia Wheat, Nurse Practitioner as directed. Dr. Evaristo MD I have performed a history and physical examination and medical decision making of this patient, discussed the same with the dictator, and agree with the dictators assessment and plan as written, documented as a scribe. Based on total visit time, I have performed more than 50% of this visit. Objective - Vital Signs Vital signs: Vital Signs Temp 98.1 F 02/08/24 15:54 Pulse 68 02/08/24 15:54 Resp 18 02/08/24 16:51 BP 101/58 02/08/24 15:54 Pulse Ox 98 02/08/24 14:12 FiO2 Intake & Output 02/08/24 02/08/24 02/09/24 06:59 18:59 06:59 Intake Total 10 520 Output Total 200 1800 Balance -190 -1280 Intake: IV 10 100 0.9 10 Oral 420 Output: Urine 200 1800 Other: Voiding Method Toilet Toilet # Voids 1 1 - Labs CBC & Chem 7: 02/08/24 11:31 02/08/24 11:31 Labs: Abnormal Lab Results - Last 24 Hours (Table) 02/07/24 02/08/24 Range/Units 20:25 11:31 BUN 21 H (7-17) mg/dL Creatinine 0.46 L (0.52-1.04) mg/dL Glucose 102 H (74-99) mg/dL POC Glucose (mg/dL) 128 H (70-110) mg/dL
[2024-02-08 20:15] LABS: Glucose,Whole Blood 146 mg/dL (70-110)
[2024-02-09 05:59] LABS: Glucose,Whole Blood 78 mg/dL (70-110)
[2024-02-09 08:34] VITALS: RESP 14
[2024-02-09] MEDS: METOPROLOL SUCCINATE (ER) 50 MG TAB.ER.24H PO SCH (09:13)
[2024-02-09] MEDS: ISOSORBIDE MONONITRATE ER 60 MG TAB.ER.24H PO SCH (09:13)
[2024-02-09 11:33] LABS: Glucose,Whole Blood 105 mg/dL (70-110)
--- NOTE | 2024-02-09 11:52 | P.PN ---
Subjective HISTORY OF PRESENT ILLNESS: Patient examined this morning at the bedside by Dr. Salinas. Patient denies any further episodes of chest pain or pressure. Denies any shortness of breath. Patient underwent Lexiscan stress test this morning revealing moderately large area of stress-induced ischemic changes along the inferior wall from the midportion to the cardiac apex. Vital signs are stable. 02/09/2024 Patient is status postcardiac catheterization revealing three-vessel coronary artery disease with patent GILBERT to LAD and venous graft to right coronary artery with occluded radial artery graft to OM. Tight stenosis involving the GILBERT to the diagonal. Medical management was recommended. Patient's medications were adjusted. Patient examined this morning the bedside. Patient denies any further episodes of chest pain or pressure. She denies any shortness of breath. Vital signs are stable. PHYSICAL EXAM: VITAL SIGNS: Reviewed. GENERAL: Well-developed in no acute distress. NECK: Supple. No JVD or thyromegaly LUNGS: Respirations even and unlabored. Lungs essentially clear to auscultation bilaterally. HEART: Regular rate and rhythm. S1 and S2 heard. EXTREMITIES: Normal range of motion. No clubbing or cyanosis. Peripheral puls es intact. No lower extremity edema ASSESSMENT: Non-STEMI, s/p abnormal Lexiscan, status post cardiac catheterization revealing ree-vessel coronary artery disease with patent GILBERT to LAD and venous graft to right coronary artery with occluded radial artery graft to OM. Tight stenosis involving the GILBERT to the diagonal. Coronary artery disease with recent four-vessel CABG, December 2023 Hypertension Hyperlipidemia Depression Diabetes Morbid obesity with laparoscopic sleeve gastrectomy, 12/2022 PLAN: Continue current cardiac medications Patient is stable for discharge home today from a cardiac standpoint She is to follow-up on an outpatient basis in 1 week Nurse practitioner note has been reviewed by physician. Signing provider agrees with the documented findings, assessment, and plan of care documented by CAN LABELER as a scribe. Objective - Vital Signs Vital signs: Vital Signs Temp 98.1 F 02/09/24 08:07 Pulse 73 02/09/24 08:07 Resp 14 02/09/24 08:07 BP 113/72 02/09/24 08:07 Pulse Ox 98 02/09/24 08:07 FiO2 Intake & Output 02/08/24 02/09/24 02/09/24 18:59 06:59 18:59 Intake Total 520 540 Output Total 1800 Balance -1280 540 Intake: IV 100 Oral 420 540 Output: Urine 1800 Other: Voiding Method Toilet Toilet Toilet # Voids 1 2 1 - Labs CBC & Chem 7: 02/08/24 11:31 02/08/24 11:31 Labs: Abnormal Lab Results - Last 24 Hours (Table) 02/08/24 02/08/24 Range/Units 11:31 20:14 BUN 21 H (7-17) mg/dL Creatinine 0.46 L (0.52-1.04) mg/dL Glucose 102 H (74-99) mg/dL POC Glucose (mg/dL) 146 H (70-110) mg/dL
[2024-02-09 11:57] VITALS: BP 99/62; PULSE 69; TEMP 97.8
== END 2024-02-09 15:43 | disposition home or self-care (01) | DRG 282 ==
LOC: EC 20:53 → 3SCARD 02-05 03:11
PROVIDERS: ADMIT Internal Medicine; ATTEND Internal Medicine
PROC: 4A02XM4 Measurement of Cardiac Total Activity, External Approach (ICD-10-PCS; 2024-02-07)
PROC: B2181ZZ Fluoroscopy of Left Internal Mammary Bypass Graft using Low Osmolar Contrast (ICD-10-PCS; 2024-02-08)
PROC: B3101ZZ Fluoroscopy of Thoracic Aorta using Low Osmolar Contrast (ICD-10-PCS; 2024-02-08)
PROC: B2131ZZ Fluoroscopy of Multiple Coronary Artery Bypass Grafts using Low Osmolar Contrast (ICD-10-PCS; 2024-02-08)
PROC: 4A023N7 Measurement of Cardiac Sampling and Pressure, Left Heart, Percutaneous Approach (ICD-10-PCS; principal; 2024-02-08 09:00)
PROC: B2111ZZ Fluoroscopy of Multiple Coronary Arteries using Low Osmolar Contrast (ICD-10-PCS; 2024-02-08 09:00)
DX: T82.867A Thrombosis due to cardiac prosthetic devices, implants and grafts, initial encounter (principal); I21.4 Non-ST elevation (NSTEMI) myocardial infarction; E66.01 Morbid (severe) obesity due to excess calories; F32.A Depression, unspecified; E78.5 Hyperlipidemia, unspecified; I10 Essential (primary) hypertension; Z95.1 Presence of aortocoronary bypass graft; Z68.34 Body mass index [BMI] 34.0-34.9, adult; Z90.710 Acquired absence of both cervix and uterus
CPT/HCPCS: 36415; 71046; 78452; 80048; 80053; 83036; 83735; 84484; 85025; 85027; 85610; 85730; 93005; 93017; 93308; 93459; 93567; 96365; 96366; 99291

== ENCOUNTER 2024-04-14 07:19 | Day surgery (SDC) | payer BC, OTHER ==
[~2024-04-14 07:19] MED LIST changes: +ALPRAZolam 0.25 MG TAB PO PRN; -DEXAMETHASONE SOD PHOSPHATE 4 MG/ML 1 ML VIAL IV ONE; -HYDROmorphone 0.5 MG/0.5 ML SYRINGE IVP PRN; -LACTATED RINGERS 1,000 ML IV SCH; -MIDAZOLAM 2 MG/2 ML VIAL IV PRN; -ONDANSETRON 4 MG/2 ML VIAL IVP ONE; -SCOPOLAMINE 1 MG/72 HR PATCH TRANSDERM ONE; -ceFAZolin 3 GM in SODIUM CHLORIDE 0.9% 100 ML IVPB PRN
[2024-04-14] MEDS: HYDROcodone/APAP 10-325MG 1 EACH TAB ONE (07:43)
[2024-04-14] MEDS: ALPRAZolam 0.5 MG TAB PO PRN (07:44)
[2024-04-14] MEDS: SODIUM CHLORIDE 0.9% 1,000 ML in EMPTY BAG 1 BAG IV SCH ×2 (07:45→18:23)
[2024-04-14 07:50] LABS: Glucose,Whole Blood 121 mg/dL (70-110)
[2024-04-14 07:59] LABS: Basophils # (A) 0.1 k/uL (0-0.2); Basophils % (A) 1 %; Eosinophils # (A) 0.2 k/uL (0-0.7); Eosinophils % (A) 2 %; HCT 41.6 % (34.0-46.0); HGB 13.3 gm/dL (11.4-16.0); Lymphocytes # (A) 1.8 k/uL (1.0-4.8); Lymphocytes % (A) 29 %; MCH 27.9 pg (25.0-35.0); MCV 87.2 fL (80.0-100.0); Mean Platelet Volume 7.8; Monocytes # (A) 0.3 k/uL (0-1.0); Monocytes % (A) 5 %; Neutrophils % (A) 62 %; Platelet Count 300 k/uL (150-450); RBC 4.78 m/uL (3.80-5.40); RDW 14.1 % (11.5-15.5); WBC 6.4 k/uL (3.8-10.6)
[2024-04-14 08:32] LABS: African American GFR (CKD) >90 (>60 ml/min/1.73 sqM); Anion Gap 5 mmol/L; Blood Urea Nitrogen 21 mg/dL (7-17); Carbon Dioxide 26 mmol/L (22-30); Chloride 107 mmol/L (98-107); Glucose 123 mg/dL (74-99); Non-African American GFR(CKD) >90 (>60 ml/min/1.73 sqM); Potassium 4.1 mmol/L (3.5-5.1); Sodium 138 mmol/L (137-145)
[2024-04-14] MEDS ORDERED: HEPARIN SODIUM 1,000 UN/ML (10ML VL) ONE (09:21)
[2024-04-14] MEDS ORDERED: VERAPAMIL 2.5 MG/ML 2 ML AMP ONE (09:21)
[2024-04-14] MEDS: MIDAZOLAM 2 MG/2 ML VIAL IVP ONE (09:59)
[2024-04-14] MEDS: LIDOCAINE 1% INJ 10MG/ML (20 ML MDV) SQ ONE (10:01)
[2024-04-14] MEDS ORDERED: CLOPIDOGREL 75 MG TAB ONE (10:16)
[2024-04-14] MEDS: HEPARIN SODIUM 1,000 UN/ML (10ML VL) IV ONE (10:16)
[2024-04-14] MEDS: CLOPIDOGREL 75 MG TAB PO ONE (10:18)
[2024-04-14] MEDS: IOPAMIDOL-370 100ML BTL INJ ONE ×2 (10:21→10:50)
[2024-04-14] MEDS ORDERED: ACETAMINOPHEN TAB 500 MG TAB PO PRN (11:04)
[2024-04-14] MEDS ORDERED: NITROGLYCERIN SL TABS 0.4 MG TAB SUBLINGUAL PRN ×2 (11:04→11:05)
[2024-04-14] MEDS ORDERED: RX INFO: IV CONTRAST WAS GIVEN 1 EACH MISC MISCELLANE PRN (11:05)
[2024-04-14] MEDS ORDERED: MAG HYDROX/AL HYDROX/SIMETH 30 ML CUP PO PRN (11:05)
[2024-04-14] MEDS ORDERED: ZOLPIDEM 5 MG TAB PO PRN (11:05)
[2024-04-14] MEDS ORDERED: ATROPINE SULFATE 0.1 MG/ML 10ML SYRINGE IV PRN (11:05)
--- NOTE | 2024-04-14 11:14 | P.PCN ---
Date of Procedure: 04/14/24 Operative Findings: CARDIAC CATHETERIZATION AND PERCUTANEOUS CORONARY INTERVENTION PERFORMING PHYSICIAN: Allan Lofton MD, [facility] PROCEDURE PERFORMED: 1. Selective right and left coronary angiogram and IGLBERT to diagonal angiogram and SVG to RCA angiogram 2. Left heart catheterization 3. Successful stenting of OM1 using 2.25 x 15 and 3.5 x 23 mm Xience RAFA with an excellent angiographic results with adjunctive use of intravascular imaging 4. Ultrasound-guided access of the right common femoral artery and right common femoral artery angiogram INDICATION: Chest discomfort concerning for unstable angina COMPLICATION: None APPROACH: Right common femoral artery LEVEL OF SEDATION: Moderate with the sedation time off 47 minutes PROCEDURE DESCRIPTION: After obtaining informed consent the patient was brought to the cardiac Pipe [employer]. The right common femoral artery was cannulated using micropuncture technique under ultrasound guidance and micropuncture wire passed easily then I placed a 6 [place] 11 cm sheath. Selective left and right coronary angiogram performed using JL 4 and JR4 catheters. The GILBERT to diagonal angiogram and SVG to RCA angiogram performed using JR4 catheter. The heart catheterization was performed using JR4 catheter which crossed the aortic valve then I did pullback across the valve. After reviewing the angiogram we decided to intervene on the left circumflex. Anticoagulation was initiated using heparin with continuous ACT monitoring. Subsequently I did engage the left main using JL 4 guiding catheter. I did wire the LCx/OM using 2 wires from the get go including a run-through wire and whisper wire to have more support and anchoring. I did intravascular ultrasound and that showed a diameter of the left circumflex around 3.5 to 3.75 mm and the artery was not heavily calcified. Predilatation of the distal OM1 was performed using 2.0 mm score flex balloon and for the OM1 proximal to that was performed initially using 2 mm and subsequently 3 oh millimeter noncompliant balloon. Subsequently I stented the lesion in the distal OM1 using 2.25 x 15 mm and proximal to that I deployed 3.5 x 23 mm which was postdilated using 3.75 mm noncompliant balloon. Final angiogram and intravascular ultrasound performed and showed excellent results and the procedure was completed with no complication SELECTIVE CORONARY ANGIOGRAM: The right coronary artery: Large-caliber vessel and a dominant vessel and appears to be occluded in the midportion Left main: Has mild disease on The left circumflex: Large-caliber vessel with extremely severe disease involving the OM1 in the midportion and distal portion The left anterior descending artery: Is chronically occluded in the proximal portion. Coronary bypasses angiogram The SVG to RCA is patent The GILBERT to diagonal is patent with severe disease involving the GILBERT anastomosis. HEMODYNAMICS: LVEDP was about 14 mmHg with no significant gradient across aortic valve CONCLUSION: Successful PCI of the first obtuse marginal branch of the left circumflex as described above Severe disease involving the anastomosis of GILBERT to diagonal branch with a flow to the LAD as well from the diagonal. POSTPROCEDURE MANAGEMENT: 1. Dual antiplatelet therapy using aspirin and Plavix for at least 6 month 2. Aggressive cholesterol control 3. Follow-up with the patient 4. PCI of the GILBERT to diagonal
[2024-04-14] MEDS: SODIUM CHLORIDE 0.9% 500 ML 500 ML IV ONE ×2 (13:45→14:33)
[2024-04-14] MEDS: ASPIRIN 325 MG TAB PO STA (15:58)
[2024-04-14] MEDS: HYDROcodone/APAP 10-325MG 1 EACH TAB PO PRN (18:22)
[2024-04-14] MEDS: RANOLAZINE 500 MG TAB.ER.12H PO SCH (21:13)
[2024-04-14] MEDS: LOSARTAN 25 MG TAB PO SCH (21:13)
[2024-04-15] MEDS: PANTOPRAZOLE 40 MG TABLET PO SCH (06:21)
[2024-04-15 07:42] VITALS: BP 122/75; RESP 15; TEMP 98
[2024-04-15] MEDS: ATORVASTATIN 40 MG TAB PO SCH (08:27)
[2024-04-15] MEDS: ISOSORBIDE MONONITRATE ER 60 MG TAB.ER.24H PO SCH (08:27)
[2024-04-15] MEDS: CLOPIDOGREL 75 MG TAB PO SCH (08:27)
[2024-04-15] MEDS: METOPROLOL SUCCINATE (ER) 50 MG TAB.ER.24H PO SCH (08:27)
[2024-04-15] MEDS: ASPIRIN 81 MG PO SCH (08:27)
[2024-04-15 08:57] VITALS: PULSE 68
[2024-04-15] MEDS: amLODIPine 2.5 MG TAB PO SCH (10:22)
[2024-04-15 12:16] LABS: African American GFR (CKD) >90 (>60 ml/min/1.73 sqM); Non-African American GFR(CKD) >90 (>60 ml/min/1.73 sqM)
--- NOTE | 2024-04-15 12:32 | P.DS ---
Providers Attending physician: Allan Lofton Consults: 04/14/24 11:05 Consult Physician Routine Consulting Provider: [facility] Consult Reason/Comments: Post Interventional patient Do you want consulting provider notified?: Already Contacted Primary care physician: [facility] Course: The patient is a pleasant 48-year-old female patient who underwent successful PCI of the left circumflex yesterday from right common femoral artery The patient was seen and evaluated this morning. She is asymptomatic and she is feeling better. The chest discomfort has improved. No shortness of breath and no dizziness or lightheadedness. The physical examination is remarkable for stable vital signs with regular rate and rhythm and clear breathing sounds bilaterally and no edema was noted The patient is going to be discharged home on dual antiplatelet therapy with holding metformin for 48 to 72 hours. She will be seen by Dr. Salinas in the office as an outpatient Plan - Discharge Summary Discharge Rx Participant: No New Discharge Prescriptions: Continue Losartan [Cozaar] 25 mg PO HS #30 tab Pantoprazole [Protonix] 40 mg PO AC-BRKFST #30 tab Aspirin 81 mg PO DAILY #30 tab Ranolazine [Ranexa] 500 mg PO Q12HR #60 tab HYDROcodone/APAP 10-325MG [[place] 10-325] 1 tab PO TID PRN PRN Reason: Pain amLODIPine [Norvasc] 2.5 mg PO DAILY@1200 #30 tab Clopidogrel [Plavix] 75 mg PO DAILY #30 tab Acetaminophen Tab [Tylenol] 1,000 mg PO Q6HR PRN tab PRN Reason: Fever and/ or Mild Pain Nitroglycerin Sl Tabs [Nitrostat] 0.4 mg SUBLINGUAL Q5M PRN #25 tab PRN Reason: Chest Pain Metoprolol Succinate (ER) [Toprol XL] 50 mg PO QAM Atorvastatin [Lipitor] 40 mg PO QAM Isosorbide Mononitrate ER [Imdur] 60 mg PO QAM Tirzepatide [Mounjaro] 7.5 mg PO WE Discontinued metFORMIN HCL ER [Glucophage XR] 500 mg PO BID Discharge Medication List HYDROcodone/APAP 10-325MG [[place] 10-325] 1 tab PO TID PRN 12/10/23 [History] Acetaminophen Tab [Tylenol] 1,000 mg PO Q6HR PRN tab 12/17/23 [Rx] Clopidogrel [Plavix] 75 mg PO DAILY #30 tab 12/17/23 [Rx] Losartan [Cozaar] 25 mg PO HS #30 tab 12/17/23 [Rx] Pantoprazole [Protonix] 40 mg PO AC-BRKFST #30 tab 12/17/23 [Rx] amLODIPine [Norvasc] 2.5 mg PO DAILY@1200 #30 tab 12/17/23 [Rx] Aspirin 81 mg PO DAILY #30 tab 02/09/24 [Rx] Nitroglycerin Sl Tabs [Nitrostat] 0.4 mg SUBLINGUAL Q5M PRN #25 tab 02/09/24 [Rx] Ranolazine [Ranexa] 500 mg PO Q12HR #60 tab 02/09/24 [Rx] Atorvastatin [Lipitor] 40 mg PO QAM 04/13/24 [History] Isosorbide Mononitrate ER [Imdur] 60 mg PO QAM 04/13/24 [History] Metoprolol Succinate (ER) [Toprol XL] 50 mg PO QAM 04/13/24 [History] Tirzepatide [Mounjaro] 7.5 mg PO WE 04/13/24 [History] Follow up Appointment(s)/Referral(s): Darin Salinas MD [STAFF PHYSICIAN] - 04/26/24 8:30 am ()
[2024-04-19] MEDS ORDERED: NON FORMULARY DRUG (Tirzepatide [Mounjaro] 7.5 MG/0.5 ML Pen.Injctr) PO SCH (11:04)
== END 2024-04-15 12:52 | disposition home or self-care (01) ==
LOC: CATHCVL 07:19 → 6NMEDSUR 10:48 → CATHCVL 04-15 12:52
PROVIDERS: ATTEND Internal Medicine Interventional Cardiology
DX: I25.10 Atherosclerotic heart disease of native coronary artery without angina pectoris (principal); E11.9 Type 2 diabetes mellitus without complications; E78.5 Hyperlipidemia, unspecified; I10 Essential (primary) hypertension; Z79.02 Long term (current) use of antithrombotics/antiplatelets; Z79.82 Long term (current) use of aspirin; Z79.84 Long term (current) use of oral hypoglycemic drugs; Z95.5 Presence of coronary angioplasty implant and graft; Z79.899 Other long term (current) drug therapy
CPT/HCPCS: 94760; 92978; 93459; 76937; 80048; 82565; 85025; C9600; C1760; C1887; C1769 ×5; C1894; C1753; C1874 ×2; C1725 ×3; J2250; J2001; J1644; Q9967

== ENCOUNTER 2024-04-28 05:36 | Day surgery (SDC) | payer BC, OTHER ==
[2024-04-28] MEDS ORDERED: ALPRAZolam 0.25 MG TAB PO PRN (05:49)
[2024-04-28] MEDS ORDERED: NITROGLYCERIN SL TABS 0.4 MG TAB SUBLINGUAL PRN (05:49)
[2024-04-28] MEDS: SODIUM CHLORIDE 0.9% 1,000 ML in EMPTY BAG 1 BAG IV SCH (06:20)
[2024-04-28 06:44] LABS: African American GFR (CKD) >90 (>60 ml/min/1.73 sqM); Anion Gap 7 mmol/L; Blood Urea Nitrogen 18 mg/dL (7-17); Calcium 9.1 mg/dL (8.4-10.2); Carbon Dioxide 27 mmol/L (22-30); Chloride 104 mmol/L (98-107); Glucose 119 mg/dL (74-99); Non-African American GFR(CKD) >90 (>60 ml/min/1.73 sqM); Potassium 3.9 mmol/L (3.5-5.1); Sodium 138 mmol/L (137-145)
[2024-04-28 06:46] LABS: Basophils # (A) 0.1 k/uL (0-0.2); Basophils % (A) 1 %; Eosinophils # (A) 0.3 k/uL (0-0.7); Eosinophils % (A) 3 %; HCT 40.8 % (34.0-46.0); HGB 13.1 gm/dL (11.4-16.0); Lymphocytes # (A) 2.8 k/uL (1.0-4.8); Lymphocytes % (A) 38 %; MCH 28.1 pg (25.0-35.0); MCHC 32.2 g/dL (31.0-37.0); MCV 87.4 fL (80.0-100.0); Mean Platelet Volume 8.3; Monocytes # (A) 0.4 k/uL (0-1.0); Monocytes % (A) 6 %; Neutrophils # (A) 3.8 k/uL (1.3-7.7); Neutrophils % (A) 51 %; Platelet Count 347 k/uL (150-450); RBC 4.67 m/uL (3.80-5.40); RDW 14.5 % (11.5-15.5); WBC 7.5 k/uL (3.8-10.6)
[2024-04-28] MEDS ORDERED: fentaNYL (PF) 50 MCG/ML 2 ML AMP ONE (07:28)
[2024-04-28] MEDS ORDERED: HEPARIN SODIUM 1,000 UN/ML (10ML VL) ONE (07:28)
[2024-04-28] MEDS ORDERED: LIDOCAINE 1% INJ 10MG/ML (20 ML MDV) ONE (07:29)
[2024-04-28] MEDS: MIDAZOLAM 2 MG/2 ML VIAL IVP ONE ×2 (07:50→08:10)
[2024-04-28] MEDS: fentaNYL (PF) 50 MCG/ML 2 ML AMP IVP ONE (07:51)
[2024-04-28] MEDS: LIDOCAINE 1% INJ 10MG/ML (20 ML MDV) SQ ONE (07:52)
[2024-04-28] MEDS ORDERED: niCARdipine 25 MG/10 ML VIAL ONE (07:55)
[2024-04-28] MEDS: HEPARIN SODIUM 1,000 UN/ML (10ML VL) IV ONE (08:06)
[2024-04-28] MEDS: NITROGLYCERIN 1000MCG/10ML SYRINGE INTRACORON ONE (08:23)
[2024-04-28] MEDS: IOPAMIDOL-370 200ML BTL INJ ONE ×2 (09:15→09:48)
[2024-04-28] MEDS ORDERED: MAG HYDROX/AL HYDROX/SIMETH 30 ML CUP PO PRN (09:55)
[2024-04-28] MEDS ORDERED: RX INFO: IV CONTRAST WAS GIVEN 1 EACH MISC MISCELLANE PRN (09:55)
[2024-04-28] MEDS ORDERED: ATROPINE SULFATE 0.1 MG/ML 10ML SYRINGE IV PRN (09:55)
[2024-04-28] MEDS ORDERED: ZOLPIDEM 5 MG TAB PO PRN (09:55)
--- NOTE | 2024-04-28 09:58 | P.PCN ---
Date of Procedure: 04/28/24 Operative Findings: PERCUTANEOUS CORONARY INTERVENTION Performing physician Allan Lofton M.D. Procedure Performed: 1. Successful stenting of the distal GILBERT to diagonal using 3.0 x 12 Xience drug-eluting stent with an excellent angiographic results. 2. GILBERT to diagonal angiogram 3. Right common femoral artery angiogram and ultrasound-guided access of the right common femoral artery Indication: Severe CAD in the symptomatic 48-year-old female patient. Please refer to previous heart catheterization and PCI Approach: Right common femoral artery Complications: None Level of Sedation: Moderate with a sedation length of 117 minutes Procedure Discussion: After obtaining informed consent the patient was brought to the cardiac [employer] Goods [employer]er. The right common femoral artery was cannulated using micropuncture technique under ultrasound guidance a micropuncture wire passed easily and placed a 6 [place] 11 cm sheath at the right common femoral artery. Subsequently anticoagulation was initiated using heparin with continuous ACT monitoring. After that I did engage the GILBERT using JR4 guiding catheter. GILBERT to diagonal angiogram was performed. Subsequently I did wire the diagonal using 2 wires for anchoring reason including 2 whisper wires. Subsequently predilatation was performed using 2.5 mm balloon before I deployed 3 oh by 12 mm Xience RAFA which was postdilated using 3.25 mm NC balloon with final angiogram showing excellent angiographic results with NIKO-3 flow. Subsequently I did engage the left main initially using an EBU guide and subsequently JL 4 guide and then because the guide was not giving me any good engagement of the left main I did engage it using finally XB 3 5 LAD guide. I did attempt wiring the LAD and the wire went all the way to the mid LAD smoothly but subsequently the wire drifted toward the diagonal branch. Because of the maximal amount of contrast used I decided to stop at this point. If the patient remains symptomatic she will benefit from PCI of the LAD. There was flow to the LAD coming from the diagonal. The procedure was completed with no complication Postprocedure Management: 1. Continue dual antiplatelet therapy using aspirin and Plavix for at least 6- month 2. Aggressive cholesterol control 3. Risk factors modification
[2024-04-28] MEDS: HYDROcodone/APAP 10-325MG 1 EACH TAB PO PRN (11:20)
[2024-04-28] MEDS: ASPIRIN 325 MG TAB PO ONE (13:47)
[2024-04-28 15:06] VITALS: BMI 38.4
[2024-04-28 17:39] LABS: Glucose,Whole Blood 91 mg/dL (70-110)
[2024-04-28] MEDS: LOSARTAN 25 MG TAB PO SCH (21:32)
[2024-04-28] MEDS: ATORVASTATIN 40 MG TAB PO SCH (21:32)
[2024-04-28] MEDS: ALPRAZolam 0.5 MG TAB PO PRN (21:32)
[2024-04-28] MEDS: RANOLAZINE 500 MG TAB.ER.12H PO SCH (21:32)
[2024-04-28 21:47] LABS: Glucose,Whole Blood 189 mg/dL (70-110)
[2024-04-29 04:29] VITALS: PULSE 65
[2024-04-29 06:35] LABS: Glucose,Whole Blood 94 mg/dL (70-110)
[2024-04-29 07:34] LABS: Basophils % (A) 1 %; Eosinophils # (A) 0.2 k/uL (0-0.7); Eosinophils % (A) 3 %; HGB 11.3 gm/dL (11.4-16.0); Lymphocytes # (A) 2.7 k/uL (1.0-4.8); Lymphocytes % (A) 50 %; MCH 29.8 pg (25.0-35.0); MCHC 33.3 g/dL (31.0-37.0); MCV 89.6 fL (80.0-100.0); Mean Platelet Volume 8.8; Monocytes # (A) 0.3 k/uL (0-1.0); Monocytes % (A) 5 %; Neutrophils # (A) 2.1 k/uL (1.3-7.7); Neutrophils % (A) 39 %; Platelet Count 246 k/uL (150-450); RBC 3.79 m/uL (3.80-5.40); RDW 14.8 % (11.5-15.5); WBC 5.3 k/uL (3.8-10.6)
[2024-04-29] MEDS: ASPIRIN 81 MG PO SCH (07:45)
[2024-04-29] MEDS: METOPROLOL SUCCINATE (ER) 50 MG TAB.ER.24H PO SCH (07:45)
[2024-04-29] MEDS: ISOSORBIDE MONONITRATE ER 30 MG TAB.ER.24H PO SCH (07:45)
[2024-04-29] MEDS: PANTOPRAZOLE 40 MG TABLET PO SCH (07:45)
[2024-04-29] MEDS: CLOPIDOGREL 75 MG TAB PO SCH (07:45)
[2024-04-29] MEDS: amLODIPine 2.5 MG TAB PO SCH (07:45)
[2024-04-29 07:58] LABS: African American GFR (CKD) >90 (>60 ml/min/1.73 sqM); Anion Gap 2 mmol/L; Blood Urea Nitrogen 17 mg/dL (7-17); Calcium 8.7 mg/dL (8.4-10.2); Carbon Dioxide 27 mmol/L (22-30); Chloride 109 mmol/L (98-107); Glucose 94 mg/dL (74-99); Non-African American GFR(CKD) >90 (>60 ml/min/1.73 sqM); Sodium 138 mmol/L (137-145)
[2024-04-29 09:09] VITALS: BP 108/69; RESP 14; TEMP 98.1
--- NOTE | 2024-04-29 09:51 | P.DS ---
Providers Attending physician: Allan Lofton Consults: 04/28/24 09:55 Consult Physician Routine Consulting Provider: [facility] Consult Reason/Comments: Post Interventional patient Do you want consulting provider notified?: Already Contacted Primary care physician: [facility] Course: The patient is a pleasant 48-year-old female patient who was admitted to the hospital yesterday and underwent successful PCI of the distal GILBERT to diagonal branch with good angiographic results with no complication from right groin approach. She was seen and evaluated this morning. She is asymptomatic. No pain in the chest or shortness of breath. The right groin has small hematoma from prior procedure but no increasing in the size of the hematoma and the groin appears to be slightly bruised as well. Beside that her hemoglobin had dropped about 2 g. We did perform limited echocardiogram to rule out any pericardial effusion and the echo did not show any evidence of pericardial effusion. The patient will be discharged on dual antiplatelet therapy along with high intensity statin. She will be seen by Dr. Salinas as an outpatient. Examination is remarkable for stable vital signs with marginally low blood p ressure which has been the same as before but clear breathing sounds bilaterally and regular rate and rhythm and no edema was noted in the lower extremities Plan - Discharge Summary Discharge Rx Participant: No New Discharge Prescriptions: New Atorvastatin Calcium [Lipitor] 80 mg PO DAILY #90 tablet Continue Losartan [Cozaar] 25 mg PO HS #30 tab Aspirin 81 mg PO DAILY #30 tab Ranolazine [Ranexa] 500 mg PO BID HYDROcodone/APAP 10-325MG [[place] 10-325] 1 tab PO TID PRN PRN Reason: Pain Clopidogrel [Plavix] 75 mg PO DAILY #30 tab Nitroglycerin Sl Tabs [Nitrostat] 0.4 mg SUBLINGUAL Q5M PRN #25 tab PRN Reason: Chest Pain Metoprolol Succinate (ER) [Toprol XL] 50 mg PO QAM Isosorbide Mononitrate ER [Imdur] 30 mg PO QAM Tirzepatide [Mounjaro] 7.5 mg PO WE amLODIPine [Norvasc] 2.5 mg PO DAILY Pantoprazole [Protonix] 40 mg PO DAILY Discontinued metFORMIN HCL 500 mg PO BID Discharge Medication List HYDROcodone/APAP 10-325MG [[place] 10-325] 1 tab PO TID PRN 12/10/23 [History] Clopidogrel [Plavix] 75 mg PO DAILY #30 tab 12/17/23 [Rx] Losartan [Cozaar] 25 mg PO HS #30 tab 12/17/23 [Rx] Aspirin 81 mg PO DAILY #30 tab 02/09/24 [Rx] Nitroglycerin Sl Tabs [Nitrostat] 0.4 mg SUBLINGUAL Q5M PRN #25 tab 02/09/24 [Rx] Isosorbide Mononitrate ER [Imdur] 30 mg PO QAM 04/13/24 [History] Metoprolol Succinate (ER) [Toprol XL] 50 mg PO QAM 04/13/24 [History] Tirzepatide [Mounjaro] 7.5 mg PO WE 04/13/24 [History] Pantoprazole [Protonix] 40 mg PO DAILY 04/26/24 [History] Ranolazine [Ranexa] 500 mg PO BID 04/26/24 [History] amLODIPine [Norvasc] 2.5 mg PO DAILY 04/26/24 [History] Atorvastatin Calcium [Lipitor] 80 mg PO DAILY #90 tablet 04/29/24 [Rx] Follow up Appointment(s)/Referral(s): Darin Salinas MD [STAFF PHYSICIAN] - 05/09/24 9:45 am Activity/Diet/Wound Care/Special Instructions: resume metformin on 04/30/24 evening dose.
[2024-04-29] MEDS: ATORVASTATIN 80 MG TAB PO STA (10:25)
--- NOTE | 2024-04-29 13:24 | CA ---
Transthoracic Echo Report Name: Emilee Jennings Age: 48 Gender: F : 1975 Exam Date: 04/29/2024 08:48 Exam Location: [facility] Ht (in): 62 Wt (lb): 210 Ordering Physician: Allan Lofton MD ([id number]) Attending/Referring Phys: Wedger And Gluer Taylor Andrade RDCS Procedure CPT: Indications: rule out pericardial effusion Cardiac Hx: Technical Quality: Fair Contrast 1: Total Dose (mL): Contrast 2: Total Dose (mL): MEASUREMENTS (Male / Female) Normal Values FINDINGS Left Ventricle Left ventricular ejection fraction is estimated at 55 to 60 %. Right Ventricle Right Atrium Left Atrium Mitral Valve Aortic Valve Tricuspid Valve Pulmonic Valve Pericardium No pericardial effusion. Aorta CONCLUSIONS Limited echo. Normal left ventricular size and systolic function No pericardial effusion Previewed by: Dr. Rae Cuevas MD (Electronically Signed) Final Date: 29 April 2024 13:23
[2024-05-03] MEDS ORDERED: PATIENT'S OWN (Tirzepatide [Mounjaro] 7.5 MG/0.5 ML Pen.Injctr) PO SCH (09:00)
== END 2024-04-29 10:26 | disposition home or self-care (01) ==
LOC: CATHCVL 05:36 → 6NMEDSUR 09:50 → CATHCVL 04-29 10:26
PROVIDERS: ATTEND Internal Medicine Interventional Cardiology
DX: I25.10 Atherosclerotic heart disease of native coronary artery without angina pectoris (principal); I10 Essential (primary) hypertension; E78.5 Hyperlipidemia, unspecified; E11.9 Type 2 diabetes mellitus without complications; Z79.02 Long term (current) use of antithrombotics/antiplatelets; Z79.82 Long term (current) use of aspirin; Z79.84 Long term (current) use of oral hypoglycemic drugs; Z79.899 Other long term (current) drug therapy; Z95.5 Presence of coronary angioplasty implant and graft
CPT/HCPCS: 93308; 93005; 80048 ×2; 85025 ×2; C9604; C1887 ×4; C1769 ×4; C1725 ×2; C1894; C1874; C1751; J2250; J2001; J3010; J1644; Q9967; J2305

== ENCOUNTER → 2024-08-09 | Outpatient (CLI) | payer BC ==
[2024-08-09 16:09] VITALS: BP 134/84; PULSE 75; RESP 16; TEMP 97.9; BMI 37.2
--- NOTE | 2024-08-09 16:47 | P.HPBAR ---
Bariatric H&P - History & Physicial H&P Date: 08/09/24 History & Physicial: Visit/CC: f/u Patient initial contact: Initial weight: Initial weight in pounds: Height: 5 ft 3 in Initial BMI: Last weight: Current weight: 95.254 kg Current weight in pounds: 210.00 Current BMI: 37.2 [place] body weight (based on NIH guidelines): 52.163 kg Excess body weight loss: The patient is a 49 year-old F who presents for Bariatric Assessment. She had 4-duprle bypass then stents for her heart in over 2 years. She reports persistent chest pain. Kept 100 pounds. Her diabetes is great. She is off insulin. Stent was placed in April 4 months ago. NO GERD. No dysphagia. She cannot tolerate eggs and rice. Labs for bariatric is pending. Past Medical History Past Medical History: Coronary Artery Disease (CAD), Chest Pain / Angina, Diabetes Mellitus, Hyperlipidemia, Hypertension Additional Past Medical History / Comment(s): MID BACK PAIN, RIGHT SIDE. History of Any Multi-Drug Resistant Organisms: None Reported Past Surgical History: Bariatric Surgery, Section, Coronary Bypass/CABG, Heart Catheterization, Heart Catheterization With Stent, Hysterectomy, Orthopedic Surgery Additional Past Surgical History / Comment(s): BILATERAL CARPAL TUNNEL, ABSCESS ON ABD (I & D, PACKING) @ [facility] (CAN'T REMEMBER CULTURE RESULTS), Right knee surgery X2, COLONOSCOPY, right knee meniscus repair, Gastric sleeve 12/28/22 cabg 12/13/2023, cardiac stent X1 04/14/24, 04/28/24 1 stent Past Anesthesia/Blood Transfusion Reactions: No Reported Reaction Date of Last Stent Placement:: 04/28/24 Past Psychological History: Depression Smoking Status: Never smoker Past Alcohol Use History: Rare Past Drug Use History: None Reported - Past Family History Mother Family Medical History: Cancer Father Family Medical History: CVA/TIA, Myocardial Infarction ([place]) Surgical - Exam Vital Signs Temp Pulse Resp BP 97.9 F 75 16 134/84 08/09/24 15:57 08/09/24 15:57 08/09/24 15:57 08/09/24 15:57 Bariatric Checklist Checklist: Plan: Checklist: EGD: 1. Hiatal hernia: 2. H. Pylori: HgbA1c: Vitamin D: Smoking: Never smoker Primary care physician referral: Dr. Hernandez Psychiatry clearance: Cardiology clearance: Sleep study: Diet journal: VTE risk score: VTE risk level: Rehab needs at discharge:
== END ==
LOC: BARWHC3 15:27
PROVIDERS: ATTEND Surgery Plastic and Reconstructive Surgery
DX: Z46.51 Encounter for fitting and adjustment of gastric lap band (principal); E66.01 Morbid (severe) obesity due to excess calories; Z98.84 Bariatric surgery status; Z68.37 Body mass index [BMI] 37.0-37.9, adult
CPT/HCPCS: 99211

== ENCOUNTER → 2024-09-04 | Outpatient (CLI) | payer OTHER ==
--- NOTE | 2024-09-04 18:56 | XR ---
EXAMINATION TYPE: XR shoulder complete LT DATE OF EXAM: 09/04/2024 6:32 PM COMPARISON: None CLINICAL INDICATION: Female, 49 years old with history of S30.3XXA, S40.012A; pain TECHNIQUE: XR shoulder complete LT; examined in AP, internally rotated and scapular Y projections. FINDINGS: No evidence of acute osseous pathology, joint dislocation, or soft tissue swelling. The remaining po rtions of the visualized chest are unremarkable. Degeneration changes of the acromion, distal clavic le with osteophyte formation. There is osteophyte formation of the glenoid and humeral head. There is joint space narrowing of glenohumeral joint. Sternotomy wires are present. Left atrial appendage occ lusion device partially visualized. IMPRESSION: 1. No acute osseous pathology. 2. Mild shoulder osteoarthrosis. [facility], , 09/04/2024 6:54 PM
--- NOTE | 2024-09-04 18:57 | XR ---
EXAMINATION TYPE: XR lumbar spine 2 or 3V DATE OF EXAM: 09/04/2024 6:32 PM COMPARISON: None CLINICAL INDICATION: Female, 49 years old with history of S30.3XXA, S40.012A; [facility] TECHNIQUE: XR lumbar spine 2 or 3V - Frontal, lateral and coned in L5-S1 lateral views of the spine. FINDINGS: No evidence of any acute osseous pathology. No evidence of loss of vertebral body height i s seen. There is normal alignment of the lumbar vertebral bodies. Scattered disc space narrowing. Mul tilevel marginal osteophyte formation throughout the visualized spine. There is facet joint arthropat hy throughout the spine. Scattered at least mild neural foraminal stenosis. IMPRESSION: 1. No acute fracture. 2. Mild multilevel disc degeneration. [facility], , 09/04/2024 6:55 PM
--- NOTE | 2024-09-04 18:57 | XR ---
EXAMINATION TYPE: XR Hip LT and AP Pelvis DATE OF EXAM: 09/04/2024 6:32 PM COMPARISON: None CLINICAL INDICATION: Female, 49 years old with history of S30.3XXA, S40.012A; [facility] TECHNIQUE: XR Hip LT and AP Pelvis; hip was examined in the frontal and lateral projections and a AP pelvis. FINDINGS: No evidence for acute process, joint dislocation or significant soft tissue swelling. Osteo phyte formation of the superior acetabulum of the hip. There is mild joint space narrowing. IMPRESSION: 1. No evidence for acute process. 2. Mild hip osteoarthrosis. [facility], , 09/04/2024 6:54 PM
== END | disposition home or self-care (01) ==
LOC: RADXRMAIN 17:47
PROVIDERS: ATTEND Emergency Medicine
CPT/HCPCS: 72100; 73502

== ENCOUNTER → 2024-09-12 | Outpatient (CLI) | payer OTHER ==
--- NOTE | 2024-09-12 12:01 | CT ---
EXAMINATION TYPE: CT brain wo con CT DLP: 1144.10 mGycm, Automated exposure control for dose reduction was used. DATE OF EXAM: 09/12/2024 11:56 AM COMPARISON: None. CLINICAL INDICATION:Female, 49 years old with history of G44.319 G44.319 ACUTE POST-TRAUMATIC HEADACH E, fall on 09/04 pt doesn't recall if hit head, headaches front and back TECHNIQUE: Brain: Multiple axial CT images of the brain were obtained without IV contrast. . Coronal and sagitta l reformats reviewed. FINDINGS: Brain: Extra-axial spaces: No abnormal extra-axial fluid collections. Ventricular system: Within normal limits Cerebral parenchyma: No acute intraparenchymal hemorrhage or mass effect. The garcia-white junction is well differentiated. Scattered hypoattenuating areas are seen within the periventricular white matte r. Cerebellum: Unremarkable. Mass effect: No evidence of midline shift. Intracranial vasculature: Atherosclerotic calcifications of the intracranial vessels. Soft tissues: Normal. Calvarium/osseous structures: No depressed skull fracture. Benign hyperostosis frontalis noted. Paranasal sinuses and mastoid air cells: Mastoid air cells are clear. Prominent 3 cm mucous retention cyst within the right maxillary sinus. Subcentimeter mucous retention cyst within the medial aspect of the left maxillary sinus. Hypoplasia of the left frontal sinus. Remaining paranasal sinuses are cl ear. Visualized orbits: Orbital contents are intact. IMPRESSION: 1. No acute intracranial process. 2. Nonspecific white matter changes, likely secondary to chronic small vessel ischemic disease. [facility], , 09/12/2024 11:58 AM
== END | disposition home or self-care (01) ==
LOC: RADCTMAIN 11:35
PROVIDERS: ATTEND Emergency Medicine
DX: J34.1 Cyst and mucocele of nose and nasal sinus (principal); G44.319 Acute post-traumatic headache, not intractable
CPT/HCPCS: 70450

== ENCOUNTER 2025-05-31 10:37 | Emergency (ER) | payer BC, OTHER ==
--- NOTE | 2025-05-31 13:39 | ED ---
Chest Pain HPI - General Source: patient Mode of arrival: ambulatory Limitations: no limitations <Cate Alberts - Last Filed: 05/31/25 15:19> - General Source: RN notes reviewed, old records reviewed <AnastaciaemmnauelJesus - Last Filed: 05/31/25 20:01> - General Chief Complaint: Chest Pain Stated Complaint: Chest Pain Time Seen by Provider: 05/31/25 11:02 - History of Present Illness Initial Comments: 49-year-old female with past medical history of coronary artery disease status post open heart surgery, 5 stents in November who presents to the emergency department reporting chest pain. States that her pain started around 10 AM. She had pressure which radiated to her back. She did feel short of breath. Symptoms lasted for approximately 20 minutes before they resolved. She had taken 2 nitro that did relieve the pain. She denies any nausea or vomiting. No fevers, chills or cough. States that her pain is completely resolved at this time. Denies any abdominal pain. Has been taking all of her medications as directed. No other alleviating, precipitating or modifying factors (Cate Alberts) - Related Data Home Medications Medication Instructions Recorded Confirmed HYDROcodone/APAP 10-325MG [[place] 1 tab PO QID PRN 12/10/23 05/31/25 10-325] Metoprolol Succinate (ER) [Toprol 50 mg PO DAILY 04/13/24 05/31/25 XL] Pantoprazole [Protonix] 40 mg PO DAILY 04/26/24 05/31/25 Ranolazine [Ranexa] 500 mg PO BID 04/26/24 05/31/25 amLODIPine [Norvasc] 2.5 mg PO DAILY 04/26/24 05/31/25 Losartan [Cozaar] 12.5 tab PO HS 08/09/24 05/31/25 Dapagliflozin Propanediol [Farxiga] 10 mg PO DAILY 05/31/25 05/31/25 Rosuvastatin Calcium [Crestor] 40 mg PO DAILY 05/31/25 05/31/25 Tirzepatide [Mounjaro] 12.5 mg SQ ROMAN 05/31/25 05/31/25 metFORMIN HCL ER [Glucophage XR] 500 mg PO DAILY 05/31/25 05/31/25 Previous Rx's Medication Instructions Recorded Clopidogrel [Plavix] 75 mg PO DAILY #30 tab 12/17/23 Aspirin 81 mg PO DAILY #30 tab 02/09/24 Nitroglycerin Sl Tabs [Nitrostat] 0.4 mg SUBLINGUAL Q5M PRN #25 tab 02/09/24 Allergies Allergy/AdvReac Type Severity Reaction Status Date / Time No Known Allergies Allergy Verified 05/31/25 12:16 Review of Systems ROS Other: All systems not noted in ROS Statement are negative. <Cate Alberts - Last Filed: 05/31/25 15:19> ROS Other: All systems not noted in ROS Statement are negative. <Jesus Koehler - Last Filed: 05/31/25 20:01> ROS Statement: Those systems with pertinent positive or pertinent negative responses have been documented in the HPI. Past Medical History Past Medical History: Coronary Artery Disease (CAD), Chest Pain / Angina, Diabetes Mellitus, Hyperlipidemia, Hypertension Additional Past Medical History / Comment(s): MID BACK PAIN, RIGHT SIDE. History of Any Multi-Drug Resistant Organisms: None Reported Past Surgical History: Bariatric Surgery, Section, Coronary Bypass/CABG, Heart Catheterization, Heart Catheterization With Stent, Hysterectomy, Orthopedic Surgery Additional Past Surgical History / Comment(s): BILATERAL CARPAL TUNNEL, ABSCESS ON ABD (I & D, PACKING) @ [facility] (CAN'T REMEMBER CULTURE RESULTS), Right knee surgery X2, COLONOSCOPY, right knee meniscus repair, Gastric sleeve 12/28/22 cabg 12/13/2023, cardiac stent X1 04/14/24, 04/28/24 1 stent Past Anesthesia/Blood Transfusion Reactions: No Reported Reaction Date of Last Stent Placement:: 04/28/24 Past Psychological History: Depression Smoking Status: Never smoker Past Alcohol Use History: Rare Past Drug Use History: None Reported - Past Family History Mother Family Medical History: Cancer Father Family Medical History: CVA/TIA, Myocardial Infarction ([place]) <Cate Alberts - Last Filed: 05/31/25 15:19> General Exam Limitations: no limitations General appearance: alert, in no apparent distress Head exam: Present: atraumatic, normocephalic, normal inspection Eye exam: Present: normal appearance, PERRL, EOMI. Absent: scleral icterus, conjunctival injection, periorbital swelling ENT exam: Present: normal exam, mucous membranes moist Neck exam: Present: normal inspection. Absent: tenderness, meningismus, lymphadenopathy Respiratory exam: Present: normal lung sounds bilaterally. Absent: respiratory distress, wheezes, rales, rhonchi, stridor Cardiovascular Exam: Present: regular rate, normal rhythm, normal heart sounds. Absent: systolic murmur, diastolic murmur, rubs, gallop, clicks GI/Abdominal exam: Present: soft, normal bowel sounds. Absent: distended, tenderness, guarding, rebound, rigid Extremities exam: Present: normal inspection, full ROM, normal capillary refill. Absent: tenderness, pedal edema, joint swelling, calf tenderness Back exam: Present: normal inspection Neurological exam: Present: alert, oriented X3, CN II-XII intact Psychiatric exam: Present: normal affect, normal mood Skin exam: Present: warm, dry, intact, normal color. Absent: rash <Cate Alberts - Last Filed: 05/31/25 15:19> Course Vital Signs 05/31/25 05/31/25 05/31/25 10:40 12:41 16:04 Temperature 97.9 F Pulse Rate 74 66 75 Respiratory 18 18 18 Rate Blood Pressure 126/80 125/60 132/68 O2 Sat by Pulse 99 96 95 Oximetry Chest Pain MDM <Cate Alberts - Last Filed: 05/31/25 15:19> <Jesus Koehler - Last Filed: 05/31/25 20:01> - MDM Was pt. sent in by a medical professional or institution (, [place], [facility], urgent care, hospital, or retirement...) When possible be specific @ -[No] Did you speak to anyone other than the patient for history (EMS, parent, family, police, friend...)? What history was obtained from this source @ -[No] Did you review nursing and triage notes (agree or disagree)? Why? @ -[I reviewed and agree with nursing and triage notes] Were old charts reviewed (outside hosp., previous admission, EMS record, old EKG, old radiological studies, urgent care reports/EKG's, retirement records)? Report findings @ -[No old charts were reviewed] Differential Diagnosis (chest pain, altered mental status, abdominal pain women, abdominal pain men, vaginal bleeding, weakness, fever, dyspnea, syncope, headache, dizziness, GI bleed, back pain, seizure, CVA, palpatations, mental health, musculoskeletal)? @ -[not applicable] EKG interpreted by me (3pts min.). @ -Yes which demonstrates sinus rhythm with a rate of 70. OK interval 183. QRS 90. QTc of 416. Inverted T waves in V3. No acute ST segment elevation X-rays interpreted by me (1pt min.). @ -[None done] CT interpreted by me (1pt min.). @ -[None done] U/S interpreted by me (1pt. min.). @ -[None done] What testing was considered but not performed or refused? (CT, X-rays, U/S, labs)? Why? @ -[None] What meds were considered but not given or refused? Why? @ -[None] Did you discuss the management of the patient with other professionals (professionals i.e. , PA, [facility], lab, RT, psych nurse, kettle worker, incinerator plant general supervisor, teacher, investment officer, case investigator)? Give summary @ -[No] Was smoking cessation discussed for >3mins.? @ -[No] Was critical care preformed (if so, how long)? @ -[No] Were there social determinants of health that impacted care today? How? (Homeles sness, low income, unemployed, alcoholism, drug addiction, transportation, low edu. Level, literacy, decrease access to med. care, long-term, rehab)? @ -[No] Was there de-escalation of care discussed even if they declined (Discuss DNR or withdrawal of care, Hospice)? DNR status @ -[No] What co-morbidities impacted this encounter? (DM, HTN, Smoking, COPD, CAD, Cancer, CVA, ARF, Chemo, Hep., AIDS, mental health diagnosis, sleep apnea, morbid obesity)? @ -[None] Was patient admitted / discharged? Hospital course, mention meds given and route, prescriptions, significant lab abnormalities, going to OR and other pertinent info. @ -[hospital course] Undiagnosed new problem with uncertain prognosis? @ -[No] Drug Therapy requiring intensive monitoring for toxicity (Heparin, Nitro, Insulin, Cardizem)? @ -[No] Were any procedures done? @ -[No] Diagnosis/symptom? @ -[default] Acute, or Chronic, or Acute on Chronic? @ -[default] Uncomplicated (without systemic symptoms) or Complicated (systemic symptoms)? @ -[default] Side effects of treatment? @ -[No] Exacerbation, Progression, or Severe Exacerbation? @ -[No] Poses a threat to life or bodily function? How? (Chest pain, [place], [place], pneumonia, PE, COPD, DKA, ARF, appy, cholecystitis, CVA, Diverticulitis, Homicidal, Suicidal, threat to staff... and all critical care pts) @ -[No] (Cate Alberts) Patient care signed out at shift change awaiting laboratory testing. There was a delay in initial lab testing. I did reevaluate the patient she is resting comfortably. She has no further chest pain. Her initial troponin is negative. I had plan to admit this patient for serial cardiac enzymes, telemetry, cardiology consultation. The patient declines. Stating that she feels well and wishes to go home but she is agreeable to a second troponin. This is repeated in the emergency department and is again negative. Patient is given strict return parameters and is discharged in stable condition. (Jesus Koehler) Disposition <Cate Alberts - Last Filed: 05/31/25 15:19> Is patient prescribed a controlled substance at d/c from ED?: No Time of Disposition: 20:00 <Jesus Koehler - Last Filed: 05/31/25 20:01> Clinical Impression: Chest pain Disposition: HOME SELF-CARE Condition: Fair Instructions (If sedation given, give patient instructions): Chest Pain (ED) Referrals: John Hernandez DO [Primary Care Provider] - 1-2 days Allan Lofton MD [STAFF PHYSICIAN] - 1-2 days
--- NOTE | 2025-05-31 14:49 | XR ---
EXAMINATION TYPE: XR chest 2V DATE OF EXAM: 05/31/2025 1:51 PM COMPARISON: 02/04/2024 CLINICAL INDICATION: Female, 49 years old with history of Chest Pain, , TECHNIQUE: PA and lateral views FINDINGS: Median sternotomy wires are present with post-CABG clips. The cardiomediastinal silhouette, aorta, an d pulmonary vasculature are within normal limits. Lungs and pleural spaces are clear. DISH mid thorac ic spine. IMPRESSION: Post-CABG changes. No acute cardiopulmonary process. [facility], , 05/31/2025 2:46 PM
[2025-05-31 15:01] LABS: Basophils # (A) 0.05 10*3/uL (0.00-0.10); Basophils % (A) 0.8 %; Eosinophils # (A) 0.23 10*3/uL (0.04-0.35); Eosinophils % (A) 3.9 %; HCT 41.2 % (37.2-46.3); HGB 13.8 g/dL (12.0-15.0); Lymphocytes # (A) 2.20 10*3/uL (0.90-5.00); Lymphocytes % (A) 36.9 %; MCH 30.1 pg (27.0-32.0); MCHC 33.5 g/dL (32.0-37.0); MCV 89.8 fL (80.0-97.0); Monocytes # (A) 0.33 10*3/uL (0.20-1.00); Monocytes % (A) 5.5 %; Neutrophils # (A) 3.13 10*3/uL (1.80-7.70); Neutrophils % (A) 52.6 %; Platelet Count 281 10*3/uL (140-440); RBC 4.59 10*6/uL (4.10-5.20); RDW 13.2 % (11.5-14.5); WBC 5.96 10*3/uL (4.50-10.00)
[2025-05-31 15:19] LABS: INR 1.0 (<1.2); Partial Thromboplastin Time 26.3 sec (22.0-30.0); Prothrombin Time 11.2 sec (10.0-12.5)
[2025-05-31 15:35] LABS: ALT 16 U/L (4-34); AST 24 U/L (14-36); African American GFR (CKD) >90 (>60 ml/min/1.73 sqM); Albumin 4.1 g/dL (3.5-5.0); Alkaline Phosphatase 67 U/L (38-126); Anion Gap 11 mmol/L; Blood Urea Nitrogen 21 mg/dL (7-17); Calcium 9.2 mg/dL (8.4-10.2); Carbon Dioxide 21 mmol/L (22-30); Chloride 106 mmol/L (98-107); Glucose 80 mg/dL (74-99); Lipase 156 U/L (23-300); Magnesium 2.0 mg/dL (1.6-2.3); Non-African American GFR(CKD) >90 (>60 ml/min/1.73 sqM); Potassium 4.1 mmol/L (3.5-5.1); Sodium 138 mmol/L (137-145); Total Protein 6.7 g/dL (6.3-8.2)
[2025-05-31 15:40] LABS: NT-Pro-B-Type Natriuretic Pept 31 pg/mL
[2025-05-31] MEDS: ASPIRIN 81 MG PO STA (16:06)
[2025-05-31 20:40] VITALS: BP 135/86; PULSE 74; RESP 16; TEMP 98.2
== END 2025-05-31 20:44 | disposition home or self-care (01) ==
LOC: EC 10:37
DX: R07.9 Chest pain, unspecified (principal); I25.10 Atherosclerotic heart disease of native coronary artery without angina pectoris; Z95.5 Presence of coronary angioplasty implant and graft
CPT/HCPCS: 36415; 71046; 80053; 83690; 83735; 83880; 84484; 85025; 85379; 85610; 85730; 93005; 99285